=== PATIENT | male | born 1960 | race Caucasian/White ===

== ENCOUNTER 2017-10-01 08:11 | Day surgery (SDC) | payer MEDICAID, SELFPAY ==
[2017-10-01] VITALS (12 sets, daily range): BP systolic 125–187; BP diastolic 77–119; PULSE 70–106; RESP 16–18; TEMP 36.7–37.1; O2SAT 89–98; BMI 21.8
[2017-10-01] MEDS: Cefazolin 1 GM/50 ML BAG IV (09:27)
--- NOTE | 2017-10-01 09:45 | RAD_ITS ---
STUDY: X-RAY - LEFT WRIST REASON FOR EXAM: Male, 57 years old. ORIF of the left wrist. TECHNIQUE: 2 intraoperative view(s) of the wrist were obtained. COMPARISON: None. FINDINGS: There is evidence of open reduction and fixation of the distal radial fracture using sideplate and screw fixation device. There is good alignment. RAD/Wrist 2 Views IMPRESSION: Successful ORIF of the distal radial fracture. Electronically Signed: Victor Manuel Llanes MD at 12:33 EDT Tel [phone], Service support ,
--- NOTE | 2017-10-01 10:25 | PCM.OPRPT ---
Report of Operation Date of Procedure: 10/01/17 Pre-Operative Diagnosis: Left extra-articular distal radius fracture Post-Operative Diagnosis: Left extra-articular distal radius fracture Surgery/Procedure Performed:: Open reduction internal fixation left distal radius fracture extra-articular Description of Surgical Findings:: Well reduced fracture hydraulic elevator constructor: Fernandez Flor Type of Anesthesia:: General Anesthesiologist: Sridhar Puga Special Medications: 2 g Ancef Estimated Blood Loss (mL): 5 Fluids Replaced: 700 ml Description of Procedure: 57-year-old male who sustained a unstable Anderson's fracture of his left distal radius. He was seen in the office by my physician educational program assistant based on stability of the fracture after review the case recommended open reduction internal fixation of the fracture. Risks and benefits were discussed the patient in the preoperative area as well as in the office. I did reexamine the patient the preoperative area. He was neurovascular intact. Skin was intact. Risks and benefits discussed the patient by myself include but are not limited to blood loss, DVTs, PEs, nervous damage, infection, the risk of anesthesia including loss of life. Procedure: On the procedure patient's left arm was marked in the preoperative area. Patient was taken back the operating room where there transferred to the table in supine position. Anesthesia controlled C-spine airway and remained controlled throughout the remainder the procedure. All bony prominences were identified well-padded after anesthesia was administered tourniquet was placed in the left upper arm. Stent was removed. Hand was vigorously scrubbed using chlorhexidine soap to remove gross debris. Chlorhexidine prep stick was then used to prep the extremity. Surgeon scrubbed. Upon reentering the room left upper extremity was draped in a standard orthopedic fashion. Incision was marked out over the volar wrist along the FCR. Timeout was called and when agreed upon the side, the site, and the procedure to be performed, patient identity and by skin. Esmarch bandage was used to obtain it extremity and tourniquet was placed up to 250 mmHg. Incision was taken down through skin subtenons tissue. We identified the fascia over the FCR. This was incised. FCR was retracted ulnarly and the deep fascia was then incised. FPL was then retracted ulnarly. The radial edge of the pronator quadratus was identified and incised off the radial border of the radius. At this time we can identify the fracture. Carlos was placed in the fracture site help with reduction. Fracture was reduced and live x-ray was used to verify fracture reduction. Once they are happy the fracture reduction plate was provisionally fixed using K wires. Once we are happy with the plate placement which was verified under live x-ray screw was placed proximally. Once the proximal screw was placed 2 cortical screws were placed distally to draw the plate to the bone. Once these 2 cortical screws were placed the locking she was placed an additional cortical screw was placed. Plate placement was again verified. The final cortical screw was then placed and final x-rays were taken. We are happy with our fracture reduction at this time. Wound was copiously irrigated out normal saline. Incision was closed with 2-0 Vicryl and final skin closure was done with Monocryl and Steri-Strips. Xeroform dressing was placed. Compressive dressing was placed. Volar splint was placed. Patient was awakened by anesthesia and transferred to PACU for recovery. Postoperative plan for this patient 6 weeks nonweightbearing. We removed and he will start physical therapy for range of motion at 2 weeks postop. Grafts/Implants Used: Synthes 2 hole small left distal radius plate, VA - Complications none - Admit VTE Documentation VTE Present on Admission: No VTE Mechan Device Prophylaxis: SCD's VTE Pharm Prophylaxis ordered?: No Reason prophylaxis not ordered:: Treatment Not Indicated
[2017-10-01] MEDS: Ketorolac 30 MG/ML Syringe IV (10:58)
[2017-10-01] MEDS: oxyCODONE 5 MG Tablet PO (11:18)
[2017-10-01] MEDS: Acetaminophen 500 MG Tablet 1000 MG PO (11:18)
[2017-10-01] MEDS: Ipratropium/Albuterol Sulfate 3 ML AMPUL.NEB INHALATION (11:59)
== END 2017-10-01 12:56 | disposition home or self-care (01) ==
LOC: SDC 08:17 → AC 08:21
PROVIDERS: Visit Provider Specialist
PROC: (CPT 25607; principal; 2017-10-01 09:45)
DX: S52.542A Smith's fracture of left radius, initial encounter for closed fracture (principal); W19.XXXA Unspecified fall, initial encounter; Y93.H9 Activity, other involving exterior property and land maintenance, building and construction; Y92.9 Unspecified place or not applicable; Y99.9 Unspecified external cause status; I10 Essential (primary) hypertension; G40.909 Epilepsy, unspecified, not intractable, without status epilepticus; F17.218 Nicotine dependence, cigarettes, with other nicotine-induced disorders; Z86.73 Personal history of transient ischemic attack (TIA), and cerebral infarction without residual deficits
CPT/HCPCS: 25607; 73100; 76000; C1713; J7120; J2405

== ENCOUNTER 2021-07-05 07:51 | Outpatient (CLI) | payer MEDICARE, MEDICAID, SELFPAY ==
--- NOTE | 2021-07-05 08:07 | CDU_ITS ---
Reason For Study: Hx multiple CVAs. Rt. Velocities/BP Lt. Velocities/BP Prox CCA 50.9/0.0 cm/sec. Prox CCA 84.2/23.7 cm/sec. Mid CCA 46.2/8.4 cm/sec. Mid CCA 75.4/21.5 cm/sec. Dist CCA 34.8/8.6 cm/sec. Dist CCA 72.1/24.8 cm/sec. ICA is OCCLUDED. Prox ICA 85.3/34.7 cm/sec. Prox ECA 100.7/12.7 cm/sec. Mid ICA 73.2/30.3 cm/sec. Rt. Vert. 38.0/16.2 cm/sec. Dist ICA 86.3/42.4 cm/sec. Lt. ICA/CCA = 86.3/75.4=1.1. Prox ECA 91.9/10.5 cm/sec. Lt. Vert. 31.3/15.6 cm/sec. Right Extracranial There is homogeneous, smooth atherosclerotic plaque noted in the right common carotid artery. There is heterogeneous, irregular atherosclerotic plaque noted in the right internal carotid artery. The right internal carotid artery is occluded. There is intimal thickening but no significant atherosclerotic plaque noted in the right external carotid artery. Antegrade flow is noted in the right vertebral artery. Left Extracranial There is homogeneous, smooth atherosclerotic plaque noted in the left common carotid artery. There is heterogeneous, irregular atherosclerotic plaque noted in the left internal carotid artery. There is intimal thickening but no significant atherosclerotic plaque noted in the left external carotid artery. Antegrade flow is noted in the left vertebral artery. Procedure Carotid Duplex 11576. This is a Carotid Duplex examination using B-mode, color flow and specral Doppler. Exam performed in department. Dr. Randall & offices notified of occluded RITU @ 8:50am. VL/Carotid Duplex Ultrasound Interpretation Summary No flow is identified in the right internal carotid artery consistent with occl usion. Clinical correlation would be appropriate Less than 50% stenosis right external carotid artery Irregular calcific plaque at the proximal left internal carotid artery with les s than 50% stenosis. Less than 50% stenosis left external carotid artery Patent and antegrade vertebral arteries bilaterally Ordering Physician: Fernandez Randall Referring Physician: NO PCP Performed By: Sunshine Aguilar, ARTIE, RVT
[2021-07-05 09:19] LABS: Hematocrit 36.4 % (40-54); Hemoglobin 11.1 g/dL (13.0-16.5); Mean Corp Hgb Conc 30.5 g/dL (32-36); Mean Corpuscular Hgb 23.7 pg (27.0-32.0); Mean Corpuscular Volume 77.8 fL (80-94); Mean Platelet Vol. 8.4 fl (6.2-12.0); Platelet Count 327 K/mm3 (150-450); RBC Distribution Width CV 18.2 % (11.6-14.6); RBC Distribution Width SD 51.3 fl (35.1-43.9); Red Blood Count 4.68 M/mm3 (4.6-6.2); White Blood Count 6.9 K/mm3 (4.4-11.0)
[2021-07-05 09:22] LABS: Erythrocyte Sedimentation Rate 18 mm/hr (0-20)
[2021-07-05 09:53] LABS: Cholesterol 108 mg/dL (200); High Density Lipoprotein 52 mg/dL; Thyroid Stim Hormone (TSH) 0.74 uIU/mL (0.358-3.74); Triglycerides 83 mg/dL; Very Low Density Lipoprotein 17 mg/dL (5-40)
[2021-07-05 09:59] LABS: Vitamin B12 504 pg/mL (211-911)
[2021-07-06 20:06] LABS: ANTINUCLEAR ANTIBODIES DIRECT Negative (Negative)
[2021-07-17 12:07] LABS: Complement C3 127 mg/dL (82-167); Dilute Prothrombin Time (dPT) 38.4 sec (0.0-47.6); Dilute Russell Viper Venom 46.2 sec (0.0-47.0); KEPPRA (LEVETIRACETAM) 12.4 ug/mL (10.0-40.0); PTT-LA 35.3 sec (0.0-51.9); Protein C Antigen 101 % (60-150); Protein S, Free 118 % (61-136); Thrombin Time 17.3 sec (0.0-23.0); Vitamin B1, Thiamine 124.9 nmol/L (66.5-200.0)
[2021-07-17 14:20] LABS: Complement CH50 > 60 U/mL (>41); Protein S, Total 79 % (60-150)
[2021-07-17 14:21] LABS: Anti-Cardiolipin Ab, IgA, Qn < 9 APL U/mL (0-11); Anti-Cardiolipin Ab, IgG, Qn < 9 GPL U/mL (0-14); Anti-Cardiolipin Ab, IgM, Qn 18 MPL U/mL (0-12); Anti-Thrombin 3 AG, Immunol 99 % (72-124); Antithrombin 3 Function 121 % (75-135); Interpretation Comment: (.); Protein C, Functional 143 % (73-180); Protein S, Funtional 87 % (63-140)
== END 2021-07-05 23:59 | disposition home or self-care (01) ==
PROVIDERS: Visit Provider Psychiatry & Neurology Neurology
DX: I69.30 Unspecified sequelae of cerebral infarction (principal); F03.90 Unspecified dementia, unspecified severity, without behavioral disturbance, psychotic disturbance, mood disturbance, and anxiety; G40.909 Epilepsy, unspecified, not intractable, without status epilepticus; E03.9 Hypothyroidism, unspecified
CPT/HCPCS: 36415; 80061; 80177; 81240; 81241; 82140; 82607; 82746; 84425; 84443; 85027; 85300; 85301; 85302; 85303; 85305; 85306; 85652; 86038; 86147; 86160; 86162; 86225; 86235; 93880

== ENCOUNTER → 2021-07-27 | Outpatient (CLI) | payer MEDICARE, MEDICAID, SELFPAY ==
--- NOTE | 2021-07-27 08:38 | MRI_ITS ---
EXAM: MR HEAD WITHOUT AND WITH INTRAVENOUS CONTRAST CLINICAL INDICATION: Epilepsy and history of stroke TECHNIQUE: Multiplanar and multisequence MR images of the brain were obtained without and with intravenous contrast. This report was created using [employer] report Mis [employer] technology. CONTRAST: 13 mL of IV Dotarem. COMPARISON: None. FINDINGS: BRAIN AND EXTRA-AXIAL SPACES: Large old cortical-based ischemic infarct with cystic encephalomalacia involving the right cerebral hemisphere. There is sparing of the right lentiform nucleus and right insular lobe. Following IV contrast administration, there are no abnormal enhancing lesions intraaxially and extra-axially. Mild atrophy of the right cerebral peduncle due to Wallerian degeneration. Mild ex vacuo dilatation of the right lateral ventricle. No intra- or extra-axial hemorrhage. No intracranial mass or mass effect. Posterior fossa structures are unremarkable. Basal cisterns are patent. SELLA: Unremarkable. Normal sella turcica, pituitary gland, infundibular stalk, optic chiasm and hypothalamus. AUDITORY SYSTEM: Unremarkable. The internal auditory canals are patent. BONES/JOINTS: Unremarkable. No discrete lytic or blastic abnormalities. SINUSES: Air-fluid levels in the maxillary sinuses. MASTOID AIR CELLS: Unremarkable as visualized. Clear. ORBITS: Unremarkable as visualized. Both globes, extraocular muscles, optic nerves and retrobulbar fat appear unremarkable. VASCULATURE: Unremarkable as visualized. Normal flow voids in the major intracranial circulation. MRI/Brain W/WO Contrast IMPRESSION: 1. Large old cortical-based ischemic infarct with cystic encephalomalacia and atrophy in the right cerebral hemisphere but there is sparing of the right lentiform nucleus and the right insular lobe. This accounts for the atrophy of the right cerebral peduncle due to Wallerian degeneration. 2. No MRI evidence of acute or subacute ischemic infarct or acute intracranial abnormality. 3. No MRI evidence of any abnormal enhancing lesions intraaxially and extra-axially. 4. Air-fluid levels in the maxillary sinuses are suspicious for acute sinusitis. Electronically Signed: Angel Gamez MD at 15:45 EDT ,
--- NOTE | 2021-07-27 10:14 | TELEMED_ITS ---
[facility] Tele[facility] has confirmed receipt of a request for visit. This document confirms receipt of the order initiating the consult. To find the results of the consultation, please view the patient's reports for the scanned Telemed Consult.
[2021-07-27 11:15] LABS: CREATININE FINGERSTICK 0.9 mg/dL (0.70-1.30); EGFR FINGERSTICK > 60.0000 mL/min (>60)
== END | disposition home or self-care (01) ==
PROVIDERS: Referring Provider Psychiatry & Neurology Neurology; Visit Provider Psychiatry & Neurology Neurology
DX: G40.909 Epilepsy, unspecified, not intractable, without status epilepticus (principal); I69.30 Unspecified sequelae of cerebral infarction
CPT/HCPCS: 70553; 95819; A9575

== ENCOUNTER 2021-09-23 12:49 | Emergency (ER) | payer MEDICARE, MEDICAID, SELFPAY ==
[2021-09-23 12:49] VITALS: BP 110/96; PULSE 77; RESP 20; O2SAT 93
[2021-09-23 12:50] VITALS: BP 110/96; PULSE 75; RESP 15; TEMP 36.9; O2SAT 96; BMI 20.6
[2021-09-23 12:53] VITALS: O2SAT 95
--- NOTE | 2021-09-23 13:03 | CT_ITS ---
STUDY: CT BRAIN WITHOUT CONTRAST REASON FOR EXAM: Male, 61 years old. Headache after trauma RADIATION DOSAGE (If Supplied By Facility): CTDIvol = ( 44.99 ) mGy, DLP = ( 846.73 ) mGycm TECHNIQUE: Transaxial CT imaging of the brain was performed without administration of intravenous contrast material. Individualized dose optimization techniques were used for this CT. COMPARISON: MRI from 07/27/2021 FINDINGS: Normal soft tissue structures. Normal calvarium. Old right MCA infarct. Normal size ventricles and extra-axial spaces for the patient''s age. There are areas of decreased attenuation within the white matter tracts of the supratentorial brain, consistent with microvascular disease changes. Normal basal ganglia and thalami. Normal brainstem. Normal cerebellum. There is no intracranial hemorrhage. There are no findings of an acute ischemic infarction. There is mucoperiosteal inflammatory disease of the paranasal sinuses consistent with moderate chronic sinusitis. CT/Brain/Head without Contrast IMPRESSION: Old right MCA infarct with encephalomalacia No acute hemorrhage midline shift or mass effect Paranasal sinusitis Electronically Signed: Paolo Bustillos MD at 13:59 EDT ,
--- NOTE | 2021-09-23 13:06 | EDS_ITS ---
HPI HPI - Fall History of Present Illness Chief Complaint: Fall Informant: patient and EMS Narrative Narrative: Patient had some falls today. He tells me he has had 100s of falls before. He had a stroke. He is weak on his left side. He has trouble walking and he falls very easily. He states his strength is bad but also his balance is bad. Nothing found out of the normal today. He lives in an assisted living facility. He used his for prong cane to walk up to get some twisted tea cans. Normally they get the twisted tea for him. But they have not been doing that recently. He states he fell a couple times but he is not hurt. He did scrape his right arm which is his good arm but it does not hurt to move. He hit his face but it does not hurt. He is on Plavix and aspirin. No other blood thinners. [facility] Medical History Anxiety disorder, unspecified Ataxia, unspecified Ataxic gait Benign prostatic hyperplasia with lower urinary tract symptoms Cerebral infarction, unspecified Chronic obstructive pulmonary disease, unspecified Cognitive communication deficit Encephalopathy, unspecified Epilepsy, unspecified, not intractable, without status epilepticus Essential (primary) hypertension Gastro-esophageal reflux disease without esophagitis Generalized anxiety disorder Hemiplegia and hemiparesis following cerebral infarction affecting left non- dominant side Hyperlipidemia, unspecified Hypothyroidism, unspecified Insomnia, unspecified Localization-related (focal) (partial) idiopathic epilepsy and epileptic syndromes with seizures of localized onset, not intractable, without status epilepticus Major depressive disorder, recurrent, mild Mixed hyperlipidemia Mixed simple and mucopurulent chronic bronchitis Muscle weakness (generalized) Occlusion and stenosis of unspecified carotid artery Other abnormalities of gait and mobility Other sequelae of cerebral infarction Other specified hypothyroidism Other toxic encephalopathy Pain in left leg Primary insomnia Stroke Syncope and collapse Thyroid disease Unspecified abnormalities of gait and mobility Unspecified sensorineural hearing loss Unspecified symptoms and signs involving cognitive functions and awareness Home Medications clopidogrel 75 mg tablet 75 mg PO DAILY BLOOD THINNER 09/30/17 [History Last Taken 09/26/17] aspirin 81 mg capsule 81 mg PO DAILY 06/26/21 [History Last Taken Unknown] atorvastatin 80 mg tablet 80 mg PO QHS 06/26/21 [History Last Taken Unknown] buspirone 10 mg tablet 20 mg PO TID 06/26/21 [History Last Taken Unknown] gabapentin 300 mg capsule 300 mg PO TID 06/26/21 [History Last Taken Unknown] levetiracetam 500 mg tablet 500 mg PO BID 06/26/21 [History Last Taken Unknown] levothyroxine 50 mcg tablet 75 mcg PO DAILY 06/26/21 [History Last Taken Unknown] lisinopril 20 mg tablet (Zestril) 5 mg PO DAILY BP 06/26/21 [History Last Taken Unknown] melatonin 5 mg capsule mg PO 06/26/21 [History Last Taken Unknown] metoprolol tartrate 50 mg tablet 50 mg PO BID 06/26/21 [History Last Taken Unknown] montelukast 10 mg tablet 10 mg PO QHS 06/26/21 [History Last Taken Unknown] sertraline 100 mg tablet 100 mg PO DAILY 06/26/21 [History Last Taken Unknown] sodium chloride 0.65 % nasal spray aerosol (Deep Sea Nasal) 2 spray intranasal HS 06/26/21 [History Last Taken Unknown] tamsulosin 0.4 mg capsule 0.4 mg PO DAILY 06/26/21 [History Last Taken Unknown] Allergy/AdvReac Type Severity Reaction Status Date / Time No Known Allergies Allergy Verified 09/23/21 12:50 Surgical History Hx of appendectomy Social History Smoking Status: Light Smoker (<10/day) Electronic Cigarette Use: with nicotine alcohol intake: current alcohol intake frequency: 0-2 drinks per day Alcohol type: beer details: 2-3 hard ice teas a day substance use type: does not use ROS ROS ED Constitutional Constitutional ED: Denies chills or fever(s) Eyes Eyes: Denies blurry vision or change in vision ENT ENT ED: Reports other Details: Abrasions to his right cheek but states it does not hurt. ; Denies ear pain Cardiovascular Cardiovascular: Denies chest pain, palpitations or racing heartbeat Respiratory/Chest Respiratory/Chest: Denies cough or dyspnea Gastrointestinal Gastrointestinal: Denies nausea or vomiting Genitourinary Genitourinary ED: Denies hematuria Musculoskeletal Musculoskeletal: Denies arthralgias, back pain or neck pain Integumentary Reports Abrasions Neurologic Neurologic: Reports other Details: Patient has chronic left-sided weakness but nothing new or different. ; Denies headache(s), paresthesias or weakness Endocrine Endocrinology: Denies polyphagia or polyuria Hematologic/Lymphatic Hematologic/Lymphatic: Reports easy bleeding and easy bruising Allergic/Immunologic Allergic/Immunologic ED: Denies urticaria EXAM Physical Exam Const Vital Signs: 09/23/21 12:50 09/23/21 12:49 09/23/21 12:53 Temperature 98.4 F Temperature Source Temporal Pulse Rate 75 77 Respiratory Rate 15 20 H Respiratory Effort Normal Respiratory Depth Normal Respiratory Pattern Normal Blood Pressure 110/96 H 110/96 H Blood Pressure Mean 100 100 Pulse Ox 96 93 95 Oxygen Delivery Method Room Air Room Air Room Air 09/23/21 15:45 Temperature Temperature Source Pulse Rate 62 Respiratory Rate 15 Respiratory Effort Respiratory Depth Respiratory Pattern Blood Pressure 145/84 H Blood Pressure Mean 104 Pulse Ox 98 Oxygen Delivery Method Room Air Positive well nourished and well developed General Appearance ED: well developed HEENT HEENT Narrative: Patient has abrasions near his right cheek. But no bony tenderness. No step- off of the zygoma from inside the mouth or outside. Range of motion the eye is normal. No facial anesthesia. Eyes PERRL and EOMs intact bilaterally Neck full ROM Neck Narrative: No tenderness, pain or pain with range of motion. General: Negative for tenderness Resp normal respiratory effort and clear to auscultation bilaterally Auscultation: Negative for rales, rhonchi or wheezes Cardio regular rate and regular rhythm GI non-tender and non-distended Palpation: soft Back/Spine no CVA tenderness Back/Spine Narrative: No tenderness cervical thoracic or lumbar spine. Neuro oriented x3 Sensorium / Orientation: alert, oriented to person, oriented to place, oriented to time and other Patient awake alert and appropriate. He is very alert and oriented and consistent with what happened today. He is a good informant for his medical history but does not know all his medications. However, this is not uncommon that people do not know other medications well. Psych mental status grossly normal Skin Skin Narrative: Abrasions on face and a few on the dorsum of his right hand and forearm area. None appear to need suturing. MDM MDM MDM Narrative Medical decision making narrative: Patient's white count is normal. Mild nonspecific anemia. Platelets are normal. Electrolytes are overall unremarkable. Alcohol is negative. CT scan of the head showed his old right-sided infarct which is known. No acute process or mass-effect. Patient is rechecked. He is awake alert he has no complaints. We are cleaning his wounds. Plan will be to get him home. He has a very slight laceration to the right cheek but it is an area of significant abrasions. It does not really open up. We will clean it more but does not look like it is amenable to closure as it is quite small. If he gets more weakness, focal weakness, low blood pressure, chest pain or other concerns he should return. After cleaning the cheek, there was an area that opened up a little bit. This it had some good clot over it. But after irrigating I think this would do better sutured. 3 interrupted 6-0 Ethilon were placed please see procedure note. Lab Data Attestation: I reviewed the patient's lab results. Labs: Laboratory Results - last 24 hr 09/23/21 09/23/21 09/23/21 13:15 13:15 13:15 WBC 5.7 RBC 4.71 Hgb 12.5 L Hct 40.3 MCV 85.6 MCH 26.5 L MCHC 31.0 L RDW Std Deviation 67.2 H RDW Coeff of Rosa M 22.5 H Plt Count 260 MPV 8.8 Immature Gran % (Auto) 0.300 Neut % (Auto) 65.2 Lymph % (Auto) 21.6 Wilson % (Auto) 7.0 Eos % (Auto) 5.2 H Baso % (Auto) 0.7 Absolute Neuts (auto) 3.7 Absolute Lymphs (auto) 1.24 Nucleated RBC % 0 Differential Comment SCANNED Anisocytosis 2+ Sodium 139 Potassium 4.1 Chloride 106 Carbon Dioxide 24.0 Anion Gap 9 BUN 14 Creatinine 0.99 Estim Creat Clear Calc 72.05 Est GFR (MDRD) Af Amer 99 Est GFR (MDRD) Non-Af 82 BUN/Creatinine Ratio 14.2 Glucose 90 Calcium 8.9 Ethyl Alcohol < 3.0 Radiography Diagnostic Testing: Clinical Impression(s) from Imaging Studies Brain CT 09/23/21 13:03 IMPRESSION: Old right MCA infarct with encephalomalacia No acute hemorrhage midline shift or mass effect Paranasal sinusitis Electronically Signed: Paolo Bustillos MD at 13:59 EDT , Procedures Lacerations Right cheek: Depth: Sub Q Shape: Linear Prep: Shure-Clens Laceration repair: Irrigated, Lidocaine, Local and Skin sutures Irrigated (ml): 75 Number of Sutures/Preble: 3 Suture Information: Ethilon, Simple and 6-0 Comment: Patient tolerated procedure well. No notable blood loss. Care explained that they should come out in 3 to 5 days. Discharge Plan Triage Chief Complaint: Fall ED Provider: Ulises Fischer Dx/Rx/DC Orders Clinical Impression: Falls, History of stroke, Laceration of cheek, right Instructions: ED Fall Prevention Prescriptions: No Action metoprolol tartrate 50 mg tablet 50 mg PO BID sertraline 100 mg tablet 100 mg PO DAILY levetiracetam 500 mg tablet 500 mg PO BID aspirin 81 mg capsule 81 mg PO DAILY buspirone 10 mg tablet 20 mg PO TID gabapentin 300 mg capsule 300 mg PO TID Deep Sea Nasal 0.65 % aerosol,spray 2 spray intranasal HS tamsulosin 0.4 mg capsule 0.4 mg PO DAILY montelukast 10 mg tablet 10 mg PO QHS melatonin 5 mg capsule PO atorvastatin 80 mg tablet 80 mg PO QHS clopidogrel 75 MG tablet 75 mg PO DAILY levothyroxine 50 mcg tablet 75 mcg PO DAILY lisinopril [Zestril] 20 mg tablet 5 mg PO DAILY Primary Care Provider: Care Physician,No Primary Referrals: Care Physician,No Primary [Primary Care Provider] - Activity Restrictions/Additional Instructions: Follow-up with your physician for recheck later this week. Disposition Disposition: Assisted Living
[2021-09-23 13:24] LABS: Absolute Lymphocyte Count 1.24 X10^3/uL (0.83-4.51); Absolute Neutrophil Count 3.7 X10^3/uL (2.0-7.7); Basophil# 0.04 X10^3/uL; Basophil% 0.7 % (0-1); Eosinophils% 5.2 % (0-5); Hematocrit 40.3 % (40-54); Hemoglobin 12.5 g/dL (13.0-16.5); Lymphocyte # 1.24 X10^3/ul (0.83-4.51); Lymphocyte % 21.6 % (19-41); Mean Corpuscular Hgb 26.5 pg (27.0-32.0); Mean Corpuscular Volume 85.6 fL (80-94); Mean Platelet Vol. 8.8 fl (6.2-12.0); NRBC Flagged by Analyzer 0 % (0-5); Neutrophil # 3.73 X10^3/uL (2.7-7.7); Neutrophil % 65.2 % (47-70); POSITIVE MORPHOLOGY YES; Platelet Count 260 K/mm3 (150-450); RBC Distribution Width CV 22.5 % (11.6-14.6); RBC Distribution Width SD 67.2 fl (35.1-43.9); Red Blood Count 4.71 M/mm3 (4.6-6.2); White Blood Count 5.7 K/mm3 (4.4-11.0)
[2021-09-23 13:26] LABS: Differential Indicated SCAN CRITERIA MET
[2021-09-23 13:38] LABS: Anion Gap 9 (5-15); BUN 14 mg/dL (7-18); BUN/Creat Ratio 14.2 RATIO (10-20); Calcium,Total 8.9 mg/dL (8.5-10.1); Chloride 106 mmol/L (98-107); Creatinine, Serum 0.99 mg/dL (0.70-1.30); EST Glomerular Filtration Rate 82 mL/min (>60); Est Glom Filt Rate - Afr Amer 99 mL/min (>60); Estimated Creatinine Clearance 72.05 ml/min; Glucose 90 mg/dL (74-106); Potassium 4.1 mmol/L (3.5-5.1); Sodium Level 139 mmol/L (136-145)
[2021-09-23 13:54] LABS: Anisocytosis 2+; Differential Comment SCANNED
[2021-09-23 14:15] LABS: Alcohol, Blood (Medical)-Serum < 3.0 mg/dL
[2021-09-23 15:45] VITALS: BP 145/84; PULSE 62; RESP 15; O2SAT 98
[2021-09-23 16:04] VITALS: BP 145/84; PULSE 78; RESP 14; O2SAT 96
== END 2021-09-23 16:05 | disposition home or self-care (01) ==
PROVIDERS: Emergency Provider Emergency Medicine; Visit Provider Emergency Medicine
DX: S01.411A Laceration without foreign body of right cheek and temporomandibular area, initial encounter (principal); I69.354 Hemiplegia and hemiparesis following cerebral infarction affecting left non-dominant side; J44.9 Chronic obstructive pulmonary disease, unspecified; W19.XXXA Unspecified fall, initial encounter; Z91.81 History of falling; Y92.099 Unspecified place in other non-institutional residence as the place of occurrence of the external cause; F41.9 Anxiety disorder, unspecified; N40.0 Benign prostatic hyperplasia without lower urinary tract symptoms; K21.9 Gastro-esophageal reflux disease without esophagitis; I10 Essential (primary) hypertension; E78.5 Hyperlipidemia, unspecified; E03.9 Hypothyroidism, unspecified; F32.A Depression, unspecified; G43.909 Migraine, unspecified, not intractable, without status migrainosus; Z79.899 Other long term (current) drug therapy; Z79.82 Long term (current) use of aspirin; Z79.02 Long term (current) use of antithrombotics/antiplatelets; S60.511A Abrasion of right hand, initial encounter; S50.811A Abrasion of right forearm, initial encounter; D64.9 Anemia, unspecified; F17.210 Nicotine dependence, cigarettes, uncomplicated
CPT/HCPCS: 12011; 70450; 80048; 82077; 85025; 99285; A4216

== ENCOUNTER → 2022-04-18 | Outpatient (CLI) | payer MEDICARE, MEDICAID, SELFPAY ==
--- NOTE | 2022-04-18 13:21 | CT_ITS ---
STUDY: CTA HEAD AND NECK WITH CONTRAST REASON FOR EXAM: Male, 62 years old. Prior Hx of CVA; R ICA occlusion on ultrasound RADIATION DOSAGE (If Supplied By Facility): CTDIvol = ( 32.98 ) mGy, DLP = ( 1485.33 ) mGycm TECHNIQUE: CT angiography was performed with a multi-detector CT scanner. Data acquisition was obtained from the skull base through the vertex following intravenous administration of IV 100mL [id number]-[id number]. MIP images were reconstructed from the axial data set. Post-processing of the angiographic images was performed, with multiplanar reformation and 3D reconstruction. Individualized dose optimization techniques were used for this CT. COMPARISON: No relevant priors. FINDINGS: Normal bilateral petrous carotid arteries. There is nonvisualization of the cavernous portion of the right internal carotid artery. Normal left cavernous carotid artery with a normal supraclinoid bifurcation. Normal right A1 segments of the anterior cerebral artery. Normal left A1 segments of the anterior cerebral artery. Normal intact anterior communicating artery (ACOM). Normal bilateral A2 segments of the anterior cerebral arteries. Normal right M1 and M2 segments of the middle cerebral arteries, with a normal M1 bifurcation. Normal left M1 and M2 segments of the middle cerebral arteries, with a normal M1 bifurcation. Normal right posterior communicating artery (PCOM). Normal left posterior communicating artery (PCOM). Normal bilateral vertebral arteries. Normal basilar artery with a normal basilar bifurcation. The visualized bilateral superior cerebellar (SCA) arteries are normal. Normal bilateral P1, P2 and visualized P3 segments of the posterior cerebral arteries. There is no demonstrated aneurysm of the [place]. Diffuse cerebral atrophy. Encephalomalacia is seen in the right frontal parietal lobes in keeping with prior infarction. AORTIC ARCH: Normal visualized aortic arch. Normal origins of the brachiocephalic, left common carotid, and left subclavian arteries. Atherosclerotic plaque at the origin of the left subclavian artery. RIGHT CAROTID ARTERIES: Normal right common carotid artery (CCA). Normal right common carotid bulb. There is complete occlusion of the origin of the right internal carotid artery without demonstrated arterial flow. Normal visualized cervical portion of the right internal carotid artery. Normal origin of the right external carotid artery (ECA). LEFT CAROTID ARTERIES: There is atherosclerotic plaque formation of the common carotid artery, but without a hemodynamically significant stenosis. Normal left common carotid bulb. There is extensive atherosclerotic plaque formation of the origin of the left internal carotid artery with an estimated stenosis of greater than 70%. Normal visualized cervical portion of the left internal carotid artery. Normal origin of the left external carotid artery (ECA). VERTEBRAL ARTERIES: There is enhancement within the bilateral vertebral arteries with a small right vertebral artery, and a dominant left vertebral artery. Atherosclerotic plaque formation is seen in the midportion of the right vertebral artery. CT/CTA Head AND Neck W/ Contrast IMPRESSION: Occlusion of the right internal carotid artery at its origin. Nonvisualization of the cavernous portion of the right internal carotid artery. Greater than 70% stenosis at the origin of the left internal carotid artery. Electronically Signed: Victor Manuel Llanes MD at 15:32 EST ,
[2022-04-18 14:16] LABS: CREATININE FINGERSTICK < 0.9 mg/dL (0.70-1.30); EGFR FINGERSTICK > 60.0000 mL/min (>60)
== END | disposition home or self-care (01) ==
LOC: CT 13:19
PROVIDERS: Visit Provider Psychiatry & Neurology Neurology
DX: G31.9 Degenerative disease of nervous system, unspecified (principal); I69.398 Other sequelae of cerebral infarction; I65.21 Occlusion and stenosis of right carotid artery
CPT/HCPCS: 70496; 70498; Q9967

== ENCOUNTER 2022-05-14 15:12 | Emergency (ER) | payer MEDICARE, MEDICAID, SELFPAY ==
[2022-05-14 15:14] VITALS: BP 121/85; PULSE 66; RESP 18; TEMP 36.1; O2SAT 98; BMI 21.4
--- NOTE | 2022-05-14 15:21 | EDS_ITS ---
HPI History of Present Illness Chief Complaint: Weakness Detail of Chief Complaint: I had a spell Informant: patient and other Onset/Context/Timing Onset: Hours Context: Sudden Onset Timing: Intermittent Quality: Dates he is not sure why he is here. Nurse took report and states he was i Location: Physical therapy Current Severity: Gone Maximum Severity: Unable to determine since patient does not know why he is here Worsened by: Unknown Relieved by: Nothing Associated Symptoms Associated Symptoms: None Narrative Narrative: Patient is a 62-year-old male with history of 3 prior strokes most recent 1 year ago. He also has history of seizures, hypothyroidism and hypertension. Based on records reviewed he has history of H and is on an antithrombotic agent, Plavix. He denies headache. He denies double vision, blurred vision loss of vision. [place] ringing's ears or decreased hearing. He denies blood from his nose. He denies trouble with speech or swallowing. He denies chest pain, shortness of breath or cough. He denies abdominal pain, vomiting or diarrhea. He denies dysuria, frequency, urgency or hematuria. He has residual weakness left upper extremity. No seizure activity was noted. He was not incontinent of urine or stool. He did not bite his tongue. He denies headache. He does have history of depression on sertraline. Prior similar symptoms: Yes Recent Illness/Hospitalization: No PFSH PFS Medical History Anxiety disorder, unspecified Ataxia, unspecified Ataxic gait Benign prostatic hyperplasia with lower urinary tract symptoms Cerebral infarction, unspecified Chronic obstructive pulmonary disease, unspecified Cognitive communication deficit Encephalopathy, unspecified Epilepsy, unspecified, not intractable, without status epilepticus Essential (primary) hypertension Gastro-esophageal reflux disease without esophagitis Generalized anxiety disorder Hemiplegia and hemiparesis following cerebral infarction affecting left non- dominant side Hyperlipidemia, unspecified Hypothyroidism, unspecified Insomnia, unspecified Localization-related (focal) (partial) idiopathic epilepsy and epileptic syndromes with seizures of localized onset, not intractable, without status epilepticus Major depressive disorder, recurrent, mild Mixed hyperlipidemia Mixed simple and mucopurulent chronic bronchitis Muscle weakness (generalized) Occlusion and stenosis of unspecified carotid artery Other abnormalities of gait and mobility Other sequelae of cerebral infarction Other specified hypothyroidism Other toxic encephalopathy Pain in left leg Primary insomnia Stroke Syncope and collapse Thyroid disease Unspecified abnormalities of gait and mobility Unspecified sensorineural hearing loss Unspecified symptoms and signs involving cognitive functions and awareness Home Medications clopidogrel 75 mg tablet 75 mg PO DAILY BLOOD THINNER 09/30/17 [History Last Taken 09/26/17] aspirin 81 mg capsule 81 mg PO DAILY 06/26/21 [History Last Taken Unknown] atorvastatin 80 mg tablet 80 mg PO QHS 06/26/21 [History Last Taken Unknown] buspirone 10 mg tablet 20 mg PO TID 06/26/21 [History Last Taken Unknown] gabapentin 300 mg capsule 300 mg PO TID 06/26/21 [History Last Taken Unknown] levetiracetam 500 mg tablet 500 mg PO BID 06/26/21 [History Last Taken Unknown] levothyroxine 50 mcg tablet 75 mcg PO DAILY 06/26/21 [History Last Taken Unknown] lisinopril 20 mg tablet (Zestril) 5 mg PO DAILY BP 06/26/21 [History Last Taken Unknown] melatonin 5 mg capsule mg PO 06/26/21 [History Last Taken Unknown] metoprolol tartrate 50 mg tablet 50 mg PO BID 06/26/21 [History Last Taken Unknown] montelukast 10 mg tablet 10 mg PO QHS 06/26/21 [History Last Taken Unknown] sertraline 100 mg tablet 100 mg PO DAILY 06/26/21 [History Last Taken Unknown] sodium chloride 0.65 % nasal spray aerosol (Deep Sea Nasal) 2 spray intranasal HS 06/26/21 [History Last Taken Unknown] tamsulosin 0.4 mg capsule 0.4 mg PO DAILY 06/26/21 [History Last Taken Unknown] Allergy/AdvReac Type Severity Reaction Status Date / Time No Known Allergies Allergy Verified 05/14/22 15:16 Surgical History Hx of appendectomy Social History (Updated 05/14/22 @ 15:[address] Bill Lundberg MD) household members: none housing: [facility] Smoking Status: Unknown if ever smoked Electronic Cigarette Use: with nicotine alcohol intake: current alcohol intake frequency: 0-2 drinks per day Alcohol type: beer details: 2-3 hard ice teas a day substance use type: does not use ROS ROS ED Constitutional Constitutional ED: Denies chills, fever(s), subjective, sweats or weight loss Eyes Eyes: Denies blurry vision, change in vision or diplopia ENT ENT ED: Denies ear pain, rhinorrhea or sore throat Cardiovascular Cardiovascular: Denies chest pain, orthopnea, palpitations, paroxysmal nocturnal dyspnea or racing heartbeat Respiratory/Chest Respiratory/Chest: Denies cough, dyspnea, dyspnea on exertion, orthopnea or paroxysmal nocturnal dyspnea Gastrointestinal Gastrointestinal: Denies abdominal pain, diarrhea, melena, nausea or vomiting Genitourinary Genitourinary ED: Denies dysuria, hematuria or urinary frequency Musculoskeletal Musculoskeletal: Denies arthralgias, back pain, myalgias or neck pain Neurologic Neurologic: Reports other Details: Weakness left upper extremity due to prior strokes ; Denies headache(s), paresthesias or weakness Psychiatric Psychiatric: Denies anxiety or depression Endocrine Endocrinology: Denies cold intolerance or heat intolerance Hematologic/Lymphatic Hematologic/Lymphatic: Reports systems reviewed and no addt'l complaints, except as documented EXAM Physical Exam Const Vital Signs: 05/14/22 15:14 05/14/22 15:17 Temperature 96.9 F L Temperature Source Temporal Pulse Rate 66 Respiratory Rate 18 Respiratory Effort Normal Respiratory Pattern Normal Blood Pressure 121/85 H Blood Pressure Mean 97 Pulse Ox 98 Oxygen Delivery Method Room Air Positive well nourished and well developed General Appearance ED: well developed and NAD; Negative for cyanotic, diaphoretic or pallor HEENT Reports moist mucous membranes HEENT Narrative: Head is atraumatic normocephalic. Ears normal. Nares patent. No sinus tenderness. Posterior pharynx out erythema or exudate. Eyes PERRL and EOMs intact bilaterally General Eye ED: Negative for pale conjunctiva or scleral icterus Neck no lymphadenopathy, supple and no JVD Neck Narrative: Neck is supple. Trachea is midline. There are no carotid bruits noted. Chest Wall inspection of chest normal and palpation of chest normal Resp normal respiratory effort and clear to auscultation bilaterally Cardio regular rate, regular rhythm, S1 normal heart sound, S2 normal heart sound and no murmurs GI normal to inspection, nondistended, normoactive bowel sounds, non-tender, non- distended and no masses; Negative for hepatosplenomegaly Palpation: soft Back/Spine no CVA tenderness Cervical Spine: Negative for cervical spine tenderness Thoracic Spine / Upper Back: Negative for thoracic spinal tenderness Lumbar Spine / Lower Back: Negative for lumbar spinal tenderness Extremity Extremity Narrative: Patient has contracture atrophy of the left upper extremity due to prior stroke. He has altered sensation. Neuro oriented x3, CN's II-XII intact bilaterally and No no sensory deficits noted Sensorium / Orientation: alert Motor Exam: Negative for strength 5/5 throughout Psych mental status grossly normal Skin no rashes or lesions noted, no wounds and No skin turgor normal General Skin Exam: Negative for jaundice or pallor MDM MDM MDM Narrative Medical decision making narrative: Patient with near syncopal episode. This may represent vagal versus nonvagal cause. Patient was placed on a monitor to assess for dysrhythmia. EKG was obtained to determine if there is any ischemic changes or changes to suggest a preexcitation syndrome. CBC to rule out anemia. Basic metabolic panel to assess for hyponatremia, hyper natremia or hypokalemia. Prior records were reviewed and patient has had multiple strokes. CBC and basic metabolic panel from September 2021 were unremarkable. Note authored by Dr. Joseph Nowak was reviewed. Patient had CT of the head neck that revealed greater than 70% stenosis of the origin left internal carotid. There was occlusion of the right internal carotid artery at its origin. Lab Data Attestation: I reviewed the patient's lab results. Lab results narrative: CBC is unremarkable. Basic metabolic panel is unremarkable. Labs: Laboratory Results - last 24 hr 05/14/22 05/14/22 15:27 15:27 WBC 4.7 RBC 4.48 L Hgb 14.3 Hct 43.8 MCV 97.8 H MCH 31.9 MCHC 32.6 RDW Std Deviation 43.5 RDW Coeff of Rosa M 12.0 Plt Count 223 MPV 8.8 Immature Gran % (Auto) 0.200 Neut % (Auto) 56.8 Lymph % (Auto) 26.1 [place] % (Auto) 11.9 H Eos % (Auto) 4.4 Baso % (Auto) 0.6 Absolute Neuts (auto) 2.7 Absolute Lymphs (auto) 1.23 Nucleated RBC % 0 Sodium 141 Potassium 3.8 Chloride 109 H Carbon Dioxide 27.0 Anion Gap 5 BUN 16 Creatinine 0.71 Estim Creat Clear Calc 102.97 Est GFR (MDRD) Af Amer 146 Est GFR (MDRD) Non-Af 120 BUN/Creatinine Ratio 22.5 H Glucose 99 Calcium 8.8 Rhythm Strip Rhythm Strip: Sinus Rhythm Rate: 68 Ectopy: None EKG Initial EKG: Attestation: I personally reviewed and interpreted this EKG as follows: Interpretation: Sinus Bradycardia (Rate is 59. There is a first-degree AV block. CT interval is 224 ms. Cures duration 90 ms. QT duration 418 ms. [place] is normal. There is no acute ischemic changes noted.) Treatment and Re-Evaluation Narrative: Patient has mild sinus bradycardia on EKG with no ischemic changes, unremarkable blood work and no ectopy noted on his monitor during his ER stay. He will be discharged home since this is a known recurrent problem. Discharge Plan Triage Chief Complaint: Weakness ED Provider: Bill Lundberg Dx/Rx/DC Orders Clinical Impression: Near syncope, Thyroid disease, History of stroke with residual effects, History of seizure disorder Instructions: ED Near-Fainting, Uncertain Cause Prescriptions: No Action metoprolol tartrate 50 mg tablet 50 mg PO BID sertraline 100 mg tablet 100 mg PO DAILY levetiracetam 500 mg tablet 500 mg PO BID aspirin 81 mg capsule 81 mg PO DAILY buspirone 10 mg tablet 20 mg PO TID gabapentin 300 mg capsule 300 mg PO TID Deep Sea Nasal 0.65 % aerosol,spray 2 spray intranasal HS tamsulosin 0.4 mg capsule 0.4 mg PO DAILY montelukast 10 mg tablet 10 mg PO QHS melatonin 5 mg capsule PO atorvastatin 80 mg tablet 80 mg PO QHS clopidogrel 75 MG tablet 75 mg PO DAILY levothyroxine 50 mcg tablet 75 mcg PO DAILY lisinopril [Zestril] 20 mg tablet 5 mg PO DAILY Primary Care Provider: Care Physician,No Primary Referrals: Care Physician,No Primary [Primary Care Provider] - Doctor,Your [Non-Staff] - As Needed Disposition Disposition: Home, Self Care
--- NOTE | 2022-05-14 15:21 | EKG12_ITS ---
Test Reason : Blood Pressure : / mmHG Vent. Rate : 059 BPM Atrial Rate : 059 BPM P-R Int : 224 ms QRS Dur : 090 ms QT Int : 418 ms P-R-T Axes : 031 009 058 degrees QTc Int : 413 ms Sinus bradycardia with 1st degree A-V block Otherwise normal ECG Confirmed by VANESSA BLACK, VIC ([id number]), digital editor DANNIE HO ([id number]) on 05/15/2022 11:27:07 AM Referred By: TORI Confirmed By:VIC MENDEZ MD
[2022-05-14 15:37] LABS: Absolute Lymphocyte Count 1.23 X10^3/uL (0.83-4.51); Absolute Neutrophil Count 2.7 X10^3/uL (2.0-7.7); Basophil# 0.03 X10^3/uL; Basophil% 0.6 % (0-1); Eosinophil# 0.21 X10^3/uL; Eosinophils% 4.4 % (0-5); Hematocrit 43.8 % (40-54); Hemoglobin 14.3 g/dL (13.0-16.5); Lymphocyte # 1.23 X10^3/ul (0.83-4.51); Lymphocyte % 26.1 % (19-41); Mean Corp Hgb Conc 32.6 g/dL (32-36); Mean Corpuscular Hgb 31.9 pg (27.0-32.0); Mean Corpuscular Volume 97.8 fL (80-94); Mean Platelet Vol. 8.8 fl (6.2-12.0); Monocyte# 0.56 X10^3/uL; Monocyte% 11.9 % (0-10); NRBC Flagged by Analyzer 0 % (0-5); Neutrophil # 2.68 X10^3/uL (2.7-7.7); Neutrophil % 56.8 % (47-70); Platelet Count 223 K/mm3 (150-450); RBC Distribution Width SD 43.5 fl (35.1-43.9); Red Blood Count 4.48 M/mm3 (4.6-6.2); White Blood Count 4.7 K/mm3 (4.4-11.0)
[2022-05-14 15:51] LABS: Anion Gap 5 (5-15); BUN 16 mg/dL (7-18); BUN/Creat Ratio 22.5 RATIO (10-20); Calcium,Total 8.8 mg/dL (8.5-10.1); Chloride 109 mmol/L (98-107); Creatinine, Serum 0.71 mg/dL (0.70-1.30); EST Glomerular Filtration Rate 120 mL/min (>60); Est Glom Filt Rate - Afr Amer 146 mL/min (>60); Estimated Creatinine Clearance 102.97 ml/min; Glucose 99 mg/dL (74-106); Potassium 3.8 mmol/L (3.5-5.1); Sodium Level 141 mmol/L (136-145)
--- NOTE | 2022-05-14 16:15 | CM.ED ---
Social Work Note Referral Source: [facility] [place] Referral Reason: transportation needs [facility] [place] met with [facility] and explained patient is from [facility], however, the staff at state their transportation stops running at 4 and can not assist patient with transportation back to their facility. RN report patient is able to walk and has a cane. SW contacted [facility] transportation to inquire about their ability to transport patient. [facility] staff report there is one hire car driver currently able to provide a ride as long as patient can get in the car. SW explained patient's RN reports patient is able to walk independently with his cane. [facility] transportation to [place] patient now at ED entrance. SW informed [facility] [place] patient will be transported home by [facility] transport and can wait at the ED entrance. Plan: D/C, transportation provided by [facility] transportation NANCY Fischer
== END 2022-05-14 16:19 | disposition home or self-care (01) ==
PROVIDERS: Emergency Provider Emergency Medicine; Visit Provider Emergency Medicine
DX: R55 Syncope and collapse (principal); I69.334 Monoplegia of upper limb following cerebral infarction affecting left non-dominant side; G40.909 Epilepsy, unspecified, not intractable, without status epilepticus; Z87.891 Personal history of nicotine dependence; E78.2 Mixed hyperlipidemia; I10 Essential (primary) hypertension; Z79.899 Other long term (current) drug therapy; Z79.82 Long term (current) use of aspirin; F41.9 Anxiety disorder, unspecified; E03.9 Hypothyroidism, unspecified; Z79.890 Hormone replacement therapy; Z79.02 Long term (current) use of antithrombotics/antiplatelets
CPT/HCPCS: 80048; 85025; 93005; 99285

== ENCOUNTER 2022-08-15 13:15 | Emergency (ER) | payer MEDICARE, MEDICAID, SELFPAY ==
[2022-08-15 13:16] VITALS: BP 159/87; PULSE 61; RESP 18; TEMP 37.1; O2SAT 97; BMI 22.9
--- NOTE | 2022-08-15 13:35 | RAD_ITS ---
STUDY: X-RAY - CERVICAL SPINE REASON FOR EXAM: Male, 62 years old. Injury/Pain TECHNIQUE: XR Spine Cervical 2 or 3 Views COMPARISON: None FINDINGS: Normal anterior atlantoaxial articulation. The odontoid process is obscured by the overlying hard palate on the open mouth view. Therefore, it is not fully evaluated by plain film. There is straightening of the normal cervical lordosis. There is multi-level endplate spondylosis. There is multi-level degenerative disc disease with multilevel disc space narrowing. There is multi-level osseous foraminal stenosis. There are calcifications around the internal carotid arteries. This is consistent for atherosclerotic disease. RAD/Cerv Spine 2 or 3 Views IMPRESSION: There are degenerative changes as noted above. The odontoid process is obscured by the overlying hard palate on the open mouth view. Therefore, it is not fully evaluated by plain film. Electronically Signed: Moses Li MD at 14:55 EDT ,
--- NOTE | 2022-08-15 13:35 | RAD_ITS ---
STUDY: XR Hand Min 3 Views REASON FOR EXAM: Male, 62 years old. Injury/Pain TECHNIQUE: XR Hand Min 3 Views LEFT COMPARISON: None. FINDINGS: There is joint space narrowing of the radiocarpal articulation consistent with degenerative arthrosis. Normal distal radioulnar joint. Sideplate is noted along the distal radius. There is diffuse demineralization of the carpal bones. Normal carpal articulations Normal carpometacarpal articulation of the thumb. Normal second through fifth carpometacarpal joints. Healed first metacarpal fracture. Normal metacarpophalangeal joint of the thumb. Normal interphalangeal joint of the thumb. Normal proximal and distal phalanges of the thumb. Normal metacarpophalangeal joints of the second through fifth fingers. Normal proximal and distal interphalangeal joints of the second through fifth fingers. Normal phalanges of the second through fifth fingers. The soft tissue structures are unremarkable. RAD/Hand Min 3 Views IMPRESSION: There are no acute findings. Electronically Signed: Moses Li MD at 14:57 EDT Reading Location ID and State: [facility] / [place] , Service support ,
--- NOTE | 2022-08-15 13:35 | RAD_ITS ---
STUDY: XR Shoulder Min 2 Views REASON FOR EXAM: Male, 62 years old. Injury/Pain TECHNIQUE: XR Shoulder Min 2 Views LEFT COMPARISON: None. FINDINGS: Normal glenohumeral articulation. Normal acromioclavicular joint. Normal acromion. Acute left humeral neck fracture. There is medial apical cannulation of the fracture. Medial displacement of the distal fracture fragment. The soft tissue structures are unremarkable. Normal visualized pulmonary apex. RAD/Shoulder min 2 Views IMPRESSION: Left humeral neck fracture. Electronically Signed: Moses Li MD at 14:56 EDT ,
[2022-08-15] MEDS: Morphine 4 MG/ML Syringe IV ×2 (13:40→14:34)
--- NOTE | 2022-08-15 14:03 | ED.VIS.FALL ---
HPI HPI - Fall History of Present Illness Chief Complaint: Fall Informant: patient Occured/Mechanism Occurred: Yesterday Mechanism/Context: Yes same level fall Pain/Injury Location: Left shoulder, left hand, neck Pain Location: neck and upper extremity Quality of Pain: Burning and Stabbing Worsened by: Movement Relieved by: Rest Associated Symptoms Associated Symptoms: Negative for Parasthesias, Weakness, Loss of function, Inability to ambulate, Loss of consciousness or Amnesia Narrative Narrative: Patient presents with left shoulder pain that began after a fall last night. Patient states that he got up too quickly and lost his balance. Patient states he has a history of balance problems. Patient describes his pain as burning and stabbing. Patient states his pain is worse with movement of his shoulder. Patient states it is better with rest. Patient denies any head injury or loss of consciousness. Patient denies any paresthesias or weakness. Patient states he does have some pain up into the left side of his neck as well. [facility] Medical History Anxiety disorder, unspecified Ataxia, unspecified Ataxic gait Benign prostatic hyperplasia with lower urinary tract symptoms Cerebral infarction, unspecified Chronic obstructive pulmonary disease, unspecified Cognitive communication deficit Encephalopathy, unspecified Epilepsy, unspecified, not intractable, without status epilepticus Essential (primary) hypertension Gastro-esophageal reflux disease without esophagitis Generalized anxiety disorder 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 side Hyperlipidemia, unspecified Hypothyroidism, unspecified Insomnia, unspecified Localization-related (focal) (partial) idiopathic epilepsy and epileptic syndromes with seizures of localized onset, not intractable, without status epilepticus Major depressive disorder, recurrent, mild Mixed hyperlipidemia Mixed simple and mucopurulent chronic bronchitis Muscle weakness (generalized) Occlusion and stenosis of unspecified carotid artery Other abnormalities of gait and mobility Other sequelae of cerebral infarction Other specified hypothyroidism Other toxic encephalopathy Pain in left leg Primary insomnia Stroke Syncope and collapse Thyroid disease Unspecified abnormalities of gait and mobility Unspecified sensorineural hearing loss Unspecified symptoms and signs involving cognitive functions and awareness Home Medications clopidogrel 75 mg tablet 75 mg PO DAILY BLOOD THINNER 09/30/17 [History Last Taken 09/26/17] aspirin 81 mg capsule 81 mg PO DAILY 06/26/21 [History Last Taken Unknown] atorvastatin 80 mg tablet 80 mg PO QHS 06/26/21 [History Last Taken Unknown] buspirone 10 mg tablet 20 mg PO TID 06/26/21 [History Last Taken Unknown] gabapentin 300 mg capsule 300 mg PO TID 06/26/21 [History Last Taken Unknown] levetiracetam 500 mg tablet 500 mg PO BID 06/26/21 [History Last Taken Unknown] metoprolol tartrate 50 mg tablet 50 mg PO BID 06/26/21 [History Last Taken Unknown] montelukast 10 mg tablet 10 mg PO QHS 06/26/21 [History Last Taken Unknown] sertraline 100 mg tablet 100 mg PO DAILY 06/26/21 [History Last Taken Unknown] acetaminophen 500 mg tablet 1,000 mg PO TID 08/15/22 [History Last Taken Unknown] ferrous sulfate 325 mg (65 mg iron) tablet (FeroSul) 325 mg PO DAILY 08/15/22 [History Last Taken Unknown] fluticasone propionate 50 mcg/actuation nasal spray,suspension 1 spray intranasal DAILY 08/15/22 [History Last Taken Unknown] levothyroxine 100 mcg tablet 100 mcg PO DAILY 08/15/22 [History Last Taken Unknown] melatonin 10 mg tablet 10 mg PO QHS 08/15/22 [History Last Taken Unknown] oxycodone-acetaminophen 5 mg-325 mg tablet 1 tab PO Q6H PRN PRN pain 5 days #20 TABLETS 08/15/22 [Rx Last Taken Unknown] Allergy/AdvReac Type Severity Reaction Status Date / Time No Known Allergies Allergy Verified 08/15/22 13:21 Surgical History Hx of appendectomy Social History household members: none housing: detention Smoking Status: Current every day smoker tobacco type: cigarettes and e-cigarettes Electronic Cigarette Use: with nicotine alcohol intake: current alcohol intake frequency: 0-2 drinks per day Alcohol type: beer details: 2-3 hard ice teas a day substance use type: does not use ROS ROS ED Constitutional Constitutional ED: Denies chills or fever(s) Eyes Eyes: Denies blurry vision or change in vision ENT ENT ED: Denies rhinorrhea or sore throat Cardiovascular Cardiovascular: Denies chest pain or palpitations Respiratory/Chest Respiratory/Chest: Denies cough or dyspnea Gastrointestinal Gastrointestinal: Denies nausea or vomiting Genitourinary Genitourinary ED: Denies dysuria or hematuria Musculoskeletal Musculoskeletal: Reports neck pain; Denies back pain Integumentary Denies abscess or rash Neurologic Neurologic: Denies headache(s) or weakness Allergic/Immunologic Allergic/Immunologic ED: Denies mouth swelling or urticaria EXAM Physical Exam Const Vital Signs: 08/15/22 13:16 08/15/22 15:32 08/15/22 17:07 Temperature 98.7 F Temperature Source Oral Pulse Rate 61 64 69 Respiratory Rate 18 18 16 Blood Pressure 159/87 H 155/90 H 162/87 H Blood Pressure Mean 111 111 112 Pulse Ox 97 97 94 Positive well nourished and well developed General Appearance ED: well developed and NAD HEENT Reports normocephalic atraumatic Neck Neck Narrative: There is tenderness over the left cervical paraspinal muscles. There is no midline tenderness. There is no bony crepitance or step-off. There is good range of motion. Extremity Extremity Narrative: There is tenderness and edema over the left shoulder. There is also some mild tenderness and ecchymosis over the left hand over the second and third MCP joints and proximal phalanges. Range of motion was limited in all motions of the left shoulder and left hand secondary to pain. Strength is 5/5 in the radial, median, and ulnar areas. Sensation was intact to light touch in the radial, median, ulnar, and axillary areas. Radial pulses are equal bilaterally. Capillary refill is less than 2 seconds in all digits. Neuro oriented x3, CN's II-XII intact bilaterally, moves all extremities, no focal motor deficits and no sensory deficits noted [place] Coma Scale: document GCS findings Spontaneous Extensor Response Oriented 11 Sensorium / Orientation: alert Motor Exam: strength 5/5 throughout MDM MDM MDM Narrative Medical decision making narrative: Differential diagnosis includes left shoulder dislocation, left proximal humerus fracture, left hand fracture, left hand contusion, acute cervical strain, and cervical spine fracture. X-rays of the cervical spine will be obtained to assess for fracture. X-rays of the left shoulder will be obtained to assess for dislocation and fracture. X-rays of the left hand will be obtained to assess for fracture. Nursing staff report the patient was laying on the floor since last night after he fell. Because of this, labs will be obtained. CBC will be obtained to assess for leukocytosis and anemia. Basic metabolic profile will be obtained to assess for electrolyte abnormality and renal function. Total CPK will be obtained to assess for rhabdomyolysis. The high-sensitivity troponin will be obtained to assess for cardiac ischemia. Lab Data Attestation: I reviewed the patient's lab results. Lab results narrative: CBC was reviewed and was within normal limits. Basic metabolic profile was reviewed and was within normal limits. Total CK was reviewed and was normal at 58. High-sensitivity troponin was reviewed and was normal at 8. Labs: Laboratory Results - last 24 hr 08/15/22 08/15/22 13:34 13:34 WBC 8.0 RBC 4.65 Hgb 14.5 Hct 44.6 MCV 95.9 H MCH 31.2 MCHC 32.5 RDW Std Deviation 46.0 H RDW Coeff of Rosa M 13.1 Plt Count 234 MPV 9.2 Immature Gran % (Auto) 0.500 Neut % (Auto) 73.7 H Lymph % (Auto) 17.3 L Tift % (Auto) 6.6 Eos % (Auto) 1.4 Baso % (Auto) 0.5 Absolute Neuts (auto) 5.9 Absolute Lymphs (auto) 1.39 Nucleated RBC % 0 Sodium 137 Potassium 4.1 Chloride 105 Carbon Dioxide 22.0 Anion Gap 10 BUN 16 Creatinine 0.64 L Estim Creat Clear Calc 122.40 Est GFR (MDRD) Af Amer 163 Est GFR (MDRD) Non-Af 135 BUN/Creatinine Ratio 24.9 H Glucose 85 Calcium 8.8 Total Creatine Kinase 58 Troponin I High Sens 8 Radiography Diagnostic Testing: Clinical Impression(s) from Imaging Studies Cervical Spine X-Ray 08/15/22 13:35 IMPRESSION: There are degenerative changes as noted above. The odontoid process is obscured by the overlying hard palate on the open mouth view. Therefore, it is not fully evaluated by plain film. Electronically Signed: Moses Li MD at 14:55 EDT , Hand X-Ray 08/15/22 13:35 IMPRESSION: There are no acute findings. Electronically Signed: Moses Li MD at 14:57 EDT , Shoulder X-Ray 08/15/22 13:35 IMPRESSION: Left humeral neck fracture. Electronically Signed: Moses Li MD at 14:56 EDT , X-rays of the left shoulder were obtained. There are 2 views. On my independent interpretation, there is a proximal humerus fracture with minimal displacement. There is no dislocation. Radiologist also interpreted the x-rays and agrees. X-rays of the cervical spine were obtained. There are 4 views. On my independent interpretation, there is no acute fracture visualized. There is no soft tissue swelling. There is no spondylolisthesis noted. There is good alignment of the vertebral bodies. Radiologist also interpreted the x-rays and agrees. X-rays of the left hand were obtained. There are 3 views. On my independent interpretation, there is no acute fracture or dislocation noted. There is no soft tissue swelling noted. Radiologist also interpreted the x-rays and agrees. Management Discussion w/another healthcare provider: drywall worker/Case management Treatment and Re-Evaluation Narrative: Patient was given morphine initially. Patient was having further pain after x-ray. Patient was given a repeat dose of morphine. Patient had minimal relief with this. Patient was given a dose of Dilaudid. Patient was able to tolerate placement of sling and swath after Dilaudid. Patient was instructed to maintain his sling and swath until he follows up with orthopedics. Patient feels like he will be able to go home and be able to care for himself while maintaining the sling and swath. Patient was given a prescription for Percocet. Patient was instructed to follow-up with his primary care physician in 3 to 5 days. Patient was also given referral for orthopedics. Patient understands and is agreeable with the plan. All questions were answered. Nurse was concerned about patient being able to go home and take care of himself with his arm in a sling and swath. Because of this, social services manager was asked to see the patient. She stated that the patient did not want to go to a nursing facility and that he would be able to care for himself at home. drywall worker contacted the facility where he lives and states that they will be able to assist him if needed. She also states that if they were unable to take care of him there, they will be able to transfer him to a higher level facility. Patient wants to go home. Patient will be instructed to follow-up in 3-5 days. Discharge Plan Triage Chief Complaint: Fall ED Provider: Sridhar Ortiz Dx/Rx/DC Orders Clinical Impression: Closed fracture of left proximal humerus, History of stroke with residual effects, Contusion of left hand, Acute cervical myofascial strain Instructions: ED Hand Contusion, ED Fracture, Shoulder Prescriptions: New oxycodone-acetaminophen [oxycodone-acetaminophen] 5-325 mg tablet 1 tab PO Q6H PRN PRN (Reason: pain) 5 Days Qty: 20 0RF No Action metoprolol tartrate 50 mg tablet 50 mg PO BID sertraline 100 mg tablet 100 mg PO DAILY levetiracetam 500 mg tablet 500 mg PO BID aspirin 81 mg capsule 81 mg PO DAILY buspirone 10 mg tablet 20 mg PO TID gabapentin 300 mg capsule 300 mg PO TID montelukast 10 mg tablet 10 mg PO QHS atorvastatin 80 mg tablet 80 mg PO QHS clopidogrel 75 MG tablet 75 mg PO DAILY acetaminophen 500 mg Tablet 1,000 mg PO TID levothyroxine 100 mcg Tablet 100 mcg PO DAILY ferrous sulfate [FeroSul] 325 mg (65 mg iron) Tablet 325 mg PO DAILY fluticasone propionate [Flonase] 50 mcg/actuation [place],Suspension 1 spray INTRANASAL DAILY Rx Instructions: administer into each nostril melatonin 10 mg Tablet 10 mg PO QHS Primary Care Provider: Care Physician,No Primary Referrals: Care Physician,No Primary [Primary Care Provider] - Disposition Disposition: Home, Self Care
[2022-08-15 15:32] VITALS: BP 155/90; PULSE 64; RESP 18; O2SAT 97
[2022-08-15] MEDS: HYDROmorphone 1 MG/ML Syringe 0.5 MG IV (15:40)
[2022-08-15 15:46] LABS: Anion Gap 10 (5-15); BUN 16 mg/dL (7-18); BUN/Creat Ratio 24.9 RATIO (10-20); CPK Total, Creatine Kinase 58 U/L (39-308); Calcium,Total 8.8 mg/dL (8.5-10.1); Chloride 105 mmol/L (98-107); Creatinine, Serum 0.64 mg/dL (0.70-1.30); EST Glomerular Filtration Rate 135 mL/min (>60); Est Glom Filt Rate - Afr Amer 163 mL/min (>60); Glucose 85 mg/dL (74-106); Potassium 4.1 mmol/L (3.5-5.1); Sodium Level 137 mmol/L (136-145); Troponin-I HS 8 pg/mL (3.0-78.0)
[2022-08-15 15:48] LABS: Absolute Lymphocyte Count 1.39 X10^3/uL (0.83-4.51); Absolute Neutrophil Count 5.9 X10^3/uL (2.0-7.7); Basophil# 0.04 X10^3/uL; Basophil% 0.5 % (0-1); Eosinophil# 0.11 X10^3/uL; Eosinophils% 1.4 % (0-5); Hematocrit 44.6 % (40-54); Hemoglobin 14.5 g/dL (13.0-16.5); Lymphocyte # 1.39 X10^3/ul (0.83-4.51); Lymphocyte % 17.3 % (19-41); Mean Corp Hgb Conc 32.5 g/dL (32-36); Mean Corpuscular Hgb 31.2 pg (27.0-32.0); Mean Corpuscular Volume 95.9 fL (80-94); Mean Platelet Vol. 9.2 fl (6.2-12.0); Monocyte# 0.53 X10^3/uL; Monocyte% 6.6 % (0-10); NRBC Flagged by Analyzer 0 % (0-5); Neutrophil # 5.93 X10^3/uL (2.7-7.7); Neutrophil % 73.7 % (47-70); Platelet Count 234 K/mm3 (150-450); RBC Distribution Width CV 13.1 % (11.6-14.6); Red Blood Count 4.65 M/mm3 (4.6-6.2)
--- NOTE | 2022-08-15 16:55 | ED.RN ---
SPOKE TO FACILITY NURSE GABRIEL AT [facility], SHE REPORTS STEVE NEEDS TO BE ABLE TO PERFORM ALL ADLS ON HIS OWN. ASA NOTIFIED
[2022-08-15 17:07] VITALS: BP 162/87; PULSE 69; RESP 16; O2SAT 94
--- NOTE | 2022-08-15 17:37 | CM.ED ---
Social Work SW spoke with patient about d/c due to referral. Pt currently resides at [facility] but may need more care than he can receive there. Pt denied needing extra help and insisted that he can go back to assisted living without issue. ASA spoke with [facility] who reports patient can return but if he needs more help than they can provide that they will transfer him to [facility]. Pt to return to assisted living at discharge. 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
--- NOTE | 2022-08-15 17:40 | NURSING ---
CALLED [facility], ETA IS 2 HRS
[2022-08-15 17:49] VITALS: BP 162/87; PULSE 69; RESP 147; O2SAT 95
[2022-08-15] MEDS: oxyCODONE 5 MG Tablet PO (18:39)
== END 2022-08-15 20:04 | disposition home or self-care (01) ==
PROVIDERS: Emergency Provider Emergency Medicine; Visit Provider Emergency Medicine
DX: S16.1XXA Strain of muscle, fascia and tendon at neck level, initial encounter (principal); J44.9 Chronic obstructive pulmonary disease, unspecified; G40.909 Epilepsy, unspecified, not intractable, without status epilepticus; I10 Essential (primary) hypertension; F17.210 Nicotine dependence, cigarettes, uncomplicated; S60.222A Contusion of left hand, initial encounter; I69.30 Unspecified sequelae of cerebral infarction; S42.202A Unspecified fracture of upper end of left humerus, initial encounter for closed fracture; W18.39XA Other fall on same level, initial encounter; Z79.02 Long term (current) use of antithrombotics/antiplatelets; Z79.82 Long term (current) use of aspirin; Z79.899 Other long term (current) drug therapy; F41.9 Anxiety disorder, unspecified; E03.9 Hypothyroidism, unspecified; E78.2 Mixed hyperlipidemia; Z90.49 Acquired absence of other specified parts of digestive tract; F17.290 Nicotine dependence, other tobacco product, uncomplicated
CPT/HCPCS: A4565; 72040; 73030; 73130; 80048; 82550; 84484; 85025; 96374; 96375; 96376; 99285; J7030; A4216

== ENCOUNTER 2022-08-30 19:30 | Emergency (ER) | payer MEDICARE, MEDICAID, SELFPAY ==
[2022-08-30 19:32] VITALS: BP 185/100; PULSE 58; RESP 16; TEMP 36.1; O2SAT 98; BMI 22.1
--- NOTE | 2022-08-30 20:03 | EDS_ITS ---
HPI History of Present Illness HPI Narrative: 62-year-old gentleman significant past medical history of prior strokes. Was seen here on August 15 diagnosed with a left proximal humerus fracture. Was placed in a sling and placed on oxycodone for pain. States that the oxycodone has not been controlling his pain. Denies any recent falls or new injuries. Patient lives in assisted living by himself. Chief Complaint: Other, Pain/Inj Informant: patient Occured/Mechanism Mechanism/Context: Yes injury and Yes blunt trauma Onset/Context/Timing Onset: Weeks Context: Sudden Onset Timing: Continuous Quality of Pain: Sharp and Stabbing Current Severity: Moderate Maximum Severity: Moderate Associated Symptoms Associated Symptoms: Positive for Loss of Funtion Narrative Narrative: 62-year-old recent fall left proximal third humerus fracture. History of prior strokes with no use of the left upper extremity from the prior strokes. Prior similar symptoms: Yes Recent Illness/Hospitalization: No PFSH PFSH Medical History Anxiety disorder, unspecified Ataxia, unspecified Ataxic gait Benign prostatic hyperplasia with lower urinary tract symptoms Cerebral infarction, unspecified Chronic obstructive pulmonary disease, unspecified Cognitive communication deficit Encephalopathy, unspecified Epilepsy, unspecified, not intractable, without status epilepticus Essential (primary) hypertension Gastro-esophageal reflux disease without esophagitis Generalized anxiety disorder Hemiplegia and hemiparesis following cerebral infarction affecting left non-do minant side Hyperlipidemia, unspecified Hypothyroidism, unspecified Insomnia, unspecified Localization-related (focal) (partial) idiopathic epilepsy and epileptic syndromes with seizures of localized onset, not intractable, without status epilepticus Major depressive disorder, recurrent, mild Mixed hyperlipidemia Mixed simple and mucopurulent chronic bronchitis Muscle weakness (generalized) Occlusion and stenosis of unspecified carotid artery Other abnormalities of gait and mobility Other sequelae of cerebral infarction Other specified hypothyroidism Other toxic encephalopathy Pain in left leg Primary insomnia Stroke Syncope and collapse Thyroid disease Unspecified abnormalities of gait and mobility Unspecified sensorineural hearing loss Unspecified symptoms and signs involving cognitive functions and awareness Home Medications clopidogrel 75 mg tablet 75 mg PO DAILY BLOOD THINNER 09/30/17 [History Last Taken 09/26/17] aspirin 81 mg capsule 81 mg PO DAILY 06/26/21 [History Last Taken Unknown] atorvastatin 80 mg tablet 80 mg PO QHS 06/26/21 [History Last Taken Unknown] buspirone 10 mg tablet 20 mg PO TID 06/26/21 [History Last Taken Unknown] gabapentin 300 mg capsule 300 mg PO TID 06/26/21 [History Last Taken Unknown] levetiracetam 500 mg tablet 500 mg PO BID 06/26/21 [History Last Taken Unknown] metoprolol tartrate 50 mg tablet 50 mg PO BID 06/26/21 [History Last Taken Unknown] montelukast 10 mg tablet 10 mg PO QHS 06/26/21 [History Last Taken Unknown] sertraline 100 mg tablet 100 mg PO DAILY 06/26/21 [History Last Taken Unknown] acetaminophen 500 mg tablet 1,000 mg PO TID 08/15/22 [History Last Taken Unknown] ferrous sulfate 325 mg (65 mg iron) tablet (FeroSul) 325 mg PO DAILY 08/15/22 [History Last Taken Unknown] fluticasone propionate 50 mcg/actuation nasal spray,suspension 1 spray intranasal DAILY 08/15/22 [History Last Taken Unknown] levothyroxine 100 mcg tablet 100 mcg PO DAILY 08/15/22 [History Last Taken Unknown] melatonin 10 mg tablet 10 mg PO QHS 08/15/22 [History Last Taken Unknown] oxycodone-acetaminophen 5 mg-325 mg tablet 1 tab PO Q6H PRN PRN pain 5 days #20 TABLETS 08/15/22 [Rx Last Taken Unknown] loratadine 10 mg tablet 10 mg PO DAILY 08/30/22 [History Last Taken Unknown] lorazepam 0.5 mg tablet (Ativan) 0.5 mg PO TID PRN Anxiety 08/30/22 [History Last Taken Unknown] oxycodone-acetaminophen 5 mg-325 mg tablet (Percocet) 1 tab PO Q4H PRN pain 5 days #20 tabs 08/30/22 [Rx Last Taken Unknown] polyethylene glycol 3350 17 gram/dose oral powder (Miralax) 17 g PO DAILY 08/30/22 [History Last Taken Unknown] polyvinyl alcohol 1.4 % eye drops (Artificial Tears (polyvinyl alcohol)) drp 08/30/22 [History Last Taken Unknown] sennosides 8.6 mg-docusate sodium 50 mg tablet (Senna Plus) 1 tab-cap PO QHS 08/30/22 [History Last Taken Unknown] tamsulosin 0.4 mg capsule mg PO 08/30/22 [History Last Taken Unknown] tizanidine 4 mg tablet mg 08/30/22 [History Last Taken Unknown] Allergy/AdvReac Type Severity Reaction Status Date / Time No Known Allergies Allergy Verified 08/15/22 13:21 Surgical History Hx of appendectomy Social History household members: none housing: [facility] Smoking Status: Current every day smoker tobacco type: cigarettes and e- cigarettes Electronic Cigarette Use: with nicotine alcohol intake: current alcohol intake frequency: 0-2 drinks per day Alcohol type: beer details: 2-3 hard ice teas a day substance use type: does not use ROS ROS ED ROS Narrative Denies recent illness. Review of Systems ROS Unobtainable: Denies due to encephalopathy Constitutional Constitutional ED: Denies chills or fever(s) Eyes Eyes: Denies blurry vision ENT ENT ED: Denies ear pain Cardiovascular Cardiovascular: Denies chest pain Respiratory/Chest Respiratory/Chest: Denies cough Gastrointestinal Gastrointestinal: Denies abdominal pain Genitourinary Genitourinary ED: Denies dysuria Musculoskeletal Musculoskeletal: Denies back pain Integumentary Denies abscess Neurologic Neurologic: Denies headache(s) Psychiatric Psychiatric: Denies anxiety Endocrine Endocrinology: Denies cold intolerance Hematologic/Lymphatic Hematologic/Lymphatic: Denies easy bleeding or easy bruising Allergic/Immunologic Allergic/Immunologic ED: Denies mouth swelling or tongue swelling EXAM Physical Exam Narrative Exam Narrative: 62-year-old male no acute distress. Vital signs stable afebrile. HEENT exam unremarkable atraumatic. Pupils round react to light. Neck nontender. Lungs clear equal symmetrical bilaterally. Heart regular rhythm no murmur. Chest wall nontender. Abdomen soft nontender. His left upper arm there is bruising and tenderness proximal third of the arm is swollen and tender consistent with the recent fracture. He has a normal radial pulse. The left forearm is nontender. His hand has a contracture from prior strokes and has very limited use of the left upper extremity. There is bruising to the left shoulder and left upper arm from the recent fracture. Right upper and both lower extremities are nontender. Neurologically is awake and alert. Answering questions following commands. He is weak on the left side from prior strokes that is not new. Const Vital Signs: 08/30/22 19:32 Temperature 97.0 F L Temperature Source Temporal Pulse Rate 58 L Respiratory Rate 16 Blood Pressure 185/100 H Blood Pressure Mean 128 Pulse Ox 98 Oxygen Delivery Method Room Air Positive well nourished and well developed; Negative for obese, cachectic, contractures or unkempt General Appearance ED: well developed and NAD; Negative for unkempt, cachectic, contractures, cyanotic or diaphoretic Nutritional Appearance: Negative for cachectic or obese HEENT Reports moist mucous membranes atraumatic; Negative for trauma or tenderness Eyes PERRL and EOMs intact bilaterally General Eye ED: Negative for other Neck full ROM and supple General: Negative for tenderness Lymph Lymphatic: Negative for other Chest Wall inspection of chest normal and palpation of chest normal Chest: Negative for other Resp normal respiratory effort and clear to auscultation bilaterally Effort and Inspection: Negative for pain with movement Auscultation: Negative for rales, rhonchi or wheezes Cardio regular rate, regular rhythm, S1 normal heart sound, S2 normal heart sound and no murmurs GI non-tender Inspection: Negative for abdominal distention Auscultation: normoactive bowel sounds Palpation: soft; Negative for tender or guarding Back/Spine no CVA tenderness General Back: Negative for CVA tenderness Cervical Spine: Negative for cervical spine tenderness Thoracic Spine / Upper Back: Negative for thoracic spinal tenderness Lumbar Spine / Lower Back: Negative for lumbar spinal tenderness Extremity Negative for normal to inspection or full ROM Extremity Narrative: Tenderness left upper arm. Recent fracture of the proximal humerus. Bruising. Mild swelling. The left forearm is nontender. Normal radial pulse. Contracture of his left hand from prior stroke. Right upper extremity is nontender. Neuro oriented x3, CN's II-XII intact bilaterally, moves all extremities and No no focal motor deficits Neuro Narrative: Left-sided weakness from prior strokes. Sensorium / Orientation: alert, oriented to person, oriented to place and oriented to time Motor Exam: Negative for strength 5/5 throughout Psych mental status grossly normal Appearance: Negative for unkempt Attitude: No agitated Mood & Affect: Negative for depressed, anxious or tearful Skin General Skin Exam: Negative for petechiae Lesions: no lesions Rashes: no rashes Trauma: no lacerations or abrasions MDM MDM MDM Narrative Medical decision making narrative: 62-year-old history of strokes fell 2 weeks ago has a left proximal third humerus fracture. Was placed in a sling. Written for oxycodone for pain. There is really nothing different to do today. He will be placed in a sling. I will change his prescription to Percocet. He needs to ensure that he follows up with orthopedics. I do not see where the patient had a prior orthopedics referral I will refer him to Dr. Gtz on-call for orthopedics. History & Record Review Discussion w/independent historian: Patient Discharge Plan Triage Chief Complaint: Other, Pain/Inj ED Provider: Dylan Cat Dx/Rx/DC Orders Clinical Impression: History of fall, Hx of fracture of humerus, Epilepsy, History of stroke Instructions: ED Fracture, Upper Extremity Prescriptions: New oxycodone-acetaminophen [Percocet] 5-325 mg tablet 1 tab PO Q4H PRN (Reason: pain) 5 Days Qty: 20 0RF No Action metoprolol tartrate 50 mg tablet 50 mg PO BID sertraline 100 mg tablet 100 mg PO DAILY levetiracetam 500 mg tablet 500 mg PO BID aspirin 81 mg capsule 81 mg PO DAILY buspirone 10 mg tablet 20 mg PO TID gabapentin 300 mg capsule 300 mg PO TID montelukast 10 mg tablet 10 mg PO QHS atorvastatin 80 mg tablet 80 mg PO QHS clopidogrel 75 MG tablet 75 mg PO DAILY acetaminophen 500 mg Tablet 1,000 mg PO TID levothyroxine 100 mcg Tablet 100 mcg PO DAILY ferrous sulfate [FeroSul] 325 mg (65 mg iron) Tablet 325 mg PO DAILY fluticasone propionate [Flonase] 50 mcg/actuation [place],Suspension 1 spray INTRANASAL DAILY Rx Instructions: administer into each nostril melatonin 10 mg Tablet 10 mg PO QHS oxycodone-acetaminophen [oxycodone-acetaminophen] 5-325 mg tablet 1 tab PO Q6H PRN PRN (Reason: pain) 5 Days Qty: 20 0RF tizanidine 4 mg tablet polyvinyl alcohol [Artificial Tears (polyvin alc)] 1.4 % drops Label Comments: 2 DROPS IN BOTH EYES FOURTTIMES A DAY NEEDED sennosides-docusate sodium [Senna Plus] 8.6-50 mg Tablet 1 tab-cap PO QHS lorazepam [Ativan] 0.5 mg Tablet 0.5 mg PO TID PRN (Reason: Anxiety) tamsulosin 0.4 mg capsule PO polyethylene glycol 3350 [Miralax] 17 gram/dose Powder 17 g PO DAILY loratadine 10 mg Tablet 10 mg PO DAILY Primary Care Provider: Care Physician,No Primary Referrals: Dwight Gtz MD [Med Staff - Active Staff] - As soon as possible Care Physician,No Primary [Primary Care Provider] - Activity Restrictions/Additional Instructions: Keep sling on. Must Follow-up with the orthopedic doctor, Dr. Gtz. Percocet for pain. Disposition Disposition: Home, Self Care
[2022-08-30 20:21] VITALS: RESP 18
--- NOTE | 2022-08-30 20:25 | ED.RN ---
this executive secretary called physicians ambulance at 2024 eta 2-3 hrs
== END 2022-08-30 21:14 | disposition home or self-care (01) ==
PROVIDERS: Emergency Provider Emergency Medicine; Visit Provider Emergency Medicine
DX: G40.909 Epilepsy, unspecified, not intractable, without status epilepticus (principal); J44.9 Chronic obstructive pulmonary disease, unspecified; Z86.73 Personal history of transient ischemic attack (TIA), and cerebral infarction without residual deficits; I10 Essential (primary) hypertension; E78.2 Mixed hyperlipidemia; F17.210 Nicotine dependence, cigarettes, uncomplicated; Z79.02 Long term (current) use of antithrombotics/antiplatelets; Z79.82 Long term (current) use of aspirin; F41.9 Anxiety disorder, unspecified; Z79.899 Other long term (current) drug therapy; Z79.51 Long term (current) use of inhaled steroids; E03.9 Hypothyroidism, unspecified; Z90.49 Acquired absence of other specified parts of digestive tract; F17.290 Nicotine dependence, other tobacco product, uncomplicated; S42.302A Unspecified fracture of shaft of humerus, left arm, initial encounter for closed fracture; W19.XXXA Unspecified fall, initial encounter
CPT/HCPCS: 99283

== ENCOUNTER 2023-04-05 15:57 | Emergency (ER) | payer MEDICARE, MEDICAID, SELFPAY ==
[2023-04-05 16:03] VITALS: BP 163/93; PULSE 70; RESP 21; TEMP 36.4; O2SAT 95; BMI 22.3
--- NOTE | 2023-04-05 16:11 | EX.ED.UPPERE ---
HPI History of Present Illness HPI Narrative: Patient admits to some pain in his left forearm and upper arm that became worse today. Patient also admits to some pain in his left lower leg. Patient denies any falls or trauma. Patient describes the pain as sharp, aching, and burning. Patient states nothing makes it better and nothing makes it worse. Patient states she has had a prior stroke with left-sided hemiparesis. Patient denies any other weakness or paresthesias. Patient admits to some subjective fevers and chills. Patient also admits to some shortness of breath and cough. Patient denies any nausea or vomiting. Patient denies any chest pain. Chief Complaint: Upper Extremity Injury Informant: patient Onset/Context/Timing Onset: Today Context: Sudden Onset Timing: Continuous Quality of Pain: Sharp, Aching and Burning Location: Left forearm, left arm, left lower leg Worsened by: Nothing Relieved by: Nothing Associated Symptoms Associated Symptoms: Negative for Parasthesia, Weakness or Loss of Funtion [facility] Medical History Anxiety disorder, unspecified Ataxia, unspecified Ataxic gait Benign prostatic hyperplasia with lower urinary tract symptoms Cerebral infarction, unspecified Chronic obstructive pulmonary disease, unspecified Cognitive communication deficit Encephalopathy, unspecified Epilepsy, unspecified, not intractable, without status epilepticus Essential (primary) hypertension Gastro-esophageal reflux disease without esophagitis Generalized anxiety disorder 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 side Hyperlipidemia, unspecified Hypothyroidism, unspecified Insomnia, unspecified Localization-related (focal) (partial) idiopathic epilepsy and epileptic syndromes with seizures of localized onset, not intractable, without status epilepticus Major depressive disorder, recurrent, mild Mixed hyperlipidemia Mixed simple and mucopurulent chronic bronchitis Muscle weakness (generalized) Occlusion and stenosis of unspecified carotid artery Other abnormalities of gait and mobility Other sequelae of cerebral infarction Other specified hypothyroidism Other toxic encephalopathy Pain in left leg Primary insomnia Stroke Syncope and collapse Thyroid disease Unspecified abnormalities of gait and mobility Unspecified sensorineural hearing loss Unspecified symptoms and signs involving cognitive functions and awareness Home Medications clopidogrel 75 mg tablet 75 mg PO DAILY BLOOD THINNER 09/30/17 [History Last Taken 09/26/17] aspirin 81 mg capsule 81 mg PO DAILY 06/26/21 [History Last Taken Unknown] atorvastatin 80 mg tablet 80 mg PO QHS 06/26/21 [History Last Taken Unknown] buspirone 10 mg tablet 20 mg PO TID 06/26/21 [History Last Taken Unknown] gabapentin 300 mg capsule 300 mg PO TID 06/26/21 [History Last Taken Unknown] levetiracetam 500 mg tablet 500 mg PO BID 06/26/21 [History Last Taken Unknown] metoprolol tartrate 50 mg tablet 50 mg PO BID 06/26/21 [History Last Taken Unknown] montelukast 10 mg tablet 10 mg PO QHS 06/26/21 [History Last Taken Unknown] sertraline 100 mg tablet 100 mg PO DAILY 06/26/21 [History Last Taken Unknown] acetaminophen 500 mg tablet 1,000 mg PO TID 08/15/22 [History Last Taken Unknown] ferrous sulfate 325 mg (65 mg iron) tablet (FeroSul) 325 mg PO DAILY 08/15/22 [History Last Taken Unknown] fluticasone propionate 50 mcg/actuation nasal spray,suspension 1 spray intranasal DAILY 08/15/22 [History Last Taken Unknown] levothyroxine 100 mcg tablet 100 mcg PO DAILY 08/15/22 [History Last Taken Unknown] melatonin 10 mg tablet 10 mg PO QHS 08/15/22 [History Last Taken Unknown] oxycodone-acetaminophen 5 mg-325 mg tablet 1 tab PO Q6H PRN PRN pain 5 days #20 TABLETS 08/15/22 [Rx Last Taken Unknown] loratadine 10 mg tablet 10 mg PO DAILY 08/30/22 [History Last Taken Unknown] lorazepam 0.5 mg tablet (Ativan) 0.5 mg PO TID PRN Anxiety 08/30/22 [History Last Taken Unknown] oxycodone-acetaminophen 5 mg-325 mg tablet (Percocet) 1 tab PO Q4H PRN pain 5 days #20 tabs 08/30/22 [Rx Last Taken Unknown] polyethylene glycol 3350 17 gram/dose oral powder (Miralax) 17 g PO DAILY 08/30/22 [History Last Taken Unknown] polyvinyl alcohol 1.4 % eye drops (Artificial Tears (polyvinyl alcohol)) drp 08/30/22 [History Last Taken Unknown] sennosides 8.6 mg-docusate sodium 50 mg tablet (Senna Plus) 1 tab-cap PO QHS 08/30/22 [History Last Taken Unknown] tamsulosin 0.4 mg capsule mg PO 08/30/22 [History Last Taken Unknown] tizanidine 4 mg tablet mg 08/30/22 [History Last Taken Unknown] Allergy/AdvReac Type Severity Reaction Status Date / Time No Known Allergies Allergy Verified 04/05/23 16:07 Surgical History Hx of appendectomy Social History household members: none housing: long-term Smoking Status: Current every day smoker tobacco type: cigarettes and e-cigarettes Electronic Cigarette Use: with nicotine alcohol intake: current alcohol intake frequency: 0-2 drinks per day Alcohol type: beer details: 2-3 hard ice teas a day substance use type: does not use ROS ROS ED Constitutional Constitutional ED: Reports chills, fever(s) and subjective Eyes Eyes: Denies blurry vision or change in vision ENT ENT ED: Denies rhinorrhea or sore throat Cardiovascular Cardiovascular: Denies chest pain or palpitations Respiratory/Chest Respiratory/Chest: Reports cough and dyspnea Gastrointestinal Gastrointestinal: Denies nausea or vomiting Genitourinary Genitourinary ED: Denies dysuria or hematuria Musculoskeletal Musculoskeletal: Denies back pain or neck pain Integumentary Denies abscess or rash Neurologic Neurologic: Reports headache(s); Denies weakness Allergic/Immunologic Allergic/Immunologic ED: Denies mouth swelling or urticaria EXAM Physical Exam Const Vital Signs: 04/05/23 16:03 Temperature 97.5 F L Temperature Source Temporal Pulse Rate 70 Respiratory Rate 21 H Blood Pressure 163/93 H Blood Pressure Mean 116 Pulse Ox 95 Oxygen Delivery Method Room Air Positive well nourished and well developed General Appearance ED: well developed and NAD HEENT Reports moist mucous membranes Neck full ROM and supple Resp normal respiratory effort Auscultation: rhonchi throughout Cardio regular rate and regular rhythm GI non-tender and non-distended Palpation: soft Extremity Extremity Narrative: There is tenderness over the left forearm. There is no deformity noted. Range of motion was limited in all motions of the left upper extremity secondary to contractures from prior stroke. There is no edema. There is some ecchymosis over the distal forearm on the ulnar aspect. There is also mild tenderness of the left lower leg. There is no deformity noted. Range of motion of the left lower extremity was limited in all motions secondary to prior contractures from his stroke. General Extremety ED: Negative for edema General Extremity: Negative for edema Neuro oriented x3, CN's II-XII intact bilaterally and no sensory deficits noted Neuro Narrative: Strength is 1/5 in the left upper and lower extremities secondary to prior stroke. There are no new focal motor or sensory deficits noted. Sensorium / Orientation: alert Psych mental status grossly normal MDM MDM MDM Narrative Medical decision making narrative: Differential diagnosis includes elbow fracture, contusion, upper arm fracture, and pneumonia. X-rays of the left elbow and left humerus will be obtained to assess for fracture and dislocation. Chest x-ray will be obtained to assess for pneumonia. Radiography Chest X-Ray - ED: 2 View, Read by ED Physician, Read by Radiologist and No Acute Disease Diagnostic Testing: PA and lateral chest x-ray was obtained. There are 2 views. On my independent interpretation, lung arreola are clear. There is normal cardiac silhouette. Bony thorax is normal. There is no acute process noted. Radiologist also interpreted the x-ray and agrees. X-rays of the left elbow were obtained. There are 3 views. On my independent interpretation, there is no acute fracture. There is no dislocation. There is no joint effusion. There is no fat pad sign. Radiologist also interpreted the x-rays and agrees. X-rays of the left humerus were obtained. There are 2 views. On my independent interpretation, there is no acute fracture or dislocation noted. There is no soft tissue swelling noted. Radiologist also interpreted the x-rays and agrees. Treatment and Re-Evaluation Narrative: Patient was advised of his findings. Patient was instructed use ice to the area. Patient was instructed to take Tylenol or ibuprofen as needed for pain. Patient was instructed to follow-up with his primary care physician in 5 to 7 days. Patient understood and was agreeable with the plan. All questions were answered. Discharge Plan Triage Chief Complaint: Upper Extremity Injury ED Provider: Srihdar Ortiz Dx/Rx/DC Orders Clinical Impression: Contusion of left arm, Contusion of left elbow Prescriptions: No Action metoprolol tartrate 50 mg tablet 50 mg PO BID sertraline 100 mg tablet 100 mg PO DAILY levetiracetam 500 mg tablet 500 mg PO BID aspirin 81 mg capsule 81 mg PO DAILY buspirone 10 mg tablet 20 mg PO TID gabapentin 300 mg capsule 300 mg PO TID montelukast 10 mg tablet 10 mg PO QHS atorvastatin 80 mg tablet 80 mg PO QHS clopidogrel 75 MG tablet 75 mg PO DAILY acetaminophen 500 mg Tablet 1,000 mg PO TID levothyroxine 100 mcg Tablet 100 mcg PO DAILY ferrous sulfate [FeroSul] 325 mg (65 mg iron) Tablet 325 mg PO DAILY fluticasone propionate [Flonase] 50 mcg/actuation [place],Suspension 1 spray INTRANASAL DAILY Rx Instructions: administer into each nostril melatonin 10 mg Tablet 10 mg PO QHS oxycodone-acetaminophen [oxycodone-acetaminophen] 5-325 mg tablet 1 tab PO Q6H PRN PRN (Reason: pain) 5 Days Qty: 20 0RF tizanidine 4 mg tablet polyvinyl alcohol [Artificial Tears (polyvin alc)] 1.4 % drops Patient Comments: 2 DROPS IN BOTH EYES FOURTTIMES A DAY NEEDED sennosides-docusate sodium [Senna Plus] 8.6-50 mg Tablet 1 tab-cap PO QHS lorazepam [Ativan] 0.5 mg Tablet 0.5 mg PO TID PRN (Reason: Anxiety) tamsulosin 0.4 mg capsule PO polyethylene glycol 3350 [Miralax] 17 gram/dose Powder 17 g PO DAILY loratadine 10 mg Tablet 10 mg PO DAILY oxycodone-acetaminophen [Percocet] 5-325 mg tablet 1 tab PO Q4H PRN (Reason: pain) 5 Days Qty: 20 0RF Primary Care Provider: Care Physician,No Primary Referrals: Care Physician,No Primary [Primary Care Provider] - Disposition Disposition: Home, Self Care
--- NOTE | 2023-04-05 16:25 | RAD_ITS ---
INDICATION: Injury/Pain EXAMINATION/TECHNIQUE: X-RAY - LEFT XR Elbow Min 3 Views COMPARISON: No relevant prior comparison study available FINDINGS: SOFT TISSUES: No soft tissue swelling or gas. No radiopaque foreign body. BONES/JOINTS: There is no displacement of the anterior or posterior fat pads. No acute fracture or subluxation. Normal alignment. Degenerative changes. No sclerotic or destructive changes observed. RAD/Elbow min 3 Views IMPRESSION: No acute abnormalities. Electronically Signed: Manpreet Edge MD at 17:32 EST ,
--- NOTE | 2023-04-05 16:25 | RAD_ITS ---
INDICATION: Injury/Pain EXAMINATION/TECHNIQUE: X-RAY - LEFT XR Humerus Min 2 Views COMPARISON: None. FINDINGS: Old proximal humeral fracture with incomplete healing. No blastic or lytic lesions. Degenerative changes of the glenohumeral and acromioclavicular joints. The soft tissues are unremarkable. RAD/Humerus min 2 Views IMPRESSION: Old proximal humeral fracture with incomplete healing. Electronically Signed: Manpreet Edge MD at 17:31 EST ,
--- NOTE | 2023-04-05 16:35 | RAD_ITS ---
INDICATION: Cough EXAMINATION/TECHNIQUE: X-RAY - XR Chest 2 Views COMPARISON: None. FINDINGS: The lungs are clear. The cardiomediastinal silhouette is unremarkable. No pleural effusion or pneumothorax. Degenerative changes of the thoracic spine. Chronic left-sided rib fractures. RAD/Chest PA and Lateral IMPRESSION: No acute radiographic abnormalities. Electronically Signed: Manpreet Edge MD at 17:30 EST ,
[2023-04-05 18:51] VITALS: BP 126/77; PULSE 69; RESP 15; O2SAT 95
[2023-04-05 23:00] VITALS: PULSE 69; RESP 14; O2SAT 98
== END 2023-04-06 00:22 | disposition home or self-care (01) ==
PROVIDERS: Emergency Provider Emergency Medicine; Visit Provider Emergency Medicine
DX: S50.12XA Contusion of left forearm, initial encounter (principal); I69.352 Hemiplegia and hemiparesis following cerebral infarction affecting left dominant side; S50.02XA Contusion of left elbow, initial encounter; F17.210 Nicotine dependence, cigarettes, uncomplicated; I10 Essential (primary) hypertension; E78.5 Hyperlipidemia, unspecified; Z79.02 Long term (current) use of antithrombotics/antiplatelets; Z79.899 Other long term (current) drug therapy; E03.9 Hypothyroidism, unspecified; F41.1 Generalized anxiety disorder; Z90.49 Acquired absence of other specified parts of digestive tract; F17.290 Nicotine dependence, other tobacco product, uncomplicated
CPT/HCPCS: 71046; 73060; 73080; 99283; A4216

== ENCOUNTER 2023-07-27 13:37 | Emergency (ER) | payer MEDICARE, MEDICAID, SELFPAY ==
[2023-07-27] VITALS (8 sets, daily range): BP systolic 91–146; BP diastolic 65–103; PULSE 53–68; RESP 10–17; TEMP 36.4–36.7; O2SAT 95–96; BMI 21.7
--- NOTE | 2023-07-27 14:02 | EKG12_ITS ---
Test Reason : SOB Blood Pressure : / mmHG Vent. Rate : 058 BPM Atrial Rate : 058 BPM P-R Int : 218 ms QRS Dur : 084 ms QT Int : 434 ms P-R-T Axes : 004 007 070 degrees QTc Int : 426 ms Sinus bradycardia with 1st degree A-V block Otherwise normal ECG Confirmed by STEPAN BLACK, SKY ([id number]), sound editor DANNIE HO ([id number]) on 07/29/2023 11:49:30 AM Referred By: LAURO/EDWINA Confirmed By:SKY YING MD
[2023-07-27] MEDS: 0.9% Normal Saline (1000mL) 1,000 ML 1000 ML IV (14:20)
[2023-07-27 14:31] LABS: Absolute Lymphocyte Count 1.11 X10^3/uL (0.83-4.51); Absolute Neutrophil Count 3.9 X10^3/uL (2.0-7.7); Basophil# 0.03 X10^3/uL; Basophil% 0.5 % (0-1); Eosinophil# 0.11 X10^3/uL; Hematocrit 43.6 % (40-54); Hemoglobin 14.7 g/dL (13.0-16.5); Lymphocyte # 1.11 X10^3/ul (0.83-4.51); Lymphocyte % 20.3 % (19-41); Mean Corp Hgb Conc 33.7 g/dL (32-36); Mean Corpuscular Hgb 32.9 pg (27.0-32.0); Mean Corpuscular Volume 97.5 fL (80-94); Mean Platelet Vol. 8.7 fl (6.2-12.0); Monocyte# 0.34 X10^3/uL; Monocyte% 6.2 % (0-10); NRBC Flagged by Analyzer 0 % (0-5); Neutrophil # 3.87 X10^3/uL (2.7-7.7); Neutrophil % 70.8 % (47-70); Platelet Count 195 K/mm3 (150-450); RBC Distribution Width CV 11.9 % (11.6-14.6); RBC Distribution Width SD 42.9 fl (35.1-43.9); Red Blood Count 4.47 M/mm3 (4.6-6.2); White Blood Count 5.5 K/mm3 (4.4-11.0)
[2023-07-27 15:03] LABS: Anion Gap 5 (5-15); BUN 24 mg/dL (7-18); BUN/Creat Ratio 29.8 RATIO (10-20); Calcium,Total 8.7 mg/dL (8.5-10.1); Chloride 106 mmol/L (98-107); EST Glomerular Filtration Rate 104 mL/min (>60); Est Glom Filt Rate - Afr Amer 125 mL/min (>60); Estimated Creatinine Clearance 91.48 ml/min; Glucose 160 mg/dL (74-106); Potassium 3.7 mmol/L (3.5-5.1); Sodium Level 138 mmol/L (136-145)
--- NOTE | 2023-07-27 15:40 | EX.ED.DYSGE1 ---
HPI History of Present Illness Chief Complaint: Weakness Detail of Chief Complaint: Patient with generalized weakness for over a week. He had 3 prior strokes. Informant: patient Onset/Context/Timing Onset: Weeks Context: Gradual Onset Timing: Continuous Quality: Generalized weakness Location: Generalized Current Severity: Mild Maximum Severity: Moderate Worsened by: Nothing specific Relieved by: Nothing Associated Symptoms Associated Symptoms: Poor p.o. intake Narrative Narrative: Patient is a 63-year-old male who looks much older than reported age. He has history of 3 prior strokes, hypothyroidism, epilepsy who was sent to the emergency room by nursing staff because he complained of increased weakness and poor appetite. With past and why he was sent here his response was I wish I never would have told the nurse that I did not feel well . Patient denies headache. Patient denies visual, ocular auditory symptoms. Patient has trouble with speech or swallowing compared to baseline. Patient denies chest pain. He denies shortness of breath. He denies cough. He denies abdominal pain. He denies vomiting or diarrhea. He denies urologic symptoms. Prior similar symptoms: Yes Recent Illness/Hospitalization: [facility] Medical History Anxiety disorder, unspecified Ataxia, unspecified Ataxic gait Benign prostatic hyperplasia with lower urinary tract symptoms Cerebral infarction, unspecified Chronic obstructive pulmonary disease, unspecified Cognitive communication deficit Encephalopathy, unspecified Epilepsy, unspecified, not intractable, without status epilepticus Essential (primary) hypertension Gastro-esophageal reflux disease without esophagitis Generalized anxiety disorder 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 side Hyperlipidemia, unspecified Hypothyroidism, unspecified Insomnia, unspecified Localization-related (focal) (partial) idiopathic epilepsy and epileptic syndromes with seizures of localized onset, not intractable, without status epilepticus Major depressive disorder, recurrent, mild Mixed hyperlipidemia Mixed simple and mucopurulent chronic bronchitis Muscle weakness (generalized) Occlusion and stenosis of unspecified carotid artery Other abnormalities of gait and mobility Other sequelae of cerebral infarction Other specified hypothyroidism Other toxic encephalopathy Pain in left leg Primary insomnia Stroke Syncope and collapse Thyroid disease Unspecified abnormalities of gait and mobility Unspecified sensorineural hearing loss Unspecified symptoms and signs involving cognitive functions and awareness Home Medications clopidogrel 75 mg tablet 75 mg PO DAILY BLOOD THINNER 09/30/17 [History Last Taken 09/26/17] aspirin 81 mg capsule 81 mg PO DAILY 06/26/21 [History Last Taken Unknown] atorvastatin 80 mg tablet 80 mg PO QHS 06/26/21 [History Last Taken Unknown] buspirone 10 mg tablet 20 mg PO TID 06/26/21 [History Last Taken Unknown] gabapentin 300 mg capsule 300 mg PO TID 06/26/21 [History Last Taken Unknown] levetiracetam 500 mg tablet 500 mg PO BID 06/26/21 [History Last Taken Unknown] metoprolol tartrate 50 mg tablet 50 mg PO BID 06/26/21 [History Last Taken Unknown] montelukast 10 mg tablet 10 mg PO QHS 06/26/21 [History Last Taken Unknown] sertraline 100 mg tablet 100 mg PO DAILY 06/26/21 [History Last Taken Unknown] acetaminophen 500 mg tablet 1,000 mg PO TID 08/15/22 [History Last Taken Unknown] ferrous sulfate 325 mg (65 mg iron) tablet (FeroSul) 325 mg PO DAILY 08/15/22 [History Last Taken Unknown] fluticasone propionate 50 mcg/actuation nasal spray,suspension 1 spray intranasal DAILY 08/15/22 [History Last Taken Unknown] levothyroxine 100 mcg tablet 100 mcg PO DAILY 08/15/22 [History Last Taken Unknown] melatonin 10 mg tablet 10 mg PO QHS 08/15/22 [History Last Taken Unknown] oxycodone-acetaminophen 5 mg-325 mg tablet 1 tab PO Q6H PRN PRN pain 5 days #20 TABLETS 08/15/22 [Rx Last Taken Unknown] loratadine 10 mg tablet 10 mg PO DAILY 08/30/22 [History Last Taken Unknown] lorazepam 0.5 mg tablet (Ativan) 0.5 mg PO TID PRN Anxiety 08/30/22 [History Last Taken Unknown] oxycodone-acetaminophen 5 mg-325 mg tablet (Percocet) 1 tab PO Q4H PRN pain 5 days #20 tabs 08/30/22 [Rx Last Taken Unknown] polyethylene glycol 3350 17 gram/dose oral powder (Miralax) 17 g PO DAILY 08/30/22 [History Last Taken Unknown] polyvinyl alcohol 1.4 % eye drops (Artificial Tears (polyvinyl alcohol)) drp 08/30/22 [History Last Taken Unknown] sennosides 8.6 mg-docusate sodium 50 mg tablet (Senna Plus) 1 tab-cap PO QHS 08/30/22 [History Last Taken Unknown] tamsulosin 0.4 mg capsule mg PO 08/30/22 [History Last Taken Unknown] tizanidine 4 mg tablet mg 08/30/22 [History Last Taken Unknown] Allergy/AdvReac Type Severity Reaction Status Date / Time No Known Allergies Allergy Verified 07/27/23 13:38 Surgical History Hx of appendectomy Social History household members: none housing: detention Smoking Status: Current every day smoker tobacco type: cigarettes and e-cigarettes Electronic Cigarette Use: with nicotine alcohol intake: current alcohol intake frequency: 0-2 drinks per day Alcohol type: beer details: 2-3 hard ice teas a day substance use type: does not use ROS ROS ED Constitutional Constitutional ED: Denies chills, fever(s), subjective or sweats Eyes Eyes: Denies blurry vision, change in vision or diplopia ENT ENT ED: Denies ear pain, rhinorrhea or sore throat Cardiovascular Cardiovascular: Denies chest pain, orthopnea, palpitations or paroxysmal nocturnal dyspnea Respiratory/Chest Respiratory/Chest: Denies cough, dyspnea, dyspnea on exertion, orthopnea or paroxysmal nocturnal dyspnea Gastrointestinal Gastrointestinal: Reports nausea; Denies abdominal pain, constipation, diarrhea, melena or vomiting Genitourinary Genitourinary ED: Denies dysuria, hematuria or urinary frequency Musculoskeletal Musculoskeletal: Denies back pain or neck pain Integumentary Denies rash Neurologic Neurologic: Reports weakness; Denies headache(s) or paresthesias Psychiatric Psychiatric: Reports depression Endocrine Endocrinology: Denies cold intolerance or heat intolerance Hematologic/Lymphatic Hematologic/Lymphatic: Reports systems reviewed and no addt'l complaints, except as documented EXAM Physical Exam Const Vital Signs: 07/27/23 13:37 07/27/23 13:37 07/27/23 13:49 Temperature 97.5 F L Temperature Source Temporal Pulse Rate 59 L 61 Pulse Rate [Lying] Pulse Rate [Sitting (for 1 minute prior to obtaining)] Pulse Rate [Standing (for 1 minute prior to obtaining)] Respiratory Rate 13 16 Respiratory Effort Normal Non-Labored Respiratory Pattern Normal Blood Pressure 102/67 102/67 Blood Pressure [Lying] Blood Pressure [Sitting (for 1 minute prior to obtaining)] Blood Pressure [Standing (for 1 minute prior to obtaining)] Blood Pressure Mean 78 78 Blood Pressure Mean [Lying] Blood Pressure Mean [Sitting (for 1 minute prior to obtaining)] Blood Pressure Mean [Standing (for 1 minute prior to obtaining)] Pulse Ox 96 95 Oxygen Delivery Method Room Air Room Air 07/27/23 14:39 07/27/23 14:49 07/27/23 15:00 Temperature Temperature Source Pulse Rate 54 L 56 L Pulse Rate [Lying] 57 L Pulse Rate [Sitting (for 1 minute prior to obtaining)] 68 Pulse Rate [Standing (for 1 minute prior to obtaining)] 63 Respiratory Rate 10 L 13 Respiratory Effort Respiratory Pattern Blood Pressure 132/72 H 146/103 H Blood Pressure [Lying] 117/85 H Blood Pressure [Sitting (for 1 minute prior to obtaining)] 112/80 Blood Pressure [Standing (for 1 minute prior to obtaining)] 91/65 Blood Pressure Mean 92 117 Blood Pressure Mean [Lying] 95 Blood Pressure Mean [Sitting (for 1 minute prior to obtaining)] 90 Blood Pressure Mean [Standing (for 1 minute prior to obtaining)] 73 Pulse Ox 95 96 Oxygen Delivery Method Room Air Room Air 07/27/23 16:00 Temperature Temperature Source Pulse Rate 53 L Pulse Rate [Lying] Pulse Rate [Sitting (for 1 minute prior to obtaining)] Pulse Rate [Standing (for 1 minute prior to obtaining)] Respiratory Rate 17 Respiratory Effort Respiratory Pattern Blood Pressure 146/83 H Blood Pressure [Lying] Blood Pressure [Sitting (for 1 minute prior to obtaining)] Blood Pressure [Standing (for 1 minute prior to obtaining)] Blood Pressure Mean 104 Blood Pressure Mean [Lying] Blood Pressure Mean [Sitting (for 1 minute prior to obtaining)] Blood Pressure Mean [Standing (for 1 minute prior to obtaining)] Pulse Ox 96 Oxygen Delivery Method Room Air Initial blood pressure was low. Patient blood pressure improved with time. Patient's borderline orthostatic. Positive well developed Constitutional Narrative: Patient is thin. General Appearance ED: well developed and NAD; Negative for pallor HEENT Reports TM's clear and dry mucous membranes Negative for trauma or tenderness Tympanic Membrane ED: Yes TM's clear Mouth ED: Yes dry mucous membranes Mouth: dry mucous membranes Eyes PERRL and EOMs intact bilaterally General Eye ED: Negative for pale conjunctiva or scleral icterus Neck no lymphadenopathy, supple and no JVD Chest Wall inspection of chest normal and palpation of chest normal Resp normal respiratory effort and clear to auscultation bilaterally Cardio regular rhythm, S1 normal heart sound, S2 normal heart sound and no murmurs Rate: bradycardia GI normal to inspection, nondistended, normoactive bowel sounds, non-tender, non-distended and no masses; Negative for hepatosplenomegaly Back/Spine no CVA tenderness Extremity normal to inspection General Extremety ED: Negative for tenderness Neuro oriented x3 and CN's II-XII intact bilaterally Neuro Narrative: Patient reports mild weakness on the left side due to prior strokes. Sensation is normal. He has equivocal Babinski on the left. There is no clonus. Sensorium / Orientation: alert Psych Mood & Affect: depressed Skin no wounds General Skin Exam: Negative for jaundice or pallor MDM MDM MDM Narrative Medical decision making narrative: Clinically patient appears dehydrated he is hypotensive. 1 L normal saline was ordered. Blood work was obtained to rule out anemia, renal dysfunction, electrolyte abnormality. Orthostatic vital signs were positive. Patient's blood pressure improved after liter of fluid to 146/103. History & Record Review Additional record(s) reviewed:: Prior ED visit and Prior labs Lab Data Attestation: I reviewed the patient's lab results. Lab results narrative: CBC is normal. BMP is remarkable for glucose of 160 with a normal CO2 anion gap. Renal function is normal. Based on review of records there is no history of diabetes. Labs: Laboratory Results - last 24 hr 07/27/23 14:17 WBC 5.5 RBC 4.47 L Hgb 14.7 Hct 43.6 MCV 97.5 H MCH 32.9 H MCHC 33.7 RDW Std Deviation 42.9 RDW Coeff of Rosa M 11.9 Plt Count 195 MPV 8.7 Immature Gran % (Auto) 0.200 Neut % (Auto) 70.8 H Lymph % (Auto) 20.3 Warrick % (Auto) 6.2 Eos % (Auto) 2.0 Baso % (Auto) 0.5 Absolute Neuts (auto) 3.9 Absolute Lymphs (auto) 1.11 Nucleated RBC % 0 Sodium 138 Potassium 3.7 Chloride 106 Carbon Dioxide 27.0 Anion Gap 5 BUN 24 H Creatinine 0.80 Estim Creat Clear Calc 91.48 Est GFR (MDRD) Af Amer 125 Est GFR (MDRD) Non-Af 104 BUN/Creatinine Ratio 29.8 H Glucose 160 H Calcium 8.7 Discharge Plan Triage Chief Complaint: Weakness ED Provider: Bill Lundberg Dx/Rx/DC Orders Clinical Impression: Generalized weakness, History of stroke, Dementia, Nondiabetic hyperglycemia Instructions: ED Weakness (Uncertain Cause), ED Hyperglycemia New Poss Diabetes Prescriptions: No Action metoprolol tartrate 50 mg tablet 50 mg PO BID sertraline 100 mg tablet 100 mg PO DAILY levetiracetam 500 mg tablet 500 mg PO BID aspirin 81 mg capsule 81 mg PO DAILY buspirone 10 mg tablet 20 mg PO TID gabapentin 300 mg capsule 300 mg PO TID montelukast 10 mg tablet 10 mg PO QHS atorvastatin 80 mg tablet 80 mg PO QHS clopidogrel 75 MG tablet 75 mg PO DAILY acetaminophen 500 mg Tablet 1,000 mg PO TID levothyroxine 100 mcg Tablet 100 mcg PO DAILY ferrous sulfate [FeroSul] 325 mg (65 mg iron) Tablet 325 mg PO DAILY fluticasone propionate [Flonase] 50 mcg/actuation [place],Suspension 1 spray INTRANASAL DAILY Rx Instructions: administer into each nostril melatonin 10 mg Tablet 10 mg PO QHS oxycodone-acetaminophen [oxycodone-acetaminophen] 5-325 mg tablet 1 tab PO Q6H PRN PRN (Reason: pain) 5 Days Qty: 20 0RF tizanidine 4 mg tablet polyvinyl alcohol [Artificial Tears (polyvin alc)] 1.4 % drops Patient Comments: 2 DROPS IN BOTH EYES FOURTTIMES A DAY NEEDED sennosides-docusate sodium [Senna Plus] 8.6-50 mg Tablet 1 tab-cap PO QHS lorazepam [Ativan] 0.5 mg Tablet 0.5 mg PO TID PRN (Reason: Anxiety) tamsulosin 0.4 mg capsule PO polyethylene glycol 3350 [Miralax] 17 gram/dose Powder 17 g PO DAILY loratadine 10 mg Tablet 10 mg PO DAILY oxycodone-acetaminophen [Percocet] 5-325 mg tablet 1 tab PO Q4H PRN (Reason: pain) 5 Days Qty: 20 0RF Primary Care Provider: Tangela Vega COIL INSPECTOR Referrals: Tangela Vega COIL INSPECTOR, COIL INSPECTOR-C [Primary Care Provider] - 1 Week Activity Restrictions/Additional Instructions: He did contact your practitioner for evaluation of elevated blood sugar. The cause of your symptoms is unknown. Disposition Disposition: Home, Self Care
== END 2023-07-27 17:49 | disposition home or self-care (01) ==
PROVIDERS: Emergency Provider Emergency Medicine; PCP Nurse Practitioner Adult Health; Visit Provider Emergency Medicine
DX: R53.1 Weakness (principal); F03.90 Unspecified dementia, unspecified severity, without behavioral disturbance, psychotic disturbance, mood disturbance, and anxiety; J44.9 Chronic obstructive pulmonary disease, unspecified; F17.210 Nicotine dependence, cigarettes, uncomplicated; Z86.73 Personal history of transient ischemic attack (TIA), and cerebral infarction without residual deficits; R73.9 Hyperglycemia, unspecified; I10 Essential (primary) hypertension; E78.5 Hyperlipidemia, unspecified; Z79.01 Long term (current) use of anticoagulants; Z79.82 Long term (current) use of aspirin; F41.9 Anxiety disorder, unspecified; F33.0 Major depressive disorder, recurrent, mild; Z79.899 Other long term (current) drug therapy; E03.9 Hypothyroidism, unspecified; F17.290 Nicotine dependence, other tobacco product, uncomplicated; Z90.49 Acquired absence of other specified parts of digestive tract; E86.0 Dehydration; I95.9 Hypotension, unspecified
CPT/HCPCS: 80048; 85025; 93005; 96360; 99284

== ENCOUNTER 2025-02-03 16:57 | Emergency (ER) | payer MEDICARE, MEDICAID, SELFPAY ==
[2025-02-03 16:58] VITALS: BP 168/96; PULSE 62; RESP 20; TEMP 35.9; O2SAT 100; BMI 26.9
--- NOTE | 2025-02-03 17:13 | EDS_ITS ---
HPI History of Present Illness Chief Complaint: Fall Narrative Narrative: 64-year-old male past medical history of strokes with left-sided deficit, currently residing at [facility] living presents with injury to his left elbow. He states that he had just gotten up from a nap, and was in a hurry to get down to dinner. While he has a previous injury to his left wrist with contractures from stroke, he fell onto his left elbow. He is right-hand dominant. He denies hitting his head or loss of consciousness, no neck pain or other injuries. He presents with pain on his medial elbow. It is particularly in that 1 spot, denies pain over the olecranon or over the radial head, no wrist pain. No upper arm pain or shoulder pain. [facility] Medical History Mixed simple and mucopurulent chronic bronchitis Generalized anxiety disorder Mixed hyperlipidemia Other specified hypothyroidism Primary insomnia Ataxic gait Localization-related (focal) (partial) idiopathic epilepsy and epileptic syndromes with seizures of localized onset, not intractable, without status epilepticus Other toxic encephalopathy Unspecified sensorineural hearing loss Pain in left leg Benign prostatic hyperplasia with lower urinary tract symptoms Chronic obstructive pulmonary disease, unspecified Unspecified symptoms and signs involving cognitive functions and awareness Syncope and collapse Other abnormalities of gait and mobility Gastro-esophageal reflux disease without esophagitis Occlusion and stenosis of unspecified carotid artery Cerebral infarction, unspecified Anxiety disorder, unspecified Hyperlipidemia, unspecified Hypothyroidism, unspecified Major depressive disorder, recurrent, mild Unspecified abnormalities of gait and mobility Muscle weakness (generalized) Essential (primary) hypertension Hemiplegia and hemiparesis following cerebral infarction affecting left non- dominant side Insomnia, unspecified Ataxia, unspecified Epilepsy, unspecified, not intractable, without status epilepticus Cognitive communication deficit Encephalopathy, unspecified Other sequelae of cerebral infarction Stroke Thyroid disease Home Medications Medication Instructions Recorded Last Taken Type clopidogrel 75 mg tablet 75 mg PO DAILY BLOOD THINNER 09/30/17 09/26/17 History aspirin 81 mg capsule 81 mg PO DAILY 06/26/21 Unkn own History atorvastatin 80 mg tablet 80 mg PO QHS 06/26/21 Unknow n History buspirone 10 mg tablet 20 mg PO TID 06/26/21 Unknow n History gabapentin 300 mg capsule 300 mg PO TID 06/26/21 Unkno wn History levetiracetam 500 mg tablet 500 mg PO BID 06/26/21 Unk nown History metoprolol tartrate 50 mg tablet 50 mg PO BID 06/26/21 Unknown History montelukast 10 mg tablet 10 mg PO QHS 06/26/21 Unknow n History sertraline 100 mg tablet 100 mg PO DAILY 06/26/21 Unk nown History acetaminophen 500 mg tablet 1,000 mg PO TID 08/15/22 U nknown History ferrous sulfate 325 mg (65 mg 325 mg PO DAILY 08/15/22 Unknown History iron) tablet (FeroSul) fluticasone propionate 50 1 spray intranasal DAILY Unknown History mcg/actuation nasal spray,suspension levothyroxine 100 mcg tablet 100 mcg PO DAILY 08/15/22 Unknown History melatonin 10 mg tablet 10 mg PO QHS 08/15/22 Unknow n History oxycodone-acetaminophen 5 mg-325 1 tab PO Q6H PRN PRN pain 5 days 08/15/22 Unknown Rx mg tablet #20 TABLETS loratadine 10 mg tablet 10 mg PO DAILY 08/30/22 Unkn own History lorazepam 0.5 mg tablet (Ativan) 0.5 mg PO TID PRN Anx iety 08/30/22 Unknown History oxycodone-acetaminophen 5 mg-325 1 tab PO Q4H PRN pain 5 days #20 08/30/22 Unknown Rx mg tablet (Percocet) tabs polyethylene glycol 3350 17 17 g PO DAILY 08/30/22 Unk nown History gram/dose oral powder (Miralax) polyvinyl alcohol 1.4 % eye drops drp 08/30/22 Unknown History (Artificial Tears (polyvinyl alcohol)) sennosides 8.6 mg-docusate sodium 1 tab-cap PO QHS 11/14 Unknown History 50 mg tablet (Senna Plus) tamsulosin 0.4 mg capsule mg PO 08/30/22 Unknown Histo ry tizanidine 4 mg tablet mg 08/30/22 Unknown History Allergy/AdvReac Type Severity Reaction Status Date / Time No Known Allergies Allergy Verified 07/27/23 13:38 Surgical History Hx of appendectomy Social History household members: none housing: long term Smoking Status: Current every day smoker tobacco type: cigarettes and e- cigarettes Electronic Cigarette Use: with nicotine alcohol intake: current alcohol intake frequency: 0-2 drinks per day Alcohol type: beer details: 2-3 hard ice teas a day substance use type: does not use ROS ROS ED ROS Narrative Review of systems is positive for medial left elbow pain. Denies hitting of his head, loss of consciousness, no other injuries. [id number]. EXAM Physical Exam Narrative Exam Narrative: GCS 15. ABCs intact. Focused examination of the left upper extremity does reveal contractures of the left hand. There is a well-healed scar over the left wrist. No tenderness to palpation or crepitance. Mild tenderness in left medial elbow, no pain over radial head, no olecranon pain. No clavicular or shoulder pain, no clinical dislocation. Const Vital Signs: 02/03/25 16:58 Temperature 96.7 F L Temperature Source Temporal Pulse Rate 62 Respiratory Rate 20 H Blood Pressure 168/96 H Blood Pressure Mean 120 Pulse Ox 100 Oxygen Delivery Method Room Air MDM MDM MDM Narrative Medical decision making narrative: Differential diagnosis includes but not limited to left elbow contusion versus fracture versus dislocation. He is able to flex and extend his left elbow at baseline. He was given oxycodone here in the emergency department for analgesia and x-rays obtained of the left elbow. I did discuss with him obtaining left humerus and left forearm x-rays, however he states that the pain is isolated to his medial elbow. On my independent interpretation of his left elbow x-ray, there is no evidence of an acute fracture or dislocation. I reviewed the radiology report which confirms my independent interpretation. At this point in time, upon repeat examination he is resting comfortably. He will be placed in an Sourav wrap for support, and discharged back to [facility]. Return instructions were reviewed. Disposition is discharged home in stable condition. History & Record Review Discussion w/independent historian: EMS personnel and Patient Additional record(s) reviewed:: Prior ED visit (Last ED visit 2023, noncontributory to current chief complaint.) Radiography Diagnostic Testing: Clinical Impression(s) from Imaging Studies Elbow X-Ray 02/03/25 17:30 IMPRESSION: No acute fracture or dislocation appreciated. Reading Location: [facility] Discharge Plan Triage Chief Complaint: Fall ED Provider: Angel Noonan Dx/Rx/DC Orders Clinical Impression: Fall, Contusion of left elbow Instructions: ED Contusion, Elbow, ED Fall Prevention Prescriptions: No Action metoprolol tartrate 50 mg tablet 50 mg PO BID sertraline 100 mg tablet 100 mg PO DAILY levetiracetam 500 mg tablet 500 mg PO BID aspirin 81 mg capsule 81 mg PO DAILY buspirone 10 mg tablet 20 mg PO TID gabapentin 300 mg capsule 300 mg PO TID montelukast 10 mg tablet 10 mg PO QHS atorvastatin 80 mg tablet 80 mg PO QHS clopidogrel 75 MG tablet 75 mg PO DAILY acetaminophen 500 mg Tablet 1,000 mg PO TID levothyroxine 100 mcg Tablet 100 mcg PO DAILY ferrous sulfate [FeroSul] 325 mg (65 mg iron) Tablet 325 mg PO DAILY fluticasone propionate [Flonase] 50 mcg/actuation [place],Suspension 1 spray INTRANASAL DAILY Rx Instructions: administer into each nostril melatonin 10 mg Tablet 10 mg PO QHS oxycodone-acetaminophen [oxycodone-acetaminophen] 5-325 mg tablet 1 tab PO Q6H PRN PRN (Reason: pain) 5 Days Qty: 20 0RF tizanidine 4 mg tablet polyvinyl alcohol [Artificial Tears (polyvin alc)] 1.4 % drops Patient Comments: 2 DROPS IN BOTH EYES FOURTTIMES A DAY NEEDED sennosides-docusate sodium [Senna Plus] 8.6-50 mg Tablet 1 tab-cap PO QHS lorazepam [Ativan] 0.5 mg Tablet 0.5 mg PO TID PRN (Reason: Anxiety) tamsulosin 0.4 mg capsule PO polyethylene glycol 3350 [Miralax] 17 gram/dose Powder 17 g PO DAILY loratadine 10 mg Tablet 10 mg PO DAILY oxycodone-acetaminophen [Percocet] 5-325 mg tablet 1 tab PO Q4H PRN (Reason: pain) 5 Days Qty: 20 0RF Primary Care Provider: Tangela Vega MEASUREMENT SUPERVISOR Referrals: Tangela Vega MEASUREMENT SUPERVISOR, MEASUREMENT SUPERVISOR-C [Primary Care Provider, Medical] - 1 Week if not improving Activity Restrictions/Additional Instructions: Tylenol or ibuprofen as needed for pain. Ice affected area a few times a day for 10 to 15 minutes. Follow-up with your primary care provider. Print Language: Hungarian Disposition Disposition: Home, Self Care
--- NOTE | 2025-02-03 17:30 | RAD_ITS ---
PROCEDURE: LEFT ELBOW MIN 3 VIEWS 02/03/2025 REASON FOR EXAM: TRAUMA TECHNIQUE: Procedure Code: BRISSA Modality: DX Procedure: ELBOW MIN 3 VIEWS Laterality: Left COMPARISON: 04/05/2023 FINDINGS: No acute fracture or dislocation appreciated. Joint spaces appear relatively well preserved. 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 No joint effusion appreciated, although evaluation is limited without a proper lateral view. Mild soft tissue swelling at the dorsal aspect of the elbow. RAD/Elbow min 3 Views IMPRESSION: No acute fracture or dislocation appreciated. Reading Location: [id number]
[2025-02-03 18:34] VITALS: BP 164/95; PULSE 68; RESP 16; TEMP 36.6; O2SAT 99
--- OUTSIDE RECORDS SUMMARY | 2025-02-03 19:33 | XMS RPT_ITS | CCD ---
Author Organization [facility] Care Team Providers Care Graduate Research Assistant Name Role Phone EMELY CARRASQUILLO Unavailable Unavailable EMELY CARRASQUILLO Unavailable Unavailable REUBEN GOLDSTEIN Unavailable Unavailable CHENG BARRAGAN Unavailable Unavailable CHENG BARAJAS Unavailable Unavailable CHENG BARRAGAN Unavailable Unavailable ALIYA OBRIEN Unavailable Unavailable JUDITH HANSON Unavailable Unavailable VINI GARCIA JR. Unavailable Unavailab VINI Whipple JR. Unavailable Unavailab REUBEN Gonzalez Unavailable Unavailable SHEILA ARVIZU Unavailable Unavailable REUBEN GOLDSTEIN Unavailable Unavailable JIA MCHUGH Unavailable Unavailable ADDY RUSSELL Unavailable Unavailable KAYLEE FONG Unavailable Unavailable AMOS KERN Unavailable Unavailable STEVE CORNELL Unavailable Unavailable VINI GARCIA JR. Unavailable Unavailab Reuben Gonzalez Primary Care Provider Elton Eckert Unavailable Reuben Goldstein MD Primary Care Provider [phone] Elton Eckert DO Unavailable Toña Anderson LPN Unavailable Unavailable Angela Pearson MA Unavailable Unavailable SANGEETHA ROOT DO Attending Unavailable REUBEN CLEMONS Referring Unavailable SANGEETHA ROOT DO Admitting Unavailable SANGEETHA ROOT DO Primary Care Unavailable REUBEN CLEMONS Consulting Unavailable PROVIDER, UNKNOWN Consulting Unavailable REUBEN CLEMONS Consulting Unavailable ARLENE ESTRADA MD Admitting Unavailable ARLENE ESTRADA MD Primary Care Unavailable ARLENE ESTRADA MD Attending Unavailable PROVIDER, UNKNOWN Consulting Unavailable ARLENE ESTRADA MD Admitting Unavailable ARLENE ESTRADA MD Primary Care Unavailable ARLENE ESTRADA MD Attending Unavailable REUBEN CLEMONS Consulting Unavailable PROVIDER, UNKNOWN Consulting Unavailable [facility] Doctor, Out of Primary Care Provider Ant germain [facility] Doctor, Out of Referring Provider Dr. Fernandez Joe Attending Provider [phone] Care Physician, No Primary Primary Care Provider Unavailable Dr. Julian Smith Attending Provider Dr. Fernandez Randall Referring Provider Care Physician, No Primary Primary Care Unava Sridhar Mabry Attending Unavailable Care Physician, No Primary Primary Care Unava Dylan Mullins Attending Unavailable Care Physician, No Primary Primary Care Unava Sridhar Mabry Attending Unavailable Bill Lundberg Attending Unavailable Tangela Vega Primary Care Unavailable Medications Current Medications Medication Drug Class(es) Dates Sig (Normalized) Sig (Original) acetaminophen 500 mg oral tablet (11 sources) Start: 08-15-2022 take 1000 mg by mouth three times daily Acetaminophen Active 1000 MG PO THREE TIMES A DAY August 15, 2022 12:00am Start: 10-01-2017 End: 06-26-2021 take 1000 mg by mouth every eight hours Acetaminophen Discontinued 1000 MG PO EVERY 8 HOURS October 01, 2017 12:00am June 26, 2021 11:35am acetaminophen 325 mg / oxyCODONE hydrochloride 5 mg oral tablet (14 sources) Opioid Agonist Start: 08-30-2022 take 1 tablet by mouth every four hours Oxycodone-Acetaminophen (Percocet) 5-325 mg tablet Active 1 TABLET PO Q4H 11 08August 30, 2022 Start: 08-15-2022 take 1 tablet by kelli th every six hours as needed Oxycodone-Acetaminophen Active 1 TABLET PO EVERY 6 HOURS NEEDED 11 08August 15, 2022 Start: 09-30-2017 End: 10-01-2017 take 1 tablet by mouth every six hours as needed Oxycodone-Acetaminophen Discontinued 1 TABLET PO EVERY 6 HOURS NEEDED September 30, 2017 12:00am October 01, 2017 9:32am aspirin 81 mg oral tablet (11 sources) Platelet Aggregation Inhibitor, Nonsteroidal Anti-inflammatory Drug Start: 06-26-2021 take 81 mg by mouth once daily Aspirin Active 81 MG PO DAILY June 26, 2021 12:00am Start: 07-15-2020 take 1 tablet by kelli th once daily aspirin EC (ECOTRIN LOW STRENGTH) 81 MG EC tablet Take 1 tablet by mouth daily. 100 tablet 3 07/15/2020 Active Start: 07-02-2019 take 1 tablet by kelli th once daily aspirin EC (ECOTRIN LOW STRENGTH) 81 MG EC tablet Take 1 tablet by mouth daily. 100 tablet 3 07/02/2019 Active Start: 05-22-2018 take 1 tablet by kelli th once daily aspirin EC (ECOTRIN LOW STRENGTH) 81 MG EC tablet Take 1 tablet by mouth daily. 30 tablet 2 05/22/2018 Active atorvastatin 80 mg oral tablet (11 sources) HMG-CoA Reductase Inhibitor Start: 06-26-2021 take 80 mg by mouth at bedtime Atorvastatin Active 80 MG PO AT BEDTIME June 26, 2021 12:00am Start: 07-15-2020 take 1 tablet by kelli th once daily atorvastatin (LIPITOR) 80 MG tablet Indications: Mixed hyperlipidemia Take 1 tablet by mouth daily. 90 tablet 3 07/15/2020 Active Start: 01-12-2020 take 1 tablet by kelli th once daily atorvastatin (LIPITOR) 80 MG tablet Indications: Mixed hyperlipidemia Take 1 tablet by mouth daily. 30 tablet 5 01/12/2020 Active Start: 06-24-2018 take 1 tablet by kelli th once daily atorvastatin (LIPITOR) 80 MG tablet Indications: Mixed hyperlipidemia Take 1 tablet by mouth daily. 30 tablet 3 06/24/2018 Active busPIRone hydrochloride 10 mg oral tablet (8 sources) Start: 06-26-2021 take 20 mg by mouth three times daily Buspirone Active 20 MG PO THREE TIMES A DAY June 26, 2021 12:00am clopidogrel 75 mg oral tablet (11 sources) P2Y12 Platelet Inhibitor Start: 12-28-2016 take 75 mg by mouth once daily Clopidogrel Active 75 MG PO DAILY September 30, 2017 12:00am dextromethorphan hydrobromide 15 mg / guaiFENesin 400 mg / pseudoephedrine hydrochloride 60 mg oral tablet (1 source) alpha-Adrenergic Agonist, Uncompetitive Z-sstpsl-N-aspartat e Receptor Antagonist, Sigma-1 Agonist Start: 12-30-2018 take 1 tablet by mouth three times daily as needed Pseudoephedrine-DM -GG (CAPMIST DM) 60-15-400 MG TABS Indications: Environmental allergies Take 1 tablet by mouth 3 times daily as needed. 30 tablet 0 12/30/2018 Active docusate sodium 50 mg / sennosides, senior care 8.6 mg oral tablet (3 sources) Start: 08-30-2022 take 1 tablet by mouth at bedtime Sennosides-Docusat e Sodium (Senna Plus) 8.6-50 mg Tablet Active 1 TAB-CAP PO AT BEDTIME August 30, 2022 12:00am DULoxetine 60 mg delayed release oral capsule (2 sources) Serotonin and Norepinephrine Reuptake Inhibitor Start: 07-02-2019 take 1 capsule by mouth once daily DULoxetine (CYMBALTA) 60 MG capsule Take 1 capsule by mouth daily. 90 capsule 3 07/02/2019 Active Start: 06-24-2018 take 1 capsule by mo uth once daily DULoxetine (CYMBALTA) 60 MG capsule Take 1 capsule by mouth daily. 30 capsule 3 06/24/2018 Active ferrous gluconate 324 mg oral tablet (2 sources) Start: 01-12-2020 take 1 tablet by mouth twice daily at mealtime Ferrous Gluconate (FERGON) 324 MG tablet Indications: Iron deficiency anemia, unspecified iron deficiency anemia type Take 1 tablet by mouth 2 times daily (with meals). 180 tablet 3 01/12/2020 Active Start: 06-26-2018 take 1 tablet by kelli twice daily at mealtime Ferrous Gluconate (FERGON) 324 MG tablet Indications: Iron deficiency anemia, unspecified iron deficiency anemia type Take 1 tablet by mouth 2 times daily (with meals). 60 tablet 5 06/26/2018 Active ferrous sulfate 325 mg oral tablet (3 sources) Start: 08-15-2022 take 1 tablet by mouth once daily Ferrous Sulfate (Ferosul) 325 mg (65 mg iron) Tablet Active 325 MG PO DAILY August 15, 2022 12:00am fluticasone propionate 0.05 mg/actuat metered dose nasal spray (3 sources) Corticosteroid Start: 08-15-2022 take 1 spray(s) nasal route once daily Fluticasone Propionate (Flonase) 50 mcg/actuation [place],Suspension Active 1 SPRAY INTRANASAL DAILY August 15, 2022 12:00am administer into each nostril gabapentin 300 mg oral capsule (8 sources) Anti-epileptic Agent Start: 06-26-2021 take 300 mg by mouth three times daily Gabapentin Active 300 MG PO THREE TIMES A DAY June 26, 2021 12:00am levETIRAcetam 500 mg oral tablet (8 sources) Start: 06-26-2021 take 500 mg by mouth twice daily Levetiracetam Active 500 MG PO TWICE A DAY June 26, 2021 12:00am levothyroxine sodium 0.1 mg oral tablet (19 sources) l-Thyroxine Start: 08-15-2022 take 100 ug by mouth once daily Levothyroxine Active 100 MCG PO DAILY August 15, 2022 12:00am Start: 06-26-2021 take 75 ug by mouth once daily Levothyroxine Active 75 MCG PO DAILY June 26, 2021 10:25am Start: 09-30-2017 End: 06-26-2021 take 50 ug by mouth once daily Levothyroxine Discontin ued 50 MCG PO DAILY September 30, 2017 12:00am June 26, 2021 11:31am lisinopril 20 mg oral tablet (16 sources) Angiotensin Converting Enzyme Inhibitor Start: 06-26-2021 take 5 mg by mouth once daily Lisinopril (Zestril) 20 mg tablet Active 5 MG PO DAILY June 26, 2021 10:26am Start: 07-15-2020 take 1 tablet by kelli th once daily lisinopril (PRINIVIL,ZESTRIL) 40 MG tablet Indications: Essential hypertension Take 1 tablet by mouth daily. 90 tablet 3 07/15/2020 Active Start: 07-02-2019 take 1 tablet by kelli th once daily lisinopril (PRINIVIL,ZESTRIL) 40 MG tablet Indications: Essential hypertension Take 1 tablet by mouth daily. 90 tablet 3 07/02/2019 Active Start: 06-24-2018 take 1 tablet by kelli th once daily lisinopril (PRINIVIL,ZESTRIL) 40 MG tablet Indications: Essential hypertension Take 1 tablet by mouth daily. 30 tablet 5 06/24/2018 Active Start: 09-30-2017 End: 06-26-2021 take 1 tablet by mouth once daily Lisinopril (Zestril) 20 MG tablet Discontinued 20 MG PO DAILY September 30, 2017 12:00am June 26, 2021 11:31am loratadine 10 mg oral tablet (3 sources) Start: 08-30-2022 take 10 mg by mouth once daily Loratadine Active 10 MG PO DAILY August 30, 2022 12:00am LORazepam 0.5 mg oral tablet (3 sources) Benzodiazepine Start: 08-30-2022 take 1 tablet by mouth three times daily Lorazepam (Ativan) 0.5 mg Tablet Active 0.5 MG PO THREE TIMES A DAY August 30, 2022 12:00am melatonin 10 mg oral tablet (9 sources) Start: 08-15-2022 take 10 mg by mouth at bedtime Melatonin Active 10 MG PO AT BEDTIME August 15, 2022 12:00am Start: 06-26-2021 Melatonin Acti ve MG PO June 25, 2021 11:00pm Start: 07-27-2020 take 2 capsules by m outh once daily Melatonin 3 MG CAPS Indications: Other insomnia Take 6 mg by mouth nightly. 180 each 1 07/27/2020 Active metoprolol tartrate 50 mg oral tablet (11 sources) beta-Adrenergic Fuentes Start: 06-26-2021 take 50 mg by mouth twice daily Metoprolol Tartrate Active 50 MG PO TWICE A DAY June 26, 2021 12:00am Start: 07-15-2020 take 1 tablet by kelli th twice daily Metoprolol Tartrate (LOPRESSOR) 50 MG tablet Indications: Essential hypertension Take 1 tablet by mouth two times a day. 180 tablet 3 07/15/2020 Active Start: 04-28-2019 take 1 tablet by kelli th twice daily Metoprolol Tartrate (LOPRESSOR) 50 MG tablet Indications: Essential hypertension TAKE 1 TABLET BY MOUTH TWICE DAILY 60 tablet 5 04/28/2019 Active Start: 03-07-2018 take 1 tablet by kelli th twice daily Metoprolol Tartrate (LOPRESSOR) 50 MG tablet Indications: Essential hypertension Take 1 tablet by mouth two times a day. 60 tablet 5 03/07/2018 Active montelukast 10 mg oral tablet (8 sources) Leukotriene Receptor Antagonist Start: 06-26-2021 take 10 mg by mouth at bedtime Montelukast Active 10 MG PO AT BEDTIME June 26, 2021 12:00am polyethylene glycol 3350 09775 mg powder for oral solution (3 sources) Osmotic Laxative Start: 08-30-2022 Polyethylene Glycol 3350 (Miralax) 17 gram/dose Powder Active 17 GM PO DAILY August 30, 2022 12:00am polyvinyl alcohol 0.014 ml/ml ophthalmic solution (3 sources) Start: 08-30-2022 Polyvinyl Alco hol (Artificial Tears (Polyvin Alc)) 1.4 % drops Active DRP August 30, 2022 12:00am sertraline 100 mg oral tablet (9 sources) Serotonin Reuptake Inhibitor Start: 06-26-2021 take 100 mg by mouth once daily Sertraline Active 100 MG PO DAILY June 26, 2021 12:00am Start: 07-27-2020 take 1 tablet by [facility] once daily sertraline (ZOLOFT) 100 MG tablet Indications: Current moderate episode of major depressive disorder without prior episode (HCC) Take 1 tablet by mouth daily. 90 tablet 0 07/27/2020 Active sodium chloride 0.111 meq/ml nasal spray (5 sources) Start: 06-26-2021 Sodium Chlorid e ([place] Sea Nasal) 0.65 % aerosol,spray Active 2 SPRAY INTRANASAL BEDTIME June 25, 2021 11:00pm tamsulosin hydrochloride 0.4 mg oral capsule (9 sources) alpha-Adrenergic Fuentes Start: 08-30-2022 Tamsulosin Active MG PO August 30, 2022 12:00am Start: 06-26-2021 take 0.4 mg by mouth once emily y Tamsulosin Active 0.4 MG PO DAILY June 25, 2021 11:00pm Start: 07-27-2020 take 1 capsule by [facility] once daily Tamsulosin HCl (FLOMAX) 0.4 MG 24 hr capsule Indications: Benign prostatic hyperplasia with lower urinary tract symptoms, symptom details unspecified Take 1 capsule by mouth daily. 90 capsule 1 07/27/2020 Active tiZANidine 4 mg oral tablet (3 sources) Central alpha-2 Adrenergic Agonist Start: 08-30-2022 Tizanidine Active MG August 30, 2022 12:00am triamcinolone acetonide 1 mg/ml topical cream (2 sources) Corticosteroid Start: 07-02-2019 triamcinolone (KENALOG) 0.1 % cream Indications: Dyshidrotic eczema Apply bid to affected areas 30 g 1 07/02/2019 Active Start: 09-23-2018 triamcinolone (KENALOG) 0.1 % cream Indications: Dyshidrotic eczema Apply bid to affected areas 30 g 1 09/23/2018 Active Completed/Discontinued Medications Medication Drug Class(es) Dates Sig (Normalized) Sig (Original) carbamide peroxide 65 mg/ml otic solution (8 sources) Start: 06-26-2021 End: 06-30-2021 Carbamide Peroxide (Debrox) 6.5 % drops Discontinued 10 DRP OTIC DAILY 15 4 June 26, 2021 12:00am June 30, 2021 12:04am 10 drops in each ear daily for 4 days followed by water flush 24 hr OXcarbazepine 600 mg extended release oral tablet (11 sources) Anti-epileptic Agent Start: 09-30-2017 End: 06-26-2021 take 1 tablet by mouth once daily Oxcarbazepine (Oxtellar Xr) 600 MG tablet extended release 24 hr Discontinued 4 TABLET PO DAILY September 30, 2017 12:00am June 26, 2021 11:36am OXcarbazepine ER (OXTELLAR XR) 600 MG TB24 Take by mouth two times per day. 0 Active oxyCODONE hydrochloride 5 mg oral tablet (8 sources) Opioid Agonist Start: 10-01-2017 End: 06-26-2021 take 5-10 mg by mouth every four hours as needed Oxycodone Discontinued 5 - 10 MG PO EVERY 4 HOURS NEEDED 60 7 October 01, 2017 12:00am June 26, 2021 11:36am pantoprazole 40 mg delayed release oral tablet (11 sources) Proton Pump Inhibitor Start: 09-30-2017 End: 06-26-2021 take 40 mg by mouth once daily Pantoprazole Discontinued 40 MG PO DAILY September 30, 2017 12:00am June 26, 2021 11:36am Problems Active Problems Problem Classification Problem Date Documented Date Episodic/Chronic Acute cerebrovascular disease (11 sources) Embolic stroke; 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] Onset: 7 11-16-2016 Chronic Alcohol-related disorders (4 sources) Alcoholism; Translations: [Alcohol dependence, uncomplicated] Onset: 4 07-17-2013 Chronic Anxiety disorders (3 sources) Anxiety; Translations: [Anxiety disorder, unspecified] Onset: 4 07-17-2013 Chronic Chronic obstructive pulmonary disease and bronchiectasis (3 sources) Chronic obstructive lung disease; Translations: [Chronic obstructive pulmonary disease, unspecified] Onset: 4 07-17-2013 Chronic Delirium, dementia, and amnestic and other cognitive disorders (11 sources) Dementia; Translations: [Unspecified dementia without behavioral disturbance] Chronic Diabetes mellitus without complication (1 source) Non-diabetic hyperglycemia; Translations: [Hyperglycemia, unspecified] 07-27-2023 Episodic Disorders of lipid metabolism (4 sources) Mixed hyperlipidemia; Translations: [Mixed hyperlipidemia] Onset: 9 06-24-2018 Chronic E Codes: Fall (6 sources) Fall; Translations: [Unspecified fall, initial encounter] 10-01-2021 Episodic Epilepsy; convulsions (13 sources) Epilepsy, unspecified, not intractable, without status epilepticus; Translations: [Epilepsy] Onset: 1 Chronic Esophageal disorders (2 sources) Gastroesophageal reflux disease without esophagitis; Translations: [Gastro-esophageal reflux disease without esophagitis] Onset: 1 Chronic Essential hypertension (5 sources) Hypertensive disorder; Translations: [Essential hypertension] Onset: 4 07-17-2013 Chronic Fracture of upper limb (3 sources) Closed fracture of upper end of humerus; Translations: [Unspecified fracture of upper end of left humerus, initial encounter for closed fracture] 08-15-2022 Episodic Late effects of cerebrovascular disease (17 sources) Sequelae of cerebral infarction; Translations: [Other sequelae of cerebral infarction] Onset: 1 Chronic Malaise and fatigue (2 sources) Asthenia; Translations: [Weakness] Onset: 4 07-27-2023 Episodic Mood disorders (7 sources) Depressive disorder; Translations: [Major depressive disorder, single episode, unspecified] Onset: 4 07-09-2014 Chronic Occlusion or stenosis of precerebral arteries (1 source) Occlusion and stenosis of unspecified carotid artery; Translations: [Occlusion and stenosis of unspecified carotid artery] Onset: 1 Chronic Open wounds of head; neck; and trunk (6 sources) Laceration of right cheek; Translations: [Laceration without foreign body of right cheek and temporomandibular area, initial encounter] 10-01-2021 Episodic Other circulatory disease (8 sources) History of cerebrovascular accident; Translations: [Personal history of transient ischemic attack (TIA), and cerebral infarction without residual deficits] 09-23-2021 Episodic Other ear and sense organ disorders (3 sources) Bilateral hearing loss; Translations: [Unspecified hearing loss, bilateral] Onset: 6 06-14-2015 Chronic Other ear and sense organ disorders (1 source) Asymmetrical sensorineural hearing loss; Translations: [Unspecified sensorineural hearing loss] Onset: 6 04-10-2016 Chronic Other ear and sense organ disorders (1 source) Unspecified sensorineural hearing loss; Translations: [Unspecified sensorineural hearing loss] Onset: 1 Chronic Other injuries and conditions due to external causes (3 sources) H/O: fracture; Translations: [Personal history of (healed) traumatic fracture] 08-30-2022 Episodic Other injuries and conditions due to external causes (3 sources) History of fall; Translations: [History of falling] 08-30-2022 Episodic Other nervous system disorders (1 source) Encephalopathy, unspecified; Translations: [Encephalopathy, unspecified] Onset: 1 Chronic Other nervous system disorders (4 sources) H/O: epilepsy; Translations: [Personal history of other diseases of the nervous system and sense organs] 05-14-2022 Episodic Residual codes; unclassified (1 source) Obstructive sleep apnea syndrome; Translations: [Obstructive sleep apnea (adult) (pediatric)] Chronic Syncope (4 sources) Near syncope; Translations: [Syncope and collapse] 05-14-2022 Episodic Thyroid disorders (14 sources) Acquired hypothyroidism; Translations: [Hypothyroidism] Onset: 4 07-17-2013 Chronic Thyroid disorders (8 sources) Disorder of thyroid gland; Translations: [Disorder of thyroid, unspecified] 06-26-2021 Episodic Unclassified (1 source) Encounter for follow-up examination after completed treatment for conditions other than malignant neoplasm / Z09(ICD-10) Onset: 7 Unclassified (1 source) Cerebral infarction due to embolism of unspecified precerebral artery (HCC) / I63.10(ICD-10) Onset: 7 Unclassified (1 source) Viral wart, unspecified / B07.9(ICD-10) Onset: 7 Past or Other Problems Problem Classification Problem Date Documented Date Episodic/Chronic Fluid and electrolyte disorders (2 sources) Hypokalemia; Translations: [Hypo-osmolality and hyponatremia] Onset: 07-30-2020 Episodic Joint disorders and dislocations; trauma-related (6 sources) Dislocation of hand joint; Translations: [Unspecified dislocation of unspecified finger, initial encounter] Onset: 05-09-2018 05-15-2018 Episodic Other aftercare (4 sources) Other mcc (current) drug therapy; Translations: [Other microbiology manager (current) drug therapy] Onset: 05-31-2020 Episodic Other connective tissue disease (3 sources) Neurological finding; Translations: [Unspecified convulsions] Onset: 07-17-2013 07-17-2013 Episodic Other ear and sense organ disorders (2 sources) Asymmetrical sensorineural hearing loss; Translations: [Asymmetrical sensorineural hearing loss] Onset: 11-04-2015 04-10-2016 Episodic Other liver diseases (3 sources) Large liver; Translations: [Hepatomegaly, not elsewhere classified] Onset: 07-17-2013 07-17-2013 Episodic Other nervous system disorders (1 source) Ataxia, unspecified; Translations: [Ataxia, unspecified] Onset: 05-31-2020 Episodic Residual codes; unclassified (2 sources) Amnesia; Translations: [Other amnesia] Onset: 07-02-2019 07-02-2019 Episodic Sprains and strains (4 sources) Strain of neck muscle; Translations: [Strain of muscle, fascia and tendon at neck level, initial encounter] Onset: 09-04-2022 08-23-2022 Episodic Superficial injury; contusion (8 sources) Contusion of hand; Translations: [Contusion of left hand, initial encounter] Onset: 04-10-2023 08-23-2022 Episodic Results Test Name Value Interpretation Reference Range Facility 12 Lead EKGon 07-27-2023 12 Lead EKG [facility] Cardi[facility] Services [address] [place] [address] 12 Lead EKG 07/27/23 1402 MR#: [id number] Acct: [id number] Name: STEVE GARZA III Rep #: [id number] : 1960 63 From: Adal Shen MD Attending Dr: Status: DEP ER Ordering Dr: Bill Lundberg MD Date: 07/27/23 Location: ED Sex: M C Admitted: Test Reason : SOB Blood Pressure : / mmHG Vent. Rate : 058 BPM Atrial Rate : 058 BPM P-R Int : 218 ms QRS Dur : 084 ms QT Int : 434 ms P-R-T Axes : 004 007 070 degrees QTc Int : 426 ms Sinus bradycardia with 1st degree A-V block Otherwise normal ECG Confirmed by STEPAN BLACK, ADAL ([id number]), publishing editor DANNIE HO ([id number]) on 07/29/2023 11:49:30 AM Referred By: LAURO/EDWINA Confirmed By:ADAL SHEN MD 07/29/23 1149 Date Adal Shen MD CC: ENVIRONMENTAL COMPLIANCE ENGINEER-C Tangela Vega; Dr. Bill Lundberg MD Signed Normal [facility] Absolute lymphocyte countOrd ered By: Bill Lundberg on 07-27-2023 Lymphocytes Auto (Unsp spec) [#/Vol] 1.11 10*3/uL 0.83-4.51 [facility] Automated lymphocyte count a s percentage of total leukocytesOrdered By: Bill Lundberg on 07-27-2023 Lymphocytes/100 WBC Auto (Unsp spec) 20.3 % 19-41 [facility] Basic Metabolic Profile (BMP )on 07-27-2023 BUN/CRE 29.8 RATIO High 10-20 [facility] Comment on above: Performed By: #### L 500.2500, L100.0100 #### [facility] [address] [place], [address] CA,Total 8.7 mg/dL Normal 8.5-10.1 [facility] Comment on above: Performed By: #### L 500.2500, L100.0100 #### [facility] [address] [place], [address] Chloride [Moles/Vol] 106 mmol/L Normal 98-107 [facility] Comment on above: Performed By: #### L 500.2500, L100.0100 #### [facility] [address] [place], [address] CO2 [Moles/Vol] 27.0 mmol/L Normal 21.0-32.0 [facility] Comment on above: Performed By: #### L 500.2500, L100.0100 #### [facility] [address] [place], [address] Creatinine [Mass/Vol] 0.80 mg/dL Normal 0.70-1.30 [facility] Comment on above: Result Comment: The validity of the calculated GFR GFRAA in patients over 70 years has not been determined. Clinical correlation is essential. Performed By: #### L 500.2500, L100.0100 #### [facility] [address] [place], [address] ECRCL 91.48 ml/min Normal [facility] Comment on above: Performed By: #### L 500.2500, L100.0100 #### [facility] [address] [place], [address] EST GFR - AA 125 mL/min Normal >60 [facility] Comment on above: Result Comment: Afri can [place] GFR Calc Performed By: #### L 500.2500, L100.0100 #### [facility] [address] [place], [address] GAP 5 Normal 5-15 [facility] Comment on above: Performed By: #### L 500.2500, L100.0100 #### [facility] [address] [place], [address] GFR/1.73 sq M.predicted among non-blacks MDRD (S/P/Bld) [Vol rate/Area] 104 mL/min/{1.73_m2} Normal >60 [facility] Comment on above: Result Comment: Non- GFR Calc Performed By: #### L 500.2500, L100.0100 #### [facility] [address] [place], [address] Glucose [Mass/Vol] 160 mg/dL High 74-106 [facility] Comment on above: Result Comment: Fast ing Glucose result greater than or equal to 126 mg/dL suggests DIABETES MELLITUS per A.D.A. criteria. Performed By: #### L 500.2500, L100.0100 #### [facility] [address] [place], [address] Potassium [Moles/Vol] 3.7 mmol/L Normal 3.5-5.1 [facility] Comment on above: Performed By: #### L 500.2500, L100.0100 #### [facility] [address] [place], [address] Sodium [Moles/Vol] 138 mmol/L Normal 136-145 [facility] Comment on above: Performed By: #### L 500.2500, L100.0100 #### [facility] [address] [place], [address] Urea nitrogen [Mass/Vol] 24 mg/dL High 7-18 [facility] Comment on above: Performed By: #### L 500.2500, L100.0100 #### [facility] [address] [place], [address] Basophil percentageOrdered B y: Bill Lundberg on 07-27-2023 Basophils/100 WBC (Bld) 0.5 % 0-1 [facility] Chloride [Moles/Vol] 106 mmol/L 98-107 [facility] Eosinophils/100 WBC (Bld) 2.0 % 0-5 [facility] Glucose [Mass/Vol] 160 mg/dL 74-106 [facility] Comment on above: Fasting Glucose resu lt greater than or equal to 126 mg/dL suggests DIABETES MELLITUS per A.D.A. criteria. Hemoglobin (Bld) [Mass/Vol] 14.7 g/dL 13.0-16.5 [facility] Monocytes/100 WBC (Bld) 6.2 % 0-10 [facility] Neutrophils (Bld) [#/Vol] 3.9 10*3/uL 2.0-7.7 [facility] Neutrophils/100 WBC (Bld) 70.8 % 47-70 [facility] Potassium [Moles/Vol] 3.7 mmol/L 3.5-5.1 [facility] Sodium [Moles/Vol] 138 mmol/L 136-145 [facility] WBC (Bld) [#/Vol] 5.5 10*3/uL 4.4-11.0 [facility] CBC W/Diff, Automatedon 05-0 4-2023 Absolute Lymph 1.11 X10 3/uL Normal 0.83-4.51 [facility] Comment on above: Performed By: #### L 500.2500, L100.0100 #### [facility] [address] [place], [address] Absolute Neut 3.9 X10 3/uL Normal 2.0-7.7 [facility] Comment on above: Performed By: #### L 500.2500, L100.0100 #### [facility] [address] [place], [address] Basophils/100 WBC (Bld) 0.5 % Normal 0-1 [facility] Comment on above: Performed By: #### L 500.2500, L100.0100 #### [facility] [address] [place], [address] Eosinophils/100 WBC (Bld) 2.0 % Normal 0-5 [facility] Comment on above: Performed By: #### L 500.2500, L100.0100 #### [facility] [address] [place], [address] Erythrocyte distribution width (RBC) [Ratio] 11.9 % Normal 11.6-14.6 [facility] Comment on above: Performed By: #### L 500.2500, L100.0100 #### [facility] [address] [place], [address] Hematocrit (Bld) [Volume fraction] 43.6 % Normal 40-54 [facility] Comment on above: Performed By: #### L 500.2500, L100.0100 #### [facility] [address] [place], [address] Hemoglobin (Bld) [Mass/Vol] 14.7 g/dL Normal 13.0-16.5 [facility] Comment on above: Performed By: #### L 500.2500, L100.0100 #### [facility] [address] [place], [address] IG% 0.200 Normal 0.0-0.9 [facility] Comment on above: Result Comment: IG% - Immature Granulocytes (promyelocytes, myelocytes and metamyelocytes) > 1% indicates that a LEFT SHIFT is Present. Performed By: #### L 500.2500, L100.0100 #### [facility] [address] [place], [address] Lymphocytes/100 WBC (Bld) 20.3 % Normal 19-41 [facility] Comment on above: Performed By: #### L 500.2500, L100.0100 #### [facility] [address] [place], [address] MCH (RBC) [Entitic mass] 32.9 pg High 27.0-32.0 [facility] Comment on above: Performed By: #### L 500.2500, L100.0100 #### [facility] [address] [place], [address] MCHC (RBC) [Mass/Vol] 33.7 g/dL Normal 32-36 [facility] Comment on above: Performed By: #### L 500.2500, L100.0100 #### [facility] [address] [place], [address] MCV (RBC) [Entitic vol] 97.5 fL High 80-94 [facility] Comment on above: Performed By: #### L 500.2500, L100.0100 #### [facility] [address] [place], [address] Monocytes/100 WBC (Bld) 6.2 % Normal 0-10 [facility] Comment on above: Performed By: #### L 500.2500, L100.0100 #### [facility] [address] [place], [address] Neutrophils/100 WBC (Bld) 70.8 % High 47-70 [facility] Comment on above: Performed By: #### L 500.2500, L100.0100 #### [facility] [address] [place], [address] Nucleated RBC (Bld) [#/Vol] 0 10*3/uL Normal 0-5 [facility] Comment on above: Performed By: #### L 500.2500, L100.0100 #### [facility] [address] [place], [address] Platelet mean volume (Bld) [Entitic vol] 8.7 fL Normal 6.2-12.0 [facility] Comment on above: Performed By: #### L 500.2500, L100.0100 #### [facility] [address] [place], [address] Platelets (Bld) [#/Vol] 195 10*3/uL Normal 150-450 [facility] Comment on above: Performed By: #### L 500.2500, L100.0100 #### [facility] [address] [place], [address] RBC (Bld) [#/Vol] 4.47 10*6/uL Low 4.6-6.[address] [facility] Comment on above: Performed By: #### L 500.2500, L100.0100 #### [facility] [address] [place], [address] RDW SD 42.9 fl Normal 35.1-43.9 [facility] Comment on above: Performed By: #### L 500.2500, L100.0100 #### [facility] [address] [place], [address] WBC (Bld) [#/Vol] 5.5 10*3/uL Normal 4.4-11.0 [facility] Comment on above: Performed By: #### L 500.2500, L100.0100 #### [facility] [address] [place], [address] Determination of erythrocyte mean corpuscular volume (MCV)Ordered By: Bill Lundberg on 07-27-2023 MCV (RBC) [Entitic vol] 97.5 fL 80-94 [facility] Emergency Department Summary on 07-27-2023 Emergency Department Summary [facility] Medical Records Department [address] [place] [address] Emergency Department Summary 07/27/23 MR#: [id number] Acct: [id number] Name: STEVE GARZA III Rep #: [id number] : 1960 63 From: Bill Lundberg MD PCP: ABEL RomeroC Status:REG ER Location: ED ADDENDUM by Dr. Bill Lundberg MD on 07/27/23 at 1659 Sinus bradycardia rate of 58. RI interval is 218 ms. QRS duration 84 ms. QT duration 134 ms. [place] is normal. There is no ischemic changes noted. 07/27/23 1659 Cosigner Signature (if applicable): cc: ENVIRONMENTAL COMPLIANCE ENGINEER-C Tangela Vega * Signed HPI History of Present Illness Chief Complaint: Weakness Detail of Chief Complaint: Patient with generalized weakness for over a week. He had 3 prior strokes. Informant: patient Onset/Context/Timing Onset: Weeks Context: Gradual Onset Timing: Continuous Quality: Generalized weakness Location: Generalized Current Severity: Mild Maximum Severity: Moderate Worsened by: Nothing specific Relieved by: Nothing Associated Symptoms Associated Symptoms: Poor p.o. intake Narrative Narrative: Patient is a 63-year-old male who looks much older than reported age. He has history of 3 prior strokes, hypothyroidism, epilepsy who was sent to the emergency room by nursing staff because he complained of increased weakness and poor appetite. With past and why he was sent here his response was "I wish I never would have told the nurse that I did not feel well ". Patient denies headache. Patient denies visual, ocular auditory symptoms. Patient has trouble with speech or swallowing compared to baseline. Patient denies chest pain. He denies shortness of breath. He denies cough. He denies abdominal pain. He denies vomiting or diarrhea. He denies urologic symptoms. Prior similar symptoms: Yes Recent Illness/Hospitalization: No [facility] Medical History Anxiety disorder, unspecified Ataxia, unspecified Ataxic gait Benign prostatic hyperplasia with lower urinary tract symptoms Cerebral infarction, unspecified Chronic obstructive pulmonary disease, unspecified Cognitive communication deficit Encephalopathy, unspecified Epilepsy, unspecified, not intractable, without status epilepticus Essential (primary) hypertension Gastro-esophageal reflux disease without esophagitis Generalized anxiety disorder 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 side Hyperlipidemia, unspecified Hypothyroidism, unspecified Insomnia, unspecified Localization-related (focal) (partial) idiopathic epilepsy and epileptic syndromes with seizures of localized onset, not intractable, without status epilepticus Major depressive disorder, recurrent, mild Mixed hyperlipidemia Mixed simple and mucopurulent chronic bronchitis Muscle weakness (generalized) Occlusion and stenosis of unspecified carotid artery Other abnormalities of gait and mobility Other sequelae of cerebral infarction Other specified hypothyroidism Other toxic encephalopathy Pain in left leg Primary insomnia Stroke Syncope and collapse Thyroid disease Unspecified abnormalities of gait and mobility Unspecified sensorineural hearing loss Unspecified symptoms and signs involving cognitive functions and awareness Home Medications clopidogrel 75 mg tablet 75 mg PO DAILY BLOOD THINNER 09/30/17 [History Last Taken 09/26/17] aspirin 81 mg capsule 81 mg PO DAILY 06/26/21 [History Last Taken Unknown] atorvastatin 80 mg tablet 80 mg PO QHS 06/26/21 [History Last Taken Unknown] buspirone 10 mg tablet 20 mg PO TID 06/26/21 [History Last Taken Unknown] gabapentin 300 mg capsule 300 mg PO TID 06/26/21 [History Last Taken Unknown] levetiracetam 500 mg tablet 500 mg PO BID 06/26/21 [History Last Taken Unknown] metoprolol tartrate 50 mg tablet 50 mg PO BID 06/26/21 [History Last Taken Unknown] montelukast 10 mg tablet 10 mg PO QHS 06/26/21 [History Last Taken Unknown] sertraline 100 mg tablet 100 mg PO DAILY 06/26/21 [History Last Taken Unknown] acetaminophen 500 mg tablet 1,000 mg PO TID 08/15/22 [History Last Taken Unknown] ferrous sulfate 325 mg (65 mg iron) tablet (FeroSul) 325 mg PO DAILY 08/15/22 [History Last Taken Unknown] fluticasone propionate 50 mcg/actuation nasal spray,suspension 1 spray intranasal DAILY 08/15/22 [History Last Taken Unknown] levothyroxine 100 mcg tablet 100 mcg PO DAILY 08/15/22 [History Last Taken Unknown] melatonin 10 mg tablet 10 mg PO QHS 08/15/22 [History Last Taken Unknown] oxycodone-acetaminophen 5 mg-325 mg tablet 1 tab PO Q6H PRN PRN pain 5 days #20 TABLETS 08/15/22 [Rx Last Taken Unknown] loratadine 10 mg tablet 10 mg PO DAILY 08/30/22 [History Last Taken Unknown] lorazepam 0.5 mg tablet (Ativan) 0.5 mg PO TID PRN Anxiety 08/30/22 [History Last Ta (more content not included)... Normal [facility] Erythrocyte distribution wid th ratioOrdered By: Bill Lundberg on 07-27-2023 Erythrocyte distribution width (RBC) [Ratio] 11.9 % 11.6-14.6 [facility] Erythrocyte distribution wid th standard deviationOrdered By: Bill Lundberg on 07-27-2023 Erythrocyte distribution width (RBC) [Entitic vol] 42.9 fL 35.1-43.9 [facility] Hematocrit Auto (Bld) [Volum e fraction]Ordered By: Bill Lundberg on 07-27-2023 Hematocrit (Bld) [Volume fraction] 43.6 % 40-54 [facility] Immature granulocytes/100 WB C Auto (Bld)Ordered By: Bill Lundberg on 07-27-2023 Immature granulocytes/100 WBC (Bld) 0.200 % 0.0-0.9 [facility] Comment on above: IG% - Immature Granu locytes (promyelocytes, myelocytes and metamyelocytes) > 1% indicates that a LEFT SHIFT is Present. Laboratory - Chemistry and C hemistry - challengeOrdered By: Bill Lundberg on 07-27-2023 CO2 [Moles/Vol] 27.0 mmol/L 21.0-32.0 [facility] Urea nitrogen/Creatinine [Mass ratio] 29.8 mg/mg 10-20 [facility] - Hematology and Cell countsOrdered By: Bill Lundberg on 07-27-2023 MCH (RBC) [Entitic mass] 32.9 pg 27.0-32.0 [facility] MCHC (RBC) [Mass/Vol] 33.7 g/dL 32-36 [facility] Nucleated RBC/100 WBC (Bld) [Ratio] 0 % 0-5 [facility] Platelet mean volume (Bld) [Entitic vol] 8.7 fL 6.2-12.0 [facility] Platelets (Bld) [#/Vol] 195 10*3/uL 150-450 [facility] No Panel InformationOrdered By: Bill Lundberg on 07-27-2023 Estimated Creatinine Clearance Calc 91.48 ml/min [facility] Estimated GFR (MDRD) Amer 125 mL/min >60 [facility] Comment on above: GFR Calc Estimated GFR (MDRD) Non-Af Amer 104 mL/min >60 [facility] Comment on above: Non- GFR Calc RBC Auto (Bld) [#/Vol]Ordere d By: Bill Lundberg on 07-27-2023 RBC (Bld) [#/Vol] 4.47 10*6/uL 4.6-6.2 [facility] Serum or plasma calcium archie urement (mass/volume)Ordered By: Bill Lundberg on 07-27-2023 Calcium [Mass/Vol] 8.7 mg/dL 8.5-10.1 [facility] Serum or plasma creatinine m easurement (mass/volume)Ordered By: Bill Lundberg on 07-27-2023 Creatinine [Mass/Vol] 0.80 mg/dL 0.70-1.30 [facility] Comment on above: The validity of the calculated GFR & GFRAA in patients over 70 years has not been determined. Clinical correlation is essential. Serum or plasma urea nitroge n measurement (mass/volume)Ordered By: Bill Lundberg on 07-27-2023 Urea nitrogen [Mass/Vol] 24 mg/dL 7-18 [facility] Thin prep Papanicolaou smear with manual screeningOrdered By: Bill Lundberg on 07-27-2023 Thin prep Papanicolaou smear with manual screening 5 5-15 [facility] Chest PA and Lateralon 04-05 Chest PA and Lateral [facility] Imaging Services [address] [place] [address] Chest PA and Lateral MR#: [id number] Acct: [id number] Name: STEVE GARZA III Rep #: [id number] : 1960 M 63 From: Manpreet reich MD PCP: Care Physician,No Primary Status: [facility] ER Study: Chest PA and Lateral Date of Exam: 04/05/23 Exam# [id number] Ordering Dr: Sridhar Ortiz DO [id number] INDICATION: Cough EXAMINATION/TECHNIQUE: X-RAY - XR Chest 2 Views COMPARISON: None. FINDINGS: The lungs are clear. The cardiomediastinal silhouette is unremarkable. No pleural effusion or pneumothorax. Degenerative changes of the thoracic spine. Chronic left-sided rib fractures. RAD/Chest PA and Lateral IMPRESSION: No acute radiographic abnormalities. Electronically Signed: Manpreet Edge MD at 17:30 EST , CC: Dr. Sridhar Ortiz DO; No Primary Care Physician Cell Stripper: Signed Normal [facility] Elbow min 3 Viewson 04-05-19 24 Elbow min 3 Views [facility] Imaging Services [address] [place] [address] Elbow min 3 Views MR#: [id number] Acct: [id number] Name: STEVE GARZA III Rep #: [id number] : 1960 M 63 From: Manpreet reich MD PCP: Care Physician,No Primary Status: REG ER Study: Elbow min 3 Views Date of Exam: 04/05/23 Exam# [id number] Ordering Dr: Sridhar Ortiz DO [id number] INDICATION: Injury/Pain EXAMINATION/TECHNIQUE: X-RAY - LEFT XR Elbow Min 3 Views COMPARISON: No relevant prior comparison study available FINDINGS: SOFT TISSUES: No soft tissue swelling or gas. No radiopaque foreign body. BONES/JOINTS: There is no displacement of the anterior or posterior fat pads. No acute fracture or subluxation. Normal alignment. Degenerative changes. No sclerotic or destructive changes observed. RAD/Elbow min 3 Views IMPRESSION: No acute abnormalities. Electronically Signed: Manpreet Edge MD at 17:32 EST , CC: Dr. Sridhar Ortiz DO; No Primary Care Physician Cell Stripper: Signed Normal [facility] Emergency Department Summary on 04-05-2023 Emergency Department Summary [facility] Medical Records Department [address] [place] [id number] Emergency Department Summary 04/05/23 MR#: [id number] Acct: [id number] Name: STEVE GARZA III Rep #: [id number] : 1960 63 From: Sridhar Ortiz DO PCP: Care Physician,No Primary Status:REG ER Location: ED HPI History of Present Illness HPI Narrative: Patient admits to some pain in his left forearm and upper arm that became worse today. Patient also admits to some pain in his left lower leg. Patient denies any falls or trauma. Patient describes the pain as sharp, aching, and burning. Patient states nothing makes it better and nothing makes it worse. Patient states she has had a prior stroke with left-sided hemiparesis. Patient denies any other weakness or paresthesias. Patient admits to some subjective fevers and chills. Patient also admits to some shortness of breath and cough. Patient denies any nausea or vomiting. Patient denies any chest pain. Chief Complaint: Upper Extremity Injury Informant: patient Onset/Context/Timing Onset: Today Context: Sudden Onset Timing: Continuous Quality of Pain: Sharp, Aching and Burning Location: Left forearm, left arm, left lower leg Worsened by: Nothing Relieved by: Nothing Associated Symptoms Associated Symptoms: Negative for Parasthesia, Weakness or Loss of Funtion [facility] Medical History Anxiety disorder, unspecified Ataxia, unspecified Ataxic gait Benign prostatic hyperplasia with lower urinary tract symptoms Cerebral infarction, unspecified Chronic obstructive pulmonary disease, unspecified Cognitive communication deficit Encephalopathy, unspecified Epilepsy, unspecified, not intractable, without status epilepticus Essential (primary) hypertension Gastro-esophageal reflux disease without esophagitis Generalized anxiety disorder 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 side Hyperlipidemia, unspecified Hypothyroidism, unspecified Insomnia, unspecified Localization-related (focal) (partial) idiopathic epilepsy and epileptic syndromes with seizures of localized onset, not intractable, without status epilepticus Major depressive disorder, recurrent, mild Mixed hyperlipidemia Mixed simple and mucopurulent chronic bronchitis Muscle weakness (generalized) Occlusion and stenosis of unspecified carotid artery Other abnormalities of gait and mobility Other sequelae of cerebral infarction Other specified hypothyroidism Other toxic encephalopathy Pain in left leg Primary insomnia Stroke Syncope and collapse Thyroid disease Unspecified abnormalities of gait and mobility Unspecified sensorineural hearing loss Unspecified symptoms and signs involving cognitive functions and awareness Home Medications clopidogrel 75 mg tablet 75 mg PO DAILY BLOOD THINNER 09/30/17 [History Last Taken 09/26/17] aspirin 81 mg capsule 81 mg PO DAILY 06/26/21 [History Last Taken Unknown] atorvastatin 80 mg tablet 80 mg PO QHS 06/26/21 [History Last Taken Unknown] buspirone 10 mg tablet 20 mg PO TID 06/26/21 [History Last Taken Unknown] gabapentin 300 mg capsule 300 mg PO TID 06/26/21 [History Last Taken Unknown] levetiracetam 500 mg tablet 500 mg PO BID 06/26/21 [History Last Taken Unknown] metoprolol tartrate 50 mg tablet 50 mg PO BID 06/26/21 [History Last Taken Unknown] montelukast 10 mg tablet 10 mg PO QHS 06/26/21 [History Last Taken Unknown] sertraline 100 mg tablet 100 mg PO DAILY 06/26/21 [History Last Taken Unknown] acetaminophen 500 mg tablet 1,000 mg PO TID 08/15/22 [History Last Taken Unknown] ferrous sulfate 325 mg (65 mg iron) tablet (FeroSul) 325 mg PO DAILY 08/15/22 [History Last Taken Unknown] fluticasone propionate 50 mcg/actuation nasal spray,suspension 1 spray intranasal DAILY 08/15/22 [History Last Taken Unknown] levothyroxine 100 mcg tablet 100 mcg PO DAILY 08/15/22 [History Last Taken Unknown] melatonin 10 mg tablet 10 mg PO QHS 08/15/22 [History Last Taken Unknown] oxycodone-acetaminophen 5 mg-325 mg tablet 1 tab PO Q6H PRN PRN pain 5 days #20 TABLETS 08/15/22 [Rx Last Taken Unknown] loratadine 10 mg tablet 10 mg PO DAILY 08/30/22 [History Last Taken Unknown] lorazepam 0.5 mg tablet (Ativan) 0.5 mg PO TID PRN Anxiety 08/30/22 [History Last Taken Unknown] oxycodone-acetaminophen 5 mg-325 mg tablet (Percocet) 1 tab PO Q4H PRN pain 5 days #20 tabs 08/30/22 [Rx Last Taken Unknown] polyethylene glycol 3350 17 gram/dose oral powder (Miralax) 17 g PO DAILY 08/30/22 [History Last Taken Unknown] polyvinyl alcohol 1.4 % eye drops (Artificial Tears (polyvinyl alcohol)) drp 08/30/22 [History Last Taken Unknown] sennosides 8.6 mg-docusate sodium 50 mg tablet (Senna Plus) 1 tab-cap PO QHS 08/30/22 [History Last Taken Unknown] tamsulosin 0.4 mg capsule mg PO (more content not included)... Normal [facility] Humerus min 2 Viewson 2023 Humerus min 2 Views [facility] Imaging Services [address] [place] [address] Humerus min 2 Views MR#: [id number] Acct: [id number] Name: STEVE GARZA III Rep #: [id number] : 1960 M 63 From: Manpreet reich MD PCP: Care Physician,No Primary Status: REG ER Study: Humerus min 2 Views Date of Exam: 04/05/23 Exam# [id number] Ordering Dr: Sridhar Ortiz DO [id number] INDICATION: Injury/Pain EXAMINATION/TECHNIQUE: X-RAY - LEFT XR Humerus Min 2 Views COMPARISON: None. FINDINGS: Old proximal humeral fracture with incomplete healing. No blastic or lytic lesions. Degenerative changes of the glenohumeral and acromioclavicular joints. The soft tissues are unremarkable. RAD/Humerus min 2 Views IMPRESSION: Old proximal humeral fracture with incomplete healing. Electronically Signed: Manpreet Edge MD at 17:31 EST , CC: Dr. Sridhar Ortiz DO; No Primary Care Physician Cell Stripper: Signed Normal [facility] Emergency Department Summary on 08-30-2022 Emergency Department Summary [facility] Medical Records Department [address] [place] [address] Emergency Department Summary 08/30/22 MR#: [id number] Acct: [id number] Name: STEVE GARZA III Rep #: [id number] : 1960 62 From: Dylan Cat MD PCP: Care Physician,No Primary Status:DEP ER Location: ED HPI History of Present Illness HPI Narrative: 62-year-old gentleman significant past medical history of prior strokes. Was seen here on August 15 diagnosed with a left proximal humerus fracture. Was placed in a sling and placed on oxycodone for pain. States that the oxycodone has not been controlling his pain. Denies any recent falls or new injuries. Patient lives in assisted living by himself. Chief Complaint: Other, Pain/Inj Informant: patient Occured/Mechanism Mechanism/Context: Yes injury and Yes blunt trauma Onset/Context/Timing Onset: Weeks Context: Sudden Onset Timing: Continuous Quality of Pain: Sharp and Stabbing Current Severity: Moderate Maximum Severity: Moderate Associated Symptoms Associated Symptoms: Positive for Loss of Funtion Narrative Narrative: 62-year-old recent fall left proximal third humerus fracture. History of prior strokes with no use of the left upper extremity from the prior strokes. Prior similar symptoms: Yes Recent Illness/Hospitalization: No [facility] PFSH Medical History Anxiety disorder, unspecified Ataxia, unspecified Ataxic gait Benign prostatic hyperplasia with lower urinary tract symptoms Cerebral infarction, unspecified Chronic obstructive pulmonary disease, unspecified Cognitive communication deficit Encephalopathy, unspecified Epilepsy, unspecified, not intractable, without status epilepticus Essential (primary) hypertension Gastro-esophageal reflux disease without esophagitis Generalized anxiety disorder 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 side Hyperlipidemia, unspecified Hypothyroidism, unspecified Insomnia, unspecified Localization-related (focal) (partial) idiopathic epilepsy and epileptic syndromes with seizures of localized onset, not intractable, without status epilepticus Major depressive disorder, recurrent, mild Mixed hyperlipidemia Mixed simple and mucopurulent chronic bronchitis Muscle weakness (generalized) Occlusion and stenosis of unspecified carotid artery Other abnormalities of gait and mobility Other sequelae of cerebral infarction Other specified hypothyroidism Other toxic encephalopathy Pain in left leg Primary insomnia Stroke Syncope and collapse Thyroid disease Unspecified abnormalities of gait and mobility Unspecified sensorineural hearing loss Unspecified symptoms and signs involving cognitive functions and awareness Home Medications clopidogrel 75 mg tablet 75 mg PO DAILY BLOOD THINNER 09/30/17 [History Last Taken 09/26/17] aspirin 81 mg capsule 81 mg PO DAILY 06/26/21 [History Last Taken Unknown] atorvastatin 80 mg tablet 80 mg PO QHS 06/26/21 [History Last Taken Unknown] buspirone 10 mg tablet 20 mg PO TID 06/26/21 [History Last Taken Unknown] gabapentin 300 mg capsule 300 mg PO TID 06/26/21 [History Last Taken Unknown] levetiracetam 500 mg tablet 500 mg PO BID 06/26/21 [History Last Taken Unknown] metoprolol tartrate 50 mg tablet 50 mg PO BID 06/26/21 [History Last Taken Unknown] montelukast 10 mg tablet 10 mg PO QHS 04/04/22 [History Last Taken Unknown] sertraline 100 mg tablet 100 mg PO DAILY 06/26/21 [History Last Taken Unknown] acetaminophen 500 mg tablet 1,000 mg PO TID 08/15/22 [History Last Taken Unknown] ferrous sulfate 325 mg (65 mg iron) tablet (FeroSul) 325 mg PO DAILY 08/15/22 [History Last Taken Unknown] fluticasone propionate 50 mcg/actuation nasal spray,suspension 1 spray intranasal DAILY 08/15/22 [History Last Taken Unknown] levothyroxine 100 mcg tablet 100 mcg PO DAILY 08/15/22 [History Last Taken Unknown] melatonin 10 mg tablet 10 mg PO QHS 08/15/22 [History Last Taken Unknown] oxycodone-acetaminophen 5 mg-325 mg tablet 1 tab PO Q6H PRN PRN pain 5 days #20 TABLETS 08/15/22 [Rx Last Taken Unknown] loratadine 10 mg tablet 10 mg PO DAILY 08/30/22 [History Last Taken Unknown] lorazepam 0.5 mg tablet (Ativan) 0.5 mg PO TID PRN Anxiety 08/30/22 [History Last Taken Unknown] oxycodone-acetaminophen 5 mg-325 mg tablet (Percocet) 1 tab PO Q4H PRN pain 5 days #20 tabs 08/30/22 [Rx Last Taken Unknown] polyethylene glycol 3350 17 gram/dose oral powder (Miralax) 17 g PO DAILY 08/30/22 [History Last Taken Unknown] polyvinyl alcohol 1.4 % eye drops (Artificial Tears (polyvinyl alcohol)) drp 08/30/22 [History Last Taken Unknown] sennosides 8.6 mg-docusate sodium 50 mg tablet (Senna Plus) 1 tab-cap PO QHS 08/30/22 [History Last Taken Unknown] tamsulosin 0.4 mg capsule mg PO 08/30/22 [History Last Taken Un (more content not included)... Normal [facility] Absolute lymphocyte countOrd ered By: Dr. Ortiz on 08-15-2022 Lymphocytes Auto (Unsp spec) [#/Vol] 1.39 10*3/uL 0.83-4.51 [facility] Basic Metabolic Profile (BMP )on 08-15-2022 BUN/CRE 24.9 RATIO High 10- [facility] Comment on above: Order Comment: 'TROP ' Serial specimen #1, #2 or #3: 1 Performed By: #### L 501.4020, L501.3620, L100.0100, L500.2500 #### [facility] [address] [place], [address] CA,Total 8.8 mg/dL Normal 8.5-10.1 [facility] Comment on above: Order Comment: 'TROP ' Serial specimen #1, #2 or #3: 1 Performed By: #### L 501.4020, L501.3620, L100.0100, L500.2500 #### [facility] [address] [place], [address] Chloride [Moles/Vol] 105 mmol/L Normal 98-107 [facility] Comment on above: Order Comment: 'TROP ' Serial specimen #1, #2 or #3: 1 Performed By: #### L 501.4020, L501.3620, L100.0100, L500.2500 #### [facility] [address] [place], [address] CO2 [Moles/Vol] 22.0 mmol/L Normal 21.0-32.0 [facility] Comment on above: Order Comment: 'TROP ' Serial specimen #1, #2 or #3: 1 Performed By: #### L 501.4020, L501.3620, L100.0100, L500.2500 #### [facility] [address] [place], [address] Creatinine [Mass/Vol] 0.64 mg/dL Low 0.70-1.30 [facility] Comment on above: Order Comment: 'TROP ' Serial specimen #1, #2 or #3: 1 Result Comment: The validity of the calculated GFR GFRAA in patients over 70 years has not been determined. Clinical correlation is essential. Performed By: #### L 501.4020, L501.3620, L100.0100, L500.2500 #### [facility] [address] [place], [address] ECRCL 122.40 ml/min Normal [facility] Comment on above: Order Comment: 'TROP ' Serial specimen #1, #2 or #3: 1 Performed By: #### L 501.4020, L501.3620, L100.0100, L500.2500 #### [facility] [address] [place], [address] EST GFR - AA 163 mL/min Normal >60 [facility] Comment on above: Order Comment: 'TROP ' Serial specimen #1, #2 or #3: 1 Result Comment: Afri can [place] GFR Calc Performed By: #### L 501.4020, L501.3620, L100.0100, L500.2500 #### [facility] [address] [place], [address] GAP 10 Normal 5-15 [facility] Comment on above: Order Comment: 'TROP ' Serial specimen #1, #2 or #3: 1 Performed By: #### L 501.4020, L501.3620, L100.0100, L500.2500 #### [facility] [address] [place], [address] GFR/1.73 sq M.predicted among non-blacks MDRD (S/P/Bld) [Vol rate/Area] 135 mL/min/{1.73_m2} Normal >60 [facility] Comment on above: Order Comment: 'TROP ' Serial specimen #1, #2 or #3: 1 Result Comment: Non- GFR Calc Performed By: #### L 501.4020, L501.3620, L100.0100, L500.2500 #### [facility] [address] [place], [address] Glucose [Mass/Vol] 85 mg/dL Normal 74-106 [facility] Comment on above: Order Comment: 'TROP ' Serial specimen #1, #2 or #3: 1 Performed By: #### L 501.4020, L501.3620, L100.0100, L500.2500 #### [facility] [address] [place], [address] Potassium [Moles/Vol] 4.1 mmol/L Normal 3.5-5.1 [facility] Comment on above: Order Comment: 'TROP ' Serial specimen #1, #2 or #3: 1 Performed By: #### L 501.4020, L501.3620, L100.0100, L500.2500 #### [facility] [address] [place], [address] Sodium [Moles/Vol] 137 mmol/L Normal 136-145 [facility] Comment on above: Order Comment: 'TROP ' Serial specimen #1, #2 or #3: 1 Performed By: #### L 501.4020, L501.3620, L100.0100, L500.2500 #### [facility] [address] [place], [address] Urea nitrogen [Mass/Vol] 16 mg/dL Normal 7-18 [facility] Comment on above: Order Comment: 'TROP ' Serial specimen #1, #2 or #3: 1 Performed By: #### L 501.4020, L501.3620, L100.0100, L500.2500 #### [facility] [address] [place], [address] Basophil percentageOrdered B y: Dr. Ortiz on 08-15-2022 Basophils/100 WBC (Bld) 0.5 % 0-1 [facility] Chloride [Moles/Vol] 105 mmol/L 98-107 [facility] Eosinophils/100 WBC (Bld) 1.4 % 0-5 [facility] Glucose [Mass/Vol] 85 mg/dL 74-106 [facility] Neutrophils (Bld) [#/Vol] 5.9 10*3/uL 2.0-7.7 [facility] Neutrophils/100 WBC (Bld) 73.7 % 47-70 [facility] Potassium [Moles/Vol] 4.1 mmol/L 3.5-5.1 [facility] Sodium [Moles/Vol] 137 mmol/L 136-145 [facility] WBC (Bld) [#/Vol] 8.0 10*3/uL 4.4-11.0 [facility] Blood erythrocytes count (nu mber/volume)Ordered By: Dr. Ortiz on 08-15-2022 RBC (Bld) [#/Vol] 4.65 10*6/uL 4.6-6.[address] [facility] Blood hemoglobin measurement (mass/volume)Ordered By: Dr. Ortiz on 08-15-2022 Hemoglobin (Bld) [Mass/Vol] 14.5 g/dL 13.0-16.5 [facility] Blood lymphocytes/100 leukoc ytesOrdered By: Dr. Ortiz on 08-15-2022 Lymphocytes/100 WBC (Bld) 17.3 % 19-41 [facility] Blood monocytes/100 leukocyt esOrdered By: Dr. Ortiz on 08-15-2022 Monocytes/100 WBC (Bld) 6.6 % 0-10 [facility] Blood platelet mean volumeOr dered By: Dr. Ortiz on 08-15-2022 Platelet mean volume (Bld) [Entitic vol] 9.2 fL 6.2-12.0 [facility] CBC W/Diff, Automatedon 07-24 Absolute Lymph 1.39 X10 3/uL Normal 0.83-4.51 [facility] Comment on above: Performed By: #### L 501.4020, L501.3620, L100.0100, L500.2500 #### [facility] [address] [place], [address] Absolute Neut 5.9 X10 3/uL Normal 2.0-7.7 [facility] Comment on above: Performed By: #### L 501.4020, L501.3620, L100.0100, L500.2500 #### [facility] [address] [place], [address] Basophils/100 WBC (Bld) 0.5 % Normal 0-1 [facility] Comment on above: Performed By: #### L 501.4020, L501.3620, L100.0100, L500.2500 #### [facility] [address] [place], [address] Eosinophils/100 WBC (Bld) 1.4 % Normal 0-5 [facility] Comment on above: Performed By: #### L 501.4020, L501.3620, L100.0100, L500.2500 #### [facility] [address] [place], [address] Erythrocyte distribution width (RBC) [Ratio] 13.1 % Normal 11.6-14.6 [facility] Comment on above: Performed By: #### L 501.4020, L501.3620, L100.0100, L500.2500 #### [facility] [address] [place], [address] Hematocrit (Bld) [Volume fraction] 44.6 % Normal 40-54 [facility] Comment on above: Performed By: #### L 501.4020, L501.3620, L100.0100, L500.2500 #### [facility] [address] [place], [address] Hemoglobin (Bld) [Mass/Vol] 14.5 g/dL Normal 13.0-16.5 [facility] Comment on above: Performed By: #### L 501.4020, L501.3620, L100.0100, L500.2500 #### [facility] [address] [place], [address] IG% 0.500 Normal 0.0-0.9 [facility] Comment on above: Result Comment: IG% - Immature Granulocytes (promyelocytes, myelocytes and metamyelocytes) > 1% indicates that a LEFT SHIFT is Present. Performed By: #### L 501.4020, L501.3620, L100.0100, L500.2500 #### [facility] [address] [place], [address] Lymphocytes/100 WBC (Bld) 17.3 % Low 19-41 [facility] Comment on above: Performed By: #### L 501.4020, L501.3620, L100.0100, L500.2500 #### [facility] [address] [place], [address] MCH (RBC) [Entitic mass] 31.2 pg Normal 27.0-32.0 [facility] Comment on above: Performed By: #### L 501.4020, L501.3620, L100.0100, L500.2500 #### [facility] [address] [place], [address] MCHC (RBC) [Mass/Vol] 32.5 g/dL Normal 32-36 [facility] Comment on above: Performed By: #### L 501.4020, L501.3620, L100.0100, L500.2500 #### [facility] [address] [place], [address] MCV (RBC) [Entitic vol] 95.9 fL High 80-94 [facility] Comment on above: Performed By: #### L 501.4020, L501.3620, L100.0100, L500.2500 #### [facility] [address] [place], [address] Monocytes/100 WBC (Bld) 6.6 % Normal 0-10 [facility] Comment on above: Performed By: #### L 501.4020, L501.3620, L100.0100, L500.2500 #### [facility] [address] [place], [address] Neutrophils/100 WBC (Bld) 73.7 % High 47-70 [facility] Comment on above: Performed By: #### L 501.4020, L501.3620, L100.0100, L500.2500 #### [facility] [address] [place], [address] Nucleated RBC (Bld) [#/Vol] 0 10*3/uL Normal 0-5 [facility] Comment on above: Performed By: #### L 501.4020, L501.3620, L100.0100, L500.2500 #### [facility] [address] [place], [address] Platelet mean volume (Bld) [Entitic vol] 9.2 fL Normal 6.2-12.0 [facility] Comment on above: Performed By: #### L 501.4020, L501.3620, L100.0100, L500.2500 #### [facility] [address] [place], [address] Platelets (Bld) [#/Vol] 234 10*3/uL Normal 150-450 [facility] Comment on above: Performed By: #### L 501.4020, L501.3620, L100.0100, L500.2500 #### [facility] [address] [place], [address] RBC (Bld) [#/Vol] 4.65 10*6/uL Normal 4.6-6.[address] [facility] Comment on above: Performed By: #### L 501.4020, L501.3620, L100.0100, L500.2500 #### [facility] [address] [place], [address] RDW SD 46.0 fl High 35.1-43.9 [facility] Comment on above: Performed By: #### L 501.4020, L501.3620, L100.0100, L500.2500 #### [facility] [address] [place], [address] WBC (Bld) [#/Vol] 8.0 10*3/uL Normal 4.4-11.0 [facility] Comment on above: Performed By: #### L 501.4020, L501.3620, L100.0100, L500.2500 #### [facility] [address] [place], [address] CPK Total, Creatine Kinaseon 08-15-2022 CPK TOTAL 58 U/L Normal 39-308 [facility] Comment on above: Order Comment: 'TROP ' Serial specimen #1, #2 or #3: 1 Performed By: #### L 501.4020, L501.3620, L100.0100, L500.2500 ####[facility] [id number] [facility] [place], [address] Cerv Spine 2 or 3 Viewson Cerv Spine 2 or 3 Views [facility] Services [address] [place] [address] Cerv Spine 2 or 3 Views MR#: [id number] Acct: [id number] Name: STEVE GARZA III Rep #: [id number] : 1960 M 62 From: Moses Heaton PCP: Care Physician,No Primary Status: REG ER Study: Cerv Spine 2 or 3 Views Date of Exam: 08/15/22 Exam# [id number] Ordering Dr: Sridhar Ortiz DO STUDY: X-RAY - CERVICAL SPINE REASON FOR EXAM: Male, 62 years old. Injury/Pain TECHNIQUE: XR Spine Cervical 2 or 3 Views COMPARISON: None FINDINGS: Normal anterior atlantoaxial articulation. The odontoid process is obscured by the overlying hard palate on the open mouth view. Therefore, it is not fully evaluated by plain film. There is straightening of the normal cervical lordosis. There is multi-level endplate spondylosis. There is multi-level degenerative disc disease with multilevel disc space narrowing. There is multi-level osseous foraminal stenosis. There are calcifications around the internal carotid arteries. This is consistent for atherosclerotic disease. RAD/Cerv Spine 2 or 3 Views IMPRESSION: There are degenerative changes as noted above. The odontoid process is obscured by the overlying hard palate on the open mouth view. Therefore, it is not fully evaluated by plain film. Electronically Signed: Moses Li MD at 14:55 EDT , CC: Dr. Sridhar Ortiz, DO; No Primary Care Physician Cell Stripper: Signed Normal [facility] Determination of erythrocyte mean corpuscular volume (MCV)Ordered By: Dr. Ortiz on 08-15-2022 MCV (RBC) [Entitic vol] 95.9 fL 80-94 [facility] Emergency Department Summary on 08-15-2022 Emergency Department Summary [facility] Medical Records Department [address] [place] [address] Emergency Department Summary 08/15/22 MR#: [id number] Acct: [id number] Name: STEVE GARZA III Rep #: [id number] : 1960 62 From: Sridhar Ortiz DO PCP: Care Physician,No Primary Status:REG ER Location: ED HPI HPI - Fall History of Present Illness Chief Complaint: Fall Informant: patient Occured/Mechanism Occurred: Yesterday Mechanism/Context: Yes same level fall Pain/Injury Location: Left shoulder, left hand, neck Pain Location: neck and upper extremity Quality of Pain: Burning and Stabbing Worsened by: Movement Relieved by: Rest Associated Symptoms Associated Symptoms: Negative for Parasthesias, Weakness, Loss of function, Inability to ambulate, Loss of consciousness or Amnesia Narrative Narrative: Patient presents with left shoulder pain that began after a fall last night. Patient states that he got up too quickly and lost his balance. Patient states he has a history of balance problems. Patient describes his pain as burning and stabbing. Patient states his pain is worse with movement of his shoulder. Patient states it is better with rest. Patient denies any head injury or loss of consciousness. Patient denies any paresthesias or weakness. Patient states he does have some pain up into the left side of his neck as well. [facility] Medical History Anxiety disorder, unspecified Ataxia, unspecified Ataxic gait Benign prostatic hyperplasia with lower urinary tract symptoms Cerebral infarction, unspecified Chronic obstructive pulmonary disease, unspecified Cognitive communication deficit Encephalopathy, unspecified Epilepsy, unspecified, not intractable, without status epilepticus Essential (primary) hypertension Gastro-esophageal reflux disease without esophagitis Generalized anxiety disorder 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 side Hyperlipidemia, unspecified Hypothyroidism, unspecified Insomnia, unspecified Localization-related (focal) (partial) idiopathic epilepsy and epileptic syndromes with seizures of localized onset, not intractable, without status epilepticus Major depressive disorder, recurrent, mild Mixed hyperlipidemia Mixed simple and mucopurulent chronic bronchitis Muscle weakness (generalized) Occlusion and stenosis of unspecified carotid artery Other abnormalities of gait and mobility Other sequelae of cerebral infarction Other specified hypothyroidism Other toxic encephalopathy Pain in left leg Primary insomnia Stroke Syncope and collapse Thyroid disease Unspecified abnormalities of gait and mobility Unspecified sensorineural hearing loss Unspecified symptoms and signs involving cognitive functions and awareness Home Medications clopidogrel 75 mg tablet 75 mg PO DAILY BLOOD THINNER 09/30/17 [History Last Taken 09/26/17] aspirin 81 mg capsule 81 mg PO DAILY 06/26/21 [History Last Taken Unknown] atorvastatin 80 mg tablet 80 mg PO QHS 06/26/21 [History Last Taken Unknown] buspirone 10 mg tablet 20 mg PO TID 06/26/21 [History Last Taken Unknown] gabapentin 300 mg capsule 300 mg PO TID 06/26/21 [History Last Taken Unknown] levetiracetam 500 mg tablet 500 mg PO BID 06/26/21 [History Last Taken Unknown] metoprolol tartrate 50 mg tablet 50 mg PO BID 06/26/21 [History Last Taken Unknown] montelukast 10 mg tablet 10 mg PO QHS 06/26/21 [History Last Taken Unknown] sertraline 100 mg tablet 100 mg PO DAILY 06/26/21 [History Last Taken Unknown] acetaminophen 500 mg tablet 1,000 mg PO TID 08/15/22 [History Last Taken Unknown] ferrous sulfate 325 mg (65 mg iron) tablet (FeroSul) 325 mg PO DAILY 08/15/22 [History Last Taken Unknown] fluticasone propionate 50 mcg/actuation nasal spray,suspension 1 spray intranasal DAILY 08/15/22 [History Last Taken Unknown] levothyroxine 100 mcg tablet 100 mcg PO DAILY 08/15/22 [History Last Taken Unknown] melatonin 10 mg tablet 10 mg PO QHS 08/15/22 [History Last Taken Unknown] oxycodone-acetaminophen 5 mg-325 mg tablet 1 tab PO Q6H PRN PRN pain 5 days #20 TABLETS 08/15/22 [Rx Last Taken Unknown] Allergy/AdvReac Type Severity Reaction Status Date / Time No Known Allergies Allergy Verified 08/15/22 13:21 Surgical History Hx of appendectomy Social History household members: none housing: senior care Smoking Status: Current every day smoker tobacco type: cigarettes and e-cigarettes Electronic Cigarette Use: with nicotine alcohol intake: current alcohol intake frequency: 0-2 drinks per day Alcohol type: beer details: 2-3 hard ice teas a day substance use type: does not use ROS ROS ED Constitution (more content not included)... Normal [facility] Hand Min 3 Viewson 3 Hand Min 3 Views [facility] Imaging Services [address] [place] [address] Hand Min 3 Views MR#: [id number] Acct: [id number] Name: STEVE GARZA III Rep #: [id number] : 1960 M 62 From: Moses Heaton PCP: Care Physician,No Primary Status: REG ER Study: Hand Min 3 Views Date of Exam: 08/15/22 Exam# [id number] Ordering Dr: Sridhar Ortiz DO STUDY: XR Hand Min 3 Views REASON FOR EXAM: Male, 62 years old. Injury/Pain TECHNIQUE: XR Hand Min 3 Views LEFT COMPARISON: None. FINDINGS: There is joint space narrowing of the radiocarpal articulation consistent with degenerative arthrosis. Normal distal radioulnar joint. Sideplate is noted along the distal radius. There is diffuse demineralization of the carpal bones. Normal carpal articulations Normal carpometacarpal articulation of the thumb. Normal second through fifth carpometacarpal joints. Healed first metacarpal fracture. Normal metacarpophalangeal joint of the thumb. Normal interphalangeal joint of the thumb. Normal proximal and distal phalanges of the thumb. Normal metacarpophalangeal joints of the second through fifth fingers. Normal proximal and distal interphalangeal joints of the second through fifth fingers. Normal phalanges of the second through fifth fingers. The soft tissue structures are unremarkable. RAD/Hand Min 3 Views IMPRESSION: There are no acute findings. Electronically Signed: Moses Li MD at 14:57 EDT Reading Location ID and State: [facility] / [place] , Service support , CC: Dr. Sridhar Ortiz, DO; No Primary Care Physician Cell Stripper: Signed Normal [facility] Hematocrit Auto (Bld) [Volum e fraction]Ordered By: Dr. Ortiz on 08-15-2022 Hematocrit (Bld) [Volume fraction] 44.6 % 40-54 [facility] L501.4020on 08-15-2022 TROPONIN-I HS 8 pg/mL Normal 3.0-78.0 [facility] Comment on above: Order Comment: 'TROP ' Serial specimen #1, #2 or #3: 1 Result Comment: Plea se Note: New Test Units and Gender Specific Reference Ranges. For more information see Policy Stat Procedure [place] High Sensitivity Troponin (TNIH) and attachments. Performed By: #### L 501.4020, L501.3620, L100.0100, L500.2500 ####[facility] [id number] [place], [place], [address] Laboratory - Chemistry and C hemistry - challengeOrdered By: Dr. Ortiz on 08-15-2022 CK [Catalytic activity/Vol] 58 U/L 39-308 [facility] CO2 [Moles/Vol] 22.0 mmol/L 21.0-32.0 [facility] Urea nitrogen/Creatinine [Mass ratio] 24.9 mg/mg 10-20 [facility] - Hematology and Cell countsOrdered By: Dr. Ortiz on 08-15-2022 Erythrocyte distribution width (RBC) [Entitic vol] 46.0 fL 35.1-43.9 [facility] Erythrocyte distribution width (RBC) [Ratio] 13.1 % 11.6-14.6 [facility] Immature granulocytes/100 WBC (Bld) 0.500 % 0.0-0.9 [facility] Comment on above: IG% - Immature Granu locytes (promyelocytes, myelocytes and metamyelocytes) > 1% indicates that a LEFT SHIFT is Present. MCH (RBC) [Entitic mass] 31.2 pg 27.0-32.0 [facility] Nucleated RBC/100 WBC (Bld) [Ratio] 0 % 0-5 [facility] MCHC Auto (RBC) [Mass/Vol]Or dered By: Dr. Ortiz on 08-15-2022 MCHC (RBC) [Mass/Vol] 32.5 g/dL 32-36 [facility] No Panel InformationOrdered By: Dr. Ortiz on 08-15-2022 Estimated Creatinine Clearance Calc 122.40 ml/min [facility] Estimated GFR (MDRD) Amer 163 mL/min >60 [facility] Comment on above: GFR Calc Estimated GFR (MDRD) Non-Af Amer 135 mL/min >60 [facility] Comment on above: Non- GFR Calc Troponin I High Sensitivity 8 pg/mL 3.0-78.0 [facility] Comment on above: Please Note: New Dia t Units and Gender Specific Reference Ranges. For more information see Policy Stat Procedure [place] High Sensitivity Troponin (TNIH) and attachments. Platelets bldOrdered By: Dr. Ortiz on 08-15-2022 Platelets (Bld) [#/Vol] 234 10*3/uL 150-450 [facility] Serum or plasma calcium archie urement (mass/volume)Ordered By: Dr. Ortiz on 08-15-2022 Calcium [Mass/Vol] 8.8 mg/dL 8.5-10.1 [facility] Serum or plasma creatinine m easurement (mass/volume)Ordered By: Dr. Ortiz on 08-15-2022 Creatinine [Mass/Vol] 0.64 mg/dL 0.70-1.30 [facility] Comment on above: The validity of the calculated GFR & GFRAA in patients over 70 years has not been determined. Clinical correlation is essential. Serum or plasma urea nitroge n measurement (mass/volume)Ordered By: Dr. Ortiz on 08-15-2022 Urea nitrogen [Mass/Vol] 16 mg/dL 7-18 [facility] Shoulder min 2 Viewson 08-15 Shoulder min 2 Views [facility] [address] [place] [address] Shoulder min 2 Views MR#: [id number] Acct: [id number] Name: STEVE GARZA III Rep #: [id number] : 1960 M 62 From: Moses Heaton PCP: Care Physician,No Primary Status: REG ER Study: Shoulder min 2 Views Date of Exam: 08/15/22 Exam# [id number] Ordering Dr: Sridhar Ortiz DO STUDY: XR Shoulder Min 2 Views REASON FOR EXAM: Male, 62 years old. Injury/Pain TECHNIQUE: XR Shoulder Min 2 Views LEFT COMPARISON: None. FINDINGS: Normal glenohumeral articulation. Normal acromioclavicular joint. Normal acromion. Acute left humeral neck fracture. There is medial apical cannulation of the fracture. Medial displacement of the distal fracture fragment. The soft tissue structures are unremarkable. Normal visualized pulmonary apex. RAD/Shoulder min 2 Views IMPRESSION: Left humeral neck fracture. Electronically Signed: Moses Li MD at 14:56 EDT Reading Location ID and State: [facility] / [place] , Service support , CC: Dr. Sridhar Ortiz, DO; No Primary Care Physician Cell Stripper: Signed Normal [facility] Thin prep Papanicolaou smear with manual screeningOrdered By: Dr. Ortiz on 08-15-2022 Thin prep Papanicolaou smear with manual screening 10 5-15 [facility] Urinalysis, Completeon 08-15 BACTERIA Normal None Seen [facility] Comment on above: Order Comment: CLEAN CATCH Result Comment: PT D ISCHARGED Performed By: #### L 400.0001 ####[facility] [address] [place], [address] BILIRUBIN URINE Normal Negative [facility] Comment on above: Order Comment: CLEAN CATCH Result Comment: PT D ISCHARGED Performed By: #### L 400.0001 ####[facility] [address] [place], [address] Clarity (U) Normal Clear [facility] Comment on above: Order Comment: CLEAN CATCH Result Comment: PT D ISCHARGED Performed By: #### L 400.0001 ####[facility] [address] [place], [address] Color (U) Normal Yellow [facility] Comment on above: Order Comment: CLEAN CATCH Result Comment: PT D ISCHARGED Performed By: #### L 400.0001 ####[facility] [address] [place], [address] EPI,SQUAMOUS Normal 0-5 [facility] Comment on above: Order Comment: CLEAN CATCH Result Comment: PT D ISCHARGED Performed By: #### L 400.0001 ####[facility] [address] [place], [address] GLUCOSE, UR Normal Normal [facility] Comment on above: Order Comment: CLEAN CATCH Result Comment: PT D ISCHARGED Performed By: #### L 400.0001 ####[facility] [address] [place], [address] KETONE UR Normal Negative [facility] Comment on above: Order Comment: CLEAN CATCH Result Comment: PT D ISCHARGED Performed By: #### L 400.0001 ####[facility] [address] [facility] [address] LEUK ESTERASE Normal Negative [facility] Comment on above: Order Comment: CLEAN CATCH Result Comment: PT D ISCHARGED Performed By: #### L 400.0001 ####[facility] [address] [facility] [address] Mucus Ql (Urine sed) Normal [facility] Comment on above: Order Comment: CLEAN CATCH Result Comment: PT D ISCHARGED Performed By: #### L 400.0001 ####[facility] [address] [facility] [address] Nitrite Ql (U) Normal Negative [facility] Comment on above: Order Comment: CLEAN CATCH Result Comment: PT D ISCHARGED Performed By: #### L 400.0001 ####[facility] [address] [facility] [address] OCCULT BLOOD-UR Normal Negative [facility] Comment on above: Order Comment: CLEAN CATCH Result Comment: PT D ISCHARGED Performed By: #### L 400.0001 ####[facility] [address] [facility] [address] pH UR Normal 5.0 - 8.0 [facility] Comment on above: Order Comment: CLEAN CATCH Result Comment: PT D ISCHARGED Performed By: #### L 400.0001 ####[facility] [address] [facility] [address] PROT DIPSTX Normal Negative [facility] Comment on above: Order Comment: CLEAN CATCH Result Comment: PT D ISCHARGED Performed By: #### L 400.0001 ####[facility] [address] [facility] [address] RBC Normal 0-5 [facility] Comment on above: Order Comment: CLEAN CATCH Result Comment: PT D ISCHARGED Performed By: #### L 400.0001 ####[facility] [address] [place], [address] SP.GR. DIPSTX Normal 1.002-1.03 0 [facility] Comment on above: Order Comment: CLEAN CATCH Result Comment: PT D ISCHARGED Performed By: #### L 400.0001 ####[facility] [address] [place], [address] UR Preservative Normal [facility] Comment on above: Order Comment: CLEAN CATCH Result Comment: PT D ISCHARGED Performed By: #### L 400.0001 ####[facility] [address] [place], [address] UROBILI Normal Normal [facility] Comment on above: Order Comment: CLEAN CATCH Result Comment: PT D ISCHARGED Performed By: #### L 400.0001 ####[facility] [address] [place], [address] WBC Normal 0-5 [facility] Comment on above: Order Comment: CLEAN CATCH Result Comment: PT D ISCHARGED Performed By: #### L 400.0001 ####[facility] [address] [place], [address] Absolute lymphocyte countOrd ered By: Dr. Lundberg on 05-14-2022 Lymphocytes Auto (Unsp spec) [#/Vol] 1.23 10*3/uL 0.83-4.51 [facility] Basophil percentageOrdered B y: Dr. Lundberg on 05-14-2022 Basophils/100 WBC (Bld) 0.6 % 0-1 [facility] Chloride [Moles/Vol] 109 mmol/L 98-107 [facility] Eosinophils/100 WBC (Bld) 4.4 % 0-5 [facility] Glucose [Mass/Vol] 99 mg/dL 74-106 [facility] Neutrophils (Bld) [#/Vol] 2.7 10*3/uL 2.0-7.7 [facility] Neutrophils/100 WBC (Bld) 56.8 % 47-70 [facility] Potassium [Moles/Vol] 3.8 mmol/L 3.5-5.1 [facility] Sodium [Moles/Vol] 141 mmol/L 136-145 [facility] WBC (Bld) [#/Vol] 4.7 10*3/uL 4.4-11.0 [facility] Blood erythrocytes count (nu mber/volume)Ordered By: Dr. Lundberg on 05-14-2022 RBC (Bld) [#/Vol] 4.48 10*6/uL 4.6-6.[address] [facility] Blood hemoglobin measurement (mass/volume)Ordered By: Dr. Lundberg on 05-14-2022 Hemoglobin (Bld) [Mass/Vol] 14.3 g/dL 13.0-16.5 [facility] Blood lymphocytes/100 leukoc ytesOrdered By: Dr. Lundberg on 05-14-2022 Lymphocytes/100 WBC (Bld) 26.1 % 19-41 [facility] Blood monocytes/100 leukocyt esOrdered By: Dr. Lundberg on 05-14-2022 Monocytes/100 WBC (Bld) 11.9 % 0-10 [facility] Blood platelet mean volumeOr dered By: Dr. Lundberg on 05-14-2022 Platelet mean volume (Bld) [Entitic vol] 8.8 fL 6.2-12.0 [facility] Determination of erythrocyte mean corpuscular volume (MCV)Ordered By: Dr. Lundberg on 05-14-2022 MCV (RBC) [Entitic vol] 97.8 fL 80-94 [facility] Hematocrit Auto (Bld) [Volum e fraction]Ordered By: Dr. Lundberg on 05-14-2022 Hematocrit (Bld) [Volume fraction] 43.8 % 40-54 [facility] Laboratory - Chemistry and C hemistry - challengeOrdered By: Dr. Lundberg on 05-14-2022 CO2 [Moles/Vol] 27.0 mmol/L 21.0-32.0 [facility] Urea nitrogen/Creatinine [Mass ratio] 22.5 mg/mg 10-20 [facility] Laboratory - Hematology and Cell countsOrdered By: Dr. Lundberg on 05-14-2022 Erythrocyte distribution width (RBC) [Entitic vol] 43.5 fL 35.1-43.9 [facility] Erythrocyte distribution width (RBC) [Ratio] 12.0 % 11.6-14.6 [facility] Immature granulocytes/100 WBC (Bld) 0.200 % 0.0-0.9 [facility] Comment on above: IG% - Immature Granu locytes (promyelocytes, myelocytes and metamyelocytes) > 1% indicates that a LEFT SHIFT is Present. MCH (RBC) [Entitic mass] 31.9 pg 27.0-32.0 [facility] Nucleated RBC/100 WBC (Bld) [Ratio] 0 % 0-5 [facility] MCHC Auto (RBC) [Mass/Vol]Or dered By: Dr. Lundberg on 05-14-2022 MCHC (RBC) [Mass/Vol] 32.6 g/dL 32-36 [facility] No Panel InformationOrdered By: Dr. Lundberg on 05-14-2022 Estimated Creatinine Clearance Calc 102.97 ml/min [facility] Estimated GFR (MDRD) Amer 146 mL/min >60 [facility] Comment on above: GFR Calc Estimated GFR (MDRD) Non-Af Amer 120 mL/min >60 [facility] Comment on above: Non- GFR Calc Platelets bldOrdered By: Dr. Lundberg on 05-14-2022 Platelets (Bld) [#/Vol] 223 10*3/uL 150-450 [facility] Serum or plasma calcium archie urement (mass/volume)Ordered By: Dr. Lundberg on 05-14-2022 Calcium [Mass/Vol] 8.8 mg/dL 8.5-10.1 [facility] Serum or plasma creatinine m easurement (mass/volume)Ordered By: Dr. Lundberg on 05-14-2022 Creatinine [Mass/Vol] 0.71 mg/dL 0.70-1.30 [facility] Comment on above: The validity of the calculated GFR & GFRAA in patients over 70 years has not been determined. Clinical correlation is essential. Serum or plasma urea nitroge n measurement (mass/volume)Ordered By: Dr. Lundberg on 05-14-2022 Urea nitrogen [Mass/Vol] 16 mg/dL 7-18 [facility] Thin prep Papanicolaou smear with manual screeningOrdered By: Dr. Lundberg on 05-14-2022 Thin prep Papanicolaou smear with manual screening 5 5-15 [facility] Basophil percentageOrdered B y: Dr. Randall on 04-18-2022 Basophil percentage < 0.9 mg/dL 0.70-1.30 [facility] No Panel InformationOrdered By: Dr. Randall on 04-18-2022 Bedside Estimated GFR (eGFR) > 60.0000 mL/min >60 [facility] Absolute lymphocyte counton 09-23-2021 Lymphocytes Auto (Unsp spec) [#/Vol] 1.24 10*3/uL 0.83-4.51 [facility] Work Phone: Basophil percentageon 2021 Basophils/100 WBC (Bld) 0.7 % 0-1 [facility] Work Phone: Chloride [Moles/Vol] 106 mmol/L 98-107 [facility] Work Phone: Eosinophils/100 WBC (Bld) 5.2 % 0-5 [facility] Work Phone: Glucose [Mass/Vol] 90 mg/dL 74-106 [facility] Work Phone: Neutrophils (Bld) [#/Vol] 3.7 10*3/uL 2.0-7.7 [facility] Work Phone: Neutrophils/100 WBC (Bld) 65.2 % 47-70 [facility] Work Phone: Potassium [Moles/Vol] 4.1 mmol/L 3.5-5.1 [facility] Work Phone: Sodium [Moles/Vol] 139 mmol/L 136-145 [facility] Work Phone: WBC (Bld) [#/Vol] 5.7 10*3/uL 4.4-11.0 [facility] Work Phone: Blood erythrocytes count (nu mber/volume)on 09-23-2021 RBC (Bld) [#/Vol] 4.71 10*6/uL 4.6-6.2 [facility] Work Phone: Blood hemoglobin measurement (mass/volume)on 09-23-2021 Hemoglobin (Bld) [Mass/Vol] 12.5 g/dL 13.0-16.5 [facility] Work Phone: Blood lymphocytes/100 leukoc yteson 09-23-2021 Lymphocytes/100 WBC (Bld) 21.6 % 19-41 [facility] Work Phone: Blood manual differential co mment interpretation (narrative result)on 09-23-2021 Manual differential comment Gabriel (Bld) [Interp] SCANNED [facility] Work Phone: Blood monocytes/100 leukocyt eson 09-23-2021 Monocytes/100 WBC (Bld) 7.0 % 0-10 [facility] Work Phone: Blood platelet mean volumeon 09-23-2021 Platelet mean volume (Bld) [Entitic vol] 8.8 fL 6.2-12.0 [facility] Work Phone: Determination of erythrocyte mean corpuscular volume (MCV)on 09-23-2021 MCV (RBC) [Entitic vol] 85.6 fL 80-94 [facility] Work Phone: Hematocrit Auto (Bld) [Volum e fraction]on 09-23-2021 Hematocrit (Bld) [Volume fraction] 40.3 % 40-54 [facility] Work Phone: Laboratory - Chemistry and C hemistry - challengeon 09-23-2021 CO2 [Moles/Vol] 24.0 mmol/L 21.0-32.0 [facility] Work Phone: Urea nitrogen/Creatinine [Mass ratio] 14.2 mg/mg 10-20 [facility] Work Phone: Laboratory - Hematology and Cell countson 09-23-2021 Anisocytosis Ql (Bld) 2+ [facility] Work Phone: Erythrocyte distribution width (RBC) [Entitic vol] 67.2 fL 35.1-43.9 [facility] Work Phone: Erythrocyte distribution width (RBC) [Ratio] 22.5 % 11.6-14.6 [facility] Work Phone: Immature granulocytes/100 WBC (Bld) 0.300 % 0.0-0.9 [facility] Work Phone: Comment on above: IG% - Immature Granu locytes (promyelocytes, myelocytes and metamyelocytes) > 1% indicates that a LEFT SHIFT is Present. MCH (RBC) [Entitic mass] 26.5 pg 27.0-32.0 [facility] Work Phone: Nucleated RBC/100 WBC (Bld) [Ratio] 0 % 0-5 [facility] Work Phone: MCHC Auto (RBC) [Mass/Vol]on 09-23-2021 MCHC (RBC) [Mass/Vol] 31.0 g/dL 32-36 [facility] Work Phone: No Panel Informationon 09-23 Estimated Creatinine Clearance Calc 72.05 ml/min [facility] Work Phone: Estimated GFR (MDRD) Amer 99 mL/min >60 [facility] Work Phone: Comment on above: GFR Calc Estimated GFR (MDRD) Non-Af Amer 82 mL/min >60 [facility] Work Phone: Comment on above: Non- GFR Calc Ethyl Alcohol Level < 3.0 mg/dL [facility] Work Phone: Comment on above: The serum:whole bloo d ethanol ratio is approximately 1.14and varies slightly with hematocrit. Medical Alcohol reference interval and critical value innon-tolerant individuals; 50 - 100 Impairment 100 Intoxication 100 - 250 Severe Poisoning 250 - 400 Deep/possible fatal coma Platelets bldon 09-23-2021 Platelets (Bld) [#/Vol] 260 10*3/uL 150-450 [facility] Work Phone: Serum or plasma calcium archie urement (mass/volume)on 09-23-2021 Calcium [Mass/Vol] 8.9 mg/dL 8.5-10.1 [facility] Work Phone: Serum or plasma creatinine m easurement (mass/volume)on 09-23-2021 Creatinine [Mass/Vol] 0.99 mg/dL 0.70-1.30 [facility] Work Phone: Comment on above: The validity of the calculated GFR & GFRAA in patients over 70 years has not been determined. Clinical correlation is essential. Serum or plasma urea nitroge n measurement (mass/volume)on 09-23-2021 Urea nitrogen [Mass/Vol] 14 mg/dL 7-18 [facility] Work Phone: Thin prep Papanicolaou smear with manual screeningon 09-23-2021 Thin prep Papanicolaou smear with manual screening 9 5-15 [facility] Work Phone: Basophil percentageon 2021 Creatinine [Mass/Vol] 0.9 mg/dL 0.70-1.30 [facility] Work Phone: No Panel Informationon 07-27 Bedside Estimated GFR (eGFR) > 60.0000 mL/min >60 [facility] Work Phone: Basophil percentageon 2021 Ammonia (P) [Moles/Vol] 27.0 umol/L 11-32 [facility] Work Phone: Basophil percentage Not Reportable [facility] Work Phone: Cholesterol [Mass/Vol] 108 mg/dL <200 [facility] Work Phone: Comment on above: <200 mg/dL Desirable 200-240 mg/dL Borderline >240 mg/dL High Risk Triglyceride [Mass/Vol] 83 mg/dL <199 [facility] Work Phone: Comment on above: The drugs N-Acetylcy steine and Metamizole may falsely depress this assay.Serum Triglycerides Reference Interval Normal <150 mg/dL Borderline high 150 - 199 mg/dL High 200 - 499 mg/dL Very High > or = 500 mg/dL WBC (Bld) [#/Vol] 6.9 10*3/uL 4.4-11.0 [facility] Work Phone: Blood erythrocytes count (nu mber/volume)on 07-05-2021 RBC (Bld) [#/Vol] 4.68 10*6/uL 4.6-6.[address] [facility] Work Phone: Blood hemoglobin measurement (mass/volume)on 07-05-2021 Hemoglobin (Bld) [Mass/Vol] 11.1 g/dL 13.0-16.5 [facility] Work Phone: Blood or tissue coagulation factor II targeted mutation analysis by [employer] 07-05-2021 F2 gene targeted mutation analysis [employer] (Bld/Tiss) Comment . [facility] Work Phone: Comment on above: Result: c.*97G>A - N ot DetectedThis result is not associated with an increased risk for venousthromboembolism. See Additional Clinical Information andComments.Additional Clinical Information:Venous thromboembolism is a multifactorial disease influenced bygenetic, environmental, and circumstantial risk factors. The c.*97G>Avariant in the F2 gene is a genetic risk factor for venousthromboembolism. Heterozygous carriers have a 2- to 4-fold increasedrisk for venous thromboembolism. Homozygotes for the c.*97G>A variantare rare. The annual risk of VTE in homozygotes has been reported adriana 1.1%/year. Individuals who carry both a c.*97G>A variant in theF2 gene and a c.1601G>A (p. [id number]) variant in the F5 gene(commonly referred to as Factor V Leiden) have an approximately 20-fold increased risk for venous thromboembolism. Risks are likely adriana even higher in more complex genotype combinations involving theF2 c.*97G>A variant and Factor V Leiden (PMID: 93113205). Additionalrisk factors include but are not limited to: deficiency of protein C,protein S, or antithrombin III, age, male sex, personal or familyhistory of deep vein thromboembolism, smoking, surgery, prolongedimmobilization, malignant neoplasm, tamoxifen treatment, raloxifenetreatment, oral contraceptive use, hormone replacement therapy, andpregnancy. Management of thrombotic risk and thrombotic events shouldfollow established guidelines and fit the clinical circumstance. Thisresult cannot predict the occurrence or recurrence of a thromboticevent.Comments:Genetic counseling is recommended to discuss the potential clinicalimplications of positive results, as well as recommendations fortesting family members.Genetic Coordinators are available for health care providers to discussresults at [phone] ([phone] Details:Variant analyzed: c.*97G>A, previously referred to as [id number]/Limitations:DNA analysis of the F2 gene (NM_000506.5) was performed by PCRamplification followed by restriction enzyme analysis. The diagnosticsensitivity is >99%. Results must be combined with clinicalinformation for the most accurate interpretation. Molecular-basedtesting is highly accurate, but as in any laboratory test, diagnosticerrors may occur. False positive or false negative results may occurfor reasons that include genetic variants, blood transfusions, bonemarrow transplantation, somatic or tissue-specific mosaicism,mislabeled samples, or erroneous representation of familyrelationships.This test was developed and its performance characteristics determinedby [facility]. It has not been cleared or approved by the Food and DrugAdministration.References:Mickey S, Alena AK, Thony R, Rosalinda WW, Matt JH; ACMG ProfessionalPractice and Guidelines Committee. Addendum: [place] [employer] consensus statement on factor V Leiden mutationtesting. Ingris Med. 2020May 27. doi: 10.1038/l33621-552-55051-x.PMID: 61359390.Aida ECHOLS. Prothrombin Thrombophilia. 2005Oct 16[Updated 2020Apr 28]. In: Christopher MP, Swathi HH, Wilfred RA, et al.,editors. Erika(R) [Internet]. [place] ([place]): [facility]; 6216-0410. Available from:https://www.ncbi.nlm.nih.gov/books/KVO6499/Mando S, Alena AK, Ash X, Logan B, Tammy EB, Bette P, Eber CS;[facility] [address] [facility] Stone[employer] Tr[employer] Committee. Venous thromboembolismlaboratory testing (factor V Leiden and factor II c.*97G>A),2018 update: a technical standard of the [place] [employer] MedicalGenetics and Genomics (ACMG). Ingris Med. 2018 Feb;20(12):2024-2032.doi: 10.1038/x23503-512-3331-v. Epub 2017Dec 27. PMID: 33496608.Deepti Oh, PhD, JENNARamu Hall, PhD, Ankita Flores, PhD, Ghada Grace, PhD, [facility] Flor Haywood, PhD, JENNASallie Reina, PhD, JENNASaritha Merlos, PhD, [facility] Blood platelet mean volumeon 07-05-2021 Platelet mean volume (Bld) [Entitic vol] 8.4 fL 6.2-12.0 [facility] Work Phone: Determination of erythrocyte mean corpuscular volume (MCV)on 07-05-2021 MCV (RBC) [Entitic vol] 77.8 fL 80-94 [facility] Work Phone: Dilute Robert's viper venom timeon 07-05-2021 dRVVT Coag (PPP) [Time] 46.2 s 0.0-47.0 [facility] Work Phone: Erythrocyte sedimentation ra ally 07-05-2021 ESR (Bld) [Velocity] 18 mm/h 0-20 [facility] Work Phone: Functional protein C measure menton 07-05-2021 Protein C actual/normal Chromogenic method (PPP) [Rel catalytic activity/Vol] 143 % 73-180 [facility] Work Phone: Comment on above: Performed at: [address] [id number] Director: Randall Sin MD, Phone: [phone] at: CB - [facility] [address] [place], [place] [id number] Director: Maurilio Pearl PhD, Phone: [phone] at: - [facility] [id number] [place], [place] [id number] Director: Tracy Meyer [facility], Phone: [phone] Hematocrit Auto (Bld) [Volum e fraction]on 07-05-2021 Hematocrit (Bld) [Volume fraction] 36.4 % 40-54 [facility] Work Phone: Laboratory - Chemistry and C hemistry - challengeon 07-05-2021 Cobalamin (Vitamin B12) [Mass/Vol] 504 pg/mL 211-911 [facility] Work Phone: Laboratory - Hematology and Cell countson 07-05-2021 Erythrocyte distribution width (RBC) [Entitic vol] 51.3 fL 35.1-43.9 [facility] Work Phone: Erythrocyte distribution width (RBC) [Ratio] 18.2 % 11.6-14.6 [facility] Work Phone: MCH (RBC) [Entitic mass] 23.7 pg 27.0-32.0 [facility] Work Phone: MCHC Auto (RBC) [Mass/Vol]on 07-05-2021 MCHC (RBC) [Mass/Vol] 30.5 g/dL 32-36 [facility] Work Phone: No Panel Informationon 07-05 Anti-Cardiolipin IgM Antibody 18 MPL U/mL 0-12 [facility] Work Phone: Comment on above: Negative: <13 Indete rminate: 13 - 20 Low-Med Positive: >20 - 80 High Positive: >80 Anti-Nuclear Antibody Screen Negative Negative [facility] Work Phone: Comment on above: Performed at: CB - [facility] [address] [place] [id number] Director: Maurilio Pearl PhD, Phone: [phone] Centromere B Antibody Not Reportable [facility] Work Phone: Factor V Leiden Mutation Comment . [facility] Work Phone: Comment on above: Result: c.1601G>A (p .[id number]) - Not DetectedThis result is not associated with an increased risk for venousthromboembolism. See Additional Clinical Information andComments.Additional Clinical Information:Venous thromboembolism is a multifactorial diseaseinfluenced by genetic, environmental, and circumstantialrisk factors. The c.1601G>A (p. [id number]) variant in theF5 gene, commonly referred to as Factor V Leiden, is agenetic risk factor for venous thromboembolism.Heterozygous carriers of this variant have a 6- to 8-foldincreased risk for venous thromboembolism. Individualshomozygous for this variant (ie, with a copy of the varianton each chromosome) have an approximately 80-fold increasedrisk for venous thromboembolism. Individuals who carry pardeep c.*97G>A variant in the F2 gene and Factor V Leiden havean approximately 20-fold increased risk for venousthromboembolism. Risks are likely to be even higher in morecomplex genotype combinations involving the F2 c.*97G>Avariant and Factor V Leiden (PMID: [id number]). Additionalrisk factors include but are not limited to: deficiency ofprotein C, protein S, or antithrombin III, age, male sex,personal or family history of deep vein thromboembolism,smoking, surgery, prolonged immobilization, malignantneoplasm, tamoxifen treatment, raloxifene treatment, oralcontraceptive use, hormone replacement therapy, andpregnancy. Management of thrombotic risk and thromboticevents should follow established guidelines and fit theclinical circumstance. This result cannot predict theoccurrence or recurrence of a thrombotic event.Comment:Genetic counseling is recommended to discuss thepotential clinical implications of positive results, aswell as recommendations for testing family members.Genetic Coordinators are available for health careproviders to discuss results at [phone] ([phone] Details:Variant Analyzed: c.1601G>A (p. [id number]), referred toas Factor V LeidenMethods/Limitations:DNA analysis of the F5 gene (NM_000130.5) was performedby PCR amplification followed by restriction enzymeanalysis. The diagnostic sensitivity is >99%. Results mustbe combined with clinical information for the most accurateinterpretation. Molecular-based testing is highly accurate,but as in any laboratory test, diagnostic errors may occur.False positive or false negative results may occur forreasons that include genetic variants, blood transfusions,bone marrow transplantation, somatic or tissue-specificmosaicism, mislabeled samples, or erroneous representationof family relationships.This test was developed and its performance characteristicsdetermined by [facility]. It has not been cleared orapproved by the Food and Drug Administration.References:Mickey Guerrero, Alena VIRGEN, Thony R, Rosalinda WW, Matt JH; ACMGProfessional Practice and Guidelines Committee. Addendum:[employer] [place] [employer] consensus statement onfactor V Leiden mutation testing. In[employer]. 2020May 27.doi: 10.1038/[id number]-[id number]. PMID: 37216161.Aida ECHOLS. Factor V Leiden Thrombophilia. 1998August 05[Updated 2017Mar 28]. In: Christopher MP, Swathi HH, Wilfred RA,et al., editors. Erika(R) [Internet]. [place] ([place]):[facility], [place]; [phone]. Availablefrom: https://www.ncbi.nlm.nih.gov/books/XAJ5731/Mando Guerrero, Alena VIRGEN, Mihir X, Logan B, Tammy EB, Bette P,Eber CS; [facility] Laboratory Stonework Tracer Committee.Venous thromboembolism laboratory testing (factor V Leidenand factor II c.*97G>A), 2018 update: a technical standardof the [place] [employer]). [employer]. 2018 Feb;20(12):2816-3061. doi:10.1038/[id number]-v. Epub 2017Dec 27. PMID: 02954150.Deepti Oh, PhD, Dilma Hall, PhD, Ankita Flores, PhD, Ghada Grace, PhD, FACELAINE Haywood, PhD, Cy Reina, PhD, Zakia Merlos, PhD, FACMG Levetiracetam (Keppra) Level 12.4 ug/mL 10.0-40.0 [facility] Work Phone: SUPERVISOR INSPECTION ROOM Antibody Not Reportable [facility] Work Phone: [phone] Thyroid Stimulating Hormone (TSH) 0.74 uIU/mL 0.358-3.74 [facility] Work Phone: Total Complement (CH50) > 60 U/mL >41 [facility] Work Phone: Comment on above: Age Male Female 1 - 30 days Not Estab. Not Estab. 31 days - 6 months >32 >20 7 months - 17 years >39 >39 >17 years >41 >41 NOTE: The adult (">17 years") reference interval range is used to flag abnormals on this report. If the patient is 17 years old or younger, use the table above to determine out of range values. Whole Blood Vitamin B1 Level 124.9 nmol/L 66.5-200.0 [facility] Work Phone: Platelet poor plasma antithr ombin actual/normal ratio by chromogenic method (relativeon 07-05-2021 Antithrombin actual/normal Chromogenic method (PPP) [Rel catalytic activity/Vol] 121 % 75-135 [facility] Work Phone: Comment on above: Direct Xa inhibitor anticoagulants such as rivaroxaban,apixaban and edoxaban will lead to spuriously elevatedantithrombin activity levels possibly masking a deficiency. Platelet poor plasma antithr ombin antigen detection by immunoassayon 07-05-2021 Antithrombin Ag IA Ql (PPP) 99 % 72-124 [facility] Work Phone: Comment on above: This test was rachel pemberton and its performance characteristicsdetermined by [facility]. It has not been cleared orapproved by the Food and Drug Administration. Platelet poor plasma protein S actual/normal ratio (relative time)on 07-05-2021 Protein S actual/normal Coag (PPP) [Relative time] 87 % 63-140 [facility] Work Phone: Comment on above: Protein S activity m ay be falsely increased (masking anabnormal, low result) in patients receiving direct Xainhibitor (e.g., rivaroxaban, apixaban, edoxaban) or adirect thrombin inhibitor (e.g., dabigatran) anticoagulanttreatment due to assay interference by these drugs. Platelets bldon 07-05-2021 Platelets (Bld) [#/Vol] 327 10*3/uL 150-450 [facility] Work Phone: Protein C antigen assayon Protein C Ag actual/normal IA (PPP) [Relative mass conc] 101 % 60-150 [facility] Work Phone: Protein S measurement in shereen telet poor plasma by coagulation assay (units/volume)on 07-05-2021 Protein S Coag Qn (PPP) 79 % 60-150 [facility] Work Phone: Comment on above: This test was devmiko pemberton and its performance characteristicsdetermined by [facility]. It has not been cleared orapproved by the Food and Drug Administration. Protein S, freeon 07-05-2021 Protein S Free Ag IA Qn (PPP) 118 % 61-136 [facility] Work Phone: Serum DNA double strand anti body assay (units/volume)on 07-05-2021 DNA double strand Ab Qn (S) Not Reportable [facility] Work Phone: Serum Melba-1 antibody assay (u nits/volume)on 07-05-2021 Melba-1 extractable nuclear Ab Qn (S) Not Reportable [facility] Work Phone: Serum Scl-70 extractable nuc lear antibody assay (units/volume)on 07-05-2021 SCL-70 extractable nuclear Ab Qn (S) Not Reportable [facility] Work Phone: Serum Anderson extractable nucl ear antibody detectionon 07-05-2021 Anderson extractable nuclear Ab Ql (S) Not Reportable [facility] Work Phone: Serum cardiolipin IgG antibo dy assay by immunoassay (units/volume)on 07-05-2021 Cardiolipin IgG IA Qn (S) < 9 GPL U/mL 0-14 [facility] Work Phone: Comment on above: Negative: <15 Indete rminate: 15 - 20 Low-Med Positive: >20 - 80 High Positive: >80 Serum or plasma cardiolipin IgA antibody assay (units/volume)on 07-05-2021 Cardiolipin IgA Qn < 9 APL U/mL 0-11 [facility] Work Phone: Comment on above: Negative: <12 Indete rminate: 12 - 20 Low-Med Positive: >20 - 80 High Positive: >80 Serum or plasma cholesterol in HDL measurement (mass/volume)on 07-05-2021 Cholesterol in HDL [Mass/Vol] 52 mg/dL >40 [facility] Work Phone: Comment on above: The drugs N-Acetylcy steine and Metamizole may falsely depress this assay. Reference Range HDL <40 mg/dL Low HDL Cholesterol HDL >or= 60 mg/dL High HDL Cholesterol Serum or plasma cholesterol in VLDL measurement (mass/volume)on 07-05-2021 Cholesterol in VLDL [Mass/Vol] 17 mg/dL 5-40 [facility] Work Phone: Serum or plasma complement C 3 measurement (mass/volume)on 07-05-2021 Complement C3 [Mass/Vol] 127 mg/dL 82-167 [facility] Work Phone: Serum or plasma complement C 4 measurement (mass/volume)on 07-05-2021 Complement C4 [Mass/Vol] 30 mg/dL 12-38 [facility] Work Phone: Serum or plasma folate measu rement (mass/volume)on 07-05-2021 Folate [Mass/Vol] 7.60 ng/mL 3.1-55.4 [facility] Work Phone: Serum or plasma low density lipoprotein (LDL) cholesterol measurement (mass/volume)on 07-05-2021 Cholesterol in LDL [Mass/Vol] 39 mg/dL 0-130 [facility] Work Phone: Thin prep Papanicolaou smear with manual screeningon 07-05-2021 Thin prep Papanicolaou smear with manual screening 38.4 sec 0.0-47.6 [facility] Work Phone: Thin prep Papanicolaou smear with manual screening 1.00 Ratio 0.00-1.34 [facility] Work Phone: Thin prep Papanicolaou smear with manual screening 35.3 sec 0.0-51.9 [facility] Work Phone: Thin prep Papanicolaou smear with manual screening Comment: . [facility] Work Phone: Comment on above: No lupus anticoagula nt was detected. Thrombin time in platelet po or plasmaon 07-05-2021 Thrombin time Coag (PPP) [Time] 17.3 sec 0.0-23.0 [facility] Work Phone: LIPID PROFILEon 01-30-2021 Cholesterol [Mass/Vol] 96 mg/dL Normal 0 - [address] [facility] Comment on above: Performed By: #### 2 [id number] #### [facility],[address] [place] [address] 33258 Cholesterol in HDL [Mass/Vol] 50 mg/dL Normal 40 - [address] [facility] Comment on above: Performed By: #### 2 70510 #### [facility],[address] [place] [address] 53111 Cholesterol in LDL [Mass/Vol] 38 mg/dL Normal 0 - [address] [facility] Comment on above: Performed By: #### 2 00793 #### [facility],[address] [place] [address] 59979 Cholesterol.total/Cho lesterol in HDL [Mass ratio] 1.9 {ratio} Normal 0.0 - 5.[address] [facility] Comment on above: Performed By: #### 2 11638 #### [facility],[address] [place] [address] 51271 Lipid 1996 panel Normal [facility] Comment on above: Result Comment: LIPI D PROFILE Performed By: #### 2 53035 #### [facility],[address] [place] [address] Triglyceride [Mass/Vol] 41 mg/dL Normal 0 - [address] [facility] Comment on above: Performed By: #### 2 71400 #### [facility],[address] [place] [address] TSHon 01-30-2021 TSH Qn 6.60 m[IU]/L High 0.35 - 3.[address] [facility] Comment on above: Performed By: #### 2 70989 #### [facility],[address] [place] [address] CBC + DIFFon 10-07-2020 Baso # 0.00 x10EE3/UL Normal 0.00 - 0.[address] [facility] Comment on above: Performed By: #### 2 46000 #### [facility],[address] [place] [address] Basophils/100 WBC (Bld) 0.9 % Normal 0.0 - 2.[address] [facility] Comment on above: Performed By: #### 2 16038 #### [facility],[address] [place] [address] CBC + DIFF Normal [facility] Comment on above: Result Comment: CBC- COMPLETE BLOOD COUNT Performed By: #### 2 19455 #### [facility],[address] [place] [address] EO # 0.40 x10EE3/UL Normal 0.00 - 0.[address] [facility] Comment on above: Performed By: #### 2 96874 #### [address] [address] Eosinophils/100 WBC (Bld) 7.3 % High 0.0 - 7.[address] [facility] Comment on above: Performed By: #### 2 82306 #### [facility],[address] [place] [address] 65838 Erythrocyte distribution width (RBC) [Ratio] 20.3 % High 12.0 - 15.[address] [facility] Comment on above: Performed By: #### 2 58849 #### [facility],[address] [place] [address] 90103 Hematocrit (Bld) [Volume fraction] 28.6 % Low 40.0 - 52.[address] [facility] Comment on above: Performed By: #### 2 97075 #### [facility],[address] [place], [place] [address] Hemoglobin (Bld) [Mass/Vol] 9.5 g/dL Low 13.0 - 17.[address] [facility] Comment on above: Performed By: #### 2 95704 #### [facility],[address] [place] [address] Lymph # 1.50 x10EE3/UL Normal 0.80 - 2.[address] [facility] Comment on above: Performed By: #### 2 31697 #### [facility],[address] [place] [address] 31278 Lymphocytes/100 WBC (Bld) 29.1 % Normal 20.0 - 45.[address] [facility] Comment on above: Performed By: #### 2 89957 #### [facility],[address] [place] [address] 77258 MANUAL DIFF REVIEWED Normal [facility] Comment on above: Performed By: #### 2 24063 #### [facility],[address] [place] [address] 07794 MCH (RBC) [Entitic mass] 24 pg Low 27 - [address] [facility] Comment on above: Performed By: #### 2 64605 #### [facility],[address] [place] [address] 44971 MCHC 33 X10 3 Normal 32 - [address] [facility] Comment on above: Performed By: #### 2 29588 #### [facility] [place] [address] 69234 MCV (RBC) [Entitic vol] 73 fL Low 81 - [address] [facility] Comment on above: Performed By: #### 2 86762 #### [facility],[address] [place] [address] 05270 Costilla # 0.50 x10EE3/UL Normal 0.20 - 1.[address] [facility] Comment on above: Performed By: #### 2 39287 #### [facility],[address] [place] [address] 42533 MONOS % 9.5 % Normal 0.0 - 10.[address] [facility] Comment on above: Performed By: #### 2 27941 #### [facility],[address] [place] [address] 44841 Morphology Gabriel (Bld) [Interp] REVIEWED Normal [facility] Comment on above: Result Comment: {CD] Performed By: #### 2 55204 #### [facility],[address] [place] [address] 72174 Neut # 2.70 x10EE3/UL Normal 1.50 - 7.[address] [facility] Comment on above: Performed By: #### 2 18864 #### [facility],[address] [place] [address] 86694 Neutrophils/100 WBC (Bld) 53.2 % Normal 46.0 - 76.[address] [facility] Comment on above: Performed By: #### 2 42700 #### [facility],[address] [place] [address] 66340 PLATELET 393 x10EE3/UL Normal 150 - [address] [facility] Comment on above: Performed By: #### 2 26228 #### [facility],[address] [place] [address] 67972 Platelet mean volume (Bld) [Entitic vol] 6.6 fL Normal 6.4 - 10.[address] [facility] Comment on above: Result Comment: AUTO MATED DIFFERENTIAL Performed By: #### 2 96495 #### [facility],[address] [place] [address] 30751 RBC 3.91 x 10EE6/UL Low 4.50 - 6.[address] [facility] Comment on above: Performed By: #### 2 81353 #### [facility],[address] [place] [address] 55095 WBC 5.1 x 10EE3/UL Normal 4.5 - 10.[address] [facility] Comment on above: Performed By: #### 2 24260 #### [facility],[address] [place] [address] 72055 CMP with eGFRon 10-07-2020 AGE 60 years Normal [facility] Comment on above: Performed By: #### 2 23666 #### [facility],[address] [place] [address] 90524 Albumin [Mass/Vol] 3.3 g/dL Low 3.4 - 5.[address] [facility] Comment on above: Performed By: #### 2 14645 #### [facility],[address] [place] [address] 76249 Albumin/Globulin [Mass ratio] 1.1 {ratio} Normal 0.9 - 1.[address] [facility] Comment on above: Performed By: #### 2 73117 #### [facility],[address] [place] [address] 06507 ALK PHOS 92 U/L Normal 46 - [address] [facility] Comment on above: Performed By: #### 2 31379 #### [facility],[address] [place] [address] 45074 ALT [Catalytic activity/Vol] 20 U/L Normal 16 - [address] [facility] Comment on above: Performed By: #### 2 55999 #### [facility],[address] [place] [address] 01734 Anion gap [Moles/Vol] 11 mmol/L Normal 10 - 20 [facility] Comment on above: Performed By: #### 2 61001 #### [facility],[address] [place] [address] 80659 AST [Catalytic activity/Vol] 12 U/L Low 15 - [address] [facility] Comment on above: Performed By: #### 2 35948 #### [facility],[address] [place] [address] 40251 B/C RATIO 16 ratio Normal 0 - [address] [facility] Comment on above: Performed By: #### 2 94865 #### [facility],[address] [place] [address] 48334 Bilirubin [Mass/Vol] 0.3 mg/dL Normal 0.2 - 1.[address] [facility] Comment on above: Performed By: #### 2 43292 #### [facility],[address] [place] [address] 08727 Calcium [Mass/Vol] 8.6 mg/dL Normal 8.5 - 10.[address] [facility] Comment on above: Performed By: #### 2 38581 #### [facility],[address] [place] [address] 27561 Chloride [Moles/Vol] 103 mmol/L Normal 98 - [address] [facility] Comment on above: Performed By: #### 2 61456 #### [facility],[address] [place] [address] 44994 CMP with eGFR Normal [facility] Comment on above: Result Comment: COMP REHENSIVE METABOLIC PANEL Performed By: #### 2 84252 #### [facility],[address] [place] [address] 07310 CO2 [Moles/Vol] 25.6 mmol/L Normal 21.0 - 32.[address] [facility] Comment on above: Performed By: #### 2 36023 #### [facility],[address] [place] [address] 67042 Creatinine [Mass/Vol] 0.70 mg/dL Normal 0.70 - 1.[address] [facility] Comment on above: Performed By: #### 2 81229 #### [facility],[address] [place] [address] 85202 GFR/1.73 sq M.predicted among non-blacks MDRD (S/P/Bld) [Vol rate/Area] mL/min/{1.73_m2} Normal 60 - [address] [facility] Comment on above: Performed By: #### 2 78690 #### [facility],[address] [place] [address] 12453 Result Comment: ACCO RDING TO THE NATIONAL KIDNEY DISEASE EDUCATION PROGRAM(NKDE), A NORMAL eGFR IS A VALUE GREATER THAN OR EQUAL TO 60 ML/MIN/1.73 SQ METERS. CHRONIC KIDNEY DISEASE: <60mL/MIN/1.73 SQ METERS KIDNEY FAILURE: <15mL/MIN/1.73 SQ METERS THIS TEST SHOULD ONLY BE USED FOR PATIENTS 18 YEARS OF AGE AND OLDER. Globulin (S) [Mass/Vol] 3.1 g/dL Normal 1.5 - 3.[address] [facility] Comment on above: Performed By: #### 2 09528 #### [facility],[address] [place] [address] 01044 Glucose [Mass/Vol] 79 mg/dL Normal 74 - [address] [facility] Comment on above: Performed By: #### 2 32603 #### [facility],[address] [place] [address] 62482 Potassium [Moles/Vol] 4.0 mmol/L Normal 3.5 - 5.1 [facility] Comment on above: Performed By: #### 2 80807 #### [facility],[address] [place] [address] 44019 Protein [Mass/Vol] 6.4 g/dL Normal 6.4 - 8.[address] [facility] Comment on above: Performed By: #### 2 66933 #### [facility],[address] [place] [address] 62025 Sodium [Moles/Vol] 136 mmol/L Normal 136 - [address] [facility] Comment on above: Performed By: #### 2 23626 #### [facility],[address] [place] [address] 88791 Urea nitrogen [Mass/Vol] 11 mg/dL Normal - [facility] Comment on above: Performed By: #### 2 70589 #### [facility],[address] [place] [address] 74328 BMP with eGFRon 09-09-2020 AGE 60 years Normal [facility] Comment on above: Performed By: #### 2 48648 #### [facility],[address] [place] [address] 01002 Anion gap [Moles/Vol] 12 mmol/L Normal 10 - 20 [facility] Comment on above: Performed By: #### 2 86079 #### [facility],[address] [place] [address] 20686 BMP with eGFR Normal [facility] Comment on above: Result Comment: BASI C METABOLIC PANEL Performed By: #### 2 62208 #### [facility],[address] [place] [address] 76474 Calcium [Mass/Vol] 8.6 mg/dL Normal 8.5 - 10.[address] [facility] Comment on above: Performed By: #### 2 07595 #### [facility],[address] [place] [address] 35644 Chloride [Moles/Vol] 93 mmol/L Low 98 - [address] [facility] Comment on above: Performed By: #### 2 76496 #### [facility],[address] [place] [address] 18016 CO2 [Moles/Vol] 26.9 mmol/L Normal 21.0 - 32.[address] [facility] Comment on above: Performed By: #### 2 54145 #### [facility],[address] [place] [address] 53800 Creatinine [Mass/Vol] 0.69 mg/dL Low 0.70 - 1.[address] [facility] Comment on above: Performed By: #### 2 72608 #### [facility],[address] [place] [address] 64135 GFR/1.73 sq M.predicted among non-blacks MDRD (S/P/Bld) [Vol rate/Area] mL/min/{1.73_m2} Normal 60 - [address] [facility] Comment on above: Performed By: #### 2 75537 #### [facility],[address] [place] [address] 57166 Result Comment: ACCO RDING TO THE NATIONAL KIDNEY DISEASE EDUCATION PROGRAM(NKDE), A NORMAL eGFR IS A VALUE GREATER THAN OR EQUAL TO 60 ML/MIN/1.73 SQ METERS. CHRONIC KIDNEY DISEASE: <60mL/MIN/1.73 SQ METERS KIDNEY FAILURE: <15mL/MIN/1.73 SQ METERS THIS TEST SHOULD ONLY BE USED FOR PATIENTS 18 YEARS OF AGE AND OLDER. Glucose [Mass/Vol] 77 mg/dL Normal 74 - [address] [facility] Comment on above: Performed By: #### 2 54984 #### [facility],[address] [place] [address] 79115 Potassium [Moles/Vol] 4.0 mmol/L Normal 3.5 - 5.1 [facility] Comment on above: Performed By: #### 2 08829 #### [facility],[address] [place] [address] 84698 Sodium [Moles/Vol] 128 mmol/L Low 136 - [address] [facility] Comment on above: Performed By: #### 2 42684 #### [facility],[address] [place] [address] 07426 Urea nitrogen [Mass/Vol] 10 mg/dL Normal 7 - [address] [facility] Comment on above: Performed By: #### 2 24612 #### [facility],[address] [place] [address] 40135 BMP with eGFRon 08-12-2020 AGE 60 years Normal [facility] Comment on above: Performed By: #### 2 40629 #### [facility],[address] [place] [address] 69767 Anion gap [Moles/Vol] 7 mmol/L Low 10 - 20 [facility] Comment on above: Performed By: #### 2 62235 #### [facility],[address] [place] [address] 47124 BMP with eGFR Normal [facility] Comment on above: Result Comment: BASI C METABOLIC PANEL Performed By: #### 2 86345 #### [facility],[address] [place] [address] 84017 Calcium [Mass/Vol] 8.4 mg/dL Low 8.5 - 10.[address] [facility] Comment on above: Performed By: #### 2 98905 #### [facility],[address] [place] [address] 51176 Chloride [Moles/Vol] 95 mmol/L Low 98 - [address] [facility] Comment on above: Performed By: #### 2 50613 #### [facility],[address] [place] [address] 34870 CO2 [Moles/Vol] 28.7 mmol/L Normal 21.0 - 32.[address] [facility] Comment on above: Performed By: #### 2 73633 #### [facility],[address] [place] [address] 79833 Creatinine [Mass/Vol] 0.72 mg/dL Normal 0.70 - 1.[address] [facility] Comment on above: Performed By: #### 2 13895 #### [facility],[address] [place] [address] 60295 GFR/1.73 sq M.predicted among non-blacks MDRD (S/P/Bld) [Vol rate/Area] mL/min/{1.73_m2} Normal 60 - [address] [facility] Comment on above: Performed By: #### 2 85440 #### [facility],[address] [place], [place] [address] Result Comment: ACCO RDING TO THE NATIONAL KIDNEY DISEASE EDUCATION PROGRAM(NKDE), A NORMAL eGFR IS A VALUE GREATER THAN OR EQUAL TO 60 ML/MIN/1.73 SQ METERS. CHRONIC KIDNEY DISEASE: <60mL/MIN/1.73 SQ METERS KIDNEY FAILURE: <15mL/MIN/1.73 SQ METERS THIS TEST SHOULD ONLY BE USED FOR PATIENTS 18 YEARS OF AGE AND OLDER. Glucose [Mass/Vol] 78 mg/dL Normal 74 - [address] [facility] Comment on above: Performed By: #### 2 [id number] #### [facility],[address] [place] [address] 14271 Potassium [Moles/Vol] 3.9 mmol/L Normal 3.5 - 5.1 [facility] Comment on above: Performed By: #### 2 [id number] #### [facility],[address] [place] [address] 89537 Sodium [Moles/Vol] 127 mmol/L Low 136 - [address] [facility] Comment on above: Performed By: #### 2 47187 #### [facility],[address] [place] [address] 91913 Urea nitrogen [Mass/Vol] 14 mg/dL Normal 7 - [address] [facility] Comment on above: Performed By: #### 2 46024 #### [facility],[address] [place] [address] 26975 BMP with eGFRon 08-07-2020 AGE 60 years Normal [facility] Comment on above: Performed By: #### 2 50613 #### [facility],[address] [place] [address] 57764 Anion gap [Moles/Vol] 10 mmol/L Normal 10 - 20 [facility] Comment on above: Performed By: #### 2 97489 #### [facility],[address] [place] [address] 56002 BMP with eGFR Normal [facility] Comment on above: Result Comment: BASI C METABOLIC PANEL Performed By: #### 2 62279 #### [facility],[address] [place] [address] 23064 Calcium [Mass/Vol] 8.6 mg/dL Normal 8.5 - 10.[address] [facility] Comment on above: Performed By: #### 2 54547 #### [facility],[address] [place] [address] 43347 Chloride [Moles/Vol] 90 mmol/L Low 98 - [address] [facility] Comment on above: Performed By: #### 2 01360 #### [facility],[address] [place] [address] 27206 CO2 [Moles/Vol] 27.1 mmol/L Normal 21.0 - 32.[address] [facility] Comment on above: Performed By: #### 2 49366 #### [facility],[address] [place] [address] 27540 Creatinine [Mass/Vol] 0.76 mg/dL Normal 0.70 - 1.[address] [facility] Comment on above: Performed By: #### 2 25482 #### [facility],[address] [place] [address] 79593 GFR/1.73 sq M.predicted among non-blacks MDRD (S/P/Bld) [Vol rate/Area] mL/min/{1.73_m2} Normal 60 - [address] [facility] Comment on above: Performed By: #### 2 49569 #### [facility],[address] [place], [place] [id number] Result Comment: ACCO RDING TO THE NATIONAL KIDNEY DISEASE EDUCATION PROGRAM(NKDE), A NORMAL eGFR IS A VALUE GREATER THAN OR EQUAL TO 60 ML/MIN/1.73 SQ METERS. CHRONIC KIDNEY DISEASE: <60mL/MIN/1.73 SQ METERS KIDNEY FAILURE: <15mL/MIN/1.73 SQ METERS THIS TEST SHOULD ONLY BE USED FOR PATIENTS 18 YEARS OF AGE AND OLDER. Glucose [Mass/Vol] 89 mg/dL Normal 74 - [address] [facility] Comment on above: Performed By: #### 2 68539 #### [facility],[address] [place] [address] 16508 Potassium [Moles/Vol] 4.2 mmol/L Normal 3.5 - 5.1 [facility] Comment on above: Performed By: #### 2 39537 #### [facility],[address] [place] [address] 92213 Sodium [Moles/Vol] 123 mmol/L Low 136 - [address] [facility] Comment on above: Performed By: #### 2 06002 #### [facility],[address] [place] [address] 35157 Urea nitrogen [Mass/Vol] 11 mg/dL Normal 7 - [address] [facility] Comment on above: Performed By: #### 2 65355 #### [facility],[address] [place] [address] 53535 BMP with eGFRon 08-05-2020 AGE 60 years Normal [facility] Comment on above: Performed By: #### 2 86426 #### [facility],[address] [place] [address] 81514 Anion gap [Moles/Vol] 10 mmol/L Normal 10 - 20 [facility] Comment on above: Performed By: #### 2 82742 #### [facility],[address] [place] [address] 66371 BMP with eGFR Normal [facility] Comment on above: Result Comment: BASI C METABOLIC PANEL Performed By: #### 2 90302 #### [facility],[address] [place] [address] 83775 Calcium [Mass/Vol] 8.2 mg/dL Low 8.5 - 10.[address] [facility] Comment on above: Performed By: #### 2 28989 #### [facility],[address] [place] [address] 28109 Chloride [Moles/Vol] 91 mmol/L Low 98 - [address] [facility] Comment on above: Performed By: #### 2 20610 #### [facility],[address] [place] [address] 99664 CO2 [Moles/Vol] 24.7 mmol/L Normal 21.0 - 32.[address] [facility] Comment on above: Performed By: #### 2 40103 #### [facility],[address] [place] [address] 45684 Creatinine [Mass/Vol] 0.68 mg/dL Low 0.70 - 1.[address] [facility] Comment on above: Performed By: #### 2 52349 #### [facility],[address] [place] [address] 08763 GFR/1.73 sq M.predicted among non-blacks MDRD (S/P/Bld) [Vol rate/Area] mL/min/{1.73_m2} Normal 60 - [address] [facility] Comment on above: Performed By: #### 2 02142 #### [facility],[address] [place] [address] 29900 Result Comment: ACCO RDING TO THE NATIONAL KIDNEY DISEASE EDUCATION PROGRAM(NKDE), A NORMAL eGFR IS A VALUE GREATER THAN OR EQUAL TO 60 ML/MIN/1.73 SQ METERS. CHRONIC KIDNEY DISEASE: <60mL/MIN/1.73 SQ METERS KIDNEY FAILURE: <15mL/MIN/1.73 SQ METERS THIS TEST SHOULD ONLY BE USED FOR PATIENTS 18 YEARS OF AGE AND OLDER. Glucose [Mass/Vol] 82 mg/dL Normal 74 - [address] [facility] Comment on above: Performed By: #### 2 64538 #### [facility],[address] [place] [address] 64259 Potassium [Moles/Vol] 4.2 mmol/L Normal 3.5 - 5.1 [facility] Comment on above: Performed By: #### 2 36607 #### [facility],[address] [place] [address] 48813 Sodium [Moles/Vol] 121 mmol/L Low 136 - [address] [facility] Comment on above: Performed By: #### 2 35539 #### [facility],[address] [place] [address] 46020 Urea nitrogen [Mass/Vol] 8 mg/dL Normal 7 - [address] [facility] Comment on above: Performed By: #### 2 31022 #### [facility],[address] [place] [address] 42871 OXCARBAZEPINE [CCL]on 2020 10Hydroxycarbazepine 31.7 ug/mL Normal 3.0-35.[address] [facility] Comment on above: Result Comment: This test was developed and its performance characteristics determined by [facility]'s [facility] [place] ([facility]). It has not been cleared or approved by the FDA. [facility] is regulated under CLIA as qualified to perform high complexity testing. This test is used for clinical purposes. It should not be regarded as investigational or for research. [facility] [employer] [address] [place] [address] Chuck Hoyos III, M.D. [id number] Performed By: #### 2 62991 #### [facility],[address] [place] [address] 95250 Oxcarbazepineon 08-02-2020 10Hydroxycarbazepine Normal 3.0-35.0 [facility] Comment on above: Result Comment: 31.7 This test was developed and its performance characteristics determined by [facility]'s [facility] [place] ([facility]). It has not been cleared or approved by the FDA. [facility] is regulated under CLIA as qualified to perform high complexity testing. This test is used for clinical purposes. It should not be regarded as investigational or for research. Performed By: #### O XCARB #### [facility] [address] [id number] LIPID PROFILEon 08-01-2020 Cholesterol [Mass/Vol] 117 mg/dL Normal 0 - [address] [facility] Comment on above: Performed By: #### 2 22866 #### [facility],[address] [place] [address] 27957 Cholesterol in HDL [Mass/Vol] 68 mg/dL High 40 - [address] [facility] Comment on above: Performed By: #### 2 62781 #### [facility],[address] [place] [address] 73082 Cholesterol in LDL [Mass/Vol] 39 mg/dL Normal 0 - [address] [facility] Comment on above: Performed By: #### 2 76902 #### [facility],[address] [place] [address] 48328 Cholesterol.total/Cho lesterol in HDL [Mass ratio] 1.7 {ratio} Normal 0.0 - 5.[address] [facility] Comment on above: Performed By: #### 2 66301 #### [facility],[address] [place] [address] 57995 Lipid 1996 panel Normal [facility] Comment on above: Result Comment: LIPI D PROFILE Performed By: #### 2 75426 #### [facility],[address] [place] [address] 00576 Triglyceride [Mass/Vol] 49 mg/dL Normal 0 - [address] [facility] Comment on above: Performed By: #### 2 17410 #### [facility],[address] [place] [address] 32361 TSHon 08-01-2020 TSH Qn 3.20 m[IU]/L Normal 0.35 - 3.[address] [facility] Comment on above: Performed By: #### 2 45747 #### [facility],[address] [place] [address] 76615 2019 Novel Coronavirus (CoVI D-19), NAAon 07-29-2020 SARS-CoV-2 (COVID-19) RNA KAHLIL+probe Ql (Unsp spec) Not detected Normal Not Detected [facility] Comment on above: Result Comment: This nucleic acid amplification test was developed and its performance characteristics determined by [employer]. Nucleic acid amplification tests include RT-PCR and TMA. This test has not been FDA cleared or approved. This test has been authorized by FDA under an Emergency Use Authorization (EUA). This test is only authorized for the duration of time the declaration that circumstances exist justifying the authorization of the emergency use of in vitro diagnostic tests for detection of SARS-CoV-2 virus and/or diagnosis of COVID-19 infection under section 564(b)(1) of the Act, 21 U.S.C. 360bbb-3(b) (1), unless the authorization is terminated or revoked sooner. When diagnostic testing is negative, the possibility of a false negative result should be considered in the context of a patient's recent exposures and the presence of clinical signs and symptoms consistent with COVID-19. An individual without symptoms of COVID-19 and who is not shedding SARS-CoV-2 virus would expect to have a negative (not detected) result in this assay. Performed at: [address] [id number] Laboratory Courier: Maurilio Pearl PhD, Phone: [phone] Performed By: #### L IPAS #### [facility] [address] [place], [place] [id number] Basic Metabolic Panelon 05-0 -2020 Anion gap [Moles/Vol] 13.8 mmol/L Normal 8.0-16.0 [facility] Comment on above: Performed By: #### B MP ####[facility] [place], [place] [id number] Calcium [Mass/Vol] 8.4 mg/dL Normal 8.2-10.0 [facility] Comment on above: Performed By: #### B MP ####[facility] [place] [address] Chloride [Moles/Vol] 100 mmol/L Normal 94-110 [facility] Comment on above: Performed By: #### B MP ####[facility] [place] [address] CO2 [Moles/Vol] 27 mmol/L Normal 21-34 [facility] Comment on above: Performed By: #### B MP ####[facility] [place] [address] Creatinine [Mass/Vol] 0.69 mg/dL Normal 0.50-1.17 [facility] Comment on above: Performed By: #### B MP ####[facility] [place] [address] EGFR Other Races >60 Normal >60 [facility] Comment on above: Performed By: #### B MP ####[facility] [place] [address] GFR/1.73 sq M.predicted among blacks MDRD (S/P/Bld) [Vol rate/Area] mL/min/{1.73_m2} Normal >60 [facility] Comment on above: Result Comment: [employer] tripp Kidney Disease less than 60 mL/min/1.73 m2 Kidney Failure less than 15 mL/min/1.73 m2 Average estimated GFR by age: 50-59 years 93 mL/min/1.73 m2 Performed By: #### B MP ####[facility] [place] [address] Glucose [Mass/Vol] 81 mg/dL Normal 65-100 [facility] Comment on above: Performed By: #### B MP ####[facility] [place] [address] Potassium [Moles/Vol] 4.8 mmol/L Normal 3.3-5.1 [facility] Comment on above: Performed By: #### B MP ####[facility] [place] [address] Sodium [Moles/Vol] 136 mmol/L Normal 132-145 [facility] Comment on above: Performed By: #### B MP ####[facility] [facility] [address] [place] [address] Urea nitrogen [Mass/Vol] 7.6 mg/dL Normal 3.2-26.9 [facility] Comment on above: Performed By: #### B MP ####[facility] [id number] [place] [address] Urea nitrogen/Creatinine [Mass ratio] 11 mg/mg Normal 6-20 [facility] Comment on above: Performed By: #### B MP ####[facility] [address] [place] [address] Anion gap [Moles/Vol] 8.0 mmol/L Normal 8.0-16.0 [facility] Comment on above: Performed By: #### L IPAS #### [facility] [address] [facility] [place] [address] Calcium [Mass/Vol] 7.8 mg/dL Low 8.2-10.0 [facility] Comment on above: Performed By: #### L IPAS #### [facility] [address] [facility] [place] [address] Chloride [Moles/Vol] 97 mmol/L Normal 94-110 [facility] Comment on above: Performed By: #### L IPAS #### [facility] [address] [facility] [place] [address] CO2 [Moles/Vol] 28 mmol/L Normal 21-34 [facility] Comment on above: Performed By: #### L IPAS #### [facility] [address] [facility] [place] [address] Creatinine [Mass/Vol] 0.78 mg/dL Normal 0.50-1.17 [facility] Comment on above: Performed By: #### L IPAS #### [place] [facility] [address] [place] [address] EGFR Other Races >60 Normal >60 [facility] Comment on above: Performed By: #### L IPAS #### [facility] [address] [place] [address] GFR/1.73 sq M.predicted among blacks MDRD (S/P/Bld) [Vol rate/Area] mL/min/{1.73_m2} Normal >60 [facility] Comment on above: Result Comment: [employer] tripp Kidney Disease less than 60 mL/min/1.73 m2 Kidney Failure less than 15 mL/min/1.73 m2 Average estimated GFR by age: 50-59 years 93 mL/min/1.73 m2 Performed By: #### L IPAS #### [facility] [address] [place] [address] Glucose [Mass/Vol] 139 mg/dL High 65-100 [facility] Comment on above: Performed By: #### L IPAS #### [facility] [address] [place] [address] Potassium [Moles/Vol] 4.0 mmol/L Normal 3.3-5.1 [facility] Comment on above: Performed By: #### L IPAS #### [facility] [address] [place] [address] Sodium [Moles/Vol] 129 mmol/L Low 132-145 [facility] Comment on above: Performed By: #### L IPAS #### [facility] [address] [place] [address] Urea nitrogen [Mass/Vol] 7.9 mg/dL Normal 3.2-26.9 [facility] Comment on above: Performed By: #### L IPAS #### [facility] [address] [place] [address] Urea nitrogen/Creatinine [Mass ratio] 10 mg/mg Normal 6-20 [facility] Comment on above: Performed By: #### L IPAS #### [facility] [address] [place] [address] CBC w/Auto Differentialon Basophils Abs. # 0.03 K/uL Normal 0.00-0.10 [facility] Comment on above: Performed By: #### L IPAS #### [facility] [address] [place] [address] Basophils/100 WBC (Bld) 0.5 % Normal 0.2-1.0 [facility] Comment on above: Performed By: #### L IPAS #### [facility] [address] [place] [address] Eosinophils (Bld) [#/Vol] 0.30 10*3/uL High 0.00-0.20 [facility] Comment on above: Performed By: #### L IPAS #### [facility] [address] [place] [address] Eosinophils/100 WBC (Bld) 4.4 % High 0.9-2.9 [facility] Comment on above: Performed By: #### L IPAS #### [facility] [address] [place] [address] Erythrocyte distribution width (RBC) [Ratio] 14.7 % High 11.5-14.5 [facility] Comment on above: Performed By: #### L IPAS #### [facility] [address] [place] [address] Hematocrit (Bld) [Volume fraction] 31.6 % Low 36.7-50.6 [facility] Comment on above: Performed By: #### L IPAS #### [facility] [address] [place] [address] Hemoglobin (Bld) [Mass/Vol] 10.2 g/dL Low 12.4-17.3 [facility] Comment on above: Performed By: #### L IPAS #### [facility] [address] [place] [address] Imm Grans % 0.20 % Normal 0.00-1.00 [facility] Comment on above: Performed By: #### L IPAS #### [address] [place] [address] Imm Grans Absolute # 0.01 K/uL Normal 0.00-0.10 [facility] Comment on above: Performed By: #### L IPAS #### [facility] [address] [place] [address] Lymphocytes (Bld) [#/Vol] 1.70 10*3/uL Normal 1.30-2.90 [facility] Comment on above: Performed By: #### L IPAS #### [facility] [address] [place] [address] Lymphocytes/100 WBC (Bld) 30.5 % Normal 17.0-45.5 [facility] Comment on above: Performed By: #### L IPAS #### [address] [place] [address] MCH (RBC) [Entitic mass] 27.2 pg Normal 27.0-31.0 [facility] Comment on above: Performed By: #### L IPAS #### [address] [place] [address] MCHC (RBC) [Mass/Vol] 32.3 g/dL Low 33.0-37.0 [facility] Comment on above: Performed By: #### L IPAS #### [facility] [address] [place] [address] MCV (RBC) [Entitic vol] 84.3 fL Normal 80.0-94.0 [facility] Comment on above: Performed By: #### L IPAS #### [facility] [address] [place] [address] Monocytes (Bld) [#/Vol] 0.50 10*3/uL Normal 0.30-0.80 [facility] Comment on above: Performed By: #### L IPAS #### [facility] [address] [place] [address] Monocytes/100 WBC (Bld) 8.1 % Normal 5.5-11.7 [facility] Comment on above: Performed By: #### L IPAS #### [facility] [address] [place] [address] Neutrophils Abs. # 3.20 K/uL Normal 2.20-4.80 [facility] Comment on above: Performed By: #### L IPAS #### [facility] [address] [place] [address] Neutrophils/100 WBC (Bld) 56.3 % Normal 43.0-65.0 [facility] Comment on above: Performed By: #### L IPAS #### [facility] [address] [place] [address] Platelet mean volume (Bld) [Entitic vol] 8.0 fL Normal 7.4-10.4 [facility] Comment on above: Performed By: #### L IPAS #### [facility] [address] [place] [address] Platelets (Bld) [#/Vol] 397 10*3/uL Normal 148-402 [facility] Comment on above: Performed By: #### L IPAS #### [facility] [address] [place] [address] RBC (Bld) [#/Vol] 3.75 10*6/uL Low 4.13-5.69 [facility] Comment on above: Performed By: #### L IPAS #### [facility] [address] [place] [address] WBC (Bld) [#/Vol] 5.7 10*3/uL Normal 3.6-10.8 [facility] Comment on above: Performed By: #### L IPAS #### [facility] [address] [place], [place] [id number] EMERGENCY DEPARTMENTon 07-29 [place] [address] HEALTH INFORMATION MANAGEMENT EMERGENCY DEPARTMENT : [phone] Signed Patient: STEVE GARZA Acct:[id number] [facility] N: [id number] : 1960 Sex: M Loc: 4TH FLOOR ADM Date: 07/28/20 Room/Bed: 437-A DISC Date: History of Present Illness - General Chief complaint: Other Stated complaint: DR SENT FOR ELECTROLYTE IMBALANCES Symptom onset: today HPI: pt states that he was at [facility] back in may r/t having a stroke. pt states after treatment he went to [facility] for rehab. pt states that he has been in rehab up until 10 days ago. pt states since being in [facility] his memory and confusion has been worse. pt states that today a lady called him and told him that he needed to be seen in the ED because his electrolytes are off Nurses Notes Reviewed and Agreed With?: Yes Source: Patient Mode of Transport: Ambulatory Who is the Attending Physician?: JESSI WONG - History of Present Illness Initial comments: HISTORY OF PRESENT ILLNESS This is a 60-year-old male, past medical history significant for stroke, hypertension, alcohol abuse, hypothyroidism, COPD, high cholesterol, right ICA stenosis with collaterals, presents today from home for concerns of blood work. Patient states some lady called him today and told him his e lectrolytes were abnormal and he needed to go to the ER. Patient had a stroke approximately 2 month s ago and was discharged to a senior care for rehabilitation. He states he has been home for appro ximately 10 days and has been doing okay. Has been having difficulty with memory and some confusion but states it has been present since the stroke. Patient states he does not know what electrolytes were abnormal. He thinks the lady was calling from his family doctor's office. He denies any chest pain, shortness of breath, abdominal pain, nausea, vomiting, diarrhea, constipation, headache, vis ion changes, fever, chills, dysuria, hematuria, lower extremity edema or any other associated compla ints. PHYSICAL EXAMINATION CONSTITUTIONAL: Chronically ill-appearing, nontoxic. No acute distress. HEAD: Normocephalic, atraumatic. EYES: No conjunctival injection, no icterus. PERRLA. EOMI. EARS: External ears appear normal. NOSE: Nose appears normal. No rhinorrhea. NECK: Trachea midline. Full range of motion noted. RESPIRATORY: Normal chest excursion with respiration. Lung sounds are equal bilaterally without focal wheezing rales or rhonchi. No stridor. CARDIOVASCULAR: Regular rate and rhythm. No murmurs, rubs or clicks. No cyanosis. No peripheral edema. GASTROINTESTINAL: Abdomen is soft, non-distended, with no focal tenderness and without guarding, rigidity or rebound tenderness. Bowel sounds are present. There is no CVA tenderness. NEUROLOGICAL: Awake, alert, and appropriately conversant. Neurologically grossly intact. PSYCHOLOGICAL: The patient?s mood and manner are appropriate. Grooming and personal hygiene are appropriate. INTEGUMENTARY: Warm and dry. No rash noted. MUSCULOSKELETAL: No deformities noted. - Related Data Home Medications Medication Instructions Recorded Confirmed Levothyroxine Sodium 50 mcg PO DAILY 09/06/15 03/30/20 Lisinopril 40 mg PO DAILY 09/06/15 03/30/20 Atorvastatin Calcium 80 mg PO DAILY 07/08/18 03/30/20 Clopidogrel Bisulfate [Plavix 75 75 mg PO DAILY 07/08/18 03/30/20 mg Tablet] Oxcarbazepine [Oxtellar Xr] 600 mg PO DAILY 07/08/18 03/30/20 Pantoprazole Sodium [Protonix 40 40 mg PO DAILY 07/08/18 03/30/20 mg Tablet] Acetaminophen [Tylenol Extra 1,000 mg PO RTQ6 #30 tablet 03/30/20 Strength] Amoxicillin/Potassium Clav 1 each PO BID #20 tablet 03/30/20 [Augmentin 875-125 Tablet] Aspirin [Aspirin 81 mg Chew Tablet] 81 mg PO DAILY 03/30/20 03/30/20 Duloxetine HCl [Cymbalta] 60 mg PO DAILY 03/30/20 03/30/20 Ferrous Sulfate [Ferrous Sulfate 325 mg PO DAILY 03/30/20 03/30/20 325 mg Tablet] Metoprolol Tartrate [Lopressor] 50 mg PO BID 03/30/20 03/30/20 Allergies Allergy/AdvReac Type Severity Reaction Status Date / Time No Known Allergies Allergy Verified 08/29/18 15:30 Review of System - Constitutional Constitutional: Present: Well developed, Well nourished, well hydrated, Non-toxic. Absent: chills, diaphoresis, fever - Respiratory Respiratory: Absent: cough, short of breath, wheezing, hemoptysis - CV Cardiology: Absent: chest pain, edema, syncope, pleuritic CP - GI Gastrointestinal/Abdominal: Absent: abdominal pain, constipation, diarrhea, nausea, vomiting - Genitourinary Symptoms: Absent: burning, frequency, urgency - Neuro Neurological: Absent: headache, numbness, seizure, tingling, weakness - Muskuloskeletal Musculoskeletal: Absent: (more content not included)... Normal [facility] Magnesiumon 07-29-2020 Magnesium [Mass/Vol] 1.7 mg/dL Normal 1.3-2.3 [facility] Comment on above: Performed By: #### L IPAS #### [facility] [address] [place] [address] Phosphoruson 07-29-2020 Phosphate [Mass/Vol] 3.3 mg/dL Normal 2.5-4.9 [facility] Comment on above: Performed By: #### P HOS #### [facility] [address] [place] [address] SARS Antigen (Rapid)on 07-29 SARS Antigen Negative Normal Negative [facility] Comment on above: Result Comment: The Alize 2 SARS Antigen NUNU is a lateral flow immunofluorescent sandwich assay that is used with the Alize 2 instrument intended for the qualitative detection of the nucleocapsid protein antigen from SARS-CoV-2 in nasopharyngeal (ENVIRONMENTAL COMPLIANCE ENGINEER) and nasal (NS) swab specimens directly or after the swabs have been added to viral transport media from individuals who are suspected of COVID-19 by their healthcare provider. Testing is limited to laboratories certified under the Clinical Laboratory Improvement Amendments of 1988 (CLIA), 42 U.S.C. ?263a, that meet the requirements to perform moderate, high or waived complexity tests. This test is authorized for use at the Point of Care (POC), i.e., in patient care settings operating under a CLIA Certificate of Waiver, Certificate of Compliance, or Certificate of Accreditation. The SARS Antigen NUNU does not differentiate between SARS-CoV and SARS-CoV-2. Results are for the identification of SARS-CoV-2 nucleocapsid protein antigen. Antigen is generally detectable in upper respiratory specimens during the acute phase of infection. Positive results indicate the presence of viral antigens, but clinical correlation with patient history and other diagnostic information is necessary to determine infection status. Positive results do not rule out bacterial infection or co-infection with other viruses. The agent detected may not be the definite cause of disease. Negative results should be treated as presumptive and confirmed with a molecular assay, if necessary for patient management. Negative results do not rule out COVID-19 and should not be used as the sole basis for treatment or patient management decisions, including infection control decisions. Negative results should be considered in the context of a patient?s recent exposures, history and the presence of clinical signs and symptoms consistent with COVID-19. Performed By: #### C OVAG ####[facility] [address] [place] [address] CBC WITH DIFFERENTIALon 05-0 6-2020 ABSOLUTE BASO 0.0 10 3/uL Normal 0.0-0.1 [employer] Comment on above: Performed By: #### 4 [id number] #### [employer] [place] [address] ABSOLUTE EOSIN 0.2 10 3/uL Normal 0.1-0.3 [employer] Comment on above: Performed By: #### 4 [id number] #### [employer] [place] [address] ABSOLUTE LYMPH 1.4 10 3/uL Normal 1.2-3.3 [employer] Comment on above: Performed By: #### 4 [id number] #### [employer] [place] [address] ABSOLUTE MONO 0.4 10 3/uL Normal 0.2-0.6 [employer] Comment on above: Performed By: #### 4 [id number] #### [employer] [place] [address] ABSOLUTE NEUT 3.2 10 3/uL Normal 2.4-6.6 [employer] Comment on above: Performed By: #### 4 [id number] #### [employer] [place] [address] Basophils/100 WBC (Bld) 0.6 % Normal [employer] Comment on above: Performed By: #### 4 [id number] #### [employer] [facility] [address] [address] Eosinophils/100 WBC (Bld) 4.5 % Normal [employer] Comment on above: Performed By: #### 4 [id number] #### [facility] [address] Erythrocyte distribution width (RBC) [Ratio] 14.9 % High 11.5-14.5 [facility] [employer] [facility] Comment on above: Performed By: #### 4 [id number] #### [place] [address] Hematocrit (Bld) [Volume fraction] 34.6 % Low 37.7-51.1 [facility] [employer] [facility] Comment on above: Performed By: #### 4 [id number] #### [place] [address] Hemoglobin (Bld) [Mass/Vol] 11.2 g/dL Low 12.8-17.7 [facility] [employer] Comment on above: Performed By: #### 4 [id number] #### [place] [address] Lymphocytes/100 WBC (Bld) 27.0 % Normal [facility] [employer] Comment on above: Performed By: #### 4 [id number] #### [place] [address] MCH (RBC) [Entitic mass] 26.9 pg Low 27.0-34.2 [facility] [employer] Comment on above: Performed By: #### 4 [id number] #### [place] [address] MCHC (RBC) [Mass/Vol] 32.4 g/dL Normal 31.4-36.2 [facility] [employer] [facility] Comment on above: Performed By: #### 4 [id number] #### [facility] [employer] [place] [id number] MCV (RBC) [Entitic vol] 83.0 fL Normal 80.6-99.0 [facility] [employer] Comment on above: Performed By: #### 4 [id number] #### [place] [address] Monocytes/100 WBC (Bld) 7.9 % Normal [facility] Comment on above: Performed By: #### 4 [id number] #### [place] [address] Neutrophils/100 WBC (Bld) 60.0 % Normal [facility] Comment on above: Performed By: #### 4 [id number] #### [place] [address] PLATELET 414.0 x10 3/uL High 150.0-400. 0 [facility] Comment on above: Performed By: #### 4 [id number] #### [place] [address] RBC 4.17 x10 6/uL Normal 3.70-5.70 [facility] Comment on above: Performed By: #### 4 [id number] #### [place] [address] WBC 5.3 x10 3/uL Normal 4.3-10.3 [facility] Comment on above: Performed By: #### 4 [id number] #### [place] [address] CBC w/Auto Differentialon Basophils Abs. # 0.02 K/uL Normal 0.00-0.10 [facility] Comment on above: Performed By: #### L IPAS #### [facility] [address] [place] [address] Basophils/100 WBC (Bld) 0.3 % Normal 0.2-1.0 [facility] Comment on above: Performed By: #### L IPAS #### [facility] [address] [place] [address] Eosinophils (Bld) [#/Vol] 0.20 10*3/uL Normal 0.00-0.20 [facility] Comment on above: Performed By: #### L IPAS #### [facility] [address] [place] [address] Eosinophils/100 WBC (Bld) 2.9 % Normal 0.9-2.9 [facility] Comment on above: Performed By: #### L IPAS #### [facility] [address] [place] [address] Erythrocyte distribution width (RBC) [Ratio] 14.5 % Normal 11.5-14.5 [facility] Comment on above: Performed By: #### L IPAS #### [facility] [address] [place] [address] Hematocrit (Bld) [Volume fraction] 32.8 % Low 36.7-50.6 [facility] Comment on above: Performed By: #### L IPAS #### [facility] [address] [place] [address] Hemoglobin (Bld) [Mass/Vol] 10.6 g/dL Low 12.4-17.3 [facility] Comment on above: Performed By: #### L IPAS #### [facility] [address] [place] [address] Imm Grans % 0.20 % Normal 0.00-1.00 [facility] Comment on above: Performed By: #### L IPAS #### [facility] [address] [place] [address] Imm Grans Absolute # 0.01 K/uL Normal 0.00-0.10 [facility] Comment on above: Performed By: #### L IPAS #### [facility] [address] [place] [address] Lymphocytes (Bld) [#/Vol] 1.30 10*3/uL Normal 1.30-2.90 [facility] Comment on above: Performed By: #### L IPAS #### [facility] [address] [place] [address] Lymphocytes/100 WBC (Bld) 22.5 % Normal 17.0-45.5 [facility] Comment on above: Performed By: #### L IPAS #### [facility] [address] [place] [address] MCH (RBC) [Entitic mass] 27.1 pg Normal 27.0-31.0 [facility] Comment on above: Performed By: #### L IPAS #### [facility] [address] [place] [address] MCHC (RBC) [Mass/Vol] 32.3 g/dL Low 33.0-37.0 [facility] Comment on above: Performed By: #### L IPAS #### [facility] [address] [place] [address] MCV (RBC) [Entitic vol] 83.9 fL Normal 80.0-94.0 [facility] Comment on above: Performed By: #### L IPAS #### [facility] [address] [place] [address] Monocytes (Bld) [#/Vol] 0.50 10*3/uL Normal 0.30-0.80 [facility] Comment on above: Performed By: #### L IPAS #### [facility] [address] [place] [address] Monocytes/100 WBC (Bld) 8.9 % Normal 5.5-11.7 [facility] Comment on above: Performed By: #### L IPAS #### [facility] [address] [place] [address] Neutrophils Abs. # 3.80 K/uL Normal 2.20-4.80 [facility] Comment on above: Performed By: #### L IPAS #### [facility] [address] [place] [address] Neutrophils/100 WBC (Bld) 65.2 % High 43.0-65.0 [facility] Comment on above: Performed By: #### L IPAS #### [facility] [address] [place] [address] Platelet mean volume (Bld) [Entitic vol] 7.6 fL Normal 7.4-10.4 [facility] Comment on above: Performed By: #### L IPAS #### [facility] [address] [place] [address] Platelets (Bld) [#/Vol] 384 10*3/uL Normal 148-402 [facility] Comment on above: Performed By: #### L IPAS #### [facility] [address] [place] [address] RBC (Bld) [#/Vol] 3.91 10*6/uL Low 4.13-5.69 [facility] Comment on above: Performed By: #### L IPAS #### [facility] [address] [place] [address] WBC (Bld) [#/Vol] 5.8 10*3/uL Normal 3.6-10.8 [facility] Comment on above: Performed By: #### L IPAS #### [facility] [address] [place] [address] CHEST APon 07-28-2020 CHEST AP EXAMINATION: ONE XRAY VIEW OF THE CHEST 07/28/2020 5:33 pm COMPARISON: None. HISTORY: ORDERING SYSTEM PROVIDED HISTORY: hyponatremia FINDINGS: AP portable view of the chest was obtained on 2 images. Heart, mediastinum, and pulmonary vasculature are within normal limits. Lungs and pleural spaces are clear. There are numerous remote bilateral rib fractures. IMPRESSION: No active cardiopulmonary disease. Normal [facility] Comprehensive Metabolic Pane diallo 07-28-2020 Albumin [Mass/Vol] 3.5 g/dL Normal 3.4-5.0 [facility] Comment on above: Performed By: #### C MP ####[facility] [address] [facility] [place] [address] Albumin/Globulin [Mass ratio] 1.0 {ratio} Low 1.1-2.5 [facility] Comment on above: Performed By: #### C MP ####[facility] [address] [facility] [place] [address] ALP [Catalytic activity/Vol] 106 U/L Normal 54-112 [facility] Comment on above: Performed By: #### C MP ####[facility] [address] [facility] [place] [address] ALT [Catalytic activity/Vol] 23 U/L Normal 13-66 [facility] Comment on above: Performed By: #### C MP ####[facility] [address] [facility] [place] [address] Anion gap [Moles/Vol] 9.9 mmol/L Normal 8.0-16.0 [facility] Comment on above: Performed By: #### C MP ####[facility] [address] [facility] [place] [address] AST [Catalytic activity/Vol] 9 U/L Normal 3-39 [facility] Comment on above: Performed By: #### C MP ####[facility] [address] [place] [address] Bilirubin [Mass/Vol] 0.28 mg/dL Normal 0.00-0.99 [facility] Comment on above: Performed By: #### C MP ####[facility] [employer] [facility] [address] [place] [address] Calcium [Mass/Vol] 8.4 mg/dL Normal 8.2-10.0 [facility] Comment on above: Performed By: #### C MP ####[facility] [address] [place] [address] Chloride [Moles/Vol] 93 mmol/L Low 94-110 [facility] Comment on above: Performed By: #### C MP ####[facility] [address] [place] [address] CO2 [Moles/Vol] 28 mmol/L Normal 21-34 [facility] Comment on above: Performed By: #### C MP ####[facility] [place] [address] Creatinine [Mass/Vol] 1.07 mg/dL Normal 0.50-1.17 [facility] Comment on above: Performed By: #### C MP ####[facility] [facility] [place] [address] EGFR Other Races >60 Normal >60 [facility] Comment on above: Performed By: #### C MP ####[facility] [place] [address] GFR/1.73 sq M.predicted among blacks MDRD (S/P/Bld) [Vol rate/Area] mL/min/{1.73_m2} Normal >60 [facility] Comment on above: Result Comment: Briar Cutter tripp Kidney Disease less than 60 mL/min/1.73 m2 Kidney Failure less than 15 mL/min/1.73 m2 Average estimated GFR by age: 50-59 years 93 mL/min/1.73 m2 Performed By: #### C MP ####[facility] [employer] [facility] [address] [place] [address] Globulin (S) [Mass/Vol] 3.4 g/dL Normal 1.5-4.5 [facility] Comment on above: Performed By: #### C MP ####[facility] [employer] [facility] [address] [place] [address] Glucose [Mass/Vol] 91 mg/dL Normal 65-100 [facility] Comment on above: Performed By: #### C MP ####[facility] [employer] [facility] [address] [place] [address] Potassium [Moles/Vol] 4.9 mmol/L Normal 3.3-5.1 [facility] Comment on above: Performed By: #### C MP ####[facility] [employer] [facility] [address] [place] [address] Protein [Mass/Vol] 6.9 g/dL Normal 6.1-8.2 [facility] Comment on above: Performed By: #### C MP ####[facility] [employer] [facility] [address] [place] [address] Sodium [Moles/Vol] 126 mmol/L Low 132-145 [facility] Comment on above: Performed By: #### C MP ####[facility] [employer] [facility] [address] [place] [address] Urea nitrogen [Mass/Vol] 9.0 mg/dL Normal 3.2-26.9 [facility] Comment on above: Performed By: #### C MP ####[facility] [employer] [facility] [address] [place] [address] Urea nitrogen/Creatinine [Mass ratio] 8 mg/mg Normal 6-20 [facility] Comment on above: Performed By: #### C MP ####[employer] [address] [place], [place] [id number] Ethanol (Medical)on 07-29-19 Ethanol [Mass/Vol] mg/dL Normal 0.0-0.0 [facility] Comment on above: Performed By: #### A LC #### [employer] [address] [place], [place] [id number] GFRon 07-28-2020 GFR >60 Normal [employer] Comment on above: Result Comment: To e stimate the GFR for Americans, multiply the result provided by 1.21. Population mean GFR = 116 ml/min/1.73 sq.m. for ages 18-29 yrs. The MDRD is validated in individuals 18-70 years of age. It is less accurate in patients with extremes of muscle mass, restriction of dietary protein, ingestion of creatine, extra-renal metabolism of creatinine, or treatment with medications that affect renal tubular creatinine secretion. GFR Categories in Chronic Kidney Disease (CKD) Category: GFR(mL/min/1.73m^2) Interpretation: G1* 90 or greater Normal or high G2* 60-89 Mild decrease G3a 45-59 Mild to moderate decrease G3b 30-44 Moderate to severe decrease G4 15-29 Severe decrease G5 14 or less Kidney failure *G1&G2: In the absence of evidence of kidney damage, neither GFR category G1 nor G2 fulfill the criteria for CKD Kidney Int Suppl.2013;3:1-150 Performed By: #### G FR1 #### [employer] [address] [address] LIPID PROFILEon 07-28-2020 Cholesterol in HDL [Mass/Vol] 73.7 mg/dL High 40.0-59.9 [employer] Comment on above: Result Comment: Inte rpretive data for HDL Cholesterol states: HDL <40 mg/dL is low and constitutes a coronary disease risk factor. HDL >60 mg/dL is a negative risk factor for coronary heart disease. . Performed By: #### 4 [id number] #### [place] [address] Cholesterol in LDL [Mass/Vol] 41 mg/dL Normal 0-100 [facility] [employer] [facility] Comment on above: Result Comment: LDL REFERENCE RANGE Optimal <100 mg/dl Near Optimal 100-129 mg/dL Borderline High 130-159 mg/dL High 160-189 mg/dL Very High >=190 mg/dL . Performed By: #### 4 [id number] #### [place] [address] Triglyceride [Mass/Vol] 57 mg/dL Normal 0-150 [facility] Comment on above: Result Comment: TRIG LYCERIDE REFERENCE RANGE Normal <150 mg/dL Borderline High 150-199 mg/dL High 200-499 mg/dL Very High >=500 mg/dL . Performed By: #### 4 [id number] #### [place] [address] VLDL-CALCULATED 11 mg/dL Normal <42 [facility] Comment on above: Performed By: #### 4 [id number] #### [place] [address] Cholesterol [Mass/Vol] 126 mg/dL Normal 0-200 [facility] Comment on above: Result Comment: CHOL ESTEROL REFERENCE RANGE Desirable <200 mg/dL Borderline 200-239 mg/dL High >240 mg/dL . Performed By: #### 4 [id number] #### [place] [address] Lipaseon 07-28-2020 Lipase [Catalytic activity/Vol] 162 U/L Normal 65-230 [facility] Comment on above: Performed By: #### L IPAS ####[facility] [address] [address] METABOLIC PANELon 05-06-2021 ALK PHOS 98 U/L Normal 24-126 [facility] Comment on above: Performed By: #### 4 [id number] #### [place] [address] ALT [Catalytic activity/Vol] 15 U/L Normal 4-50 [facility] Comment on above: Performed By: #### 4 [id number] #### [place] [address] Calcium [Mass/Vol] 9.1 mg/dL Normal 8.4-10.4 [facility] Comment on above: Performed By: #### 4 [id number] #### [place] [address] Glucose [Mass/Vol] 91 mg/dL Normal 65-100 [facility] Comment on above: Performed By: #### 4 [id number] #### [place] [address] AST [Catalytic activity/Vol] 34 U/L Normal 3-55 [facility] Comment on above: Performed By: #### 4 [id number] #### [place] [address] Bilirubin [Mass/Vol] 0.5 mg/dL Normal 0.2-1.6 [facility] Comment on above: Performed By: #### 4 [id number] #### [place] [address] CO2 [Moles/Vol] 18 mmol/L Low 22-30 [facility] Comment on above: Performed By: #### 4 [id number] #### [place] [address] Creatinine [Mass/Vol] 0.54 mg/dL Low 0.66-1.25 [facility] Comment on above: Performed By: #### 4 [id number] #### [place] [address] Protein [Mass/Vol] 7.3 g/dL Normal 6.3-8.2 [facility] Comment on above: Performed By: #### 4 [id number] #### [place] [address] Urea nitrogen [Mass/Vol] 10 mg/dL Normal 8-26 [facility] Comment on above: Performed By: #### 4 [id number] #### [place] [address] Potassium [Moles/Vol] 5.6 mmol/L High 3.6-5.1 [facility] Comment on above: Performed By: #### 4 [id number] #### [place] [address] Sodium [Moles/Vol] 123 mmol/L Low 135-147 [facility] Comment on above: Performed By: #### 4 [id number] #### [place] [address] Albumin [Mass/Vol] 4.4 g/dL Normal 3.5-5.0 [facility] Comment on above: Performed By: #### 4 [id number] #### [place] [address] Chloride [Moles/Vol] 90 mmol/L Low 96-109 [facility] Comment on above: Performed By: #### 4 [id number] #### [place] [address] Magnesiumon 07-28-2020 Magnesium [Mass/Vol] 1.8 mg/dL Normal 1.3-2.3 [facility] Comment on above: Performed By: #### L IPAS #### [facility] [address] Osmolalityon 07-28-2020 Osmolality [Osmolality] 248 mosm/kg Low 275-295 [facility] Comment on above: Result Comment: Re sults verified by repeat testing Performed at: [facility] [id number] Laboratory Courier: Randall Sin MD, Phone: [phone] Performed By: #### L OSMS ####[facility] [place], [place] [phone] Prothrombin Timeon 1 INR Coag (PPP) [Relative time] 1.01 {INR} Normal [facility] Comment on above: Result Comment: 2.0 - 3.0 Group A 2.5 - 3.5 Group B Group A indications: Prophylaxis and treatment of venous thrombosis. Treatment of pulmonary embolism. Prevention of systemic embolism. Tissue heart valves. Acute myocardial infarction. Valvular heart disease. Atrial fibrillation. Group B indications: Mechanical prosthetic valves. . Performed By: #### L IPAS #### [address] [id number] PT Coag (PPP) [Time] 10.2 s Normal 8.9-12.2 [facility] Comment on above: Result Comment: New Reference Ranges effective 2017. Performed By: #### L IPAS #### [address] [id number] TSHon 07-28-2020 TSH 2.590 uIU/mL Normal 0.465-4.68 0 [facility] Comment on above: Performed By: #### 4 [id number] #### [place] [address] TSH, Third Generationon TSH, 3rd Generation 2.859 uIU/L Normal 0.358-3. 74 0 [facility] Comment on above: Result Comment: NOTE -Dietary supplements containing high biotin levels may cause significant interference with affected lab tests, including cardiovascular diagnostic tests and hormone tests that use biotin technology. Incorrect test results may be generated if there is biotin in the patients specimen. Performed By: #### T SH3G #### [employer] [address] [place] [address] CBC with DifferentialOrdered By: Gabriel Bueno on 07-27-2020 Absolute Lymph 1.4 [facility] Absolute Costilla 0.4 [facility] Basophils (Bld) [#/Vol] 0.0 10*3/uL [facility] Basophils/100 WBC (Bld) 0.6 % [facility] Eosinophils (Bld) [#/Vol] 0.2 10*3/uL [facility] Eosinophils/100 WBC (Bld) 4.5 % [facility] Erythrocyte distribution width (RBC) [Ratio] 14.9 % High 11.5 - 14.5 % [facility] Hematocrit (Bld) [Volume fraction] 34.6 % Low 37.7 - 51.1 % [facility] Hemoglobin (Bld) [Mass/Vol] 11.2 g/dL Low 12.8 - 17.7 g/dL [facility] Interpretation and review of laboratory results Abnormal [facility] Lymphocytes/100 WBC (Bld) 27.0 % [facility] MCH (RBC) [Entitic mass] 26.9 pg Low 27 - 34.2 pg [facility] MCHC (RBC) [Mass/Vol] 32.4 g/dL 31.4 - 36.2 g/dl [facility] MCV (RBC) [Entitic vol] 83.0 fL 80.6 - 99 fL [facility] Monocytes/100 WBC (Bld) 7.9 % [facility] Neutrophils (Bld) [#/Vol] 3.2 10*3/uL [facility] Neutrophils/100 WBC (Bld) 60.0 % [facility] Platelets (Bld) [#/Vol] 414.0 10*3/uL High [facility] RBC (Bld) [#/Vol] 4.17 10*6/uL [facility] WBC LM Ql (Sput) 5.3 [facility] Comprehensive metabolic pane l aka MetaboOrdered By: Gabriel Bueno on 07-27-2020 Albumin [Mass/Vol] 4.4 g/dL 3.5 - 5 g/dL [facility] Alk Phos 98 U/L 24 - 126 U/L [facility] ALT [Catalytic activity/Vol] 15 U/L 4 - 50 U/L [facility] AST [Catalytic activity/Vol] 34 U/L 3 - 55 U/L [facility] Bilirubin [Mass/Vol] 0.5 mg/dL 0.2 - 1 .6 mg/dL [facility] Calcium [Mass/Vol] 9.1 mg/dL 8.4 - 10. 4 mg/dL [facility] Chloride [Moles/Vol] 90 mmol/L Low 96 - 10 9 mmol/L [facility] CO2 [Moles/Vol] 18 mmol/L Low 22 - 30 mmol/L [facility] Creatinine [Mass/Vol] 0.54 mg/dL Low 0.66 - 1.25 mg/dL [facility] Glucose [Mass/Vol] 91 mg/dL 65 - 100 mg/dL [facility] Potassium [Moles/Vol] 5.6 mmol/L High 3.6 - 5.1 mmol/L [facility] Protein [Mass/Vol] 7.3 g/dL 6.3 - 8.2 g/dL [facility] Sodium [Moles/Vol] 123 mmol/L Low 135 - 147 mmol/L [facility] Urea nitrogen [Mass/Vol] 10 mg/dL 8 - 26 mg/dL [facility] GLOMERULAR FILTRATION RATEOr dered By: Gabriel Bueno on 07-27-2020 GFR >60 [facility] Comment on above: To estimate the GFR for Americans, multiply the result provided by 1.21. Population mean GFR = 116 ml/min/1.73 sq.m. for ages 18-29 yrs. The MDRD is validated in individuals 18-70 years of age. It is less accurate in patients with extremes of muscle mass, restriction of dietary protein, ingestion of creatine, extra-renal metabolism of creatinine, or treatment with medications that affect renal tubular creatinine secretion. GFR Categories in Chronic Kidney Disease (CKD) Category: GFR(mL/min/1.73m^2) Interpretation: G1* 90 or greater Normal or high G2* 60-89 Mild decrease G3a 45-59 Mild to moderate decrease G3b 30-44 Moderate to severe decrease G4 15-29 Severe decrease G5 14 or less Kidney failure *G1&G2: In the absence of evidence of kidney damage, neither GFR category G1 nor G2 fulfill the criteria for CKD Kidney Int Suppl.2013;3:1-150 Lipid panelOrdered By: Fawn Bueno on 07-27-2020 Cholesterol [Mass/Vol] 126 mg/dL 0 - 200 mg/dL [facility] Comment on above: CHOLESTEROL REFERENC E RANGE Desirable <200 mg/dL Borderline 200-239 mg/dL High >240 mg/dL . Cholesterol in HDL [Mass/Vol] 73.7 mg/dL High 40 - 59.9 mg/dL [facility] Comment on above: Interpretive data fo r HDL Cholesterol states: HDL <40 mg/dL is low and constitutes a coronary disease risk factor. HDL >60 mg/dL is a negative risk factor for coronary heart disease. . Cholesterol in LDL [Mass/Vol] 41 mg/dL 0 - 100 mg/dL [facility] Comment on above: LDL REFERENCE RANGE Optimal <100 mg/dl Near Optimal 100-129 mg/dL Borderline High 130-159 mg/dL High 160-189 mg/dL Very High >=190 mg/dL . Cholesterol in VLDL [Mass/Vol] 11 mg/dL <42 [facility] Triglyceride [Mass/Vol] 57 mg/dL 0 - 150 mg/dL [facility] Comment on above: TRIGLYCERIDE REFEREN CE RANGE Normal <150 mg/dL Borderline High 150-199 mg/dL High 200-499 mg/dL Very High >=500 mg/dL . No Panel InformationOrdered By: Gabriel Bueno on 07-27-2020 Interpretation and review of laboratory results Abnormal [facility] TSHOrdered By: Gabriel Bueno on 07-27-2020 TSH Qn 2.590 m[IU]/L [facility] BMP with eGFRon 07-06-2020 AGE 60 years Normal [facility] Comment on above: Performed By: #### 2 [id number] #### [facility],[address] [place] [address] Anion gap [Moles/Vol] 10 mmol/L Normal 10 - 20 [facility] Comment on above: Performed By: #### 2 50232 #### [facility],[address] [place] [address] 15514 BMP with eGFR Normal [facility] Comment on above: Result Comment: BASI C METABOLIC PANEL Performed By: #### 2 87378 #### [facility],[address] [place] [address]21 Calcium [Mass/Vol] 8.6 mg/dL Normal 8.5 - 10.[address] [facility] Comment on above: Performed By: #### 2 25436 #### [facility],[address] [place] [address] 52479 Chloride [Moles/Vol] 95 mmol/L Low 98 - [address] [facility] Comment on above: Performed By: #### 2 03093 #### [facility],[address] [place] [address] 47725 CO2 [Moles/Vol] 29.0 mmol/L Normal 21.0 - 32.[address] [facility] Comment on above: Performed By: #### 2 55299 #### [facility],[address] [place] [address] 32852 Creatinine [Mass/Vol] 0.7 mg/dL Normal 0.7 - 1.3 [facility] Comment on above: Performed By: #### 2 14755 #### [facility],[address] [place] [address] 59090 GFR/1.73 sq M.predicted among non-blacks MDRD (S/P/Bld) [Vol rate/Area] mL/min/{1.73_m2} Normal 60 - [address] [facility] Comment on above: Performed By: #### 2 70489 #### [facility],[address] [place] [address] 33310 Result Comment: ACCO RDING TO THE NATIONAL KIDNEY DISEASE EDUCATION PROGRAM(NKDE), A NORMAL eGFR IS A VALUE GREATER THAN OR EQUAL TO 60 ML/MIN/1.73 SQ METERS. CHRONIC KIDNEY DISEASE: <60mL/MIN/1.73 SQ METERS KIDNEY FAILURE: <15mL/MIN/1.73 SQ METERS THIS TEST SHOULD ONLY BE USED FOR PATIENTS 18 YEARS OF AGE AND OLDER. Glucose [Mass/Vol] 82 mg/dL Normal 74 - [address] [facility] Comment on above: Performed By: #### 2 92352 #### [facility],[address] [place], [place] [id number] Potassium [Moles/Vol] 4.2 mmol/L Normal 3.5 - 5.1 [facility] Comment on above: Performed By: #### 2 37421 #### [facility],[address] [place], [place] [phone] Sodium [Moles/Vol] 130 mmol/L Low 136 - [address] [facility] Comment on above: Performed By: #### 2 19733 #### [facility],[address] [place], [place] [phone] Urea nitrogen [Mass/Vol] 13 mg/dL Normal 7 - [address] [facility] Comment on above: Performed By: #### 2 66955 #### [facility],[address] [place], [place] [phone] BMP with eGFRon 06-29-2020 AGE 60 years Normal [facility] Comment on above: Performed By: #### 2 54584 #### [facility],[address] [place], [place] [phone] Anion gap [Moles/Vol] 12 mmol/L Normal 10 - 20 [facility] Comment on above: Performed By: #### 2 81872 #### [facility],[address] [place], [place] [phone] BMP with eGFR Normal [facility] Comment on above: Result Comment: BASI C METABOLIC PANEL Performed By: #### 2 09969 #### [facility],[address] [place] [address] 87618 Calcium [Mass/Vol] 8.4 mg/dL Low 8.5 - 10.[address] [facility] Comment on above: Performed By: #### 2 85050 #### [facility],[address] [place] [address] 84401 Chloride [Moles/Vol] 95 mmol/L Low 98 - [address] [facility] Comment on above: Performed By: #### 2 05318 #### [facility],[address] [place] [address] 92612 CO2 [Moles/Vol] 25.7 mmol/L Normal 21.0 - 32.[address] [facility] Comment on above: Performed By: #### 2 90384 #### [facility],[address] [place], [place] [phone] Creatinine [Mass/Vol] 0.6 mg/dL Low 0.7 - 1.3 [facility] Comment on above: Performed By: #### 2 78840 #### [facility],[address] [place] [address] 09622 GFR/1.73 sq M.predicted among non-blacks MDRD (S/P/Bld) [Vol rate/Area] mL/min/{1.73_m2} Normal 60 - [address] [facility] Comment on above: Performed By: #### 2 73345 #### [facility],[address] [place], [place] [phone] Result Comment: ACCO RDING TO THE NATIONAL KIDNEY DISEASE EDUCATION PROGRAM(NKDE), A NORMAL eGFR IS A VALUE GREATER THAN OR EQUAL TO 60 ML/MIN/1.73 SQ METERS. CHRONIC KIDNEY DISEASE: <60mL/MIN/1.73 SQ METERS KIDNEY FAILURE: <15mL/MIN/1.73 SQ METERS THIS TEST SHOULD ONLY BE USED FOR PATIENTS 18 YEARS OF AGE AND OLDER. Glucose [Mass/Vol] 82 mg/dL Normal 74 - [address] [facility] Comment on above: Performed By: #### 2 99624 #### [facility],[address] [place] [address] 42188 Potassium [Moles/Vol] 4.1 mmol/L Normal 3.5 - 5.1 [facility] Comment on above: Performed By: #### 2 64422 #### [facility],[address] [place] [address] 81968 Sodium [Moles/Vol] 129 mmol/L Low 136 - [address] [facility] Comment on above: Performed By: #### 2 06585 #### [facility],[address] [place] [address] 01383 Urea nitrogen [Mass/Vol] 15 mg/dL Normal 7 - [address] [facility] Comment on above: Performed By: #### 2 48419 #### [facility],[address] [place] [address]504 EMERGENCY REPORTon 1 EMERGENCY REPORT [facility] EMERGENCY ROOM REPORT NAME ACCOUNT SEX AGE ADMIT DISCHARGE PT MED. RECORD# NUMBER DATE DATE TYPE GREG [id number] Belén 60 06/24/20 06/25/20 3 STEVE Martinez [id number] ROOM: ER DATE OF : 1960 DICTATING PHYSICIAN: Sangeetha Root CHIEF COMPLAINT/HISTORY OF PRESENT ILLNESS: A 60-year-old male who had a witnessed seizure at the senior care. Apparently he lost his footing at the senior care, sat down on the floor. He has a history of stroke. He walks with a cane. Then he fell back and when he hit his head he had a seizure. He has a history of epilepsy. Seizure was witnessed, 911 was summoned and he was brought to the emergency room. According to Brenda, who I spoke with at 2313 hours, the patient has been there about a month and has not had a seizure during that time. He is taking his medications on a regular basis, but had not yet taken his evening oxcarbazepine. He became responsive after seizure and he is seen now in room number 2. He arrives by ambulance. He has not been incontinent. He is appropriate. Good eye contact. He talks. He is forgetful but he states that is normal for him. He cannot remember everything he states. He is at the senior care because he has had a previous stroke. He otherwise denies any pain and state he is feeling well at arrival and appears in no distress. PHYSICAL EXAMINATION: Vital signs: 142/92 blood pressure, 71 pulse, 16 respirations, 98 temperature and 97% saturation. Head is normocephalic. No evidence of trauma. Neck is easily supple. No evidence of discomfort. Pupils equal, round, reactive at 3 mm. He has paucity of motion to the left arm and left leg and he states he has chronic pain to that for which he states he takes [place] at the senior care. His face is symmetric. Speech is precise. Lungs are clear. There is no expiratory wheeze, rales, rhonchi or paradoxical chest motion. Heart rate and rhythm is regular without murmur. His abdomen is soft without any discomfort. Skin is warm and dry. He has no deformity to his extremities. DIAGNOSTIC DATA: CT of his head showed encephalomalacia as would be expected from a previous stroke but no other acuity. This was in the right frontal parietal area. No bleed and no acute abnormality. He does not have any swelling or bruising on examination. White count was normal. His differential was normal. His troponin was negative. He had 2 troponins actually negative. His chemistries were negative. 124 sodium, 89 chloride and 116 was his glucose. His creatinine was 0.8. His EKG was performed at arrival and was a normal sinus mechanism without any HI or ischemia as interpreted by the emergency room doctor. Time for his EKG was 2046 hours. Page 1 of 2 STEVE GARZA Emergency Room Report STEVE GARZA : 1960 EMERGENCY DEPARTMENT COURSE AND TREATMENT: I talked to Dr. Estrada about this. She thought he could return to the senior care with no changes in his medicines. We gave him a dose of the oxcarbazepine here which is 600 mg and they will observe him there. DIAGNOSIS: Recurrent seizure, grand mal type. Dictated By: Sangeetha Root DO 06/25/20 06:46 JOB #: [id number] Transcribed By: brendan 06/25/20 12:35 Electronically signed by: E-SIGN SANGEETHA ROOT DO 06/29/20 05:59 Page 2 of 2 STEVE GARZA Emergency Room Report Normal [facility] BMP with eGFRon 06-27-2020 AGE 60 years Normal [facility] Comment on above: Performed By: #### 2 02256 #### [facility],[address] [place] [address] Anion gap [Moles/Vol] 12 mmol/L Normal 10 - 20 [facility] Comment on above: Performed By: #### 2 49030 #### [facility],[address] [place] [address] 25257 BMP with eGFR Normal [facility] Comment on above: Result Comment: BASI C METABOLIC PANEL Performed By: #### 2 82764 #### [facility],[address] [place] [address] Calcium [Mass/Vol] 8.9 mg/dL Normal 8.5 - 10.[address] [facility] Comment on above: Performed By: #### 2 08643 #### [facility],[address] [place], [place] [phone] Chloride [Moles/Vol] 91 mmol/L Low 98 - [address] [facility] Comment on above: Performed By: #### 2 65497 #### [facility],[address] [place] [address] CO2 [Moles/Vol] 27.2 mmol/L Normal 21.0 - 32.[address] [facility] Comment on above: Performed By: #### 2 70054 #### [facility],[address] [place], [place] [phone] Creatinine [Mass/Vol] 0.6 mg/dL Low 0.7 - 1.3 [facility] Comment on above: Performed By: #### 2 28866 #### [facility],[address] [place], [place] [phone] GFR/1.73 sq M.predicted among non-blacks MDRD (S/P/Bld) [Vol rate/Area] mL/min/{1.73_m2} Normal 60 - [address] [facility] Comment on above: Performed By: #### 2 94145 #### [facility],[address] [place] [address] Result Comment: ACCO RDING TO THE NATIONAL KIDNEY DISEASE EDUCATION PROGRAM(NKDE), A NORMAL eGFR IS A VALUE GREATER THAN OR EQUAL TO 60 ML/MIN/1.73 SQ METERS. CHRONIC KIDNEY DISEASE: <60mL/MIN/1.73 SQ METERS KIDNEY FAILURE: <15mL/MIN/1.73 SQ METERS THIS TEST SHOULD ONLY BE USED FOR PATIENTS 18 YEARS OF AGE AND OLDER. Glucose [Mass/Vol] 131 mg/dL High 74 - [address] [facility] Comment on above: Performed By: #### 2 38056 #### [address] [address] Potassium [Moles/Vol] 4.3 mmol/L Normal 3.5 - 5.1 [facility] Comment on above: Performed By: #### 2 96228 #### [place] [id number] Sodium [Moles/Vol] 126 mmol/L Low 136 - [address] [facility] Comment on above: Performed By: #### 2 37819 #### [place] [id number] Urea nitrogen [Mass/Vol] 11 mg/dL Normal 7 - [address] [facility] Comment on above: Performed By: #### 2 45412 #### [address] [address] OXCARBAZEPINE [CCL]on 2020 10Hydroxycarbazepine 25.8 ug/mL Normal 3.0-35.[address] [facility] Comment on above: Result Comment: This test was developed and its performance characteristics determined by [facility]'s Julian Lundberg [facility] [place] ([facility]). It has not been cleared or approved by the FDA. [facility] is regulated under CLIA as qualified to perform high complexity testing. This test is used for clinical purposes. It should not be regarded as investigational or for research. [address] [address] Chuck Hoyos III, M.D. [id number] Performed By: #### 2 57136 #### [address] [address] Oxcarbazepineon 06-27-2020 10Hydroxycarbazepine Normal 3.0-35.0 [facility] Comment on above: Result Comment: 25.8 This test was developed and its performance characteristics determined by [facility]'s Julian Juarez [facility] [place] ( [facility]). It has not been cleared or approved by the FDA. [facility] is regulated under CLIA as qualified to perform high complexity testing. This test is used for clinical purposes. It should not be regarded as investigational or for research. Performed By: #### O XCARB #### [facility] [address] [place] [address] BMP with eGFRon 06-26-2020 AGE 60 years Normal [facility] Comment on above: Performed By: #### 2 88396 #### [address] [address] Anion gap [Moles/Vol] 11 mmol/L Normal 10 - 20 [facility] Comment on above: Performed By: #### 2 35314 #### [address] [address] BMP with eGFR Normal [facility] Comment on above: Result Comment: BASI C METABOLIC PANEL Performed By: #### 2 50096 #### [address] [address] Calcium [Mass/Vol] 8.4 mg/dL Low 8.5 - 10.[address] [facility] Comment on above: Performed By: #### 2 08087 #### [address] [address] Chloride [Moles/Vol] 94 mmol/L Low 98 - [address] [facility] Comment on above: Performed By: #### 2 10748 #### [address] [address] CO2 [Moles/Vol] 27.2 mmol/L Normal 21.0 - 32.[address] [facility] Comment on above: Performed By: #### 2 68539 #### [facility],[address] [place] [address] Creatinine [Mass/Vol] 0.7 mg/dL Normal 0.7 - 1.3 [facility] Comment on above: Performed By: #### 2 60675 #### [facility],[address] [place] [address]263 GFR/1.73 sq M.predicted among non-blacks MDRD (S/P/Bld) [Vol rate/Area] mL/min/{1.73_m2} Normal 60 - [address] [facility] Comment on above: Performed By: #### 2 88738 #### [facility],[address] [place] [address]88 Result Comment: ACCO RDING TO THE NATIONAL KIDNEY DISEASE EDUCATION PROGRAM(NKDE), A NORMAL eGFR IS A VALUE GREATER THAN OR EQUAL TO 60 ML/MIN/1.73 SQ METERS. CHRONIC KIDNEY DISEASE: <60mL/MIN/1.73 SQ METERS KIDNEY FAILURE: <15mL/MIN/1.73 SQ METERS THIS TEST SHOULD ONLY BE USED FOR PATIENTS 18 YEARS OF AGE AND OLDER. Glucose [Mass/Vol] 112 mg/dL High 74 - [address] [facility] Comment on above: Performed By: #### 2 43604 #### [facility],[address] [place] [address] Potassium [Moles/Vol] 4.1 mmol/L Normal 3.5 - 5.1 [facility] Comment on above: Performed By: #### 2 08086 #### [facility],[address] [place] [address]008 Sodium [Moles/Vol] 128 mmol/L Low 136 - [address] [facility] Comment on above: Performed By: #### 2 43506 #### [facility],[address] [place] [address]802 Urea nitrogen [Mass/Vol] 14 mg/dL Normal 7 - [address] [facility] Comment on above: Performed By: #### 2 99396 #### [facility],[address] [place] [address] CBC + DIFFon 06-24-2020 Baso # 0.00 x10EE3/UL Normal 0.00 - 0.[address] [facility] Comment on above: Performed By: #### 2 96031 #### [facility],[address] [place] [address] Basophils/100 WBC (Bld) 0.7 % Normal 0.0 - 2.[address] [facility] Comment on above: Performed By: #### 2 18749 #### [facility],[address] [place] [address] CBC + DIFF Normal [facility] Comment on above: Result Comment: CBC- COMPLETE BLOOD COUNT Performed By: #### 2 06400 #### [facility],[address] [place] [address] EO # 0.40 x10EE3/UL Normal 0.00 - 0.[address] [facility] Comment on above: Performed By: #### 2 49175 #### [facility],[address] [place] [address] Eosinophils/100 WBC (Bld) 7.4 % High 0.0 - 7.[address] [facility] Comment on above: Performed By: #### 2 36654 #### [facility],[address] [place] [address] Erythrocyte distribution width (RBC) [Ratio] 14.3 % Normal 12.0 - 15.[address] [facility] Comment on above: Performed By: #### 2 49352 #### [facility],[address] [place] [address] Hematocrit (Bld) [Volume fraction] 31.5 % Low 40.0 - 52.[address] [facility] Comment on above: Performed By: #### 2 87613 #### [facility],[address] [place] [address] Hemoglobin (Bld) [Mass/Vol] 10.7 g/dL Low 13.0 - 17.[address] [facility] Comment on above: Performed By: #### 2 27195 #### [facility],[address] [place] [address] Lymph # 1.20 x10EE3/UL Normal 0.80 - 2.[address] [facility] Comment on above: Performed By: #### 2 72593 #### [facility] [facility],[address] [place] [address] Lymphocytes/100 WBC (Bld) 23.5 % Normal 20.0 - 45.[address] [facility] Comment on above: Performed By: #### 2 58945 #### [facility],[address] [place] [address] MANUAL DIFF N/A Normal [facility] Comment on above: Performed By: #### 2 22711 #### [facility],[address] [place] [address] MCH (RBC) [Entitic mass] 30 pg Normal 27 - [address] [facility] Comment on above: Performed By: #### 2 81438 #### [facility],[address] [place] [address] MCHC 34 X10 3 Normal 32 - [address] [facility] Comment on above: Performed By: #### 2 50474 #### [facility],[address] [place], [place] [id number] MCV (RBC) [Entitic vol] 89 fL Normal 81 - [address] [facility] Comment on above: Performed By: #### 2 17178 #### [facility],[address] [place] [address] Costilla # 0.60 x10EE3/UL Normal 0.20 - 1.[address] [facility] Comment on above: Performed By: #### 2 86590 #### [facility],[address] [place] [address] 96029 MONOS % 10.9 % High 0.0 - 10.[address] [facility] Comment on above: Performed By: #### 2 85785 #### [facility],[address] [place] [address] 39441 Morphology Gabriel (Bld) [Interp] N/A Normal [facility] Comment on above: Result Comment: {CD] Performed By: #### 2 08834 #### [facility],[address] [place] [address] 92374 Neut # 3.00 x10EE3/UL Normal 1.50 - 7.[address] [facility] Comment on above: Performed By: #### 2 63015 #### [facility],[address] [place], [place] [id number] Neutrophils/100 WBC (Bld) 57.5 % Normal 46.0 - 76.[address] [facility] Comment on above: Performed By: #### 2 67991 #### [facility],[address] [place] [address] 33961 PLATELET 360 x10EE3/UL Normal 150 - [address] [facility] Comment on above: Performed By: #### 2 28783 #### [facility],[address] [place] [address] 58818 Platelet mean volume (Bld) [Entitic vol] 6.2 fL Low 6.4 - 10.[address] [facility] Comment on above: Result Comment: AUTO MATED DIFFERENTIAL Performed By: #### 2 16219 #### [facility],[address] [place] [address] 62606 RBC 3.55 x 10EE6/UL Low 4.50 - 6.[address] [facility] Comment on above: Performed By: #### 2 68311 #### [facility],[address] [place] [address] 10825 WBC 5.3 x 10EE3/UL Normal 4.5 - 10.[address] [facility] Comment on above: Performed By: #### 2 20149 #### [facility],[address] [place] [address] 09271 CMP with eGFRon 06-24-2020 AGE 60 years Normal [facility] Comment on above: Performed By: #### 2 02285 #### [facility],[address] [place] [address] 24647 Albumin [Mass/Vol] 3.5 g/dL Normal 3.4 - 5.[address] [facility] Comment on above: Performed By: #### 2 94187 #### [facility],[address] [place] [address] 33859 Albumin/Globulin [Mass ratio] 1.1 {ratio} Normal 0.9 - 1.[address] [facility] Comment on above: Performed By: #### 2 15827 #### [facility],[address] [place] [address] 52882 ALK PHOS 80 U/L Normal 46 - [address] [facility] Comment on above: Performed By: #### 2 90161 #### [facility],[address] [place] [address] 30010 ALT [Catalytic activity/Vol] 25 U/L Normal 16 - [address] [facility] Comment on above: Performed By: #### 2 19385 #### [facility],[address] [place] [address] 85163 Anion gap [Moles/Vol] 12 mmol/L Normal 10 - 20 [facility] Comment on above: Performed By: #### 2 36676 #### [facility],[address] [place] [address] 49447 AST [Catalytic activity/Vol] 12 U/L Low 15 - [address] [facility] Comment on above: Performed By: #### 2 58304 #### [facility],[address] [place] [address] 95354 B/C RATIO 15 ratio Normal 0 - [address] [facility] Comment on above: Performed By: #### 2 80647 #### [facility],[address] [place] [address] 22117 Bilirubin [Mass/Vol] 0.3 mg/dL Normal 0.2 - 1.[address] [facility] Comment on above: Performed By: #### 2 18426 #### [facility],[address] [place] [address] 60443 Calcium [Mass/Vol] 8.4 mg/dL Low 8.5 - 10.[address] [facility] Comment on above: Performed By: #### 2 31716 #### [facility],[address] [place] [address] 28791 Chloride [Moles/Vol] 89 mmol/L Low 98 - [address] [facility] Comment on above: Performed By: #### 2 41177 #### [facility],[address] [place] [address] 70036 CMP with eGFR Normal [facility] Comment on above: Result Comment: COMP REHENSIVE METABOLIC PANEL Performed By: #### 2 77768 #### [facility],[address] [place] [address] 76224 CO2 [Moles/Vol] 26.9 mmol/L Normal 21.0 - 32.[address] [facility] Comment on above: Performed By: #### 2 80067 #### [facility],[address] [place] [address] 76716 Creatinine [Mass/Vol] 0.8 mg/dL Normal 0.7 - 1.3 [facility] Comment on above: Performed By: #### 2 61942 #### [facility],[address] [place] [address] 32129 GFR/1.73 sq M.predicted among non-blacks MDRD (S/P/Bld) [Vol rate/Area] mL/min/{1.73_m2} Normal 60 - [address] [facility] Comment on above: Performed By: #### 2 38389 #### [facility],[address] [place] [address] 61544 Result Comment: ACCO RDING TO THE NATIONAL KIDNEY DISEASE EDUCATION PROGRAM(NKDE), A NORMAL eGFR IS A VALUE GREATER THAN OR EQUAL TO 60 ML/MIN/1.73 SQ METERS. CHRONIC KIDNEY DISEASE: <60mL/MIN/1.73 SQ METERS KIDNEY FAILURE: <15mL/MIN/1.73 SQ METERS THIS TEST SHOULD ONLY BE USED FOR PATIENTS 18 YEARS OF AGE AND OLDER. Globulin (S) [Mass/Vol] 3.1 g/dL Normal 1.5 - 3.[address] [facility] Comment on above: Performed By: #### 2 21055 #### [facility],[address] [place] [address] 05585 Glucose [Mass/Vol] 116 mg/dL High 74 - [address] [facility] Comment on above: Performed By: #### 2 64014 #### [address] [address] Potassium [Moles/Vol] 4.2 mmol/L Normal 3.5 - 5.1 [facility] Comment on above: Performed By: #### 2 71642 #### [facility],[address] [place] [address] 29472 Protein [Mass/Vol] 6.6 g/dL Normal 6.4 - 8.[address] [facility] Comment on above: Performed By: #### 2 69225 #### [facility],[address] [place] [address] 43643 Sodium [Moles/Vol] 124 mmol/L Low 136 - [address] [facility] Comment on above: Performed By: #### 2 99681 #### [facility],[address] [place] [address] 31714 Urea nitrogen [Mass/Vol] 12 mg/dL Normal 7 - [address] [facility] Comment on above: Performed By: #### 2 85253 #### [address] [address] [address] BRAIN W/O CONTRASTon 0 CT BRAIN W/O CONTRAST [address] [address] Patient: STEVE GARZA Phone#: : 1960 Age: 60 Gender: M Pt. Type: ER Account: [id number] Location: 052 Ordering: DR. SANGEETHA ROOT Exam Date: 06/24/2020/20:29 Family Phys: REUBEN CLEMONS Charge Code: [id number] Physician: [place] Order #: [id number] DLP Dose#: 52.3 PROCEDURE: CT BRAIN WITHOUT CONTRAST COMPARISON: [facility], CT, BRAIN W/O CON, 02/09/2018, 11:42. INDICATIONS: Trauma. TECHNIQUE: CT images were obtained without contrast material. All CT scans at this facility use dose modulation, iterative reconstruction, and/or weight based dosing when appropriate to reduce radiation dose to as low as reasonably achievable. IV CONTRAST: No IV contrast used,0ml TOTAL DOSE: 52.3 CTDIvol(mGy) FINDINGS: CEREBRUM: There is right frontal parietal encephalomalacia and has progressed since prior exam. There is no evidence of acute intracranial abnormality. There has been no other interval change since previous exam. CEREBELLUM: No edema, hemorrhage, mass, acute infarction, or inappropriate atrophy. BRAINSTEM: No edema, hemorrhage, mass, acute infarction, or inappropriate atrophy. CSF SPACES: Ventricles, cisterns, and sulci are appropriate for age. No hydrocephalus, subarachnoid hemorrhage, or mass. SKULL: No mass or other significant visible lesion. SINUSES: Mucosal thickening of the ethmoid sinuses is present. There is minimal mucosal thickening in the left maxillary sinus. ORBITS: Limited views are unremarkable. OTHER: Negative. CONCLUSION: 1. Paranasal sinus disease. 2. There is no evidence of acute intracranial abnormality. Right frontoparietal encephalomalacia is present. [address] [address] Patient: STEVE GARZA Phone#: : 1960 Age: 60 Gender: M Pt. Type: ER Account: [id number] Location: [facility] Ordering: DR. SANGEETHA ROOT Exam Date: 06/24/2020/20:29 Family Phys: REUBEN CLEMONS Charge Code: [id number] Physician: [place] Order #: [id number] DLP Dose#: [id number] Dictated by: Yokasta Chong MD on 06/25/2020 at 16:07 Approved by: Yokasta Chong MD on 06/25/2020 at 16:[address] [facility] TROPONIN I, HIGH SENSITIVITY on 06-24-2020 HS TROPONIN 7.8 pg/mL Normal 0.0 - 76.[address] [facility] Comment on above: Performed By: #### 2 88369 #### [facility],[address] [place] [address] TSHon 06-14-2020 TSH Qn 2.51 m[IU]/L Normal 0.35 - 3.[address] [facility] Comment on above: Performed By: #### 2 09591 #### [facility],[address] [place] [address] 04070 CBC + DIFFon 05-31-2020 Baso # 0.10 x10EE3/UL Normal 0.00 - 0.[address] [facility] Comment on above: Performed By: #### 2 86816 #### [facility],[address] [place] [address] 99453 Basophils/100 WBC (Bld) 1.1 % Normal 0.0 - 2.[address] [facility] Comment on above: Performed By: #### 2 01915 #### [facility],[address] [place] [address] 41096 CBC + DIFF Normal [facility] Comment on above: Result Comment: CBC- COMPLETE BLOOD COUNT Performed By: #### 2 17690 #### [facility],[address] [place] [address] 65313 EO # 0.30 x10EE3/UL Normal 0.00 - 0.[address] [facility] Comment on above: Performed By: #### 2 10154 #### [place] [id number] Eosinophils/100 WBC (Bld) 4.9 % Normal 0.0 - 7.[address] [facility] Comment on above: Performed By: #### 2 57146 #### [place] [address] Erythrocyte distribution width (RBC) [Ratio] 13.4 % Normal 12.0 - 15.[address] [facility] Comment on above: Performed By: #### 2 83862 #### [place] [address] Hematocrit (Bld) [Volume fraction] 31.3 % Low 40.0 - 52.[address] [facility] Comment on above: Performed By: #### 2 04983 #### [place] [address] Hemoglobin (Bld) [Mass/Vol] 10.6 g/dL Low 13.0 - 17.[address] [facility] Comment on above: Performed By: #### 2 49206 #### [place] [id number] Lymph # 2.10 x10EE3/UL Normal 0.80 - 2.[address] [facility] Comment on above: Performed By: #### 2 55901 #### [place] [id number] Lymphocytes/100 WBC (Bld) 32.5 % Normal 20.0 - 45.[address] [facility] Comment on above: Performed By: #### 2 99656 #### [place] [phone] MANUAL DIFF N/A Normal [facility] Comment on above: Performed By: #### 2 36096 #### [place] [address] MCH (RBC) [Entitic mass] 32 pg Normal 27 - [address] [facility] Comment on above: Performed By: #### 2 60183 #### [facility],[address] [place] [address] MCHC 34 X10 3 Normal 32 - [address] [facility] Comment on above: Performed By: #### 2 38628 #### [facility],[address] [place] [address] MCV (RBC) [Entitic vol] 96 fL Normal 81 - [address] [facility] Comment on above: Performed By: #### 2 23517 #### [facility],[address] [place] [address] Costilla # 0.80 x10EE3/UL Normal 0.20 - 1.[address] [facility] Comment on above: Performed By: #### 2 56995 #### [facility],[address] [place] [address] MONOS % 12.2 % High 0.0 - 10.[address] [facility] Comment on above: Performed By: #### 2 54157 #### [facility],[address] [place] [address] Morphology Gabriel (Bld) [Interp] N/A Normal [facility] Comment on above: Result Comment: {CD] Performed By: #### 2 23949 #### [facility],[address] [place] [address] Neut # 3.20 x10EE3/UL Normal 1.50 - 7.[address] [facility] Comment on above: Performed By: #### 2 88974 #### [place] [address] Neutrophils/100 WBC (Bld) 49.3 % Normal 46.0 - 76.[address] [facility] Comment on above: Performed By: #### 2 69150 #### [facility],[address],[place] [address] PLATELET 428 x10EE3/UL Normal 150 - [address] [facility] Comment on above: Performed By: #### 2 15149 #### [facility],[address] [place] [address] 81644 Platelet mean volume (Bld) [Entitic vol] 7.1 fL Normal 6.4 - 10.[address] [facility] Comment on above: Result Comment: AUTO MATED DIFFERENTIAL Performed By: #### 2 49556 #### [facility],[address] [place] [address] 52265 RBC 3.26 x 10EE6/UL Low 4.50 - 6.[address] [facility] Comment on above: Performed By: #### 2 60777 #### [facility],[address] [place] [address] 35213 WBC 6.6 x 10EE3/UL Normal 4.5 - 10.[address] [facility] Comment on above: Performed By: #### 2 97039 #### [facility],[address] [place] [address] 42354 CMP with eGFRon 05-31-2020 AGE 60 years Normal [facility] Comment on above: Performed By: #### 2 36327 #### [facility],[address] [place] [address] 81395 Albumin [Mass/Vol] 3.2 g/dL Low 3.4 - 5.[address] [facility] Comment on above: Performed By: #### 2 13236 #### [facility],[address] [place] [address] 11868 Albumin/Globulin [Mass ratio] 1.1 {ratio} Normal 0.9 - 1.[address] [facility] Comment on above: Performed By: #### 2 89411 #### [facility],[address] [place] [address] 29805 ALK PHOS 65 U/L Normal 46 - [address] [facility] Comment on above: Performed By: #### 2 55744 #### [facility],[address] [place] [address] 43317 ALT [Catalytic activity/Vol] 35 U/L Normal 16 - [address] [facility] Comment on above: Performed By: #### 2 67704 #### [facility],[address] [place] [address] 48657 Anion gap [Moles/Vol] 13 mmol/L Normal 10 - 20 [facility] Comment on above: Performed By: #### 2 07129 #### [facility],[address] [place] [address] 41634 AST [Catalytic activity/Vol] 13 U/L Low 15 - [address] [facility] Comment on above: Performed By: #### 2 23071 #### [facility],[address] [place], [place] [address] B/C RATIO 31 ratio High 0 - [address] [facility] Comment on above: Performed By: #### 2 08618 #### [facility],[address] [place] [address] 73242 Bilirubin [Mass/Vol] 0.2 mg/dL Normal 0.2 - 1.[address] [facility] Comment on above: Performed By: #### 2 70214 #### [facility],[address] [place] [address] 24862 Calcium [Mass/Vol] 8.1 mg/dL Low 8.5 - 10.[address] [facility] Comment on above: Performed By: #### 2 10248 #### [facility],[address] [place] [address] 82726 Chloride [Moles/Vol] 102 mmol/L Normal 98 - [address] [facility] Comment on above: Performed By: #### 2 19327 #### [facility],[address] [place] [address] 85724 CMP with eGFR Normal [facility] Comment on above: Result Comment: COMP REHENSIVE METABOLIC PANEL Performed By: #### 2 72127 #### [facility],[address] [place] [address] 30460 CO2 [Moles/Vol] 25.8 mmol/L Normal 21.0 - 32.[address] [facility] Comment on above: Performed By: #### 2 12118 #### [facility],[address] [place] [address] 72613 Creatinine [Mass/Vol] 0.7 mg/dL Normal 0.7 - 1.3 [facility] Comment on above: Performed By: #### 2 35941 #### [facility],[address] [place] [address] 87472 GFR/1.73 sq M.predicted among non-blacks MDRD (S/P/Bld) [Vol rate/Area] mL/min/{1.73_m2} Normal 60 - [address] [facility] Comment on above: Performed By: #### 2 06242 #### [facility],[address] [place] [address] 30856 Result Comment: ACCO RDING TO THE NATIONAL KIDNEY DISEASE EDUCATION PROGRAM(NKDE), A NORMAL eGFR IS A VALUE GREATER THAN OR EQUAL TO 60 ML/MIN/1.73 SQ METERS. CHRONIC KIDNEY DISEASE: <60mL/MIN/1.73 SQ METERS KIDNEY FAILURE: <15mL/MIN/1.73 SQ METERS THIS TEST SHOULD ONLY BE USED FOR PATIENTS 18 YEARS OF AGE AND OLDER. Globulin (S) [Mass/Vol] 2.8 g/dL Normal 1.5 - 3.[address] [facility] Comment on above: Performed By: #### 2 96853 #### [facility],[address] [place] [address] 51226 Glucose [Mass/Vol] 73 mg/dL Low 74 - [address] [facility] Comment on above: Performed By: #### 2 29680 #### [address] [address] Potassium [Moles/Vol] 4.6 mmol/L Normal 3.5 - 5.1 [facility] Comment on above: Performed By: #### 2 43693 #### [facility],[address] [place] [address] 85661 Protein [Mass/Vol] 6.0 g/dL Low 6.4 - 8.[address] [facility] Comment on above: Performed By: #### 2 57762 #### [facility],[address] [place] [address] 34575 Sodium [Moles/Vol] 136 mmol/L Normal 136 - [address] [facility] Comment on above: Performed By: #### 2 79974 #### [facility],[address] [place] [address] 06996 Urea nitrogen [Mass/Vol] 22 mg/dL High 7 - [address] [facility] Comment on above: Performed By: #### 2 82984 #### [facility],[address] [place] [address] 03605 LIPID PROFILEon 05-31-2020 Cholesterol [Mass/Vol] 133 mg/dL Normal 0 - [address] [facility] Comment on above: Performed By: #### 2 96894 #### [facility],[address] [place] [address] 46897 Cholesterol in HDL [Mass/Vol] 65 mg/dL High 40 - [address] [facility] Comment on above: Performed By: #### 2 01911 #### [facility],[address] [place] [address] 23298 Cholesterol in LDL [Mass/Vol] 59 mg/dL Normal 0 - [address] [facility] Comment on above: Performed By: #### 2 49998 #### [facility],[address] [place] [address] 81458 Cholesterol.total/Cho lesterol in HDL [Mass ratio] 2.0 {ratio} Normal 0.0 - 5.[address] [facility] Comment on above: Performed By: #### 2 65428 #### [facility],[address] [place] [address] 18436 Lipid 1996 panel Normal [facility] Comment on above: Result Comment: LIPI D PROFILE Performed By: #### 2 27575 #### [facility],[address] [place] [address] 55755 Triglyceride [Mass/Vol] 46 mg/dL Normal 0 - [address] [facility] Comment on above: Performed By: #### 2 95363 #### [facility],[address] [place] [address] 34135 TSHon 05-31-2020 TSH Qn 6.82 m[IU]/L High 0.35 - 3.[address] [facility] Comment on above: Performed By: #### 2 10149 #### [facility],[address] [place] [address] 30989 CBC,PLATELETSon 05-30-2020 Hematocrit (Bld) [Volume fraction] 32.7 % Low 39.6-48.8 [facility] Comment on above: Performed By: #### L ABCOR10 #### [facility] (DEFAULT) [address] [address] Hemoglobin (Bld) [Mass/Vol] 11.0 g/dL Low 13.4-16.8 [facility] Comment on above: Performed By: #### L ABCOR10 #### [facility] (DEFAULT) [address] [address] MCV (RBC) [Entitic vol] 95.3 fL High 79.0-94.5 [facility] Comment on above: Performed By: #### L ABCOR10 #### [facility] (DEFAULT) [address] [address] Mean Cell Hgb 32.1 pg Normal 26.1-33.3 [facility] Comment on above: Performed By: #### L ABCOR10 #### [facility] (DEFAULT) [address] [address] Mean Cell Hgb Conc 33.6 g/dL Normal 31.9-36.5 [facility] Comment on above: Performed By: #### L ABCOR10 #### [facility] (DEFAULT) [address] [place] [address] 36688 Platelet mean volume (Bld) [Entitic vol] 8.7 fL Normal 8.7-12.3 [facility] Comment on above: Performed By: #### L ABCOR10 #### [facility] (DEFAULT) [address] [place] [address] 95725 Platelets (Bld) [#/Vol] 377 10*3/uL High 146-337 [facility] Comment on above: Performed By: #### L ABCOR10 #### [facility] (DEFAULT) [address] [place] [address] 73999 RBC (Bld) [#/Vol] 3.43 10*6/uL Low 4.38-5.83 [facility] Comment on above: Performed By: #### L ABCOR10 #### [facility] (DEFAULT) [address] [place] [address] 36634 RBC Distribution 12.6 % Normal 10.9-14.3 [facility] Comment on above: Performed By: #### L ABCOR10 #### [facility] (DEFAULT) [address] [place] [address] 46050 WBC (Bld) [#/Vol] 6.57 10*3/uL Normal 3.73-10.10 [facility] Comment on above: Performed By: #### L ABCOR10 #### [facility] (DEFAULT) [address] [place] [address] 76148 CHEM 6 (LYTES, BUN CREA)on 0 - Anion gap [Moles/Vol] 12 mmol/L Normal 7-17 [facility] Comment on above: Performed By: #### C HM6, IPB, MGO ####[facility] (DEFAULT)[address] [place] [address] 23681 Chloride [Moles/Vol] 99 mmol/L Normal 98-108 [facility] Comment on above: Performed By: #### C HM6, IPB, MGO ####[facility] [facility] (DEFAULT)[address] [place] [address] CO2 [Moles/Vol] 22 mmol/L Normal 22-30 [facility] Comment on above: Performed By: #### C HM6, IPB, MGO ####[facility] (DEFAULT)[address] [place] [address] Creatinine [Mass/Vol] 0.69 mg/dL Low 0.70-1.30 [facility] Comment on above: Performed By: #### C HM6, IPB, MGO ####[facility] (DEFAULT)[address] [place] [address] EST GFR, >=60 Normal >=60 [facility] Comment on above: Performed By: #### C HM6, IPB, MGO ####[facility] (DEFAULT)[address] [place] [address] EST GFR,Non >=60 Normal >=60 [facility] Comment on above: Performed By: #### C HM6, IPB, MGO ####[facility] (DEFAULT)[address] [place] [address] Potassium [Moles/Vol] 4.3 mmol/L Normal 3.5-5.0 [facility] Comment on above: Performed By: #### C HM6, IPB, MGO ####[facility] (DEFAULT)[address] [place] [address] Sodium [Moles/Vol] 129 mmol/L Low 133-143 [facility] Comment on above: Performed By: #### C HM6, IPB, MGO ####[facility] (DEFAULT)[address] [place] [address] Urea nitrogen [Mass/Vol] 21 mg/dL Normal 7-22 [facility] Comment on above: Performed By: #### C HM6, IPB, MGO ####[facility] (DEFAULT)[address] [place] [address] Urea nitrogen/Creatinine [Mass ratio] 30 mg/mg Normal [facility] Comment on above: Performed By: #### C HM6, IPB, MGO ####[facility] (DEFAULT)[address] [facility] [address] IONIZED CALCIUM, INPATIENTon 05-30-2020 ICA 3.70 mg/dL Low 4.60-5.30 [facility] Comment on above: Performed By: #### I CA ####[facility] (DEFAULT)[address] [facility] [place] [address] MAGNESIUMon 05-30-2020 Magnesium [Mass/Vol] 1.6 mg/dL Normal 1.6-2.6 [facility] Comment on above: Performed By: #### C HM6, IPB, MGO ####[facility] (DEFAULT)[address] [facility] [place] [address] PHOSPHATE, INORGANICon 05-30 Phosphorous 3.8 mg/dL Normal 2.2-4.6 [facility] Comment on above: Performed By: #### C HM6, IPB, MGO ####[facility] (DEFAULT)[address] [facility] [place] [address] CBC,PLATELETSon 05-29-2020 Hematocrit (Bld) [Volume fraction] 32.1 % Low 39.6-48.8 [facility] Comment on above: Performed By: #### H EMOGC ####[facility] (DEFAULT)[address] [facility] [place] [address] Hemoglobin (Bld) [Mass/Vol] 11.1 g/dL Low 13.4-16.8 [facility] Comment on above: Performed By: #### H EMOGC ####[facility] (DEFAULT)[address] [place] [address] MCV (RBC) [Entitic vol] 94.1 fL Normal 79.0-94.5 [facility] Comment on above: Performed By: #### H EMOGC ####[facility] (DEFAULT)[address] [place] [address] Mean Cell Hgb 32.6 pg Normal 26.1-33.3 [facility] Comment on above: Performed By: #### H EMOGC ####[facility] (DEFAULT)[address] [facility] [place] [address] Mean Cell Hgb Conc 34.6 g/dL Normal 31.9-36.5 [facility] Comment on above: Performed By: #### H EMOGC ####[facility] (DEFAULT)[address] [facility] [place] [address] Platelet mean volume (Bld) [Entitic vol] 9.0 fL Normal 8.7-12.3 [facility] Comment on above: Performed By: #### H EMOGC ####[facility] (DEFAULT)[address] [facility] [place] [address] Platelets (Bld) [#/Vol] 366 10*3/uL High 146-337 [facility] Comment on above: Performed By: #### H EMOGC ####[facility] (DEFAULT)[address] [place] [address] RBC (Bld) [#/Vol] 3.41 10*6/uL Low 4.38-5.83 [facility] Comment on above: Performed By: #### H EMOGC ####[facility] (DEFAULT)[address] [facility] [place] [address] RBC Distribution 12.5 % Normal 10.9-14.3 [facility] Comment on above: Performed By: #### H EMOGC ####[facility] (DEFAULT)[address] [facility] [place] [address] WBC (Bld) [#/Vol] 5.90 10*3/uL Normal 3.73-10.10 [facility] Comment on above: Performed By: #### [place] [facility] [place] ####[facility] (DEFAULT)[address] [facility] [address] CHEM 6 (LYTES, BUN CREA)on 0 05-29-2020 Anion gap [Moles/Vol] 12 mmol/L Normal 7-17 [facility] Comment on above: Performed By: #### I PB, CHM6, MGO ####[facility] (DEFAULT)[address] [facility] [place] [address] Chloride [Moles/Vol] 98 mmol/L Normal 98-108 [facility] Comment on above: Performed By: #### I PB, CHM6, MGO ####[facility] (DEFAULT)[address] [place] [address] CO2 [Moles/Vol] 26 mmol/L Normal 22-30 [facility] Comment on above: Performed By: #### I PB, CHM6, MGO ####[facility] (DEFAULT)[address] [place] [address] Creatinine [Mass/Vol] 0.78 mg/dL Normal 0.70-1.30 [facility] Comment on above: Performed By: #### I PB, CHM6, MGO ####[facility] (DEFAULT)[address] [facility] [place] [address] EST GFR, >=60 Normal >=60 [facility] Comment on above: Performed By: #### I PB, CHM6, MGO ####[facility] (DEFAULT)[address] [facility] [place] [address] EST GFR,Non >=60 Normal >=60 [facility] Comment on above: Performed By: #### I PB, CHM6, MGO ####[facility] (DEFAULT)[address] [place] [address] Potassium [Moles/Vol] 4.2 mmol/L Normal 3.5-5.0 [facility] Comment on above: Performed By: #### I PB, CHM6, MGO ####[facility] (DEFAULT)[address] [place] [address] Sodium [Moles/Vol] 132 mmol/L Low 133-143 [facility] Comment on above: Performed By: #### I PB, CHM6, MGO ####[facility] (DEFAULT)[address] [place] [address] Urea nitrogen [Mass/Vol] 21 mg/dL Normal 7-22 [facility] Comment on above: Performed By: #### I PB, CHM6, MGO ####[facility] (DEFAULT)[address] [place] [address] Urea nitrogen/Creatinine [Mass ratio] 27 mg/mg Normal [facility] Comment on above: Performed By: #### I PB, CHM6, MGO ####[facility] (DEFAULT)[address] [place] [address] IONIZED CALCIUM, INPATIENTon 05-29-2020 ICA 4.32 mg/dL Low 4.60-5.30 [facility] Comment on above: Performed By: #### L ABCOR10 #### [facility] (DEFAULT) [address] [place] [address] MAGNESIUMon 05-29-2020 Magnesium [Mass/Vol] 1.8 mg/dL Normal 1.6-2.6 [facility] Comment on above: Performed By: #### I PB, CHM6, MGO ####[facility] (DEFAULT)[address] [place] [address] PHOSPHATE, INORGANICon 05-29 Phosphorous 3.7 mg/dL Normal 2.2-4.6 [facility] Comment on above: Performed By: #### I PB, CHM6, MGO ####[facility] (DEFAULT)[address] [place] [address] CBC,PLATELETSon 05-28-2020 Hematocrit (Bld) [Volume fraction] 33.5 % Low 39.6-48.8 [facility] Comment on above: Performed By: #### L ABCOR10 #### [facility] (DEFAULT) [address] [place] [address] Hemoglobin (Bld) [Mass/Vol] 11.6 g/dL Low 13.4-16.8 [facility] Comment on above: Performed By: #### L ABCOR10 #### [facility] (DEFAULT) [address] [place] [address] MCV (RBC) [Entitic vol] 94.1 fL Normal 79.0-94.5 [facility] Comment on above: Performed By: #### L ABCOR10 #### [facility] (DEFAULT) [address] [place] [address] Mean Cell Hgb 32.6 pg Normal 26.1-33.3 [facility] Comment on above: Performed By: #### L ABCOR10 #### [facility] (DEFAULT) [address] [place] [address] Mean Cell Hgb Conc 34.6 g/dL Normal 31.9-36.5 [facility] Comment on above: Performed By: #### L ABCOR10 #### [facility] (DEFAULT) [address] [place] [address] Platelet mean volume (Bld) [Entitic vol] 9.0 fL Normal 8.7-12.3 [facility] Comment on above: Performed By: #### L ABCOR10 #### [facility] (DEFAULT) [address] [place] [address] Platelets (Bld) [#/Vol] 372 10*3/uL High 146-337 [facility] Comment on above: Performed By: #### L ABCOR10 #### [facility] (DEFAULT) [address] [place] [address] RBC (Bld) [#/Vol] 3.56 10*6/uL Low 4.38-5.83 [facility] Comment on above: Performed By: #### L ABCOR10 #### [facility] (DEFAULT) [address] [place] [address] RBC Distribution 12.7 % Normal 10.9-14.3 [facility] Comment on above: Performed By: #### L ABCOR10 #### [facility] (DEFAULT) [address] [place] [address] WBC (Bld) [#/Vol] 6.41 10*3/uL Normal 3.73-10.10 [facility] Comment on above: Performed By: #### L ABCOR10 #### [facility] (DEFAULT) [address] [place] [address] CHEM 6 (LYTES, BUN CREA)on 0 - Anion gap [Moles/Vol] 8 mmol/L Normal 7-17 [facility] Comment on above: Performed By: #### I PB, MGO, CHM6 ####[facility] (DEFAULT)[address] [place] [address] Chloride [Moles/Vol] 97 mmol/L Low 98-108 [facility] Comment on above: Performed By: #### I PB, MGO, CHM6 ####[facility] (DEFAULT)[address] [place] [address] CO2 [Moles/Vol] 29 mmol/L Normal 22-30 [facility] Comment on above: Performed By: #### I PB, MGO, CHM6 ####[facility] (DEFAULT)[address] [place] [address] Creatinine [Mass/Vol] 0.63 mg/dL Low 0.70-1.30 [facility] Comment on above: Performed By: #### I PB, MGO, CHM6 ####[facility] (DEFAULT)[address] [place] [address] EST GFR, >=60 Normal >=60 [facility] Comment on above: Performed By: #### I PB, MGO, CHM6 ####[facility] (DEFAULT)[address] [place] [address] EST GFR,Non >=60 Normal >=60 [facility] Comment on above: Performed By: #### I PB, MGO, CHM6 ####[facility] (DEFAULT)[address] [place] [address] Potassium [Moles/Vol] 4.3 mmol/L Normal 3.5-5.0 [facility] Comment on above: Performed By: #### I PB, MGO, CHM6 ####[facility] (DEFAULT)[address] [place] [address] Sodium [Moles/Vol] 130 mmol/L Low 133-143 [facility] Comment on above: Performed By: #### I PB, MGO, CHM6 ####[facility] (DEFAULT)[address] [place] [address] Urea nitrogen [Mass/Vol] 20 mg/dL Normal 7-22 [facility] Comment on above: Performed By: #### I PB, MGO, CHM6 ####[facility] (DEFAULT)[address] [place] [address] Urea nitrogen/Creatinine [Mass ratio] 32 mg/mg Normal [facility] Comment on above: Performed By: #### I PB, MGO, CHM6 ####[facility] (DEFAULT)[address] [place] [address] IONIZED CALCIUM, INPATIENTon 05-28-2020 ICA 4.42 mg/dL Low 4.60-5.30 [facility] Comment on above: Performed By: #### L ABCOR10 #### [facility] (DEFAULT) [address] [address] MAGNESIUMon 05-28-2020 Magnesium [Mass/Vol] 1.6 mg/dL Normal 1.6-2.6 [facility] Comment on above: Performed By: #### I PBFAISAL CHM6 ####[facility] (DEFAULT)[address] [place] [address] NOVEL CORONAVIRUS PCRon - SARS-CoV-2 (COVID-19) RNA KAHLIL+probe Ql (Unsp spec) Not detected Normal NOT DETECTED [facility] Comment on above: Order Comment: Viral transport media or BAL specimen - Collection must be done while wearing N-95 mask, eye protection, gown and gloves. Please label ALL specimens as "2019-nCoV rule out" and deliver by hand. This test was performed using real time PCR and has been approved for the qualitative detection of SARS-CoV-2 nucleic acid. The test has been authorized by the FDA under an emergency use authorization for use by authorized laboratories. Result Comment: Nega tive results do not preclude SARS-CoV-2 infection and should not be used as the sole basis for treatment or other patient management decisions. Optimum specimen types and timing for peak viral levels during infections caused by SARS-CoV-2 has not been determined. The possibility of a false negative result should especially be considered if the patient's recent exposures or clinical presentation suggest that SARS-CoV-2 infection is probable, and diagnostic tests for other causes of illness (e.g., other respiratory illness) are negative. Collection of a new specimen and re-testing may be necessary if the patient is critically ill or clinically deteriorating. Performed By: #### L ABCOR10 #### [facility] (DEFAULT) [address] [place] [address] PHOSPHATE, INORGANICon 05-28 Phosphorous 3.6 mg/dL Normal 2.2-4.6 [facility] Comment on above: Performed By: #### I PB MGO, AMAYAM6 ####[facility] (DEFAULT)[address] [facility] [address] CBC,PLATELETSon 05-27-2020 Hematocrit (Bld) [Volume fraction] 32.7 % Low 39.6-48.8 [facility] Comment on above: Performed By: #### H EMO ####[facility] (DEFAULT)[address] [place] [address] Hemoglobin (Bld) [Mass/Vol] 11.1 g/dL Low 13.4-16.8 [facility] Comment on above: Performed By: #### H EMOGC ####[facility] (DEFAULT)[address] [place] [address] MCV (RBC) [Entitic vol] 95.6 fL High 79.0-94.5 [facility] Comment on above: Performed By: #### H EMOGC ####[facility] (DEFAULT)[address] [place] [address] Mean Cell Hgb 32.5 pg Normal 26.1-33.3 [facility] Comment on above: Performed By: #### H EMOGC ####[facility] (DEFAULT)[address] [place] [address] Mean Cell Hgb Conc 33.9 g/dL Normal 31.9-36.5 [facility] Comment on above: Performed By: #### H EMOGC ####[facility] (DEFAULT)[address] [place] [address] Platelet mean volume (Bld) [Entitic vol] 9.0 fL Normal 8.7-12.3 [facility] Comment on above: Performed By: #### H EMOGC ####[facility] (DEFAULT)[address] [facility] [place] [address] Platelets (Bld) [#/Vol] 362 10*3/uL High 146-337 [facility] Comment on above: Performed By: #### H EMOGC ####[facility] (DEFAULT)[address] [place] [address] RBC (Bld) [#/Vol] 3.42 10*6/uL Low 4.38-5.83 [facility] Comment on above: Performed By: #### H EMOGC ####[facility] (DEFAULT)[address] [place] [address] RBC Distribution 12.8 % Normal 10.9-14.3 [facility] Comment on above: Performed By: #### H EMOGC ####[facility] (DEFAULT)[address] [place] [address] WBC (Bld) [#/Vol] 7.35 10*3/uL Normal 3.73-10.10 [facility] Comment on above: Performed By: #### H EMO ####[facility] (DEFAULT)[address] [place] [address] CHEM 6 (LYTES, BUN CREA)on 0 - Anion gap [Moles/Vol] 14 mmol/L Normal 7-17 [facility] Comment on above: Performed By: #### L [id number] #### [facility] (DEFAULT) [address] [place] [address] Chloride [Moles/Vol] 98 mmol/L Normal 98-108 [facility] Comment on above: Performed By: #### L ABCOR10 #### [facility] (DEFAULT) [address] [place] [address] CO2 [Moles/Vol] 22 mmol/L Normal 22-30 [facility] Comment on above: Performed By: #### L ABCOR10 #### [facility] (DEFAULT) [address] [place] [address] Creatinine [Mass/Vol] 0.64 mg/dL Low 0.70-1.30 [facility] Comment on above: Performed By: #### L ABCOR10 #### [facility] (DEFAULT) [address] [place] [address] EST GFR, >=60 Normal >=60 [facility] Comment on above: Performed By: #### L ABCOR10 #### [facility] (DEFAULT) [address] [place] [address] EST GFR,Non >=60 Normal >=60 [facility] Comment on above: Performed By: #### L ABCOR10 #### [facility] (DEFAULT) [address] [place] [address] Potassium [Moles/Vol] 4.7 mmol/L Normal 3.5-5.0 [facility] Comment on above: Performed By: #### L ABCOR10 #### [facility] (DEFAULT) [address] [place] [address] Sodium [Moles/Vol] 129 mmol/L Low 133-143 [facility] Comment on above: Performed By: #### L ABCOR10 #### [facility] (DEFAULT) [address] [place] [address] Urea nitrogen [Mass/Vol] 21 mg/dL Normal 7-22 [facility] Comment on above: Performed By: #### L ABCOR10 #### [facility] (DEFAULT) [address] [place] [address] Urea nitrogen/Creatinine [Mass ratio] 33 mg/mg Normal [facility] Comment on above: Performed By: #### L ABCOR10 #### [facility] (DEFAULT) [address] [place] [address] IONIZED CALCIUM, INPATIENTon 05-27-2020 ICA 4.34 mg/dL Low 4.60-5.30 [facility] Comment on above: Performed By: #### I CA ####[facility] (DEFAULT)[address] [place], [place] [address] [address] MAGNESIUMon 05-27-2020 Magnesium [Mass/Vol] 1.8 mg/dL Normal 1.6-2.6 [facility] Comment on above: Performed By: #### L ABCOR10 #### [facility] (DEFAULT) [address] [place] [address] PHOSPHATE, INORGANICon 05-27 Phosphorous 4.0 mg/dL Normal 2.2-4.6 [facility] Comment on above: Performed By: #### L [id number] #### [facility] (DEFAULT) [address] [place] [address] CBC,PLATELETSon 05-26-2020 Hematocrit (Bld) [Volume fraction] 33.6 % Low 39.6-48.8 [facility] Comment on above: Performed By: #### H EMOGC ####[facility] (DEFAULT)[address] [place] [address] Hemoglobin (Bld) [Mass/Vol] 11.3 g/dL Low 13.4-16.8 [facility] Comment on above: Performed By: #### H EMOGC ####[facility] (DEFAULT)[address] [place] [address] MCV (RBC) [Entitic vol] 94.6 fL High 79.0-94.5 [facility] Comment on above: Performed By: #### H EMOGC ####[facility] (DEFAULT)[address] [place] [address] Mean Cell Hgb 31.8 pg Normal 26.1-33.3 [facility] Comment on above: Performed By: #### H EMOGC ####[facility] (DEFAULT)[address] [place] [address] Mean Cell Hgb Conc 33.6 g/dL Normal 31.9-36.5 [facility] Comment on above: Performed By: #### H EMOGC ####[facility] (DEFAULT)[address] [place] [address] Platelet mean volume (Bld) [Entitic vol] 8.8 fL Normal 8.7-12.3 [facility] Comment on above: Performed By: #### H EMO ####[facility] (DEFAULT)[address] [facility] [address] Platelets (Bld) [#/Vol] 332 10*3/uL Normal 146-337 [facility] Comment on above: Performed By: #### H EMO ####[facility] (DEFAULT)[address] [place] [address] RBC (Bld) [#/Vol] 3.55 10*6/uL Low 4.38-5.83 [facility] Comment on above: Performed By: #### H EMO ####[facility] (DEFAULT)[address] [place] [address] RBC Distribution 12.8 % Normal 10.9-14.3 [facility] Comment on above: Performed By: #### H EMO ####[facility] (DEFAULT)[address] [place] [address] WBC (Bld) [#/Vol] 7.07 10*3/uL Normal 3.73-10.10 [facility] Comment on above: Performed By: #### H EMOGC ####[facility] (DEFAULT)[address] [place] [address] CHEM 6 (LYTES, BUN CREA)on 0 05-26-2020 Anion gap [Moles/Vol] 11 mmol/L Normal 7-17 [facility] Comment on above: Performed By: #### C HM6, IPB, MGO ####[facility] (DEFAULT)[address] [place] [address] Chloride [Moles/Vol] 97 mmol/L Low 98-108 [facility] Comment on above: Performed By: #### C HM6, IPB, MGO ####[facility] (DEFAULT)[address] [place] [address] CO2 [Moles/Vol] 28 mmol/L Normal 22-30 [facility] Comment on above: Performed By: #### C HM6, IPB, MGO ####[facility] (DEFAULT)[address] [place] [address] Creatinine [Mass/Vol] 0.64 mg/dL Low 0.70-1.30 [facility] Comment on above: Performed By: #### C HM6, IPB, MGO ####[facility] (DEFAULT)[address] [place] [address] EST GFR, >=60 Normal >=60 [facility] Comment on above: Performed By: #### C HM6, IPB, MGO ####[facility] (DEFAULT)[address] [place] [address] EST GFR,Non >=60 Normal >=60 [facility] Comment on above: Performed By: #### C HM6, IPB, MGO ####[facility] (DEFAULT)[address] [place] [address] Potassium [Moles/Vol] 4.9 mmol/L Normal 3.5-5.0 [facility] Comment on above: Performed By: #### C HM6, IPB, MGO ####[facility] (DEFAULT)[address] [place] [address] Sodium [Moles/Vol] 131 mmol/L Low 133-143 [facility] Comment on above: Performed By: #### C HM6, IPB, MGO ####[facility] (DEFAULT)[address] [place] [address] Urea nitrogen [Mass/Vol] 19 mg/dL Normal 7-22 [facility] Comment on above: Performed By: #### C HM6, IPB, MGO ####[facility] (DEFAULT)[address] [place] [address] Urea nitrogen/Creatinine [Mass ratio] 30 mg/mg Normal [facility] Comment on above: Performed By: #### C HM6, IPB, MGO ####[facility] (DEFAULT)[address] [facility] [place] [address] IONIZED CALCIUM, INPATIENTon 05-26-2020 ICA 4.43 mg/dL Low 4.60-5.30 [facility] Comment on above: Performed By: #### I CA ####[facility] (DEFAULT)[address] [facility] [place] [address] MAGNESIUMon 05-26-2020 Magnesium [Mass/Vol] 1.7 mg/dL Normal 1.6-2.6 [facility] Comment on above: Performed By: #### C HM6, IPB, MGO ####[facility] (DEFAULT)[address] [place] [address], [place] [address] PHOSPHATE, INORGANICon 05-26 Phosphorous 4.0 mg/dL Normal 2.2-4.6 [facility] Comment on above: Performed By: #### C HM6, IPB, MGO ####[facility] (DEFAULT)[address] [place] [address], [place] [address] CBC,PLATELETSon 05-25-2020 Hematocrit (Bld) [Volume fraction] 33.2 % Low 39.6-48.8 [facility] Comment on above: Performed By: #### [place] [facility] [place] ####[facility] (DEFAULT)[address] [facility] [place] [address] Hemoglobin (Bld) [Mass/Vol] 11.5 g/dL Low 13.4-16.8 [facility] Comment on above: Performed By: #### H EMO ####[facility] (DEFAULT)[address] [place] [address] MCV (RBC) [Entitic vol] 94.3 fL Normal 79.0-94.5 [facility] Comment on above: Performed By: #### H EMOGC ####[facility] (DEFAULT)[address] [place] [address] Mean Cell Hgb 32.7 pg Normal 26.1-33.3 [facility] Comment on above: Performed By: #### H EMOGC ####[facility] (DEFAULT)[address] [place] [address] Mean Cell Hgb Conc 34.6 g/dL Normal 31.9-36.5 [facility] Comment on above: Performed By: #### H EMOGC ####[facility] (DEFAULT)[address] [facility] [place] [address] Platelet mean volume (Bld) [Entitic vol] 9.0 fL Normal 8.7-12.3 [facility] Comment on above: Performed By: #### H EMOGC ####[facility] (DEFAULT)[address] [facility] [place] [address] Platelets (Bld) [#/Vol] 321 10*3/uL Normal 146-337 [facility] Comment on above: Performed By: #### H EMOGC ####[facility] (DEFAULT)[address] [place] [address] RBC (Bld) [#/Vol] 3.52 10*6/uL Low 4.38-5.83 [facility] Comment on above: Performed By: #### H EMOGC ####[facility] (DEFAULT)[address] [facility] [place] [address] RBC Distribution 12.8 % Normal 10.9-14.3 [facility] Comment on above: Performed By: #### H EMOGC ####[facility] (DEFAULT)[address] [place] [address] WBC (Bld) [#/Vol] 6.08 10*3/uL Normal 3.73-10.10 [facility] Comment on above: Performed By: #### H EMORODOLFO ####[facility] (DEFAULT)[address] [place] [address] CHEM 6 (LYTES, BUN CREA)on 0 05-25-2020 Anion gap [Moles/Vol] 11 mmol/L Normal 7-17 [facility] Comment on above: Performed By: #### C HM6, IPB, MGO ####[facility] (DEFAULT)[address] [place] [address] Chloride [Moles/Vol] 99 mmol/L Normal 98-108 [facility] Comment on above: Performed By: #### C HM6, IPB, MGO ####[facility] (DEFAULT)[address] [place] [address] CO2 [Moles/Vol] 26 mmol/L Normal 22-30 [facility] Comment on above: Performed By: #### C HM6, IPB, MGO ####[facility] (DEFAULT)[address] [place] [address] Creatinine [Mass/Vol] 0.63 mg/dL Low 0.70-1.30 [facility] Comment on above: Performed By: #### C HM6, IPB, MGO ####[facility] (DEFAULT)[address] [place] [address] EST GFR, >=60 Normal >=60 [facility] Comment on above: Performed By: #### C HM6, IPB, MGO ####[facility] (DEFAULT)[address] [place] [address] EST GFR,Non >=60 Normal >=60 [facility] Comment on above: Performed By: #### C HM6, IPB, MGO ####[facility] (DEFAULT)[address] [place] [address] Potassium [Moles/Vol] 4.3 mmol/L Normal 3.5-5.0 [facility] Comment on above: Performed By: #### C HM6, IPB, MGO ####[facility] (DEFAULT)[address] [place] [address] Sodium [Moles/Vol] 132 mmol/L Low 133-143 [facility] Comment on above: Performed By: #### C HM6, IPB, MGO ####[facility] (DEFAULT)[address] [place] [address] Urea nitrogen [Mass/Vol] 16 mg/dL Normal 7-22 [facility] Comment on above: Performed By: #### C HM6, IPB, MGO ####[facility] (DEFAULT)[address] [place] [address] Urea nitrogen/Creatinine [Mass ratio] 25 mg/mg Normal [facility] Comment on above: Performed By: #### C HM6, IPB, MGO ####[facility] (DEFAULT)[address] [place] [address] IONIZED CALCIUM, INPATIENTon 05-25-2020 ICA 4.25 mg/dL Low 4.60-5.30 [facility] Comment on above: Performed By: #### I CA ####[facility] (DEFAULT)[address] [place] [address] MAGNESIUMon 05-25-2020 Magnesium [Mass/Vol] 2.3 mg/dL Normal 1.6-2.6 [facility] Comment on above: Performed By: #### C HM6, IPB, MGO ####[facility] (DEFAULT)[address] [place] [address] PHOSPHATE, INORGANICon 05-25 Phosphorous 3.9 mg/dL Normal 2.2-4.6 [facility] Comment on above: Performed By: #### C HM6, IPB, MGO ####[facility] (DEFAULT)[address] [place] [address] CBC,PLATELETSon 05-24-2020 Hematocrit (Bld) [Volume fraction] 33.1 % Low 39.6-48.8 [facility] Comment on above: Performed By: #### H EMOGC ####[facility] (DEFAULT)[address] [facility] [place] [address] Hemoglobin (Bld) [Mass/Vol] 11.3 g/dL Low 13.4-16.8 [facility] Comment on above: Performed By: #### H EMOGC ####[facility] (DEFAULT)[address] [facility] [place] [address] MCV (RBC) [Entitic vol] 94.3 fL Normal 79.0-94.5 [facility] Comment on above: Performed By: #### H EMOGC ####[facility] (DEFAULT)[address] [place] [address] Mean Cell Hgb 32.2 pg Normal 26.1-33.3 [facility] Comment on above: Performed By: #### H EMOGC ####[facility] (DEFAULT)[address] [facility] [place] [address] Mean Cell Hgb Conc 34.1 g/dL Normal 31.9-36.5 [facility] Comment on above: Performed By: #### H EMOGC ####[facility] (DEFAULT)[address] [facility] [place] [address] Platelet mean volume (Bld) [Entitic vol] 9.0 fL Normal 8.7-12.3 [facility] Comment on above: Performed By: #### H EMOGC ####[facility] (DEFAULT)[address] [place] [address] Platelets (Bld) [#/Vol] 307 10*3/uL Normal 146-337 [facility] Comment on above: Performed By: #### H EMOGC ####[facility] (DEFAULT)[address] [facility] [place] [address] RBC (Bld) [#/Vol] 3.51 10*6/uL Low 4.38-5.83 [facility] Comment on above: Performed By: #### [place] [facility] [place] ####[facility] (DEFAULT)[address] [place] [address] RBC Distribution 12.7 % Normal 10.9-14.3 [facility] Comment on above: Performed By: #### H [facility] [place] ####[facility] (DEFAULT)[address] [place] [address] WBC (Bld) [#/Vol] 7.01 10*3/uL Normal 3.73-10.10 [facility] Comment on above: Performed By: #### [facility] [place] ####[facility] (DEFAULT)[address] [place] [address] CHEM 6 (LYTES, BUN CREA)on 0 05-24-2020 Anion gap [Moles/Vol] 11 mmol/L Normal 7-17 [facility] Comment on above: Performed By: #### I PB, MGO, CHM6 ####[facility] (DEFAULT)[address] [place] [address] Chloride [Moles/Vol] 99 mmol/L Normal 98-108 [facility] Comment on above: Performed By: #### I PB, MGO, CHM6 ####[facility] (DEFAULT)[address] [place] [address] CO2 [Moles/Vol] 25 mmol/L Normal 22-30 [facility] Comment on above: Performed By: #### I PB, MGO, CHM6 ####[facility] (DEFAULT)[address] [place] [address] Creatinine [Mass/Vol] 0.51 mg/dL Low 0.70-1.30 [facility] Comment on above: Performed By: #### I PB, MGO, CHM6 ####[facility] (DEFAULT)[address] [place] [address] EST GFR, >=60 Normal >=60 [facility] Comment on above: Performed By: #### I PB, MGO, CHM6 ####[facility] (DEFAULT)[address] [place] [address] EST GFR,Non >=60 Normal >=60 [facility] Comment on above: Performed By: #### I PB, MGO, CHM6 ####[facility] (DEFAULT)[address] [facility] [address] Potassium [Moles/Vol] 4.1 mmol/L Normal 3.5-5.0 [facility] Comment on above: Performed By: #### I PB, MGO, CHM6 ####[facility] (DEFAULT)[address] [facility] [place] [address] Sodium [Moles/Vol] 131 mmol/L Low 133-143 [facility] Comment on above: Performed By: #### I PB, MGO, CHM6 ####[facility] (DEFAULT)[address] [facility] [place] [address] Urea nitrogen [Mass/Vol] 10 mg/dL Normal 7-22 [facility] Comment on above: Performed By: #### I PB, MGO, CHM6 ####[facility] (DEFAULT)[address] [facility] [place] [address] Urea nitrogen/Creatinine [Mass ratio] 20 mg/mg Normal [facility] Comment on above: Performed By: #### I PB, MGO, CHM6 ####[facility] (DEFAULT)[address] [facility] [place] [address] IONIZED CALCIUM, INPATIENTon 05-24-2020 ICA 4.34 mg/dL Low 4.60-5.30 [facility] Comment on above: Performed By: #### L ABCOR10 #### [facility] (DEFAULT) [address] [place] [address] MAGNESIUMon 05-24-2020 Magnesium [Mass/Vol] 1.7 mg/dL Normal 1.6-2.6 [facility] Comment on above: Performed By: #### I PB, MGO, CHM6 ####[facility] (DEFAULT)[address] [place] [address] PHOSPHATE, INORGANICon 05-24 Phosphorous 3.6 mg/dL Normal 2.2-4.6 [facility] Comment on above: Performed By: #### I PB, MGO, CHM6 ####[facility] (DEFAULT)[address] [place] [address] CBC,PLATELETSon 05-23-2020 Hematocrit (Bld) [Volume fraction] 33.2 % Low 39.6-48.8 [facility] Comment on above: Performed By: #### [facility] [place] ####[facility] (DEFAULT)[address] [place] [address] Hemoglobin (Bld) [Mass/Vol] 11.5 g/dL Low 13.4-16.8 [facility] Comment on above: Performed By: #### H EMOGC ####[facility] (DEFAULT)[address] [place] [address] MCV (RBC) [Entitic vol] 94.1 fL Normal 79.0-94.5 [facility] Comment on above: Performed By: #### H EMOGC ####[facility] (DEFAULT)[address] [place] [address] Mean Cell Hgb 32.6 pg Normal 26.1-33.3 [facility] Comment on above: Performed By: #### H EMOGC ####[facility] (DEFAULT)[address] [place] [address] Mean Cell Hgb Conc 34.6 g/dL Normal 31.9-36.5 [facility] Comment on above: Performed By: #### H EMOGC ####[facility] (DEFAULT)[address] [place] [address] Platelet mean volume (Bld) [Entitic vol] 8.7 fL Normal 8.7-12.3 [facility] Comment on above: Performed By: #### H EMOGC ####[facility] (DEFAULT)[address] [place] [address], [place] [address] Platelets (Bld) [#/Vol] 300 10*3/uL Normal 146-337 [facility] Comment on above: Performed By: #### H EMOGC ####[facility] (DEFAULT)[address] [place] [address] RBC (Bld) [#/Vol] 3.53 10*6/uL Low 4.38-5.83 [facility] Comment on above: Performed By: #### H EMOGC ####[facility] (DEFAULT)[address] [place] [address], [place] [address] RBC Distribution 12.7 % Normal 10.9-14.3 [facility] Comment on above: Performed By: #### H EMOGC ####[facility] (DEFAULT)[address] [place] [address] WBC (Bld) [#/Vol] 7.82 10*3/uL Normal 3.73-10.10 [facility] Comment on above: Performed By: #### H EMOGC ####[facility] (DEFAULT)[address] [place] [address] CHEM 6 (LYTES, BUN CREA)on 0 - Anion gap [Moles/Vol] 11 mmol/L Normal 7-17 [facility] Comment on above: Performed By: #### L ABCOR10 #### [facility] (DEFAULT) [address] [place] [address] Chloride [Moles/Vol] 98 mmol/L Normal 98-108 [facility] Comment on above: Performed By: #### L [id number] #### [facility] (DEFAULT) [address] [place] [address] CO2 [Moles/Vol] 27 mmol/L Normal 22-30 [facility] Comment on above: Performed By: #### L [id number] #### [facility] (DEFAULT) [address] [place] [address] Creatinine [Mass/Vol] 0.85 mg/dL Normal 0.70-1.30 [facility] Comment on above: Performed By: #### L [id number] #### [facility] (DEFAULT) [address] [place] [address] EST GFR, >=60 Normal >=60 [facility] Comment on above: Performed By: #### L [id number] #### [facility] (DEFAULT) [address] [place] [address] EST GFR,Non >=60 Normal >=60 [facility] Comment on above: Performed By: #### L ABCOR10 #### [facility] (DEFAULT) [address] [place] [address] Potassium [Moles/Vol] 4.1 mmol/L Normal 3.5-5.0 [facility] Comment on above: Performed By: #### L [id number] #### [facility] (DEFAULT) [address] [place] [address] Sodium [Moles/Vol] 132 mmol/L Low 133-143 [facility] Comment on above: Performed By: #### L [id number] #### [facility] (DEFAULT) [address] [place] [address] Urea nitrogen [Mass/Vol] 12 mg/dL Normal 7-22 [facility] Comment on above: Performed By: #### L [id number] #### [facility] (DEFAULT) [address] [place] [address] Urea nitrogen/Creatinine [Mass ratio] 14 mg/mg Normal [facility] Comment on above: Performed By: #### L [id number] #### [facility] (DEFAULT) [address] [place] [address] IONIZED CALCIUM, INPATIENTon 05-23-2020 ICA 4.41 mg/dL Low 4.60-5.30 [facility] Comment on above: Performed By: #### I CA ####[facility] (DEFAULT)[address] [place] [address] MAGNESIUMon 05-23-2020 Magnesium [Mass/Vol] 1.6 mg/dL Normal 1.6-2.6 [facility] Comment on above: Performed By: #### L [id number] #### [facility] (DEFAULT) [address] [place] [address] PHOSPHATE, INORGANICon 05-23 Phosphorous 3.8 mg/dL Normal 2.2-4.6 [facility] Comment on above: Performed By: #### L [id number] #### [facility] (DEFAULT) [address] [place] [address] PT,INR,PTTon 05-23-2020 aPTT Coag (Bld) [Time] 29.4 s Normal 24.0-34.3 [facility] Comment on above: Performed By: #### P TPTT ####[facility] (DEFAULT)[address] [place] [address] INR Coag (PPP) [Relative time] 1.1 {INR} Normal 0.9-1.1 [facility] Comment on above: Performed By: #### P TPTT ####[facility] (DEFAULT)[address] [place] [address] PT Coag (PPP) [Time] 13.7 s Normal 11.9-14.2 [facility] Comment on above: Performed By: #### P TPTT ####[facility] (DEFAULT)[address] [place] [address], [place] [address] CBC,PLATELETSon 05-22-2020 Hematocrit (Bld) [Volume fraction] 36.1 % Low 39.6-48.8 [facility] Comment on above: Performed By: #### H EMOGC ####[facility] (DEFAULT)[address] [place] [address], [place] [address] Hemoglobin (Bld) [Mass/Vol] 12.2 g/dL Low 13.4-16.8 [facility] Comment on above: Performed By: #### H EMOGC ####[facility] (DEFAULT)[address] [place] [address], [place] [address] MCV (RBC) [Entitic vol] 95.0 fL High 79.0-94.5 [facility] Comment on above: Performed By: #### H EMOGC ####[facility] (DEFAULT)[address] [place] [address], [place] [address] Mean Cell Hgb 32.1 pg Normal 26.1-33.3 [facility] Comment on above: Performed By: #### H EMOGC ####[facility] (DEFAULT)[address] [place] [address] Mean Cell Hgb Conc 33.8 g/dL Normal 31.9-36.5 [facility] Comment on above: Performed By: #### H EMOGC ####[facility] (DEFAULT)[address] [place] [address], [place] [address] Platelet mean volume (Bld) [Entitic vol] 8.7 fL Normal 8.7-12.3 [facility] Comment on above: Performed By: #### H EMOGC ####[facility] (DEFAULT)[address] [place] [address], [place] [address] Platelets (Bld) [#/Vol] 330 10*3/uL Normal 146-337 [facility] Comment on above: Performed By: #### H EMOGC ####[facility] (DEFAULT)[address] [place] [address] RBC (Bld) [#/Vol] 3.80 10*6/uL Low 4.38-5.83 [facility] Comment on above: Performed By: #### H EMO ####[facility] (DEFAULT)[address] [place] [address] RBC Distribution 12.8 % Normal 10.9-14.3 [facility] Comment on above: Performed By: #### H EMO ####[facility] (DEFAULT)[address] [place] [address] WBC (Bld) [#/Vol] 8.00 10*3/uL Normal 3.73-10.10 [facility] Comment on above: Performed By: #### [facility] [place] ####[facility] (DEFAULT)[address] [place] [address] CHEM 6 (LYTES, BUN CREA)on 0 - Anion gap [Moles/Vol] 13 mmol/L Normal 7-17 [facility] Comment on above: Performed By: #### L [id number] #### [facility] (DEFAULT) [address] [place] [address] Chloride [Moles/Vol] 101 mmol/L Normal 98-108 [facility] Comment on above: Performed By: #### L [id number] #### [facility] (DEFAULT) [address] [place] [address] CO2 [Moles/Vol] 26 mmol/L Normal 22-30 [facility] Comment on above: Performed By: #### L [id number] #### [facility] (DEFAULT) [address] [address] Creatinine [Mass/Vol] 0.67 mg/dL Low 0.70-1.30 [facility] Comment on above: Performed By: #### L [id number] #### [facility] (DEFAULT) [address] [place] [address] EST GFR, >=60 Normal >=60 [facility] Comment on above: Performed By: #### L [id number] #### [facility] (DEFAULT) [address] [place] [address] EST GFR,Non >=60 Normal >=60 [facility] Comment on above: Performed By: #### L [id number] #### [facility] (DEFAULT) [address] [place] [address] Potassium [Moles/Vol] 4.0 mmol/L Normal 3.5-5.0 [facility] Comment on above: Performed By: #### L [id number] #### [facility] (DEFAULT) [address] [place] [address]60 Sodium [Moles/Vol] 136 mmol/L Normal 133-143 [facility] Comment on above: Performed By: #### L [id number] #### [facility] (DEFAULT) [address] [place] [address] Urea nitrogen [Mass/Vol] 10 mg/dL Normal 7-22 [facility] Comment on above: Performed By: #### L [id number] #### [facility] (DEFAULT) [address] [place] [address] 6[address]45 Urea nitrogen/Creatinine [Mass ratio] 15 mg/mg Normal [facility] Comment on above: Performed By: #### L [id number] #### [facility] (DEFAULT) [address] [place] [address] IONIZED CALCIUM, INPATIENTon 05-22-2020 ICA 4.39 mg/dL Low 4.60-5.30 [facility] Comment on above: Performed By: #### I CA ####[facility] (DEFAULT)[address] [place] [address] [address] MAGNESIUMon 05-22-2020 Magnesium [Mass/Vol] 1.6 mg/dL Normal 1.6-2.6 [facility] Comment on above: Performed By: #### L [id number] #### [facility] (DEFAULT) [address] [place] [address]06 PHOSPHATE, INORGANICon 05-22 Phosphorous 3.6 mg/dL Normal 2.2-4.6 [facility] Comment on above: Performed By: #### L [id number] #### [facility] (DEFAULT) [address] [place] [address]34 TYPE AND SCREENon 05-22-2020 ABO/RH(D) TYPE Positive Normal [facility] Comment on above: Performed By: #### X M ####[facility] (DEFAULT)[address] [place] [address] CBC,PLATELETSon 05-21-2020 Hematocrit (Bld) [Volume fraction] 30.4 % Low 39.6-48.8 [facility] Comment on above: Performed By: #### [facility] [place] ####[facility] (DEFAULT)[address] [place] [address] Hemoglobin (Bld) [Mass/Vol] 10.5 g/dL Low 13.4-16.8 [facility] Comment on above: Performed By: #### H EMOGC ####[facility] (DEFAULT)[address] [place] [address]75 MCV (RBC) [Entitic vol] 94.7 fL High 79.0-94.5 [facility] Comment on above: Performed By: #### H EMOGC ####[facility] (DEFAULT)[address] [place] [address]13 Mean Cell Hgb 32.7 pg Normal 26.1-33.3 [facility] Comment on above: Performed By: #### H EMOGC ####[facility] (DEFAULT)[address] [place] [address] 19554 Mean Cell Hgb Conc 34.5 g/dL Normal 31.9-36.5 [facility] Comment on above: Performed By: #### H EMOGC ####[facility] (DEFAULT)[address] [place] [address] Platelet mean volume (Bld) [Entitic vol] 8.8 fL Normal 8.7-12.3 [facility] Comment on above: Performed By: #### H EMOGC ####[facility] (DEFAULT)[address] [place] [address], [place] [address] Platelets (Bld) [#/Vol] 310 10*3/uL Normal 146-337 [facility] Comment on above: Performed By: #### H EMOGC ####[facility] (DEFAULT)[address] [place] [address] RBC (Bld) [#/Vol] 3.21 10*6/uL Low 4.38-5.83 [facility] Comment on above: Performed By: #### H EMOGC ####[facility] (DEFAULT)[address] [place] [address] RBC Distribution 12.9 % Normal 10.9-14.3 [facility] Comment on above: Performed By: #### H EMOGC ####[facility] (DEFAULT)[address] [place] [address]47 WBC (Bld) [#/Vol] 7.83 10*3/uL Normal 3.73-10.10 [facility] Comment on above: Performed By: #### H EMOGC ####[facility] (DEFAULT)[address] [place] [address]487 CHEM 6 (LYTES, BUN CREA)on 0 05-21-2020 Anion gap [Moles/Vol] 13 mmol/L Normal 7-17 [facility] Comment on above: Performed By: #### L [id number] #### [facility] (DEFAULT) [address] [place] [address] Chloride [Moles/Vol] 102 mmol/L Normal 98-108 [facility] Comment on above: Performed By: #### L [id number] #### [facility] (DEFAULT) [address] [place] [address] 41882 CO2 [Moles/Vol] 24 mmol/L Normal 22-30 [facility] Comment on above: Performed By: #### L [id number] #### [facility] (DEFAULT) [address] [place] [address] 44420 Creatinine [Mass/Vol] 0.62 mg/dL Low 0.70-1.30 [facility] Comment on above: Performed By: #### L [id number] #### [facility] (DEFAULT) [address] [place] [address] 76566 EST GFR, >=60 Normal >=60 [facility] Comment on above: Performed By: #### L [id number] #### [facility] (DEFAULT) [address] [place] [address] 0[address]56 EST GFR,Non >=60 Normal >=60 [facility] Comment on above: Performed By: #### L [id number] #### [facility] (DEFAULT) [address] [place] [address]809 Potassium [Moles/Vol] 3.8 mmol/L Normal 3.5-5.0 [facility] Comment on above: Performed By: #### L [id number] #### [facility] (DEFAULT) [address] [place] [address] 67873 Sodium [Moles/Vol] 135 mmol/L Normal 133-143 [facility] Comment on above: Performed By: #### L [id number] #### [facility] (DEFAULT) [address] [place] [address] 86469 Urea nitrogen [Mass/Vol] 12 mg/dL Normal 7-22 [facility] Comment on above: Performed By: #### L [id number] #### [facility] (DEFAULT) [address] [place] [address]6559 Urea nitrogen/Creatinine [Mass ratio] 19 mg/mg Normal [facility] Comment on above: Performed By: #### L ABCOR10 #### [facility] (DEFAULT) [address] [place] [address] IONIZED CALCIUM, INPATIENTon 05-21-2020 ICA 4.24 mg/dL Low 4.60-5.30 [facility] Comment on above: Performed By: #### I CA ####[facility] (DEFAULT)[address] [place] [address] MAGNESIUMon 05-21-2020 Magnesium [Mass/Vol] 1.6 mg/dL Normal 1.6-2.6 [facility] Comment on above: Performed By: #### L ABCOR10 #### [facility] (DEFAULT) [address] [place] [address] 82789 PHOSPHATE, INORGANICon 05-21 Phosphorous 3.1 mg/dL Normal 2.2-4.6 [facility] Comment on above: Performed By: #### L ABCOR10 #### [facility] (DEFAULT) [address] [place] [address] CBC,PLATELETSon 05-20-2020 Hematocrit (Bld) [Volume fraction] 32.9 % Low 39.6-48.8 [facility] Comment on above: Performed By: #### H EMOGC ####[facility] (DEFAULT)[address] [place] [address]66 Hemoglobin (Bld) [Mass/Vol] 10.9 g/dL Low 13.4-16.8 [facility] Comment on above: Performed By: #### H EMOGC ####[facility] (DEFAULT)[address] [place] [address] MCV (RBC) [Entitic vol] 95.6 fL High 79.0-94.5 [facility] Comment on above: Performed By: #### H EMOGC ####[facility] (DEFAULT)[address] [place] [address] Mean Cell Hgb 31.7 pg Normal 26.1-33.3 [facility] Comment on above: Performed By: #### H EMOGC ####[facility] (DEFAULT)[address] [facility] [place] [address] Mean Cell Hgb Conc 33.1 g/dL Normal 31.9-36.5 [facility] Comment on above: Performed By: #### H EMOGC ####[facility] (DEFAULT)[address] [place] [address] Platelet mean volume (Bld) [Entitic vol] 8.8 fL Normal 8.7-12.3 [facility] Comment on above: Performed By: #### H EMOGC ####[facility] (DEFAULT)[address] [facility] [place] [address] Platelets (Bld) [#/Vol] 308 10*3/uL Normal 146-337 [facility] Comment on above: Performed By: #### H EMOGC ####[facility] (DEFAULT)[address] [place] [address] RBC (Bld) [#/Vol] 3.44 10*6/uL Low 4.38-5.83 [facility] Comment on above: Performed By: #### H EMOGC ####[facility] (DEFAULT)[address] [facility] [place] [address] RBC Distribution 13.1 % Normal 10.9-14.3 [facility] Comment on above: Performed By: #### H EMOGC ####[facility] (DEFAULT)[address] [place] [address] WBC (Bld) [#/Vol] 7.97 10*3/uL Normal 3.73-10.10 [facility] Comment on above: Performed By: #### H EMOGC ####[facility] (DEFAULT)[address] [place] [address] CHEM 6 (LYTES, BUN CREA)on 0 05-20-2020 Anion gap [Moles/Vol] 13 mmol/L Normal 7-17 [facility] Comment on above: Performed By: #### I PB, CKB, CHM6, MGO ####[facility] (DEFAULT)[address] [place] [address] Chloride [Moles/Vol] 104 mmol/L Normal 98-108 [facility] Comment on above: Performed By: #### I PB, CKB, CHM6, MGO ####[facility] (DEFAULT)[address] [facility] [place] [address] CO2 [Moles/Vol] 24 mmol/L Normal 22-30 [facility] Comment on above: Performed By: #### I PB, CKB, CHM6, MGO ####[facility] (DEFAULT)[address] [facility] [address] Creatinine [Mass/Vol] 0.59 mg/dL Low 0.70-1.30 [facility] Comment on above: Performed By: #### I PB, CKB, CHM6, MGO ####[facility] (DEFAULT)[address] [place] [address] EST GFR, >=60 Normal >=60 [facility] Comment on above: Performed By: #### I PB, CKB, CHM6, MGO ####[facility] (DEFAULT)[address] [facility] [address] EST GFR,Non >=60 Normal >=60 [facility] Comment on above: Performed By: #### I PB, CKB, CHM6, MGO ####[facility] (DEFAULT)[address] [place] [address] Potassium [Moles/Vol] 3.6 mmol/L Normal 3.5-5.0 [facility] Comment on above: Performed By: #### I PB, CKB, CHM6, MGO ####[facility] (DEFAULT)[address] [place] [address] Sodium [Moles/Vol] 137 mmol/L Normal 133-143 [facility] Comment on above: Performed By: #### I PB, CKB, CHM6, MGO ####[facility] (DEFAULT)[address] [place] [address] 10191 Urea nitrogen [Mass/Vol] 10 mg/dL Normal 7-22 [facility] Comment on above: Performed By: #### I PB, CKB, CHM6, MGO ####[facility] (DEFAULT)[address] [place] [address] 85479 Urea nitrogen/Creatinine [Mass ratio] 17 mg/mg Normal [facility] Comment on above: Performed By: #### I PB, CKB, CHM6, MGO ####[facility] (DEFAULT)[address] [place] [address] 55145 CKon 05-20-2020 CK [Catalytic activity/Vol] 769 U/L Critically high 30-220 [facility] Comment on above: Performed By: #### C KB ####[facility] (DEFAULT)[address] [place] [address]65 CK [Catalytic activity/Vol] 905 U/L Critically high 30-220 [facility] Comment on above: Performed By: #### I PB, CKB, CHM6, MGO ####[facility] (DEFAULT)[address] [place] [address] IONIZED CALCIUM, INPATIENTon 05-20-2020 ICA 4.20 mg/dL Low 4.60-5.30 [facility] Comment on above: Performed By: #### L ABCOR10 #### [facility] (DEFAULT) [address] [place] [address] MAGNESIUMon 05-20-2020 Magnesium [Mass/Vol] 1.4 mg/dL Low 1.6-2.6 [facility] Comment on above: Performed By: #### I PB, CKB, CHM6, MGO ####[facility] (DEFAULT)[address] [place], [place] [address] MRI BRAIN STROKE WITHOUT CON TRASTon 05-20-2020 MRI BRAIN STROKE WITHOUT CONTRAST EXAM: MRI BRAIN STROKE WITHOUT CONTRAST, 05/20/2020 16:35 PM COMPARISON: Comparison is made to prior MRI of the brain from September 15, 2015. CLINICAL INDICATIONS: 60 years Male stroke workup; TECHNIQUE: A series of multisequence, multiplanar images of the brain are obtained without intravenous contrast according to acute stroke protocol. Study includes diffusion-weighted images. FINDINGS: There is an area of encephalomalacia involving the right frontal and parietal lobes as well as a small portions of the right occipital lobe predominantly in the watershed distribution. There is also disproportionate parenchymal volume loss of the right temporal lobe in comparison to the contralateral side. There are multiple scattered foci of T2/FLAIR hyperintensity involving the bilateral cerebral hemispheres. These are nonspecific but may relate to chronic microvascular ischemic changes. No restricted diffusion is noted within the brain parenchyma to suggest acute infarct. Foci of susceptibility involving the right occipital lobe in the areas of encephalomalacia likely relates to hemosiderin from chronic blood products. Tiny elongated foci of T2 hyperintensity in the right cerebellar hemisphere may represent sequela of tiny remote infarcts. There is ex vacuo dilatation of the right lateral ventricle. No hydrocephalus. Lack of expected flow void involving the right internal carotid artery is consistent with proximal occlusion or severe stenosis. Air-fluid level is noted in the right maxillary and sphenoid sinuses. There is also small amount of fluid in the left frontal sinus. Polyp or tic is retention cyst noted in the left maxillary sinus. There is also mucosal thickening in the ethmoid air cells. No orbital mass is identified. The mastoids show mild mucosal thickening. IMPRESSION: No evidence of acute infarct. 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 Asymmetric parenchymal volume loss involving the right temporal lobe, progressed when compared to previous examination from September 15, 2015. Air-fluid level in the paranasal sinuses which could relate to acute sinusitis in the appropriate clinical setting. Normal [facility] MRI PLAIN FILM FOR NEURO EXA 05-20-2020 MRI PLAIN FILM FOR NEURO EXAM Exam: Plain film for MRI clearance INDICATION: Clearance COMPARISON: Chest radiograph May 19, 2020 FINDINGS: AP views of the chest, abdomen, and pelvis demonstrate no radiopaque foreign bodies. Scattered atherosclerotic calcifications. The cardiomediastinal silhouette is within normal limits. Partially visualized left upper lung airspace opacities. Age-indeterminate bilateral rib fractures noted. Nonobstructive bowel gas pattern. IMPRESSION: No radiographic contraindication MRI. I personally viewed and interpreted these images and I have reviewed and approved this report. Normal [facility] PHOSPHATE, INORGANICon 05-20 Phosphorous 2.8 mg/dL Normal 2.2-4.6 [facility] Comment on above: Performed By: #### I PB, CKB, CHM6, MGO ####[facility] (DEFAULT)[address] [place] [address] 2018 Novel Coronavirus (CoVI D-19), NAAon 05-19-2020 SARS-CoV-2 (COVID-19) RNA KAHLIL+probe Ql (Unsp spec) Not detected Normal Not Detected [facility] Comment on above: Result Comment: This nucleic acid amplification test was developed and its performance characteristics determined by [employer]. Nucleic acid amplification tests include RT-PCR and TMA. This test has not been FDA cleared or approved. This test has been authorized by FDA under an Emergency Use Authorization (EUA). This test is only authorized for the duration of time the declaration that circumstances exist justifying the authorization of the emergency use of in vitro diagnostic tests for detection of SARS-CoV-2 virus and/or diagnosis of COVID-19 infection under section 564(b)(1) of the Act, 21 U.S.C. 360bbb-3(b) (1), unless the authorization is terminated or revoked sooner. When diagnostic testing is negative, the possibility of a false negative result should be considered in the context of a patient's recent exposures and the presence of clinical signs and symptoms consistent with COVID-19. An individual without symptoms of COVID-19 and who is not shedding SARS-CoV-2 virus would expect to have a negative (not detected) result in this assay. Performed at: [facility] [address] [id number] Laboratory Courier: Maurilio Pearl PhD, Phone: [phone] Performed By: #### L COV ####[facility] [address] [place], [place] [id number] ABORH TYPE RECONFIRMATIONon 05-19-2020 ABO/RH(D) TYPE Positive Normal [facility] Comment on above: Performed By: #### T YPEC #### [facility] (DEFAULT) [address] [place] [address]38 ALCOHOL (ETHANOL),BLOODon Alcohol, Serum <10 Normal <10 [facility] Comment on above: Order Comment: Non-f orensic. Performed By: #### C 7ED, ALCOSU ####[facility] (DEFAULT)[address] [place] [address]207 Ethanol [Mass/Vol] Not detected Normal [facility] Comment on above: Order Comment: Non-f orensic. Performed By: #### C 7ED, ALCOSU ####[facility] (DEFAULT)[address] [place] [address]79 Bedside Glucose (Point of Ca re)on 05-19-2020 Glucose [Mass/Vol] 116 mg/dL High 65-110 [facility] Comment on above: Performed By: #### G LUPC ####[facility] [place] [address] CBC AND ELECTRONIC DIFFon Basophils (Bld) [#/Vol] 0.04 10*3/uL Normal 0.00-0.09 [facility] Comment on above: Performed By: #### Catherine 1CBrittani, [id number], [id number] ####[facility] (DEFAULT)[address] [place] [address] Basophils/100 WBC (Bld) 0.3 % Normal [facility] Comment on above: Performed By: #### Catherine 1CBrittani, [id number], [id number] ####[facility] (DEFAULT)[address] [place] [address] Eosinophils (Bld) [#/Vol] 0.04 10*3/uL Normal 0.00-0.48 [facility] Comment on above: Performed By: #### Catherine MCCURDY, [id number], [id number] ####[facility] (DEFAULT)[address] [place] [address] Eosinophils/100 WBC (Bld) 0.3 % Normal [facility] Comment on above: Performed By: #### Catherine MCCURDY, [id number], [id number] ####[facility] (DEFAULT)[address] [facility] [place] [address] Hematocrit (Bld) [Volume fraction] 38.3 % Low 39.6-48.8 [facility] Comment on above: Performed By: #### Catherine 1CBrittani, [id number], [id number] ####[facility] (DEFAULT)[address] [place] [address] Hemoglobin (Bld) [Mass/Vol] 13.2 g/dL Low 13.4-16.8 [facility] Comment on above: Performed By: #### Catherine 1CBrittani, [id number], [id number] ####[facility] (DEFAULT)[address] [place] [address] Immature Grans % 0.8 % Normal [facility] Comment on above: Performed By: #### Catherine 1CB, [id number], [id number] ####[facility] (DEFAULT)[address] [place] [address] Immature Grans Absolute 0.10 K/uL High <=0.08 [facility] Comment on above: Performed By: #### Catherine MCCURDY, [id number], [id number] ####[facility] (DEFAULT)[address] [place] [address] Lymphocytes (Bld) [#/Vol] 1.67 10*3/uL Normal 0.83-3.57 [facility] Comment on above: Performed By: #### Catherine MCCURDY, [id number], [id number] ####[facility] (DEFAULT)[address] [facility] [place] [address] Lymphocytes/100 WBC (Bld) 13.7 % Normal [facility] Comment on above: Performed By: #### Catherine MCCURDY, [id number], [id number] ####[facility] (DEFAULT)[address] [facility] [place] [address] MCV (RBC) [Entitic vol] 94.6 fL High 79.0-94.5 [facility] Comment on above: Performed By: #### Catherine MCCURDY, [id number], WJA065 ####[facility] (DEFAULT)[address] [facility] [place] [address] Mean Cell Hgb 32.6 pg Normal 26.1-33.3 [facility] Comment on above: Performed By: #### Catherine MCCURDY, [id number], [id number] ####[facility] (DEFAULT)[address] [facility] [place] [address] Mean Cell Hgb Conc 34.5 g/dL Normal 31.9-36.5 [facility] Comment on above: Performed By: #### Catherine MCCURDY, [id number], [id number] ####[facility] (DEFAULT)[address] [place] [address] Mean Platelet Volume Normal [facility] Comment on above: Result Comment: Not measured Performed By: #### Catherine 1CBrittani, [id number], [id number] ####[facility] (DEFAULT)[address] [place] [address] Monocytes (Bld) [#/Vol] 0.95 10*3/uL High 0.24-0.93 [facility] Comment on above: Performed By: #### Catherine MCCURDY, [id number], [id number] ####[facility] (DEFAULT)[address] [place] [address] Monocytes/100 WBC (Bld) 7.8 % Normal [facility] Comment on above: Performed By: #### Catherine MCCURDY, [id number], [id number] ####[facility] (DEFAULT)[address] [facility] [place] [address] Nucleated RBC 0.0 /100 WBC Normal <=0.2 [facility] Comment on above: Result Comment: This is an appended report. These results have been appended to a previously preliminary verified report. Performed By: #### Catherine MCCURDY [id number], [id number] ####[facility] (DEFAULT)[address] [facility] [address] Platelets (Bld) [#/Vol] 242 10*3/uL Normal 146-337 [facility] Comment on above: Result Comment: This is an appended report. These results have been appended to a previously preliminary verified report. Performed By: #### Catherine MCCURDY, [id number], [id number] ####[facility] (DEFAULT)[address] [facility] [place] [address] RBC (Bld) [#/Vol] 4.05 10*6/uL Low 4.38-5.83 [facility] Comment on above: Performed By: #### Catherine MCCURDY, [id number], [id number] ####[facility] (DEFAULT)[address] [facility] [place] [address] RBC Distribution 13.2 % Normal 10.9-14.3 [facility] Comment on above: Performed By: #### Catherine MCCURDY, [id number], [id number] ####[facility] (DEFAULT)[address] [place] [address] Segs + Bands Auto 77.1 % Normal [facility] Comment on above: Performed By: #### Catherine MCCURDY, [id number], [id number] ####[facility] (DEFAULT)[address] [place] [address] Segs + Bands,Absolute Auto 9.35 K/uL High 1.57-6.19 [facility] Comment on above: Performed By: #### Catherine MCCURDY, [id number], [id number] ####[facility] (DEFAULT)[address] [place] [address] WBC (Bld) [#/Vol] 12.15 10*3/uL High 3.73-10.10 [facility] Comment on above: Result Comment: This is an appended report. These results have been appended to a previously preliminary verified report. Performed By: #### Catherine MCCURDY [id number], [id number] ####[facility] (DEFAULT)[address] [place] [address] CBC w/Auto Differentialon Basophillia % ENVIRONMENTAL COMPLIANCE ENGINEER Normal [facility] Comment on above: Performed By: #### C BC ####[facility] [place] [address] Basophils Abs. # 0.00 K/uL Normal 0.00-0.10 [facility] Comment on above: Performed By: #### C BC ####[facility] [address] [place] [address] Basophils/100 WBC (Bld) 0.0 % Low 0.2-1.0 [facility] Comment on above: Performed By: #### C BC ####[facility] [place] [address] Bosophillia # ENVIRONMENTAL COMPLIANCE ENGINEER Normal [facility] Comment on above: Performed By: #### C BC ####[facility] [place] [address] Eosinophilia # ENVIRONMENTAL COMPLIANCE ENGINEER Normal [facility] Comment on above: Performed By: #### C BC ####[facility] [address] [place] [address] Eosinophilia % ENVIRONMENTAL COMPLIANCE ENGINEER Normal [facility] Comment on above: Performed By: #### C BC ####[facility] [address] [place] [address] Eosinophils (Bld) [#/Vol] 0.10 10*3/uL Normal 0.00-0.20 [facility] Comment on above: Performed By: #### C BC ####[facility] [place] [address] Eosinophils/100 WBC (Bld) 0.5 % Low 0.9-2.9 [facility] Comment on above: Performed By: #### C BC ####[facility] [address] [place] [address] Erythrocyte distribution width (RBC) [Ratio] 14.1 % Normal 11.5-14.5 [facility] Comment on above: Performed By: #### C BC ####[facility] [address] [place] [address] Hematocrit (Bld) [Volume fraction] 37.0 % Normal 36.7-50.6 [facility] Comment on above: Performed By: #### C BC ####[facility] [address] [facility] [place] [address] Hemoglobin (Bld) [Mass/Vol] 12.2 g/dL Low 12.4-17.3 [facility] Comment on above: Performed By: #### C BC ####[facility] [address] [place] [address] Hypochromia ENVIRONMENTAL COMPLIANCE ENGINEER Normal [facility] Comment on above: Performed By: #### C BC ####[facility] [address] [place] [address] Large Platelets ENVIRONMENTAL COMPLIANCE ENGINEER Normal [facility] Comment on above: Performed By: #### C BC ####[facility] [address] [place] [address] Lymphocytes (Bld) [#/Vol] 1.00 10*3/uL Low 1.30-2.90 [facility] Comment on above: Performed By: #### C BC ####[facility] [address] [place] [address] Lymphocytes/100 WBC (Bld) 6.6 % Low 17.0-45.5 [facility] Comment on above: Performed By: #### C BC ####[facility] [address] [place] [address] Lymphocytosis # ENVIRONMENTAL COMPLIANCE ENGINEER Normal [facility] Comment on above: Performed By: #### C BC ####[facility] [address] [place] [address] Lymphocytosis % ENVIRONMENTAL COMPLIANCE ENGINEER Normal [facility] Comment on above: Performed By: #### C BC ####[facility] [address] [place] [address] Lymphopenia # ENVIRONMENTAL COMPLIANCE ENGINEER Normal [facility] Comment on above: Performed By: #### C BC ####[facility] [address] [place] [address] Lymphopenia % ENVIRONMENTAL COMPLIANCE ENGINEER Normal [facility] Comment on above: Performed By: #### C BC ####[facility] [address] [place] [address] Macrocytosis ENVIRONMENTAL COMPLIANCE ENGINEER Normal [facility] Comment on above: Performed By: #### C BC ####[facility] [address] [place] [address] MCH (RBC) [Entitic mass] 31.9 pg High 27.0-31.0 [facility] Comment on above: Performed By: #### C BC ####[facility] [address] [place] [address] MCHC (RBC) [Mass/Vol] 32.9 g/dL Low 33.0-37.0 [facility] Comment on above: Performed By: #### C BC ####[facility] [address] [place] [address] MCV (RBC) [Entitic vol] 97.1 fL High 80.0-94.0 [facility] Comment on above: Performed By: #### C BC ####[facility] [address] [place] [address] Microcytosis ENVIRONMENTAL COMPLIANCE ENGINEER Normal [facility] Comment on above: Performed By: #### C BC ####[facility] [address] [place] [address] Monocytes (Bld) [#/Vol] 1.00 10*3/uL High 0.30-0.80 [facility] Comment on above: Performed By: #### C BC ####[facility] [address] [place] [address] Monocytes/100 WBC (Bld) 6.8 % Normal 5.5-11.7 [facility] Comment on above: Performed By: #### C BC ####[facility] [address] [place] [address] Monocytosis % ENVIRONMENTAL COMPLIANCE ENGINEER Normal [facility] Comment on above: Performed By: #### C BC ####[facility] [address] [place] [address] Neutropenia # ENVIRONMENTAL COMPLIANCE ENGINEER Normal [facility] Comment on above: Performed By: #### C BC ####[facility] [address] [place] [address] Neutropenia % ENVIRONMENTAL COMPLIANCE ENGINEER Normal [facility] Comment on above: Performed By: #### C BC ####[facility] [address] [place] [address] Neutrophilia % PRESENT Abnormal [facility] Comment on above: Performed By: #### C BC ####[facility] [address] [place] [address] Neutrophilla # PRESENT Abnormal [facility] Comment on above: Performed By: #### C BC ####[facility] [address] [place] [address] Neutrophils Abs. # 13.10 K/uL High 2.20-4.80 [facility] Comment on above: Performed By: #### C BC ####[facility] [address] [place] [address] Neutrophils/100 WBC (Bld) 86.1 % High 43.0-65.0 [facility] Comment on above: Performed By: #### C BC ####[facility] [address] [place] [address] Nucleated RBC (Bld) [#/Vol] 0.0 10*3/uL Normal [facility] Comment on above: Performed By: #### C BC ####[facility] [address] [place] [address] Nucleated RBC/100 WBC (Bld) [Ratio] 0.0 % Normal [facility] Comment on above: Performed By: #### C BC ####[facility] [address] [place] [address] Pancytopenia ENVIRONMENTAL COMPLIANCE ENGINEER Normal [facility] Comment on above: Performed By: #### C BC ####[facility] [address] [place] [address] Platelet mean volume (Bld) [Entitic vol] 6.2 fL Low 7.4-10.4 [facility] Comment on above: Performed By: #### C BC ####[facility] [address] [place] [address] Platelets (Bld) [#/Vol] 413 10*3/uL High 148-402 [facility] Comment on above: Performed By: #### C BC ####[facility] [address] [place] [address] Poikilocytosis ENVIRONMENTAL COMPLIANCE ENGINEER Normal [facility] Comment on above: Performed By: #### C BC ####[facility] [address] [place] [address] RBC (Bld) [#/Vol] 3.81 10*6/uL Low 4.13-5.69 [facility] Comment on above: Performed By: #### C BC ####[facility] [address] [place] [address] Small Platelets PRESENT Normal [facility] Comment on above: Performed By: #### C BC ####[facility] [address] [place] [address] Thrombocytopenia. ENVIRONMENTAL COMPLIANCE ENGINEER Normal [facility] Comment on above: Performed By: #### C BC ####[facility] [address] [place] [address] WBC (Bld) [#/Vol] 15.2 10*3/uL High 3.6-10.8 [facility] Comment on above: Performed By: #### C BC ####[facility] [place], [place] [id number] CBLDon 05-19-2020 CBLD Patient: KERMIT GARZA [id number] Location: [facility] Aount: [id number] : 1960 Age: 60 Sex M Lab NumbEr [id number] Requested by: JUDITH DAVIDSON Admitdate: 05/18/20 Source: BLOOD Collected: 05/19/20 00:50 Site: [facility] Received : 05/19/20 00:55 OE C O M M E N T S [email or web address]; Cynthia Site; blood Culture, Blood FINAL 05/25/20 15:21 05/21/20 No growth after 48 hours incubation in aerobic and anaerobic bottle. 05/21/2020 13:32 05/25/20 No growth after 5 days incubation in aerobic and anaerobic bottle. 05/25/2020 15:21 Normal [facility] Comment on above: Performed By: #### M IC2 ####[facility] [place] [address] CBLD Patient: KERMIT GARZA MASTER [id number] Location: [facility] Aount: [id number] : 1960 Age: 60 Sex M Lab NumbEr [id number] Requested by: JUDITH DAVIDSON Admitdate: 05/18/20 Source: BLOOD Collected: 05/19/20 00:50 Site: [facility] Received : 05/19/20 00:55 OE C O M M E N T S [email or web address]; Cynthia Site; blood Culture, Blood FINAL 05/25/20 15:21 05/21/20 No growth after 48 hours incubation in aerobic and anaerobic bottle. 05/21/2020 13:32 05/25/20 No growth after 5 days incubation in aerobic and anaerobic bottle. 05/25/2020 15:21 Normal [facility] Comment on above: Performed By: #### M IC2 ####[address] [address] [facility] 7 - EDon 05-19-2020 Anion gap [Moles/Vol] 10 mmol/L Normal 7-17 [facility] Comment on above: Performed By: #### Gucci SANTIZO ALCOSU ####[facility] (DEFAULT)[address] [place] [address] Chloride [Moles/Vol] 102 mmol/L Normal 98-108 [facility] Comment on above: Performed By: #### Gucci SANTIZO ALCOSU ####[facility] (DEFAULT)[address] [place] [address] CO2 [Moles/Vol] 24 mmol/L Normal 22-30 [facility] Comment on above: Performed By: #### Gucci 7ESudarshan, ALCOSU ####[facility] (DEFAULT)[address] [place] [address] Creatinine [Mass/Vol] 0.66 mg/dL Low 0.70-1.30 [facility] Comment on above: Performed By: #### Gucci SANTIZO ALCOSU ####[facility] (DEFAULT)[address] [facility] [place] [address] EST GFR, >=60 Normal >=60 [facility] Comment on above: Performed By: #### Gucci 7ESudarshan, ALCOSU ####[facility] (DEFAULT)[address] [place] [address] EST GFR,Non >=60 Normal >=60 [facility] Comment on above: Performed By: #### Gucci SANTIZO ALCOSU ####[facility] (DEFAULT)[address] [place] [address] Glucose [Mass/Vol] 120 mg/dL High 70-99 [facility] Comment on above: Performed By: #### Gucci SANTIZO, ALCOSU ####[facility] (DEFAULT)[address] [place] [address] Osmolality [Osmolality] 279 mosm/kg Normal 278-305 [facility] Comment on above: Performed By: #### Gucci SANTIZO ALCOSU ####[facility] (DEFAULT)[address] [place] [address] Potassium [Moles/Vol] 4.0 mmol/L Normal 3.5-5.0 [facility] Comment on above: Result Comment: Slig htly hemolyzed Performed By: #### Gucci SANTIZO ALCOSGilberto ####[facility] (DEFAULT)[address] [place] [address] Sodium [Moles/Vol] 132 mmol/L Low 133-143 [facility] Comment on above: Performed By: #### Gucci SANTIZO ALCOSU ####[facility] (DEFAULT)[address] [place] [address] Urea nitrogen [Mass/Vol] 13 mg/dL Normal 7-22 [facility] Comment on above: Performed By: #### Gucci SANTIZO ALCOSU ####[facility] (DEFAULT)[address] [place] [address] Urea nitrogen/Creatinine [Mass ratio] 20 mg/mg Normal [facility] Comment on above: Performed By: #### Gucci SANTIZO, ALCOSU ####[facility] (DEFAULT)[address] [place] [address] CKon 05-19-2020 CK [Catalytic activity/Vol] 1201 U/L Critically high 30-220 [facility] Comment on above: Performed By: #### C KB ####[facility] (DEFAULT)[address] [place] [address] CK [Catalytic activity/Vol] 698 U/L Critically high 30-220 [facility] Comment on above: Order Comment: Viral transport media or BAL specimen - Collection must be done while wearing N-95 mask, eye protection, gown and gloves. Please label ALL specimens as "2019-nCoV rule out" and deliver by hand. This test was performed using real time PCR and has been approved for the qualitative detection of SARS-CoV-2 nucleic acid. The test has been authorized by the FDA under an emergency use authorization for use by authorized laboratories. Performed By: #### L ABCOR10 #### [facility] (DEFAULT) [address] [place] [address] CT ANGIO BRAIN/NECKon 2020 CT ANGIO BRAIN/NECK EXAM: CT ANGIO BRAIN /NECK, 05/19/2020 03:55 AM COMPARISON: Same day CT head. CLINICAL INDICATIONS: 60 years Male Head trauma, intracranial arterial injury suspected; RELEVANT CLINICAL HISTORY: TECHNIQUE: A series of transaxial multislice computerized tomographic images are obtained with helical technique from top of aortic arch to vertex following bolus intravenous administration of nonionic contrast. Axial thin section source images, as well as sagittal and coronal thin section reformats, were provided at the scanner. Additional multiplanar and 3D reconstructions were provided. CONTRAST: iohexol (OMNIPAQUE) 350 MG/ML injection 1-171 mL; Route of Administration: Intravenous; Dose: 100 mL. FINDINGS: CTA NECK: Aortic Arch: There is conventional origin of the great vessels from the aortic arch, without origin stenosis. Carotid Arteries: The right common and external carotid arteries are normal in caliber without evidence of dissection or pseudoaneurysm. Atherosclerotic calcification and long segment thrombosis of the proximal right internal carotid at the bifurcation through the right supraclinoid internal carotid artery. The left common and external carotid arteries are normal in caliber without evidence of dissection or pseudoaneurysm. Calcified atherosclerotic plaque at the carotid bifurcation and proximal left internal carotid resulting in moderate (50 percent) left internal carotid artery stenosis just distal to the bifurcation (series 8, image 346). The left internal carotid artery is otherwise patent through the skull base and [place] of [place]. Vertebral Arteries: Severe stenosis (80 percent) secondary to atherosclerotic plaque at the origin of the right vertebral artery which is otherwise is patent through the basilar tip. Severe stenosis at the origin of the left vertebral artery secondary to calcified atherosclerotic plaque (80 percent). The left vertebral artery is otherwise patent through the basilar confluence. CTA INTRACRANIAL: The right petrous and cavernous internal carotid arteries are thrombosed with distal reconstitution at the supraclinoid segment of the right internal carotid. The left petrous, cavernous, and supraclinoid internal carotid arteries are widely patent without luminal stenosis. No major anatomical variations at [place]. Anterior, middle and posterior cerebral arteries appear unremarkable. When compared to the left the right middle cerebral arteries are diminutive in caliber, otherwise patent. Intracranial vertebral arteries are unremarkable. Basilar artery is unremarkable. No aneurysm or vascular malformation is identified. Patient is intubated. Upper lobe predominant paraseptal emphysematous changes. Partial opacification of the paranasal sinuses. IMPRESSION: 1. No evidence of significant traumatic injury to the arteries of the brain and neck. 2. 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 This is age-indeterminate however certainly may be chronic. 3. Moderate left internal carotid artery stenosis just distal to the bifurcation. 4. Severe stenosis at the origins of the vertebral arteries which are otherwise patent. I personally viewed and interpreted these images and I have reviewed and approved this report. Normal [facility] CT BRAIN WOon 05-19-2020 CT BRAIN WO EXAMINATION: CT OF THE HEAD WITHOUT CONTRAST 05/19/2020 12:20 am TECHNIQUE: CT of the head was performed without the administration of intravenous contrast. Dose modulation, iterative reconstruction, and/or weight based adjustment of the mA/kV was utilized to reduce the radiation dose to as low as reasonably achievable. COMPARISON: 11/01/2011 HISTORY: ORDERING SYSTEM PROVIDED HISTORY: TRAUMA FINDINGS: BRAIN/VENTRICLES: There is no acute intracranial hemorrhage, mass effect or midline shift. No abnormal extra-axial fluid collection. The davis-white differentiation is maintained without evidence of an acute infarct. There has been interval development of encephalomalacia in the right frontoparietal lobes. Mild diffuse parenchymal volume loss is noted. There is no evidence of hydrocephalus. ORBITS: The bilateral globes are intact. SINUSES: Air-fluid levels are seen in the bilateral maxillary and right sphenoid sinuses and bilateral ethmoid air cells. Mastoid air cells are clear. SOFT TISSUES/SKULL: No acute abnormality of the visualized skull or soft tissues. IMPRESSION: No acute intracranial abnormality. Chronic nonemergent findings as above. Normal [facility] CT CERVICAL WOon 05-19-2020 CT CERVICAL WO EXAMINATION: CT OF THE CERVICAL SPINE WITHOUT CONTRAST 05/19/2020 12:38 am TECHNIQUE: CT of the cervical spine was performed without the administration of intravenous contrast. Multiplanar reformatted images are provided for review. Dose modulation, iterative reconstruction, and/or weight based adjustment of the mA/kV was utilized to reduce the radiation dose to as low as reasonably achievable. COMPARISON: None. HISTORY: ORDERING SYSTEM PROVIDED HISTORY: TRAUMA FINDINGS: BONES/ALIGNMENT: There is no acute fracture or traumatic malalignment. DEGENERATIVE CHANGES: Multilevel cervical spondylosis is noted. SOFT TISSUES: Prevertebral soft tissues are unremarkable. Vascular calcification is seen. There is no apical pneumothorax. IMPRESSION: No acute abnormality of the cervical spine. Normal [facility] CT CHEST ABD PELVIS Won 04-26 CT CHEST ABD PELVIS W EXAMINATION: CT OF THE CHEST, ABDOMEN, AND PELVIS WITH CONTRAST 05/19/2020 12:40 am TECHNIQUE: CT of the chest, abdomen and pelvis was performed with the administration of intravenous contrast. Multiplanar reformatted images are provided for review. Dose modulation, iterative reconstruction, and/or weight based adjustment of the mA/kV was utilized to reduce the radiation dose to as low as reasonably achievable. COMPARISON: None HISTORY: ORDERING SYSTEM PROVIDED HISTORY: TRAUMA FALL FINDINGS: Chest: Mediastinum: No evidence of injury to the great vessels of the mediastinum. Ectatic ascending thoracic aorta measuring 3.9 cm in diameter. Atherosclerosis of the thoracic aorta and coronary arteries. No filling defect in the central pulmonary arteries to suggest pulmonary embolism. No adenopathy. No mediastinal hematoma. No pericardial effusion. Lungs/pleura: No pneumothorax. No pleural effusion. No pulmonary contusion, mass, or suspicious nodule. Emphysematous changes in the lung apices. Minimal bibasilar dependent atelectasis. Soft Tissues/Bones: No acute fracture or subluxation in the thoracic cage. Multiple bilateral subacute to old rib fractures. Also, subacute fracture at the base of the coracoid process of the left scapula. Mild multilevel thoracic spondylosis. Abdomen/Pelvis: Organs: Under unremarkable liver, spleen, pancreas, and left kidney. A 1.2 cm likely simple cyst in the posterolateral cortex of the right kidney. Thickened right adrenal. A 1.0 cm indeterminate nodule in the left adrenal, which statistically should represent an adenoma. GI/Bowel: No definite cholelithiasis. Multiple fluid-filled small bowel loops noted, nonspecific finding which can be seen with acute enteritis. No evidence of bowel injury. Appendix not seen. No CT evidence of acute appendicitis. Pelvis: Enlarged prostate gland causing mass effect on the neck of the urinary bladder. No evidence of bladder injury. Peritoneum/Retroperitoneum: No free air or free fluid. Marked vascular calcification. No abdominal aortic aneurysm. No adenopathy. Bones/Soft Tissues: No acute finding in the regional osseous structures. Mild multilevel lumbar spondylosis IMPRESSION: No acute traumatic finding in the chest, abdomen, and pelvis. Subacute to chronic abnormalities as above. Normal [facility] CT HEAD WITHOUT CONTRASTon 0 05-19-2020 CT HEAD WITHOUT CONTRAST EXAM: CT HEAD WITHOUT CONTRAST, 05/19/2020 4:01 AM COMPARISON: MRI brain dated September 15, 2015. CLINICAL INDICATIONS: 60 years Male Polytrauma, critical, head/C-spine injury suspected; RELEVANT CLINICAL HISTORY: TECHNIQUE: A series of transaxial computerized tomographic images are obtained from base of skull to vertex without intravenous contrast. Axial whole-head and thin section posterior fossa slices are provided. Reformats: Sagittal and coronal. FINDINGS: Large area of encephalomalacia involving the right frontal and parietal lobes compatible with prior large territory right MCA infarct. No acute intracranial hemorrhage. No new acute large territory infarct. No mass effect or midline shift. There is no extracerebral collection. Basal cisterns are patent. Ventricles are normal in size and configuration for patient's stated age. Posterior fossa is within normal limits. Calvarium and skull base appear intact. There is complete opacification of the left maxillary sinus and partial opacification of the right maxillary sinus. Near complete opacification of the ethmoid air cells. Partial opacification of the frontal and sphenoid sinuses. Visualized orbits are unremarkable. IMPRESSION: 1. No acute intracranial abnormality. No intracranial hemorrhage. 2. 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 3. Near complete opacification of the paranasal sinuses. I personally viewed and interpreted these images and I have reviewed and approved this report. Normal [facility] Comprehensive Metabolic Pane diallo 05-19-2020 Albumin [Mass/Vol] 3.7 g/dL Normal 3.4-5.0 [facility] Comment on above: Performed By: #### C MP #### [facility] [address] [place] [address] Albumin/Globulin [Mass ratio] 1.1 {ratio} Normal 1.1-2.5 [facility] Comment on above: Performed By: #### C MP #### [facility] [address] [place] [address] ALP [Catalytic activity/Vol] 105 U/L Normal 54-112 [facility] Comment on above: Performed By: #### C MP #### [facility] [address] [place] [address] ALT [Catalytic activity/Vol] 26 U/L Normal 13-66 [facility] Comment on above: Performed By: #### C MP #### [facility] [address] [place] [address] Anion gap [Moles/Vol] 16.1 mmol/L High 8.0-16.0 [facility] Comment on above: Performed By: #### C MP #### [facility] [address] [place] [address] AST [Catalytic activity/Vol] 25 U/L Normal 3-39 [facility] Comment on above: Performed By: #### C MP #### [facility] [address] [place] [address] Bilirubin [Mass/Vol] 0.56 mg/dL Normal 0.00-0.99 [facility] Comment on above: Performed By: #### C MP #### [facility] [address] [place] [address] Calcium [Mass/Vol] 8.9 mg/dL Normal 8.2-10.0 [facility] Comment on above: Performed By: #### C MP #### [facility] [address] [place] [address] Chloride [Moles/Vol] 99 mmol/L Normal 94-110 [facility] Comment on above: Performed By: #### C MP #### [facility] [address] [place] [address] CO2 [Moles/Vol] 19 mmol/L Low 21-34 [facility] Comment on above: Performed By: #### C MP #### [facility] [address] [place] [address] Creatinine [Mass/Vol] 0.73 mg/dL Normal 0.50-1.17 [facility] Comment on above: Performed By: #### C MP #### [facility] [address] [place] [address] EGFR Other Races >60 Normal >60 [facility] Comment on above: Performed By: #### C MP #### [facility] [address] [place] [address] GFR/1.73 sq M.predicted among blacks MDRD (S/P/Bld) [Vol rate/Area] mL/min/{1.73_m2} Normal >60 [facility] Comment on above: Result Comment: Briar Cutter tripp Kidney Disease less than 60 mL/min/1.73 m2 Kidney Failure less than 15 mL/min/1.73 m2 Average estimated GFR by age: 50-59 years 93 mL/min/1.73 m2 Performed By: #### C MP #### [facility] [address] [facility] [place] [address] Globulin (S) [Mass/Vol] 3.4 g/dL Normal 1.5-4.5 [facility] Comment on above: Performed By: #### C MP #### [facility] [address] [place] [address] Glucose [Mass/Vol] 117 mg/dL High 65-100 [facility] Comment on above: Performed By: #### C MP #### [facility] [address] [place] [address] Potassium [Moles/Vol] 4.1 mmol/L Normal 3.3-5.1 [facility] Comment on above: Performed By: #### C MP #### [facility] [address] [place] [address] Protein [Mass/Vol] 7.1 g/dL Normal 6.1-8.2 [facility] Comment on above: Performed By: #### C MP #### [facility] [address] [place] [address] Sodium [Moles/Vol] 130 mmol/L Low 132-145 [facility] Comment on above: Performed By: #### C MP #### [facility] [address] [place] [address] Urea nitrogen [Mass/Vol] 15.0 mg/dL Normal 3.2-26.9 [facility] Comment on above: Performed By: #### C MP #### [facility] [address] [facility] [place] [address] Urea nitrogen/Creatinine [Mass ratio] 21 mg/mg High 6-20 [facility] Comment on above: Performed By: #### C MP #### [facility] [address] [place] [address] Creatine Kinaseon 05-19-2020 CK [Catalytic activity/Vol] 484 U/L High 39-308 [facility] Comment on above: Performed By: #### C PK ####[facility] [place] [address] DRUGS OF ABUSE SCREEN 10, UR INEon 05-19-2020 Amphetamine/Methamphe tamine Negative Normal Cutoff: 500 ng/mL [facility] Comment on above: Order Comment: Viral transport media or BAL specimen - Collection must be done while wearing N-95 mask, eye protection, gown and gloves. Please label ALL specimens as "2019-nCoV rule out" and deliver by hand. This test was performed using real time PCR and has been approved for the qualitative detection of SARS-CoV-2 nucleic acid. The test has been authorized by the FDA under an emergency use authorization for use by authorized laboratories. Performed By: #### L [id number] #### [facility] (DEFAULT) [address] [place] [address] Barbiturates Negative Normal Cutoff: 200 ng/mL [facility] Comment on above: Order Comment: Viral transport media or BAL specimen - Collection must be done while wearing N-95 mask, eye protection, gown and gloves. Please label ALL specimens as "2019-nCoV rule out" and deliver by hand. This test was performed using real time PCR and has been approved for the qualitative detection of SARS-CoV-2 nucleic acid. The test has been authorized by the FDA under an emergency use authorization for use by authorized laboratories. Performed By: #### L [id number] #### [facility] (DEFAULT) [address] [address] Benzodiazepines Positive Abnormal Cutoff: 200 ng/mL [facility] Comment on above: Order Comment: Viral transport media or BAL specimen - Collection must be done while wearing N-95 mask, eye protection, gown and gloves. Please label ALL specimens as "2019-nCoV rule out" and deliver by hand. This test was performed using real time PCR and has been approved for the qualitative detection of SARS-CoV-2 nucleic acid. The test has been authorized by the FDA under an emergency use authorization for use by authorized laboratories. Performed By: #### L [id number] #### [facility] (DEFAULT) [address] [address] Buprenorphine Negative Normal Cutoff: 5 ng/mL [facility] Comment on above: Order Comment: Viral transport media or BAL specimen - Collection must be done while wearing N-95 mask, eye protection, gown and gloves. Please label ALL specimens as "2019-nCoV rule out" and deliver by hand. This test was performed using real time PCR and has been approved for the qualitative detection of SARS-CoV-2 nucleic acid. The test has been authorized by the FDA under an emergency use authorization for use by authorized laboratories. Performed By: #### L [id number] #### [facility] (DEFAULT) [address] [address] Cannabinoids Screen Ql (U) Positive Abnormal Cutoff: 50 ng/mL [facility] Comment on above: Order Comment: Viral transport media or BAL specimen - Collection must be done while wearing N-95 mask, eye protection, gown and gloves. Please label ALL specimens as "2019-nCoV rule out" and deliver by hand. This test was performed using real time PCR and has been approved for the qualitative detection of SARS-CoV-2 nucleic acid. The test has been authorized by the FDA under an emergency use authorization for use by authorized laboratories. Performed By: #### L [id number] #### [facility] (DEFAULT) [address] [place] [address] Cocaine Negative Normal Cutoff: 150 ng/mL [facility] Comment on above: Order Comment: Viral transport media or BAL specimen - Collection must be done while wearing N-95 mask, eye protection, gown and gloves. Please label ALL specimens as "2019-nCoV rule out" and deliver by hand. This test was performed using real time PCR and has been approved for the qualitative detection of SARS-CoV-2 nucleic acid. The test has been authorized by the FDA under an emergency use authorization for use by authorized laboratories. Performed By: #### L [id number] #### [facility] (DEFAULT) [address] [address] Fentanyl Positive Abnormal Cutoff: 2 ng/mL [facility] Comment on above: Order Comment: Viral transport media or BAL specimen - Collection must be done while wearing N-95 mask, eye protection, gown and gloves. Please label ALL specimens as "2019-nCoV rule out" and deliver by hand. This test was performed using real time PCR and has been approved for the qualitative detection of SARS-CoV-2 nucleic acid. The test has been authorized by the FDA under an emergency use authorization for use by authorized laboratories. Performed By: #### L [id number] #### [facility] (DEFAULT) [address] [address] Methadone Negative Normal Cutoff: 300 ng/mL [facility] Comment on above: Order Comment: Viral transport media or BAL specimen - Collection must be done while wearing N-95 mask, eye protection, gown and gloves. Please label ALL specimens as "2019-nCoV rule out" and deliver by hand. This test was performed using real time PCR and has been approved for the qualitative detection of SARS-CoV-2 nucleic acid. The test has been authorized by the FDA under an emergency use authorization for use by authorized laboratories. Performed By: #### L ABCOR10 #### [facility] (DEFAULT) [address] [address] Opiates Negative Normal Cutoff: 300 ng/mL [facility] Comment on above: Order Comment: Viral transport media or BAL specimen - Collection must be done while wearing N-95 mask, eye protection, gown and gloves. Please label ALL specimens as "2019-nCoV rule out" and deliver by hand. This test was performed using real time PCR and has been approved for the qualitative detection of SARS-CoV-2 nucleic acid. The test has been authorized by the FDA under an emergency use authorization for use by authorized laboratories. Performed By: #### L ABCOR10 #### [facility] (DEFAULT) [address] [address] Oxycodone Negative Normal Cutoff: 100 ng/mL [facility] Comment on above: Order Comment: Viral transport media or BAL specimen - Collection must be done while wearing N-95 mask, eye protection, gown and gloves. Please label ALL specimens as "2019-nCoV rule out" and deliver by hand. This test was performed using real time PCR and has been approved for the qualitative detection of SARS-CoV-2 nucleic acid. The test has been authorized by the FDA under an emergency use authorization for use by authorized laboratories. Performed By: #### L ABCOR10 #### [facility] (DEFAULT) [address] [address] Differential Manualon 2020 WBC Corrected for NRBC ENVIRONMENTAL COMPLIANCE ENGINEER Normal 3.6-10.8 [facility] Comment on above: Performed By: #### D IFF #### [facility] [address] [address] EMERGENCY DEPARTMENTon 05-19 EMERGENCY DEPARTMENT [address] [address] HEALTH INFORMATION MANAGEMENT EMERGENCY DEPARTMENT : [phone] Signed Patient: STEVE GARZA Acct:[id number] U N: [id number] : 1960 Sex: M Loc: ED ADM Date: Room/Bed: DISC Date: 05/19/20 History of Present Illness - General Chief Complaint: Trauma Symptom onset: tonight HPI: [facility] PT HAS A HOUSE MATE WHO SAW PT LAST AT [address]. PER [facility] PT'S HOUSEMATE FOUND HIM AT THE BOTTOM OF THE WOODENSTAIRS AND STATED THERE WERE APPROX 20 STEPS. PER [facility] PT WAS FOUND MINIMALLY RESPONSIVE. PER [facility] PT HAS A HISTORY OF STROKE AND SEIZURE. PER [facility] PT HAS BEEN AGITATED,NOT FOLLOWING COMMANDS. PER [facility] PT IS ON PLAVIX. Time Seen by Provider: 05/18/20 23:42 Nurses Notes Reviewed and Agreed With?: Yes Source: EMS Mode of Transport: [facility] - History of Present Illness Initial Comments: Patient was found on the bottom of a 20 foot staircase with a [place] Coma Scale of 5 out of 15. Patient was not alert oriented to person place or time last known normal was 8 PM last night MD Complaint: Complains of: altered mental status, confusion, decreased responsiveness -: hour(s) (4) Consistency of Symptoms: constant Context: Complains of: unknown Associated Symptoms: Complains of: other (Unable to obtain secondary to patient's medical condition of unresponsiveness) - Related Data Home Medications Medication Instructions Recorded Confirmed Levothyroxine Sodium 50 mcg PO DAILY 09/06/15 03/30/20 Lisinopril 40 mg PO DAILY 09/06/15 03/30/20 Atorvastatin Calcium 80 mg PO DAILY 07/08/18 03/30/20 Clopidogrel Bisulfate [Plavix 75 75 mg PO DAILY 07/08/18 03/30/20 mg Tablet] Oxcarbazepine [Oxtellar Xr] 600 mg PO DAILY 07/08/18 03/30/20 Pantoprazole Sodium [Protonix 40 40 mg PO DAILY 07/08/18 03/30/20 mg Tablet] Acetaminophen [Tylenol Extra 1,000 mg PO RTQ6 #30 tablet 03/30/20 Strength] Amoxicillin/Potassium Clav 1 each PO BID #20 tablet 03/30/20 [Augmentin 875-125 Tablet] Aspirin [Aspirin 81 mg Chew Tablet] 81 mg PO DAILY 03/30/20 03/30/20 Duloxetine HCl [Cymbalta] 60 mg PO DAILY 03/30/20 03/30/20 Ferrous Sulfate [Ferrous Sulfate 325 mg PO DAILY 03/30/20 03/30/20 325 mg Tablet] Metoprolol Tartrate [Lopressor] 50 mg PO BID 03/30/20 03/30/20 Allergies Allergy/AdvReac Type Severity Reaction Status Date / Time No Known Allergies Allergy Verified 08/29/18 15:30 Home medications and allergies reviewed: Yes Review of System - Recent travel Recent travel outside [place] No reported travel outside [place] - Constitutional Constitutional: Present: no symptoms reported, Well developed, Well nourished, Non-toxic - Nose,Throat,Mouth Nose (ROS): Present: no symptoms reported. Absent: pain Throat: Present: no symptoms reported. Absent: pain, swelling, discharge Mouth: Present: no symptoms reported. Absent: pain, swelling - Respiratory Respiratory: Present: no symptoms reported. Absent: cough, short of breath, wheezing - CV Cardiology: Present: no symptoms reported. Absent: chest pain, edema - GI Gastrointestinal/Abdominal: Present: no symptoms reported. Absent: abdominal pain, diarrhea, nausea, vomiting - Genitourinary Symptoms: Present: no symptoms reported. Absent: dysuria - Neuro Neurological: Present: see HPI, other (Altered mental status). Absent: no symptoms reported, headache, weakness - Muskuloskeletal Musculoskeletal: Present: no symptoms reported. Absent: back pain, joint pain, joint swelling - Integumentary Skin: Present: no symptoms reported. Absent: lesions, rash - Allergic/Immunologic Immunological/Allergic: Present: no symptoms reported - Hematologic Hematologic/Lymphatic: Present: no symptoms reported. Absent: easy bleeding, easy bruising, swollen glands - Endocrine Endocrine: Present: no symptoms reported - Psychiatric Psychiatric: Present: Normal Affect, Normal Mood. Absent: Depressed - All Others/Exceptions All Other Systems: Reviewed and Negative Except Where Noted in Documentation ED PMH/Social HX/Family HX - Respiratory Hx Respiratory Disorders: Yes (Reviewed all past medical and surgical history) PMH--Respiratory: Pneumonia Past Surgical Hx- Respiratory: None - Cardiovascular Hx Cardiac Disorders: Yes PMH--Cardiovascular: HTN, Hypercholesterolemia PSH-Cardiac: None - Neurological Hx Neurological Disorder: Yes PMH--Neurological: CVA, Seizure Other Neuro PMH: "I think I might have epilepsy." LAST SEIZURE 10 DAYS AGO- TREMORS - Endocrine Hx Endocrine Disorders: Yes PMH--Endocrine History: Hypothyroidism - Gastrointestinal Hx Gastrointestinal Disorders: Yes PMH--Gastrointestinal: GERD Past Surgical (more content not included)... Normal [facility] Ethanol (Medical)on 05-19-19 Ethanol [Mass/Vol] mg/dL Normal 0.0-0.0 [facility] Comment on above: Performed By: #### L IPAS #### [facility] [address] [place] [address] HEMOGLOBIN A1Con 05-19-2020 Glucose [Mass/Vol] 97 mg/dL Normal [facility] Comment on above: Performed By: #### A 1CB, [id number], [id number] ####[facility] (DEFAULT)[address] [place] [address] HbA1c (Bld) [Mass fraction] 5.0 % Normal 4.7-5.6 [facility] Comment on above: Performed By: #### A 1CB, [id number], [id number] ####[facility] (DEFAULT)[address] [place] [address] Influenza A B (Rapid)on 04-26 Influenza A antigen Negative Normal (Negative) [facility] Comment on above: Performed By: #### F LUAB ####[facility] [place] [address] Influenza B antigen Negative Normal (Negative) [facility] Comment on above: Performed By: #### F LUAB ####[facility] [place] [address] LIPID PANEL W CALCULATED LDL on 05-19-2020 Calculated LDL Cholesterol 40 mg/dL Normal 0-99 [facility] Comment on above: Result Comment: [<10 0 mg/dL: Optimal] [100-129 mg/dL: Near Optimal] [130-159 mg/dL: Borderline High] [160-189 mg/dL: High] [>189 mg/dL: Very High] Performed By: #### H XIOMARA, TRIG ####[facility] (DEFAULT)[address] [place] [address] Cholesterol [Mass/Vol] 121 mg/dL Normal <200 [facility] Comment on above: Result Comment: [<20 0 mg/dL: Desirable] [200-239 mg/dL: Borderline High] [>239 mg/dL: High] Performed By: #### H XIOMARA, TRIG ####[facility] (DEFAULT)[address] [place] [address] Cholesterol in HDL [Mass/Vol] 57 mg/dL Normal >=40 [facility] Comment on above: Result Comment: [<40 mg/dL: Low (High Risk)] [>59 mg/dL: High (Low Risk)] Performed By: #### H XIOMARA, TRIG ####[facility] (DEFAULT)[address] [place] [address] Non HDL Cholesterol 64 mg/dL Normal <130 [facility] Comment on above: Performed By: #### H XIOMARA, TRIG ####[facility] (DEFAULT)[address] [place] [address] Total Cholesterol/HDL Ratio 2.1 Normal <4.5 [facility] Comment on above: Performed By: #### H XIOMARA, TRIG ####[facility] (DEFAULT)[address] [place] [address] Triglyceride [Mass/Vol] 121 mg/dL Normal <150 [facility] Comment on above: Result Comment: [<15 0 mg/dL: Desirable] [150-199 mg/dL: Borderline] [200-499 mg/dL: High] [>500 mg/dL: Very High] Performed By: #### H XIOMARA, TRIG ####[facility] (DEFAULT)[address] [place] [address] Lactic Acid (Venous)on 05-19 Lactate [Moles/Vol] 1.2 mmol/L Normal 0.4-2.0 [facility] Comment on above: Result Comment: Plea se note change in normal range Performed By: #### L ACID #### [facility] [address] [place] [address] Lipaseon 05-19-2020 Lipase [Catalytic activity/Vol] 109 U/L Normal 65-230 [facility] Comment on above: Performed By: #### L IPAS #### [facility] [address] [place] [address] NOVEL CORONAVIRUS PCRon 04-26 SARS-CoV-2 (COVID-19) RNA KAHLIL+probe Ql (Unsp spec) Not detected Normal NOT DETECTED [facility] Comment on above: Order Comment: Viral transport media or BAL specimen - Collection must be done while wearing N-95 mask, eye protection, gown and gloves. Please label ALL specimens as "2019-nCoV rule out" and deliver by hand. This test was performed using real time PCR and has been approved for the qualitative detection of SARS-CoV-2 nucleic acid. The test has been authorized by the FDA under an emergency use authorization for use by authorized laboratories. Result Comment: Nega tive results do not preclude SARS-CoV-2 infection and should not be used as the sole basis for treatment or other patient management decisions. Optimum specimen types and timing for peak viral levels during infections caused by SARS-CoV-2 has not been determined. The possibility of a false negative result should especially be considered if the patient's recent exposures or clinical presentation suggest that SARS-CoV-2 infection is probable, and diagnostic tests for other causes of illness (e.g., other respiratory illness) are negative. Collection of a new specimen and re-testing may be necessary if the patient is critically ill or clinically deteriorating. Performed By: #### L [id number] #### [facility] ([facility]) [address] [place] [address] NT Pro-BNPon 05-19-2020 Natriuretic peptide B (Bld) [Mass/Vol] 749 pg/mL High 0-125 [facility] Comment on above: Result Comment: NOTE -Dietary supplements containing high biotin levels may cause significant interference with affected lab tests, including cardiovascular diagnostic tests and hormone tests that use biotin technology. Incorrect test results may be generated if there is biotin in the patients specimen. Performed By: #### L IPAS #### [facility] [address] [place] [address] OXCARBAZEPINE LEVELon 2020 OXCARBAZEPINE LEVEL 16.2 mcg/mL Normal 8.0-35.0 [facility] Comment on above: Result Comment: Test Performed at: [facility] [address] [address] Kai Jain M.D., Ph.D.,Director of Laboratories Performed By: #### Y OXCAR ####[facility] (DEFAULT)[address] [place] [address] PLATELET COUNTon 05-19-2020 Platelet mean volume (Bld) [Entitic vol] 8.5 fL Low 8.7-12.3 [facility] Comment on above: Performed By: #### P LAT ####[facility] (DEFAULT)[address] [place] [address] Platelets (Bld) [#/Vol] 333 10*3/uL Normal 146-337 [facility] Comment on above: Performed By: #### P LAT ####[facility] (DEFAULT)[address] [place] [address] PROTIME-INRon 05-19-2020 INR Coag (PPP) [Relative time] 1.1 {INR} Normal 0.9-1.1 [facility] Comment on above: Performed By: #### P TI ####[facility] (DEFAULT)[address] [place] [address] PT Coag (PPP) [Time] 13.7 s Normal 11.9-14.2 [facility] Comment on above: Performed By: #### P TI ####[facility] (DEFAULT)[address] [place] [address] Prothrombin Timeon INR Coag (PPP) [Relative time] 1.09 {INR} Normal [facility] Comment on above: Result Comment: 2.0 - 3.0 Group A 2.5 - 3.5 Group B Group A indications: Prophylaxis and treatment of venous thrombosis. Treatment of pulmonary embolism. Prevention of systemic embolism. Tissue heart valves. Acute myocardial infarction. Valvular heart disease. Atrial fibrillation. Group B indications: Mechanical prosthetic valves. . Performed By: #### P T ####[facility] [place] [address] PT Coag (PPP) [Time] 11.0 s Normal 8.9-12.2 [facility] Comment on above: Result Comment: New Reference Ranges effective 2017. Performed By: #### P T ####[facility] [place] [address] SARS Antigen (Rapid)on 05-19 SARS Antigen Negative Normal Negative [facility] Comment on above: Result Comment: The Alize 2 SARS Antigen NUNU is a lateral flow immunofluorescent sandwich assay that is used with the Alize 2 instrument intended for the qualitative detection of the nucleocapsid protein antigen from SARS-CoV-2 in nasopharyngeal (ENVIRONMENTAL COMPLIANCE ENGINEER) and nasal (NS) swab specimens directly or after the swabs have been added to viral transport media from individuals who are suspected of COVID-19 by their healthcare provider. Testing is limited to laboratories certified under the Clinical Laboratory Improvement Amendments of 1988 (CLIA), 42 U.S.C. ?263a, that meet the requirements to perform moderate, high or waived complexity tests. This test is authorized for use at the Point of Care (POC), i.e., in patient care settings operating under a CLIA Certificate of Waiver, Certificate of Compliance, or Certificate of Accreditation. The SARS Antigen NUNU does not differentiate between SARS-CoV and SARS-CoV-2. Results are for the identification of SARS-CoV-2 nucleocapsid protein antigen. Antigen is generally detectable in upper respiratory specimens during the acute phase of infection. Positive results indicate the presence of viral antigens, but clinical correlation with patient history and other diagnostic information is necessary to determine infection status. Positive results do not rule out bacterial infection or co-infection with other viruses. The agent detected may not be the definite cause of disease. Negative results should be treated as presumptive and confirmed with a molecular assay, if necessary for patient management. Negative results do not rule out COVID-19 and should not be used as the sole basis for treatment or patient management decisions, including infection control decisions. Negative results should be considered in the context of a patient?s recent exposures, history and the presence of clinical signs and symptoms consistent with COVID-19. Performed By: #### C OVAG ####[facility] [place] [address] TRIGLYCERIDEon 05-19-2020 Triglyceride [Mass/Vol] 123 mg/dL Normal <150 [facility] Comment on above: Order Comment: While on Propofol. Result Comment: [<15 0 mg/dL: Desirable] [150-199 mg/dL: Borderline] [200-499 mg/dL: High] [>500 mg/dL: Very High] Performed By: #### H XIOMARA, TRIG ####[facility] (DEFAULT)[address] [place] [address] TYPE AND SCREENon 05-19-2020 ABO/RH(D) TYPE Positive Normal [facility] Comment on above: Performed By: #### X M ####[facility] (DEFAULT)[address] [place] [address] Troponin ion 05-19-2020 Troponin I.cardiac [Mass/Vol] 0.023 ng/mL Normal 0.000-0.05 6 [facility] Comment on above: Result Comment: myocardial injury. Clinical correlation required. >0.056 Troponin I interpretation: Troponin I present. Diagnostic possibilities include, but are not limited to, unstable angina, micro myocardial injury, early myocardial injury, cardiomyopathy or myocardial infarct. Clinical correlation required. NOTE-Troponin I testing performed on a Siemens Dimension analyzer which has a coefficient varient of <10 percent at the 99th percentile as recommended by 2014 AHA NSTE-ACS guidelines and the third universal definition of HI. The 2012 Third [place] Definition of HI defines a positive troponin as an elevation of the troponin I value above the 99th percentile of normal. Troponin I is the preferred biomarker overall and the only biomarker assessed for Chest Pain Accreditation purposes. Troponin I testing should be measured at presentation, and 3-6 hours after symptom onset in all patients presenting with ACS symptoms to identify a rising and/or falling pattern. NOTE-Dietary supplements containing high biotin levels may cause significant interference with affected lab tests, including cardiovascular diagnostic tests and hormone tests that use biotin technology. Incorrect test results may be generated if there is biotin in the patients specimen. Performed By: #### L TROP ####[facility] [address] [place] [address] UA w/Micrscopic-reflex cultu reon 05-19-2020 Appearance (U) CLEAR Normal Clear [facility] Comment on above: Performed By: #### U AMRC ####[facility] [address] [place] [address] Bacteria ENVIRONMENTAL COMPLIANCE ENGINEER Normal 0 - 1+ [facility] Comment on above: Performed By: #### U AMRC ####[facility] [address] [place] [address] Bilirubin Ql (U) Negative Normal Negative [facility] Comment on above: Performed By: #### U AMRC ####[facility] [id number] [place] [address] Casts ENVIRONMENTAL COMPLIANCE ENGINEER Normal [facility] Comment on above: Performed By: #### U AMRC ####[facility] [id number] [place] [address] Casts. ENVIRONMENTAL COMPLIANCE ENGINEER Normal [facility] Comment on above: Performed By: #### U AMRC ####[facility] [id number] [place] [address] Color (U) P. YELLOW Normal Yellow [facility] Comment on above: Performed By: #### U AMRC ####[facility] [address] [place] [address] Crystals LM Nom (Urine sed) ENVIRONMENTAL COMPLIANCE ENGINEER Normal [facility] Comment on above: Performed By: #### U AMRC ####[facility] [id number] [place] [address] Crystals. ENVIRONMENTAL COMPLIANCE ENGINEER Normal [facility] Comment on above: Performed By: #### U AMRC ####[facility] [id number] [facility] [place] [address] Epithelial cells LM Ql (Urine sed) 0-2 Normal 0 - 6 [facility] Comment on above: Performed By: #### U AMRC ####[facility] [id number] [facility] [place] [address] Glucose Ql (U) NORMAL Normal Negative [facility] Comment on above: Performed By: #### U AMRC ####[facility] [address] [facility] [place] [address] Hemoglobin Ql (U) 10 Abnormal Negative [facility] Comment on above: Performed By: #### U AMRC ####[facility] [address] [place] [address] Ketones Ql (U) 1+ Abnormal Negative [facility] Comment on above: Performed By: #### U AMRC ####[facility] [address] [facility] [place] [address] Leukocytes Esterase Negative Normal Negative [facility] Comment on above: Performed By: #### U AMRC ####[facility] [id number] [place] [address] Mucus Ql (Urine sed) ENVIRONMENTAL COMPLIANCE ENGINEER Normal [facility] Comment on above: Performed By: #### U AMRC ####[facility] [address] [place] [address] Nitrite Ql (U) Negative Normal Negative [facility] Comment on above: Performed By: #### U AMRC ####[facility] [address] [place] [address] pH (U) 5 [pH] Normal [facility] Comment on above: Performed By: #### U AMRC ####[facility] [address] [place] [address] Protein Ql (U) Negative Normal Negative [facility] Comment on above: Performed By: #### U AMRC ####[facility] [address] [place] [address] RBC 0-2 Normal 0 - 2 [facility] Comment on above: Performed By: #### U AMRC ####[facility] [address] [place] [address] Trichomonas ENVIRONMENTAL COMPLIANCE ENGINEER Normal [facility] Comment on above: Performed By: #### U AMRC ####[facility] [address] [place] [address] Urobilinogen NORMAL Normal Normal-1.0 [facility] Comment on above: Performed By: #### U AMRC ####[facility] [address] [place] [address] WBC None Seen Normal 0 - 6 [facility] Comment on above: Performed By: #### U AMRC ####[facility] [facility] [id number] [place] [address] Yeast ENVIRONMENTAL COMPLIANCE ENGINEER Normal [facility] Comment on above: Performed By: #### U AMRC ####[facility] [address] [place] [address] Other ENVIRONMENTAL COMPLIANCE ENGINEER Normal [facility] Comment on above: Performed By: #### U AMRC ####[facility] [id number] [place] [address] Urine Drug Screeningon 05-19 - - [facility] Comment on above: Order Comment: Drug Screen Comment No Result Comment: . Drug Screen Comment: This assay provides a preliminary unconfirmed analytical test result that may be suitable for the clinical management of patients in certain situations. Some [id number] medications, as well as adulterants, may cause inaccurate results. Screen only testing does not meet the [facility] Forensic Urine Drug Testing Program requirements as a forensic urine drug test for workplace testing. . Performed By: #### D RUGR ####[facility] [address] [place] [address] Amphetamines Negative [facility] Comment on above: Order Comment: Drug Screen Comment No Result Comment: cuto ff 1000 ng/mL Performed By: #### D RUGR ####[facility] [address] [place] [address] Barbiturates Negative [facility] Comment on above: Order Comment: Drug Screen Comment No Result Comment: cuto ff 200 ng/mL Performed By: #### D RUGR ####[facility] [address] [place] [address] Benzodiazepines Negative [facility] Comment on above: Order Comment: Drug Screen Comment No Result Comment: cuto ff 200 ng/mL Performed By: #### D RUGR ####[facility] [address] [place] [address] Cocaine Negative [facility] Comment on above: Order Comment: Drug Screen Comment No Result Comment: cuto ff 300 ng/mL Performed By: #### D RUGR ####[facility] [address] [place] [address] Opiates Negative [facility] Comment on above: Order Comment: Drug Screen Comment No Result Comment: cuto ff 300 ng/mL Performed By: #### D RUGR ####[facility] [address] [place] [address] pH (U) 5.0 [pH] Normal 5.0-8.0 [facility] Comment on above: Order Comment: Drug Screen Comment No Performed By: #### D RUGR ####[facility] [address] [place] [address] Phencyclidine Negative [facility] Comment on above: Order Comment: Drug Screen Comment No Result Comment: cuto ff 25 ng/mL Performed By: #### D RUGR ####[facility] [address] [place] [address] Specific gravity (U) [Rel density] 1.005 Low 1.015-1.02 5 [facility] Comment on above: Order Comment: Drug Screen Comment No Performed By: #### D RUGR ####[facility] [address] [place] [address] Performed By: #### U AMRC ####[facility] [address] [place] [address] THC Positive Abnormal [facility] Comment on above: Order Comment: Drug Screen Comment No Result Comment: cuto ff 50 ng/mL Performed By: #### D RUGR ####[facility] [address] [place] [address] WBC/RBC MORPHOLOGYon 021 Platelet Estimate Automated platelet c ount confirmed by manual slide review Normal [facility] Comment on above: Performed By: #### Catherine 1CB, [id number], [id number] ####[facility] (DEFAULT)[address] [place] [address] RBC morphology finding Nom (Bld) RBC INDICES CONFIRMED WITH MANUAL SLIDE REVIEW Normal [facility] Comment on above: Performed By: #### Catherine 1CB, [id number], [id number] ####[facility] (DEFAULT)[address] [place] [address] XR CHEST AP PORTABLE EDon XR CHEST AP PORTABLE ED EXAM: XR CHEST AP PORTABLE ED, 05/19/2020 03:31 AM COMPARISON: No prior studies available for comparison. CLINICAL INDICATIONS: Trauma RELEVANT CLINICAL HISTORY: FINDINGS: Implanted Devices: Endotracheal tube with the distal tip projecting at the level of the proximal mid thoracic trachea. Chest Wall: Displaced left lateral sixth rib fracture. Remote appearing right-sided rib fractures. Claudia: Normal Mediastinum: Normal Pleural Spaces: No pleural effusion. No pneumothorax. Lungs: Clear. Cardiac Silhouette: Normal in size. Thoracic Aorta: Normal Pulmonary Vessels: Normal, without PVH IMPRESSION: No acute cardiopulmonary findings Age indeterminate displaced left lateral sixth rib fracture. Normal [facility] XR WRIST LEFT 3 VIEWSon 04-26 XR WRIST LEFT 3 VIEWS EXAM: XR WRIST LEF T 3 VIEWS VIEWS,, 05/19/2020 04:21 AM COMPARISON: No prior studies available for comparison. CLINICAL INDICATIONS: trauma RELEVANT CLINICAL HISTORY: FINDINGS: 3 images obtained. Soft Tissue: Soft tissue swelling is evident. Bone: Diffuse osteopenia. No acute osseous abnormality. Prior fixation of the distal radius with intact hardware and no perihardware lucency. Carpal alignment appears anatomic. Carpal Joints: No evidence of dislocation. Arthritic changes of the carpal joints. Ulnar length: There is ulnar neutral variance. DRUJ: The distal radioulnar joint is anatomically aligned. IMPRESSION: No acute fracture or traumatic malalignment. Prior ORIF of the distal radius without evidence of hardware failure. I personally viewed and interpreted these images and I have reviewed and approved this report. Normal [facility] XR WRIST RIGHT 3 VIEWSon XR WRIST RIGHT 3 VIEWS EXAM: XR WRIST RIGHT 3 VIEWS 05/19/2020 04:21 AM COMPARISON: No prior studies available for comparison. CLINICAL INDICATIONS: trauma RELEVANT CLINICAL HISTORY: FINDINGS: 3 images obtained. Soft Tissue: Soft tissue swelling is evident. Bone: No acute osseous abnormality is identified. Carpal alignment appears anatomic. Remote posttraumatic deformity of the distal radius. Carpal Joints: No evidence of dislocation. Ulnar length: There is ulnar neutral variance. DRUJ: The distal radioulnar joint is anatomically aligned. IMPRESSION: No acute fracture or dislocation. I personally viewed and interpreted these images and I have reviewed and approved this report. Normal [facility] XR SHOULDER LEFT MIN 2 VIEWS (ROUTINE)on 05-05-2020 XR SHOULDER LEFT MIN 2 VIEWS (ROUTINE) EXAMINATION: 4 XRAY VIEWS OF THE LEFT SHOULDER 05/05/2020 10:40 am COMPARISON: April 04, 2020 HISTORY: Unspecified dislocation of left acromioclavicular joint, subsequent encounter: Separation of left acromioclavicular joint, FINDINGS: Glenohumeral joint is normally aligned. No evidence of acute fracture or dislocation. No abnormal periarticular calcifications. Mild AC degenerative change. Old left-sided rib fractures noted. Visualized lung is unremarkable. IMPRESSION: No acute abnormality. Normal [employer] [facility] TSHon 01-12-2020 TSH Qn 1.680 m[IU]/L [employer] [facility] .Auto Diffon 02-25-2018 Ammonia mass conc (P) 0.70 10 3/mcL Normal 0.09-1.40 [facility] ([place]) Comment on above: Performed By: #### B MP, GFR, LIPID, CBC, DIFF, MORPH, A1C ####[address] [address] Basophils Auto #/vol (Bld) 0.00 10 3/mcL Normal 0.00-0.27 [facility] ([place]) Comment on above: Performed By: #### B MP, GFR, LIPID, CBC, DIFF, MORPH, A1C ####[address] [address] Basophils/100 WBC Auto (Bld) 0.7 % Normal 0.0-2.5 [facility] ([place] Comment on above: Performed By: #### B MP, GFR, LIPID, CBC, DIFF, MORPH, A1C ####[address] [address] Eosinophils Auto #/vol (Bld) 0.70 10 3/mcL High 0.00-0.65 [facility] ([place] Comment on above: Performed By: #### B MP, GFR, LIPID, CBC, DIFF, MORPH, A1C ####[address] [address] Eosinophils/100 WBC Auto (Bld) 10.0 % High 0.0-6.0 [facility] ([place] Comment on above: Performed By: #### B MP, GFR, LIPID, CBC, DIFF, MORPH, A1C ####[address] [address] Lymphocytes Auto #/vol (Bld) 1.60 10 3/mcL Normal 0.90-4.32 [facility] ([place] Comment on above: Performed By: #### B MP, GFR, LIPID, CBC, DIFF, MORPH, A1C ####[address] [address] Lymphocytes/100 WBC Auto (Bld) 24.3 % Normal 20.0-40.0 [facility] ([place] Comment on above: Performed By: #### B MP, GFR, LIPID, CBC, DIFF, MORPH, A1C ####[address] [address] Monocytes/100 WBC Auto (Bld) 10.2 % Normal 2.0-13.0 [facility] ([place] Comment on above: Performed By: #### B MP, GFR, LIPID, CBC, DIFF, MORPH, A1C ####[address] [address] Neutrophils/100 WBC Auto (Bld) 54.8 % Normal 50.0-75.0 [facility] ([place] Comment on above: Performed By: #### B MP, GFR, LIPID, CBC, DIFF, MORPH, A1C ####[address] [address] .GFRon 02-25-2018 GFR Non- >60 Normal [facility] ([place] Comment on above: Result Comment: GFR Population mean for , Non- Americans Ages 20-29 = 116 mL/min/1.73 sq.m. Ages 30-39 = 107 mL/min/1.73 sq.m. Ages 40-49 = 99 mL/min/1.73 sq.m. Ages 50-59 = 93 mL/min/1.73 sq.m. Ages 60-69 = 85 mL/min/1.73 sq.m. Ages 70+ = 75 mL/min/1.73 sq.m.Chronic Kidney Disease: Less than 60 mL/min/1.73 square metersEnd Stage Renal Disease: Less than 15 mL/min/1.73 square meters Performed By: #### B MP, GFR, LIPID, CBC, DIFF, MORPH, A1C ####[address] [address] GFR >60 Normal [facility] ([place] Comment on above: Result Comment: GFR Population mean for , Non- Americans Ages 20-29 = 116 mL/min/1.73 sq.m. Ages 30-39 = 107 mL/min/1.73 sq.m. Ages 40-49 = 99 mL/min/1.73 sq.m. Ages 50-59 = 93 mL/min/1.73 sq.m. Ages 60-69 = 85 mL/min/1.73 sq.m. Ages 70+ = 75 mL/min/1.73 sq.m.Chronic Kidney Disease: Less than 60 mL/min/1.73 square metersEnd Stage Renal Disease: Less than 15 mL/min/1.73 square meters Performed By: #### B MP, GFR, LIPID, CBC, DIFF, MORPH, A1C ####[address] [address] .NEUABSon 02-25-2018 Neutrophil, Absolute 3.60 10 3/mcL Normal 2.25-8.10 A [facility] ([place]) Comment on above: Performed By: #### B MP, GFR, LIPID, CBC, DIFF, MORPH, A1C ####[address] [address] CBCon 02-25-2018 Erythrocyte distribution width Auto Ratio (RBC) 16.1 % High 11.5-15.5 [facility] ([place] Comment on above: Performed By: #### B MP, GFR, LIPID, CBC, DIFF, MORPH, A1C ####[place] [address] Hematocrit Auto Volume Fraction (Bld) 23.8 % Low 40.0-52.0 [facility] ([place] Comment on above: Performed By: #### B MP, GFR, LIPID, CBC, DIFF, MORPH, A1C ####[place] [address] Hemoglobin mass conc (Bld) 8.0 G/dL Low 13.0-17.5 [facility] ([place] Comment on above: Performed By: #### B MP, GFR, LIPID, CBC, DIFF, MORPH, A1C ####[place] [address] MCH Auto Entitic mass (RBC) 28.6 pg Normal 27.0-33.0 [facility] ([place] Comment on above: Performed By: #### B MP, GFR, LIPID, CBC, DIFF, MORPH, A1C ####[place] [address] MCHC Auto mass conc (RBC) 33.7 G/dL Normal 32.0-36.0 [facility] ([place] Comment on above: Performed By: #### B MP, GFR, LIPID, CBC, DIFF, MORPH, A1C ####[place] [address] MCV Auto Entitic volume (RBC) 85.0 fL Normal 81.0-100.0 [facility] ([place] Comment on above: Performed By: #### B MP, GFR, LIPID, CBC, DIFF, MORPH, A1C ####[place] [address] Platelet mean volume Auto Entitic volume (Bld) 6.4 fL Normal 6.4-10.5 [facility] ([place] Comment on above: Performed By: #### B MP, GFR, LIPID, CBC, DIFF, MORPH, A1C ####[place] [address] Platelets Auto #/vol (Bld) 800 10 3/mcL High 150-450 [facility] ([place] Comment on above: Performed By: #### B MP, GFR, LIPID, CBC, DIFF, MORPH, A1C ####[place] [address] RBC Auto #/vol (Bld) 2.80 10 6/mcL Low 4.50-6.00 A [facility] ([place] Comment on above: Performed By: #### B MP, GFR, LIPID, CBC, DIFF, MORPH, A1C ####[place] [address] WBC Auto #/vol (Bld) 6.60 10 3/mcL Normal 4.50-10.80 A [facility] ([place] Comment on above: Performed By: #### B MP, GFR, LIPID, CBC, DIFF, MORPH, A1C ####[place] [address] CMPon 02-25-2018 Albumin/Globulin mass ratio 0.9 {ratio} Normal 0.9-1.6 [facility] ([place] Comment on above: Performed By: #### B MP, GFR, LIPID, CBC, DIFF, MORPH, A1C ####[place] [address] ALP enzyme act/vol 91 U/L Normal 38-126 [facility] ([place]) Comment on above: Performed By: #### B MP, GFR, LIPID, CBC, DIFF, MORPH, A1C ####[place] [address] ALT enzyme act/vol 21 U/L Normal 12-55 [facility] ([place] Comment on above: Performed By: #### B MP, GFR, LIPID, CBC, DIFF, MORPH, A1C ####[place] [address] AST enzyme act/vol 25 U/L Normal 8-34 [facility] ([place] Comment on above: Performed By: #### B MP, GFR, LIPID, CBC, DIFF, MORPH, A1C ####[place] [address] Bili Total 0.3 mg/dL Normal 0.2-1.2 [facility] ([place] Comment on above: Performed By: #### B MP, GFR, LIPID, CBC, DIFF, MORPH, A1C ####[place] [address] Creatinine mass conc 0.65 mg/dL Normal 0.60-1.40 [facility] ([place] Comment on above: Performed By: #### B MP, GFR, LIPID, CBC, DIFF, MORPH, A1C ####[address] [address] Globulin Calculated mass conc (S) 3.0 G/dL Normal 1.5-3.8 [facility] ([place] Comment on above: Performed By: #### B MP, GFR, LIPID, CBC, DIFF, MORPH, A1C ####[place] [address] Protein mass conc 5.7 G/dL Low 6.0-8.5 [facility] ([place] Comment on above: Performed By: #### B MP, GFR, LIPID, CBC, DIFF, MORPH, A1C ####[place] [address] Urea nitrogen/Creatinine mass ratio 16.9 ratio Normal 10.0-22.0 [facility] ([place] Comment on above: Performed By: #### B MP, GFR, LIPID, CBC, DIFF, MORPH, A1C ####[place] [address] Albumin mass conc 2.7 G/dL Low 3.2-4.8 [facility] ([place] Comment on above: Performed By: #### B MP, GFR, LIPID, CBC, DIFF, MORPH, A1C ####[place] [address] Calcium mass conc 8.3 mg/dL Low 8.4-10.1 [facility] ([place] Comment on above: Performed By: #### B MP, GFR, LIPID, CBC, DIFF, MORPH, A1C ####[place] [address] Chloride molar conc 96 mmol/L Low 98-110 [facility] ([place] Comment on above: Performed By: #### B MP, GFR, LIPID, CBC, DIFF, MORPH, A1C ####[place] [address] CO2 molar conc 26 mmol/L Normal 22-32 [facility] ([place] Comment on above: Performed By: #### B MP, GFR, LIPID, CBC, DIFF, MORPH, A1C ####[place] [address] Electrolyte Balance 9.0 mEq/L Normal 4.0-15.0 [facility] ([place] Comment on above: Performed By: #### B MP, GFR, LIPID, CBC, DIFF, MORPH, A1C ####[place] [address] Glucose mass conc 92 mg/dL Normal 70-110 [facility] ([place] Comment on above: Performed By: #### B MP, GFR, LIPID, CBC, DIFF, MORPH, A1C ####[place] [address] Potassium molar conc 3.9 mmol/L Normal 3.5-5.0 [facility] ([place] Comment on above: Performed By: #### B MP, GFR, LIPID, CBC, DIFF, MORPH, A1C ####[place] [address] Sodium molar conc 131 mmol/L Low 136-145 [facility] ([place] Comment on above: Performed By: #### B MP, GFR, LIPID, CBC, DIFF, MORPH, A1C ####[place] [address] Urea nitrogen mass conc 11.0 mg/dL Normal 8.0-22.0 [facility] ([place] Comment on above: Performed By: #### B MP, GFR, LIPID, CBC, DIFF, MORPH, A1C ####[address] [address] XR CHEST 2 VIEWSon 8 XR CHEST 2 VIEWS ORIGINALXR CHEST 2 V IEWS at 9:03 AM CLINICAL STATEMENT: Pneumothorax COMPARISON: 02/25/2018 at 6:12 AM FINDINGS:The LEFT chest tube has been removed. A tiny LEFT lateral pneumothorax is not significantly changed. There is redemonstration of subcutaneous emphysema and multiple rib fractures. No RIGHT pneumothorax is identified. No pleural effusion is seen. Degenerative changes are seen within the spine. IMPRESSION:Stable tiny LEFT lateral pneumothorax. Interpreted By: Yazmin Henryreliminary Report By: Yazmin Henry MDElectronically Signed By: Yazmin Henry MD Dictated Date: 02/25/2018 9:30:03 AM Prelim Date: 02/25/2018 9:30:03 AM Sign Date: 02/25/2018 9:33:39 AM Normal [facility] ([place] XR CHEST 2 VIEWS ORIGINALChest x-ray, frontal and lateral, 2 views Clinical Statement: Pneumothorax, follow-up, fall injury, shortness of breath Comparison: 02/24/2018 The left-sided chest tube is maintained in position. A tiny left-sided pneumothorax is noted, smaller compared with the prior study. Multiple left-sided rib fractures are again seen. Mild overlying subcutaneous emphysema. The cardiac silhouette is unremarkable. IMPRESSION: Tiny left-sided pneumothorax and mild subcutaneous emphysema. Interpreted By: Toby Nesbitt DOPreliminary Report By: Toby Nesbitt DOElectronically Signed By: Toby Nesbitt DO Dictated Date: 02/25/2018 6:29:55 AM Prelim Date: 02/25/2018 6:29:55 AM Sign Date: 02/25/2018 6:32:13 AM Normal [facility] ([place] XR CHEST 2 VIEWSon 8 XR CHEST 2 VIEWS ORIGINALChest 2 view s HISTORY: Patient fell with chest injury COMPARISON: 02/23/2018 LEFT chest tube terminates at the medial aspect of the LEFT apex. There is a very small pneumothorax at the lateral aspect of the LEFT upper lobe. There is mild subcutaneous air at the LEFT chest. Multiple displaced LEFT lower rib fractures are present. There is minimal adjacent atelectasis present. No focal airspace consolidation is evident. There is minimal pleural fluid or thickening at the region of the LEFT rib fractures. There are degenerative changes noted in the spine. Multiple RIGHT rib deformities are present from remote injury. IMPRESSION: Very small lateral LEFT upper pneumothorax. Interpreted By: Tolu Rosereliminary Report By: Tolu Rose MDElectronically Signed By: Tolu Rose MD Dictated Date: 02/24/2018 10:02:37 AM Prelim Date: 02/24/2018 10:02:37 AM Sign Date: 02/24/2018 10:03:38 AM Normal [facility] ([place] XR CHEST 1 VIEWon 02-23-2018 XR CHEST 1 VIEW ORIGINALXR CHEST 1 V IEW portable upright 1:15 PM CLINICAL STATEMENT: pneumothorax , chest tube, follow-up COMPARISON: 02/22/2018 FINDINGS: Stable heart and mediastinum. Bilateral rib fractures and LEFT subcutaneous chest wall emphysema are again seen. There is probably a trace LEFT apical pneumothorax of no more than 5 mm thickness. Mild bibasilar atelectasis more on the LEFT as previously. IMPRESSION: LEFT chest tube. Bibasilar atelectasis. There is probably trace LEFT apical pneumothorax. Interpreted By: Boyd Eastreliminary Report By: Boyd East MDElectronically Signed By: Boyd East MD Dictated Date: 02/23/2018 6:23:17 PM Prelim Date: 02/23/2018 6:23:17 PM Sign Date: 02/23/2018 6:24:30 PM Normal [facility] ([place]) .Auto Diffon 02-22-2018 Ammonia mass conc (P) 0.80 10 3/mcL Normal 0.09-1.40 [facility] ([place]) Comment on above: Performed By: #### B MP, GFR, LIPID, CBC, DIFF, MORPH, A1C ####[address] [address] Basophils Auto #/vol (Bld) 0.00 10 3/mcL Normal 0.00-0.27 [facility] ([place] Comment on above: Performed By: #### B MP, GFR, LIPID, CBC, DIFF, MORPH, A1C ####[address] [address] Basophils/100 WBC Auto (Bld) 0.6 % Normal 0.0-2.5 [facility] ([place] Comment on above: Performed By: #### B MP, GFR, LIPID, CBC, DIFF, MORPH, A1C ####[address] [address] Eosinophils Auto #/vol (Bld) 0.50 10 3/mcL Normal 0.00-0.65 [facility] ([place] Comment on above: Performed By: #### B MP, GFR, LIPID, CBC, DIFF, MORPH, A1C ####[address] [address] Eosinophils/100 WBC Auto (Bld) 6.7 % High 0.0-6.0 [facility] ([place] Comment on above: Performed By: #### B MP, GFR, LIPID, CBC, DIFF, MORPH, A1C ####[address] [address] Lymphocytes Auto #/vol (Bld) 1.30 10 3/mcL Normal 0.90-4.32 [facility] ([place] Comment on above: Performed By: #### B MP, GFR, LIPID, CBC, DIFF, MORPH, A1C ####[address] [address] Lymphocytes/100 WBC Auto (Bld) 16.7 % Low 20.0-40.0 [facility] ([place] Comment on above: Performed By: #### B MP, GFR, LIPID, CBC, DIFF, MORPH, A1C ####[address] [address] Monocytes/100 WBC Auto (Bld) 9.8 % Normal 2.0-13.0 [facility] ([place] Comment on above: Performed By: #### B MP, GFR, LIPID, CBC, DIFF, MORPH, A1C ####[address] [address] Neutrophils/100 WBC Auto (Bld) 66.2 % Normal 50.0-75.0 [facility] ([place] Comment on above: Performed By: #### B MP, GFR, LIPID, CBC, DIFF, MORPH, A1C ####[address] [address] .GFRon 02-22-2018 GFR Non- >60 Normal [facility] ([place] Comment on above: Result Comment: GFR Population mean for , Non- Americans Ages 20-29 = 116 mL/min/1.73 sq.m. Ages 30-39 = 107 mL/min/1.73 sq.m. Ages 40-49 = 99 mL/min/1.73 sq.m. Ages 50-59 = 93 mL/min/1.73 sq.m. Ages 60-69 = 85 mL/min/1.73 sq.m. Ages 70+ = 75 mL/min/1.73 sq.m.Chronic Kidney Disease: Less than 60 mL/min/1.73 square metersEnd Stage Renal Disease: Less than 15 mL/min/1.73 square meters Performed By: #### B MP, GFR, LIPID, CBC, DIFF, MORPH, A1C ####[address] [address] GFR >60 Normal [facility] ([place] Comment on above: Result Comment: GFR Population mean for , Non- Americans Ages 20-29 = 116 mL/min/1.73 sq.m. Ages 30-39 = 107 mL/min/1.73 sq.m. Ages 40-49 = 99 mL/min/1.73 sq.m. Ages 50-59 = 93 mL/min/1.73 sq.m. Ages 60-69 = 85 mL/min/1.73 sq.m. Ages 70+ = 75 mL/min/1.73 sq.m.Chronic Kidney Disease: Less than 60 mL/min/1.73 square metersEnd Stage Renal Disease: Less than 15 mL/min/1.73 square meters Performed By: #### B MP, GFR, LIPID, CBC, DIFF, MORPH, A1C ####[place] [address] .NEUABSon 02-22-2018 Neutrophil, Absolute 5.20 10 3/mcL Normal 2.25-8.10 A [facility] ([place]) Comment on above: Performed By: #### B MP, GFR, LIPID, CBC, DIFF, MORPH, A1C ####[address] [address] BMPon 02-22-2018 Creatinine mass conc 0.63 mg/dL Normal 0.60-1.40 [facility] ([place] Comment on above: Performed By: #### B MP, GFR, LIPID, CBC, DIFF, MORPH, A1C ####[place] [address] Urea nitrogen/Creatinine mass ratio 14.3 ratio Normal 10.0-22.0 [facility] ([place] Comment on above: Performed By: #### B MP, GFR, LIPID, CBC, DIFF, MORPH, A1C ####[address] [address] Calcium mass conc 8.2 mg/dL Low 8.4-10.1 [facility] ([place] Comment on above: Performed By: #### B MP, GFR, LIPID, CBC, DIFF, MORPH, A1C ####[address] [address] Chloride molar conc 99 mmol/L Normal 98-110 [facility] ([place] Comment on above: Performed By: #### B MP, GFR, LIPID, CBC, DIFF, MORPH, A1C ####[address] [address] CO2 molar conc 27 mmol/L Normal 22-32 [facility] ([place] Comment on above: Performed By: #### B MP, GFR, LIPID, CBC, DIFF, MORPH, A1C ####[place] [address] Electrolyte Balance 6.0 mEq/L Normal 4.0-15.0 [facility] ([place] Comment on above: Performed By: #### B MP, GFR, LIPID, CBC, DIFF, MORPH, A1C ####[place] [address] Glucose mass conc 105 mg/dL Normal 70-110 [facility] ([place] Comment on above: Performed By: #### B MP, GFR, LIPID, CBC, DIFF, MORPH, A1C ####[address] [address] Potassium molar conc 4.2 mmol/L Normal 3.5-5.0 [facility] ([place] Comment on above: Performed By: #### B MP, GFR, LIPID, CBC, DIFF, MORPH, A1C ####[address] [address] Sodium molar conc 132 mmol/L Low 136-145 [facility] ([place] Comment on above: Performed By: #### B MP, GFR, LIPID, CBC, DIFF, MORPH, A1C ####[place] [address] Urea nitrogen mass conc 9.0 mg/dL Normal 8.0-22.0 [facility] ([place] Comment on above: Performed By: #### B MP, GFR, LIPID, CBC, DIFF, MORPH, A1C ####[place] [address] CBCon 02-22-2018 Erythrocyte distribution width Auto Ratio (RBC) 15.5 % Normal 11.5-15.5 [facility] ([place] Comment on above: Performed By: #### B MP, GFR, LIPID, CBC, DIFF, MORPH, A1C ####[place] [address] Hematocrit Auto Volume Fraction (Bld) 24.3 % Low 40.0-52.0 [facility] ([place] Comment on above: Performed By: #### B MP, GFR, LIPID, CBC, DIFF, MORPH, A1C ####[place] [address] Hemoglobin mass conc (Bld) 7.9 G/dL Low 13.0-17.5 [facility] ([place]) Comment on above: Performed By: #### B MP, GFR, LIPID, CBC, DIFF, MORPH, A1C ####[place] [address] MCH Auto Entitic mass (RBC) 28.4 pg Normal 27.0-33.0 [facility] ([place]) Comment on above: Performed By: #### B MP, GFR, LIPID, CBC, DIFF, MORPH, A1C ####[place] [address] MCHC Auto mass conc (RBC) 32.6 G/dL Normal 32.0-36.0 [facility] ([place]) Comment on above: Performed By: #### B MP, GFR, LIPID, CBC, DIFF, MORPH, A1C ####[place] [address] MCV Auto Entitic volume (RBC) 87.2 fL Normal 81.0-100.0 [facility] ([place]) Comment on above: Performed By: #### B MP, GFR, LIPID, CBC, DIFF, MORPH, A1C ####[id number] [place] [address] Platelet mean volume Auto Entitic volume (Bld) 6.2 fL Low 6.4-10.5 [facility] ([place]) Comment on above: Performed By: #### B MP, GFR, LIPID, CBC, DIFF, MORPH, A1C ####[address] [address] Platelets Auto #/vol (Bld) 666 10 3/mcL High 150-450 [facility] ([place]) Comment on above: Performed By: #### B MP, GFR, LIPID, CBC, DIFF, MORPH, A1C ####[address] [address] RBC Auto #/vol (Bld) 2.78 10 6/mcL Low 4.50-6.00 A [facility] ([place]) Comment on above: Performed By: #### B MP, GFR, LIPID, CBC, DIFF, MORPH, A1C ####[place] [address] WBC Auto #/vol (Bld) 7.80 10 3/mcL Normal 4.50-10.80 A [facility] ([place]) Comment on above: Performed By: #### B MP, GFR, LIPID, CBC, DIFF, MORPH, A1C ####[place] [address] XR CHEST 1 VIEWon 02-22-2018 XR CHEST 1 VIEW ORIGINALClinical his tory: Chest trauma. Follow-up. COMPARISON: Chest x-ray on 02/21/2018. Portable AP radiograph of the chest was obtained at 5:40 AM. LEFT chest tube is unchanged in position with tip near LEFT lung apex. There is no visible pneumothorax. Small LEFT pleural effusion and patchy airspace disease at LEFT lung base are unchanged. Multiple LEFT rib fractures are present. Subcutaneous emphysema in LEFT lateral chest wall is unchanged. RIGHT lung shows no acute abnormality. IMPRESSION: LEFT basilar airspace disease and small LEFT pleural effusion without significant change. Interpreted By: Krishna Lakhanireliminary Report By: Krishna Lakhani MDElectronically Signed By: Krishna Lakhani MD Dictated Date: 02/22/2018 5:59:51 AM Prelim Date: 02/22/2018 5:59:51 AM Sign Date: 02/22/2018 6:01:41 AM Normal [facility] ([place]) .GFRon 02-21-2018 GFR Non- >60 Normal [facility] ([place]) Comment on above: Result Comment: GFR Population mean for , Non- Americans Ages 20-29 = 116 mL/min/1.73 sq.m. Ages 30-39 = 107 mL/min/1.73 sq.m. Ages 40-49 = 99 mL/min/1.73 sq.m. Ages 50-59 = 93 mL/min/1.73 sq.m. Ages 60-69 = 85 mL/min/1.73 sq.m. Ages 70+ = 75 mL/min/1.73 sq.m.Chronic Kidney Disease: Less than 60 mL/min/1.73 square metersEnd Stage Renal Disease: Less than 15 mL/min/1.73 square meters Performed By: #### C BC, ADIFF, ANEU, BMP, GFR ####[place] [address] GFR >60 Normal [facility] ([place]) Comment on above: Result Comment: GFR Population mean for , Non- Americans Ages 20-29 = 116 mL/min/1.73 sq.m. Ages 30-39 = 107 mL/min/1.73 sq.m. Ages 40-49 = 99 mL/min/1.73 sq.m. Ages 50-59 = 93 mL/min/1.73 sq.m. Ages 60-69 = 85 mL/min/1.73 sq.m. Ages 70+ = 75 mL/min/1.73 sq.m.Chronic Kidney Disease: Less than 60 mL/min/1.73 square metersEnd Stage Renal Disease: Less than 15 mL/min/1.73 square meters Performed By: #### C BC, ADIFF, ANEU, BMP, GFR ####[address] [address] BGRPon 02-21-2018 Base Excess - POC 1.2 mmol/L Normal [facility] ([place]) Comment on above: Performed By: #### C BC, ADIFF, ANEU, BMP, GFR ####[address] [address] Bicarbonate - POC 24.8 mmol/L Normal 21.0-29.0 [facility] ([place]) Comment on above: Performed By: #### C BC, ADIFF, ANEU, BMP, GFR ####[place] [address] Oxygen saturation in Blood 99.8 % High 92.0-96.0 [facility] ([place]) Comment on above: Performed By: #### C BC, ADIFF, ANEU, BMP, GFR ####[place] [address] PCO2 - POC 35.0 mmHg Normal 32.0-46.0 [facility] ([place]) Comment on above: Performed By: #### C BC, ADIFF, ANEU, BMP, GFR ####[place] [address] pH (poct) - POC 7.468 High 7.380-7.46 0 [facility] ([place]) Comment on above: Performed By: #### C BC, ADIFF, ANEU, BMP, GFR ####[place] [address] PO2 - POC 424.2 mmHg High 74.0-108.0 [facility] ([place]) Comment on above: Performed By: #### C BC, ADIFF, ANEU, BMP, GFR ####[place] [address] Total CO2 - POC 25.9 mmol/L Normal 22.0-30.0 [facility] ([place]) Comment on above: Performed By: #### C BC, ADIFF, ANEU, BMP, GFR ####[address] [address] BMPon 02-21-2018 Creatinine mass conc 0.64 mg/dL Normal 0.60-1.40 [facility] ([place]) Comment on above: Performed By: #### C BC, ADIFF, ANEU, BMP, GFR ####[place] [address] Urea nitrogen/Creatinine mass ratio 14.1 ratio Normal 10.0-22.0 [facility] ([place]) Comment on above: Performed By: #### C BC, ADIFF, ANEU, BMP, GFR ####[address] [address] Calcium mass conc 8.4 mg/dL Normal 8.4-10.1 [facility] ([place]) Comment on above: Performed By: #### C BC, ADIFF, ANEU, BMP, GFR ####[address] [address] Chloride molar conc 99 mmol/L Normal 98-110 [facility] ([place]) Comment on above: Performed By: #### C BC, ADIFF, ANEU, BMP, GFR ####[address] [address] CO2 molar conc 26 mmol/L Normal 22-32 [facility] ([place]) Comment on above: Performed By: #### C BC, ADIFF, ANEU, BMP, GFR ####[address] [address] Electrolyte Balance 9.0 mEq/L Normal 4.0-15.0 [facility] ([place]) Comment on above: Performed By: #### C BC, ADIFF, ANEU, BMP, GFR ####[address] [address] Glucose mass conc 101 mg/dL Normal 70-110 [facility] ([place]) Comment on above: Performed By: #### C BC, ADIFF, ANEU, BMP, GFR ####[address] [address] Potassium molar conc 4.7 mmol/L Normal 3.5-5.0 [facility] ([place]) Comment on above: Performed By: #### C BC, ADIFF, ANEU, BMP, GFR ####[address] [address] Sodium molar conc 134 mmol/L Low 136-145 [facility] ([place]) Comment on above: Performed By: #### C BC, ADIFF, ANEU, BMP, GFR ####[address] [address] Urea nitrogen mass conc 9.0 mg/dL Normal 8.0-22.0 [facility] ([place]) Comment on above: Performed By: #### C BC, ADIFF, ANEU, BMP, GFR ####[place] [address] CARPon 02-21-2018 Ionized Calcium - POC 1.12 mmol/L Normal 1.12-1.32 [facility] ([place]) Comment on above: Performed By: #### B MP, GFR, LIPID, CBC, DIFF, MORPH, A1C ####[place] [address] CLRPon 02-21-2018 Chloride molar conc 101 mmol/L Normal 98-110 [facility] ([place]) Comment on above: Performed By: #### C BC, ADIFF, ANEU, BMP, GFR ####[place] [address] [facility] Glucose mass conc 103 mg/dL Normal 70-110 [facility] ([place]) Comment on above: Performed By: #### C BC, ADIFF, ANEU, BMP, GFR ####[place] [address] HCTRPon 02-21-2018 Hematocrit Auto Volume Fraction (Bld) 25.0 % Low 42.0-52.0 [facility] ([place]) Comment on above: Performed By: #### C BC, ADIFF, ANEU, BMP, GFR ####[place] [address] HGBRPon 02-21-2018 Hemoglobin mass conc (Bld) 8.5 G/dL Low 13.0-17.5 [facility] ([place]) Comment on above: Performed By: #### C BC, ADIFF, ANEU, BMP, GFR ####[place] [address] HHon 02-21-2018 Hematocrit Auto Volume Fraction (Bld) 27.0 % Low 40.0-52.0 [facility] ([place]) Comment on above: Performed By: #### B MP, GFR, LIPID, CBC, DIFF, MORPH, A1C ####[place] [address] Hemoglobin mass conc (Bld) 9.3 G/dL Low 13.0-17.5 [facility] ([place]) Comment on above: Performed By: #### B MP, GFR, LIPID, CBC, DIFF, MORPH, A1C ####[place] [address] Hematocrit Auto Volume Fraction (Bld) 26.0 % Low 40.0-52.0 [facility] ([place]) Comment on above: Performed By: #### C BC, ADIFF, ANEU, BMP, GFR ####[place] [address] Hemoglobin mass conc (Bld) 8.6 G/dL Low 13.0-17.5 [facility] ([place]) Comment on above: Performed By: #### C BC, ADIFF, ANEU, BMP, GFR ####[place] [address] KRPon 02-21-2018 Potassium molar conc 3.9 mmol/L Normal 3.5-5.0 [facility] ([place]) Comment on above: Performed By: #### C BC, ADIFF, ANEU, BMP, GFR ####[place] [address] NARPon 02-21-2018 Sodium molar conc 127 mmol/L Low 136-145 [facility] ([place]) Comment on above: Performed By: #### B MP, GFR, LIPID, CBC, DIFF, MORPH, A1C ####[place] [address] XR CHEST 1 VIEWon 02-21-2018 XR CHEST 1 VIEW ORIGINALXR CHEST 1 V IEW portable upright 9:57 AM CLINICAL STATEMENT: Abnormal breath sounds , chest tube COMPARISON: 02/20/2018 FINDINGS: A LEFT chest tube terminates at the apex of the ingested from the earlier study. There is nearly complete resolution of previous LEFT basilar opacity. Some consolidation or atelectasis remains obscuring the retrocardiac region and the LEFT hemidiaphragm. No pneumothorax. RIGHT lung remains clear. LEFT chest wall subcutaneous emphysema and LEFT rib fractures are again seen. IMPRESSION: LEFT chest tube readjustment with resolution of previous pleural effusion. There is some atelectasis/consolidation at the LEFT base, small effusion not excluded. No pneumothorax. Interpreted By: Kita ,Boyd MDPreliminary Report By: Boyd East MDElectronically Signed By: Boyd East MD Dictated Date: 02/21/2018 10:14:25 AM Prelim Date: 02/21/2018 10:14:25 AM Sign Date: 02/21/2018 10:15:40 AM Normal [facility] ([place]) NAon 02-20-2018 Sodium molar conc 133 mmol/L Low 136-145 [facility] ([place]) Comment on above: Performed By: #### N A ####[place] [address] PLTFon 02-20-2018 Plt % Functional 34 % Low 80-97 [facility] ([place]) Comment on above: Order Comment: Surge ry pending Performed By: #### P LTF ####[address] [address] Plt ADP 527 k/mm3 Normal [facility] ([place]) Comment on above: Order Comment: Surge ry pending Performed By: #### P LTF ####[address] [address] Plt Base 794 k/mm3 Normal [facility] ([place]) Comment on above: Order Comment: Surge ry pending Performed By: #### P LTF ####[address] [address] PROon 02-20-2018 INR Coag RelTime (PPP) 1.2 {INR} Normal [facility] ([place]) Comment on above: Result Comment: The [employer] (CHEST, 1992, [id number])recommended therapeutic range for oral anticoagulant therapy is:LOW RISK: Prophylaxis of venous thrombosis INR: 2.0-3.0 Treatment of pulmonary embolism 2.0-3.0 Prevention of systemic embolism 2.0-3.0HIGH RISK: Mechanical prosthetic valves 2.5-3.5 Performed By: #### P RO, TEGPMH ####[address] [address] Prothrombin time (PT) Coag time (PPP) 13.5 s Normal 9.0-14.6 [facility] ([place]) Comment on above: Result Comment: Effe ctive 10/07/07, Protime results may be affected by some antibiotics (i.e. Ciprofloxacin, Azithromycin, Bactrim) which may potentiate the action of oral anticoagulants, with further increases in Protime/INR. Performed By: #### P RO, TEGPMH ####[address] [address] TABOon 02-20-2018 ABO/Rh Interp Positive Invalid Interpretation Code [facility] ([place]) Comment on above: Performed By: #### A BORH, ANTIS ####[place] [address] TABSon 02-20-2018 Antibody Screen Tango Negative Normal [facility] ([place]) Comment on above: Performed By: #### C BC, ADIFF, ANEU, BMP, GFR ####[place] [address] TEGPMHon 02-20-2018 Angle TEG with Heparin 78.8 degrees High 53.0-72.0 [facility] ([place]) Comment on above: Performed By: #### P RO, TEGPMH ####[place] [address] Inhibition AA with Heparin 93.3 % Normal [facility] ([place]) Comment on above: Result Comment: Test ing was stopped due to a growing MA on the activator sample. Please review the accompanying literature. Be aware that a growing MA does impact the accuracy of the % inhibitions. Performed By: #### P RO, TEGPMH ####[place] [address] Inhibition ADP with Heparin 47.2 % Normal [facility] ([place]) Comment on above: Performed By: #### P RO, TEGPMH ####[place] [id number] K TEG with Heparin 0.8 minutes Low 1.0-3.0 [facility] ([place]) Comment on above: Performed By: #### P RO, TEGPMH ####[place] [id number] Lysis TEG with Heparin NT Normal 0.0-8.0 [facility] ([place]) Comment on above: Performed By: #### P RO, TEGPMH ####[address] [address] MA (AA) with Heparin 65.4 mm Normal [facility] ([place]) Comment on above: Performed By: #### P RO, TEGPMH ####[address] [address] MA (ADP) with Heparin 69.5 mm Normal [facility] ([place]) Comment on above: Performed By: #### P RO, TEGPMH ####[place] [address] MA Activated with Heparin 64.8 mm Normal [facility] ([place]) Comment on above: Performed By: #### P RO, TEGPMH ####[place] [address] MA Max Clot TEG with Heparin 73.7 mm High 50.0-70.0 [facility] ([place]) Comment on above: Performed By: #### P RO, TEGPMH ####[place] [address] R TEG with Heparin 4.4 minutes Low 5.0-10.0 [facility] ([place]) Comment on above: Performed By: #### P RO, TEGPMH ####[place] [address] XR CHEST 2 VIEWSon [id number] XR CHEST 2 VIEWS ORIGINALXR CHEST 2 V IEWS CLINICAL STATEMENT: pleural effsuion , chest tube COMPARISON: 02/18/2018 FINDINGS: Stable heart and mediastinum. Bilateral rib fractures are again seen. LEFT chest tube in the mid chest region has probably been advanced. No pneumothorax is seen. There is a large LEFT posterior basilar opacity from pleural effusion and lung consolidation/atelectasis that is not significantly changed. The chest tube is located anterior to this abnormality on the lateral view. RIGHT lung is clear. Moderate LEFT chest wall subcutaneous emphysema. IMPRESSION: LEFT chest tube is present. Large LEFT posterior basilar opacity is from pleural effusion and lower lobe consolidation/atelectasis that is unchanged. Interpreted By: Boyd Eastreliminary Report By: Boyd East MDElectronically Signed By: Boyd East MD Dictated Date: 02/20/2018 8:40:13 AM Prelim Date: 02/20/2018 8:40:13 AM Sign Date: 02/20/2018 8:42:22 AM Normal [facility] ([place]) .Auto Diffon 02-19-2018 Ammonia mass conc (P) 1.20 10 3/mcL Normal 0.09-1.40 [facility] ([place]) Comment on above: Performed By: #### C BC, ADIFF, ANEU, BMP, GFR ####[address] [address] Basophils Auto #/vol (Bld) 0.00 10 3/mcL Normal 0.00-0.27 [facility] ([place]) Comment on above: Performed By: #### C BC, ADIFF, ANEU, BMP, GFR ####[address] [address] Basophils/100 WBC Auto (Bld) 0.4 % Normal 0.0-2.5 [facility] ([place]) Comment on above: Performed By: #### C BC, ADIFF, ANEU, BMP, GFR ####[address] [address] Eosinophils Auto #/vol (Bld) 0.40 10 3/mcL Normal 0.00-0.65 [facility] ([place]) Comment on above: Performed By: #### C BC, ADIFF, ANEU, BMP, GFR ####[address] [address] Eosinophils/100 WBC Auto (Bld) 4.4 % Normal 0.0-6.0 [facility] ([place]) Comment on above: Performed By: #### C BC, ADIFF, ANEU, BMP, GFR ####[address] [address] Lymphocytes Auto #/vol (Bld) 1.40 10 3/mcL Normal 0.90-4.32 [facility] ([place]) Comment on above: Performed By: #### C BC, ADIFF, ANEU, BMP, GFR ####[address] [address] Lymphocytes/100 WBC Auto (Bld) 15.5 % Low 20.0-40.0 [facility] ([place]) Comment on above: Performed By: #### C BC, ADIFF, ANEU, BMP, GFR ####[place] [id number] [place] [address] Monocytes/100 WBC Auto (Bld) 13.3 % High 2.0-13.0 [facility] ([place]) Comment on above: Performed By: #### C BC, ADIFF, ANEU, BMP, GFR ####[address] [address] Neutrophils/100 WBC Auto (Bld) 66.4 % Normal 50.0-75.0 [facility] ([place]) Comment on above: Performed By: #### C BC, ADIFF, ANEU, BMP, GFR ####[address] [address] .GFRon 02-19-2018 GFR Non- >60 Normal [facility] ([place]) Comment on above: Result Comment: GFR Population mean for , Non- Americans Ages 20-29 = 116 mL/min/1.73 sq.m. Ages 30-39 = 107 mL/min/1.73 sq.m. Ages 40-49 = 99 mL/min/1.73 sq.m. Ages 50-59 = 93 mL/min/1.73 sq.m. Ages 60-69 = 85 mL/min/1.73 sq.m. Ages 70+ = 75 mL/min/1.73 sq.m.Chronic Kidney Disease: Less than 60 mL/min/1.73 square metersEnd Stage Renal Disease: Less than 15 mL/min/1.73 square meters Performed By: #### C BC, ADIFF, ANEU, BMP, GFR ####[address] [address] GFR >60 Normal [facility] ([place]) Comment on above: Result Comment: GFR Population mean for , Non- Americans Ages 20-29 = 116 mL/min/1.73 sq.m. Ages 30-39 = 107 mL/min/1.73 sq.m. Ages 40-49 = 99 mL/min/1.73 sq.m. Ages 50-59 = 93 mL/min/1.73 sq.m. Ages 60-69 = 85 mL/min/1.73 sq.m. Ages 70+ = 75 mL/min/1.73 sq.m.Chronic Kidney Disease: Less than 60 mL/min/1.73 square metersEnd Stage Renal Disease: Less than 15 mL/min/1.73 square meters Performed By: #### C BC, ADIFF, ANEU, BMP, GFR ####[place] [address] .NEUABSon 02-19-2018 Neutrophil, Absolute 5.80 10 3/mcL Normal 2.25-8.10 A [facility] ([place]) Comment on above: Performed By: #### C BC, ADIFF, ANEU, BMP, GFR ####[place] [address] BMPon 02-19-2018 Calcium mass conc 8.6 mg/dL Normal 8.4-10.1 [facility] ([place]) Comment on above: Performed By: #### C BC, ADIFF, ANEU, BMP, GFR ####[place] [address] Chloride molar conc 97 mmol/L Low 98-110 [facility] ([place]) Comment on above: Performed By: #### C BC, ADIFF, ANEU, BMP, GFR ####[place] [address] CO2 molar conc 23 mmol/L Normal 22-32 [facility] ([place]) Comment on above: Performed By: #### C BC, ADIFF, ANEU, BMP, GFR ####[place] [address] Creatinine mass conc 0.69 mg/dL Normal 0.60-1.40 [facility] ([place]) Comment on above: Performed By: #### C BC, ADIFF, ANEU, BMP, GFR ####[place] [address] Electrolyte Balance 10.0 mEq/L Normal 4.0-15.0 [facility] ([place]) Comment on above: Performed By: #### C BC, ADIFF, ANEU, BMP, GFR ####[place] [address] Glucose mass conc 92 mg/dL Normal 70-110 [facility] ([place]) Comment on above: Performed By: #### C BC, ADIFF, ANEU, BMP, GFR ####[place] [address] Potassium molar conc 4.7 mmol/L Normal 3.5-5.0 [facility] ([place]) Comment on above: Performed By: #### C BC, ADIFF, ANEU, BMP, GFR ####[place] [address] Sodium molar conc 130 mmol/L Low 136-145 [facility] ([place]) Comment on above: Performed By: #### C BC, ADIFF, ANEU, BMP, GFR ####[place] [address] Urea nitrogen mass conc 11.0 mg/dL Normal 8.0-22.0 [facility] ([place]) Comment on above: Performed By: #### C BC, ADIFF, ANEU, BMP, GFR ####[place] [address] Urea nitrogen/Creatinine mass ratio 15.9 ratio Normal 10.0-22.0 [facility] ([place]) Comment on above: Performed By: #### C BC, ADIFF, ANEU, BMP, GFR ####[place] [address] CBCon 02-19-2018 Erythrocyte distribution width Auto Ratio (RBC) 15.5 % Normal 11.5-15.5 [facility] ([place]) Comment on above: Performed By: #### B MP, GFR, LIPID, CBC, DIFF, MORPH, A1C ####[place] [address] Hematocrit Auto Volume Fraction (Bld) 27.9 % Low 40.0-52.0 [facility] ([place]) Comment on above: Performed By: #### B MP, GFR, LIPID, CBC, DIFF, MORPH, A1C ####[place] [address] Hemoglobin mass conc (Bld) 9.1 G/dL Low 13.0-17.5 [facility] ([place]) Comment on above: Performed By: #### B MP, GFR, LIPID, CBC, DIFF, MORPH, A1C ####[place] [address] MCH Auto Entitic mass (RBC) 29.0 pg Normal 27.0-33.0 [facility] ([place]) Comment on above: Performed By: #### B MP, GFR, LIPID, CBC, DIFF, MORPH, A1C ####[place] [address] MCHC Auto mass conc (RBC) 32.7 G/dL Normal 32.0-36.0 [facility] ([place]) Comment on above: Performed By: #### B MP, GFR, LIPID, CBC, DIFF, MORPH, A1C ####[place] [address] MCV Auto Entitic volume (RBC) 88.7 fL Normal 81.0-100.0 [facility] ([place]) Comment on above: Performed By: #### B MP, GFR, LIPID, CBC, DIFF, MORPH, A1C ####[place] [address] Platelet mean volume Auto Entitic volume (Bld) 6.5 fL Normal 6.4-10.5 [facility] ([place]) Comment on above: Performed By: #### B MP, GFR, LIPID, CBC, DIFF, MORPH, A1C ####[place] [address] Platelets Auto #/vol (Bld) 695 10 3/mcL High 150-450 [facility] ([place]) Comment on above: Performed By: #### B MP, GFR, LIPID, CBC, DIFF, MORPH, A1C ####[place] [address] RBC Auto #/vol (Bld) 3.15 10 6/mcL Low 4.50-6.00 A [facility] ([place]) Comment on above: Performed By: #### B MP, GFR, LIPID, CBC, DIFF, MORPH, A1C ####[place] [address] [place] [address] WBC Auto #/vol (Bld) 8.70 10 3/mcL Normal 4.50-10.80 A [facility] ([place]) Comment on above: Performed By: #### B MP, GFR, LIPID, CBC, DIFF, MORPH, A1C ####[place] [id number] [place] [address] THORAX W/O CONTRASTon CT THORAX W/O CONTRAST ORIGINALClinical history: Chest injury due to fall. Evaluate for pneumothorax. COMPARISON: Chest x-ray on 02/18/2018 and chest x-ray on 02/09/2018. Axial scans were obtained through the chest. Intravenous contrast was not given. This exam was performed according to our departmental dose optimization program, and includes the following measures where applicable: automated exposure control, adjustment of the mAs and/or kVp according to patient size and/or exam, and an iterative reconstruction algorithm.. There is no mediastinal mass, lymph node enlargement or mediastinal hematoma. Pneumomediastinum is present. The heart size is at the upper limits of normal. There is no pericardial effusion. Thoracic aorta is normal in diameter. A large LEFT pleural effusion is present. Fluid appears partly loculated. Fluid attenuation is 12 Hounsfield units which is consistent with serous fluid rather than hematoma. There is collapse of entire LEFT lower lobe. There is only partial expansion of LEFT upper lobe because of the volume of the pleural fluid. LEFT chest tube is present entering in the 6th intercostal space laterally. The tube is positioned anterior to the pleural fluid collections. There is no pneumothorax. Subcutaneous emphysema in the LEFT chest wall is present. Fractures of the 6th through 9th ribs laterally and the 7th through 11th ribs posteriorly are present with moderate displacement at multiple of the fractures. RIGHT lung is well aerated with no acute infiltrate and no pleural fluid or pneumothorax on the RIGHT. There are multiple old healed fractures on the RIGHT but no acute RIGHT rib fractures. No acute findings are seen in the upper abdomen. IMPRESSION: Large LEFT pleural fluid collection is partly loculated. The LEFT chest tube is positioned anterior to the fluid collection in the mid LEFT thorax. Collapse of most of LEFT lung except for part of LEFT upper lobe due to the presence of pleural fluid. Pneumomediastinum is present. Cause is not identified but may be associated with the subcutaneous emphysema seen in the chest wall. Multiple LEFT rib fractures as noted. Interpreted By: Krishna Lakhanireliminary Report By: Krishna Lakhani MDElectronically Signed By: Krishna Lakhani MD Dictated Date: 02/19/2018 2:36:00 AM Prelim Date: 02/19/2018 2:36:00 AM Sign Date: 02/19/2018 2:56:32 AM Normal [facility] ([place]) XR CHEST 1 VIEWon 02-18-2018 XR CHEST 1 V[facility]AL[facility] Clinical data information: Status post LEFT chest tube clamp area COMPARISON: 02/17/2018 LEFT chest tube is in stable position. Subcutaneous emphysema is present but probably mildly improved. There is moderate consolidation in the LEFT lower chest with suspected pleural fluid. Offset fractures lateral LEFT mid ribs stable. Old fracture deformity can be seen in the posterior lateral RIGHT 4th through 7th ribs, stable. No pneumothorax. IMPRESSION: Stable consolidation and pleural fluid the LEFT lower chest with slightly improving LEFT chest subcutaneous emphysema. No pneumothorax. Interpreted By: Juan Jaffe MDPreliminary Report By: Juan Jaffe MDElectronically Signed By: Juan Jaffe MD Dictated Date: 02/18/2018 9:43:33 AM Prelim Date: 02/18/2018 9:43:33 AM Sign Date: 02/18/2018 9:45:59 AM Normal [facility] ([place] XR CHEST 1 VIEWon 02-17-2018 XR CHEST 1 VIEW ORIGINALClinical his tory: Chest injury due to a fall. COMPARISON: Chest x-ray on 02/15/2018. Portable AP radiograph of the chest was obtained at 6:20 a.m. LEFT chest tube is unchanged in position. LEFT basilar opacity that appears be a combination of pleural fluid and lung consolidation is unchanged. There is no visible pneumothorax. Numerous acute LEFT rib fractures and old RIGHT rib fractures are noted. Subcutaneous air in LEFT chest wall extending into the neck has decreased slightly since the prior day. RIGHT lung shows no acute abnormality. IMPRESSION: LEFT basilar airspace disease and pleural fluid/hemothorax without change. No pneumothorax. Interpreted By: Krishna Lakhani MDPreliminary Report By: Krishna Lakhani MDElectronically Signed By: Krishna Lakhani MD Dictated Date: 02/17/2018 6:59:44 AM Prelim Date: 02/17/2018 6:59:44 AM Sign Date: 02/17/2018 7:02:21 AM Normal [facility] ([place]) .Auto Diffon 02-16-2018 Ammonia mass conc (P) 0.80 10 3/mcL Normal 0.09-1.40 [facility] ([place]) Comment on above: Performed By: #### B MP, GFR, LIPID, CBC, DIFF, MORPH, A1C ####[address] [address] Basophils Auto #/vol (Bld) 0.00 10 3/mcL Normal 0.00-0.27 [facility] ([place]) Comment on above: Performed By: #### B MP, GFR, LIPID, CBC, DIFF, MORPH, A1C ####[address] [address] Basophils/100 WBC Auto (Bld) 0.2 % Normal 0.0-2.5 [facility] ([place]) Comment on above: Performed By: #### B MP, GFR, LIPID, CBC, DIFF, MORPH, A1C ####[address] [address] Eosinophils Auto #/vol (Bld) 0.30 10 3/mcL Normal 0.00-0.65 [facility] ([place] Comment on above: Performed By: #### B MP, GFR, LIPID, CBC, DIFF, MORPH, A1C ####[address] [address] Eosinophils/100 WBC Auto (Bld) 3.7 % Normal 0.0-6.0 [facility] ([place] Comment on above: Performed By: #### B MP, GFR, LIPID, CBC, DIFF, MORPH, A1C ####[address] [address] Lymphocytes Auto #/vol (Bld) 1.10 10 3/mcL Normal 0.90-4.32 [facility] ([place] Comment on above: Performed By: #### B MP, GFR, LIPID, CBC, DIFF, MORPH, A1C ####[address] [address] Lymphocytes/100 WBC Auto (Bld) 15.1 % Low 20.0-40.0 [facility] ([place] Comment on above: Performed By: #### B MP, GFR, LIPID, CBC, DIFF, MORPH, A1C ####[place] [id number] [place] [address] Monocytes/100 WBC Auto (Bld) 10.8 % Normal 2.0-13.0 [facility] ([place]) Comment on above: Performed By: #### B MP, GFR, LIPID, CBC, DIFF, MORPH, A1C ####[place] [id number] [place] [address] Neutrophils/100 WBC Auto (Bld) 70.2 % Normal 50.0-75.0 [facility] ([place]) Comment on above: Performed By: #### B MP, GFR, LIPID, CBC, DIFF, MORPH, A1C ####[address] [address] .GFRon 02-16-2018 GFR >60 Normal [facility] ([place]) Comment on above: Result Comment: GFR Population mean for , Non- Americans Ages 20-29 = 116 mL/min/1.73 sq.m. Ages 30-39 = 107 mL/min/1.73 sq.m. Ages 40-49 = 99 mL/min/1.73 sq.m. Ages 50-59 = 93 mL/min/1.73 sq.m. Ages 60-69 = 85 mL/min/1.73 sq.m. Ages 70+ = 75 mL/min/1.73 sq.m.Chronic Kidney Disease: Less than 60 mL/min/1.73 square metersEnd Stage Renal Disease: Less than 15 mL/min/1.73 square meters Performed By: #### B MP, GFR, LIPID, CBC, DIFF, MORPH, A1C ####[address] [address] GFR Non- >60 Normal [facility] ([place]) Comment on above: Result Comment: GFR Population mean for , Non- Americans Ages 20-29 = 116 mL/min/1.73 sq.m. Ages 30-39 = 107 mL/min/1.73 sq.m. Ages 40-49 = 99 mL/min/1.73 sq.m. Ages 50-59 = 93 mL/min/1.73 sq.m. Ages 60-69 = 85 mL/min/1.73 sq.m. Ages 70+ = 75 mL/min/1.73 sq.m.Chronic Kidney Disease: Less than 60 mL/min/1.73 square metersEnd Stage Renal Disease: Less than 15 mL/min/1.73 square meters Performed By: #### B MP, GFR, LIPID, CBC, DIFF, MORPH, A1C ####[address] [address] .NEUABSon 02-16-2018 Neutrophil, Absolute 5.20 10 3/mcL Normal 2.25-8.10 A [facility] ([place]) Comment on above: Performed By: #### B MP, GFR, LIPID, CBC, DIFF, MORPH, A1C ####[place] [address] BMPon 02-16-2018 Calcium mass conc 8.5 mg/dL Normal 8.4-10.1 [facility] ([place]) Comment on above: Performed By: #### B MP, GFR, LIPID, CBC, DIFF, MORPH, A1C ####[place] [address] Chloride molar conc 98 mmol/L Normal 98-110 [facility] ([place]) Comment on above: Performed By: #### B MP, GFR, LIPID, CBC, DIFF, MORPH, A1C ####[place] [address] CO2 molar conc 28 mmol/L Normal 22-32 [facility] ([place]) Comment on above: Performed By: #### B MP, GFR, LIPID, CBC, DIFF, MORPH, A1C ####[place] [address] Creatinine mass conc 0.64 mg/dL Normal 0.60-1.40 [facility] ([place]) Comment on above: Performed By: #### B MP, GFR, LIPID, CBC, DIFF, MORPH, A1C ####[place] [address] Electrolyte Balance 9.0 mEq/L Normal 4.0-15.0 [facility] ([place]) Comment on above: Performed By: #### B MP, GFR, LIPID, CBC, DIFF, MORPH, A1C ####[place] [address] Glucose mass conc 96 mg/dL Normal 70-110 [facility] ([place]) Comment on above: Performed By: #### B MP, GFR, LIPID, CBC, DIFF, MORPH, A1C ####[place] [address] Potassium molar conc 4.2 mmol/L Normal 3.5-5.0 [facility] ([place]) Comment on above: Performed By: #### B MP, GFR, LIPID, CBC, DIFF, MORPH, A1C ####[place] [address] Sodium molar conc 135 mmol/L Low 136-145 [facility] ([place]) Comment on above: Performed By: #### B MP, GFR, LIPID, CBC, DIFF, MORPH, A1C ####[place] [address] Urea nitrogen mass conc 6.0 mg/dL Low 8.0-22.0 [facility] ([place]) Comment on above: Performed By: #### B MP, GFR, LIPID, CBC, DIFF, MORPH, A1C ####[place] [address] Urea nitrogen/Creatinine mass ratio 9.4 ratio Low 10.0-22.0 [facility] ([place]) Comment on above: Performed By: #### B MP, GFR, LIPID, CBC, DIFF, MORPH, A1C ####[place] [address] CBCon 02-16-2018 Erythrocyte distribution width Auto Ratio (RBC) 15.3 % Normal 11.5-15.5 [facility] ([place]) Comment on above: Performed By: #### B MP, GFR, LIPID, CBC, DIFF, MORPH, A1C ####[place] [address] Hematocrit Auto Volume Fraction (Bld) 27.3 % Low 40.0-52.0 [facility] ([place]) Comment on above: Performed By: #### B MP, GFR, LIPID, CBC, DIFF, MORPH, A1C ####[place] [address] Hemoglobin mass conc (Bld) 9.2 G/dL Low 13.0-17.5 [facility] ([place]) Comment on above: Performed By: #### B MP, GFR, LIPID, CBC, DIFF, MORPH, A1C ####[place] [address] MCH Auto Entitic mass (RBC) 30.0 pg Normal 27.0-33.0 [facility] ([place]) Comment on above: Performed By: #### B MP, GFR, LIPID, CBC, DIFF, MORPH, A1C ####[place] [address] MCHC Auto mass conc (RBC) 33.7 G/dL Normal 32.0-36.0 [facility] ([place]) Comment on above: Performed By: #### B MP, GFR, LIPID, CBC, DIFF, MORPH, A1C ####[place] [address] MCV Auto Entitic volume (RBC) 89.0 fL Normal 81.0-100.0 [facility] ([place]) Comment on above: Performed By: #### B MP, GFR, LIPID, CBC, DIFF, MORPH, A1C ####[place] [address] Platelet mean volume Auto Entitic volume (Bld) 6.2 fL Low 6.4-10.5 [facility] ([place]) Comment on above: Performed By: #### B MP, GFR, LIPID, CBC, DIFF, MORPH, A1C ####[place] [address] Platelets Auto #/vol (Bld) 493 10 3/mcL High 150-450 [facility] ([place]) Comment on above: Performed By: #### B MP, GFR, LIPID, CBC, DIFF, MORPH, A1C ####[place] [address] RBC Auto #/vol (Bld) 3.07 10 6/mcL Low 4.50-6.00 A [facility] ([place]) Comment on above: Performed By: #### B MP, GFR, LIPID, CBC, DIFF, MORPH, A1C ####[address] [address] WBC Auto #/vol (Bld) 7.50 10 3/mcL Normal 4.50-10.80 [facility] ([place]) Comment on above: Performed By: #### B MP, GFR, LIPID, CBC, DIFF, MORPH, A1C ####[place] [address] .Auto Diffon 02-15-2018 Ammonia mass conc (P) 0.80 10 3/mcL Normal 0.09-1.40 [facility] ([place]) Comment on above: Performed By: #### B MP, GFR, LIPID, CBC, DIFF, MORPH, A1C ####[place] [address] Basophils Auto #/vol (Bld) 0.00 10 3/mcL Normal 0.00-0.27 [facility] ([place]) Comment on above: Performed By: #### B MP, GFR, LIPID, CBC, DIFF, MORPH, A1C ####[place] [address] Basophils/100 WBC Auto (Bld) 0.3 % Normal 0.0-2.5 [facility] ([place]) Comment on above: Performed By: #### B MP, GFR, LIPID, CBC, DIFF, MORPH, A1C ####[place] [address] Eosinophils Auto #/vol (Bld) 0.20 10 3/mcL Normal 0.00-0.65 [facility] ([place]) Comment on above: Performed By: #### B MP, GFR, LIPID, CBC, DIFF, MORPH, A1C ####[place] [address] Eosinophils/100 WBC Auto (Bld) 3.6 % Normal 0.0-6.0 [facility] ([place]) Comment on above: Performed By: #### B MP, GFR, LIPID, CBC, DIFF, MORPH, A1C ####[address] [address] Lymphocytes Auto #/vol (Bld) 1.30 10 3/mcL Normal 0.90-4.32 [facility] ([place]) Comment on above: Performed By: #### B MP, GFR, LIPID, CBC, DIFF, MORPH, A1C ####[address] [address] Lymphocytes/100 WBC Auto (Bld) 18.9 % Low 20.0-40.0 [facility] ([place]) Comment on above: Performed By: #### B MP, GFR, LIPID, CBC, DIFF, MORPH, A1C ####[address] [address] Monocytes/100 WBC Auto (Bld) 11.2 % Normal 2.0-13.0 [facility] ([place]) Comment on above: Performed By: #### B MP, GFR, LIPID, CBC, DIFF, MORPH, A1C ####[address] [address] Neutrophils/100 WBC Auto (Bld) 66.0 % Normal 50.0-75.0 [facility] ([place]) Comment on above: Performed By: #### B MP, GFR, LIPID, CBC, DIFF, MORPH, A1C ####[address] [address] .GFRon 02-15-2018 GFR >60 Normal [facility] ([place]) Comment on above: Result Comment: GFR Population mean for , Non- Americans Ages 20-29 = 116 mL/min/1.73 sq.m. Ages 30-39 = 107 mL/min/1.73 sq.m. Ages 40-49 = 99 mL/min/1.73 sq.m. Ages 50-59 = 93 mL/min/1.73 sq.m. Ages 60-69 = 85 mL/min/1.73 sq.m. Ages 70+ = 75 mL/min/1.73 sq.m.Chronic Kidney Disease: Less than 60 mL/min/1.73 square metersEnd Stage Renal Disease: Less than 15 mL/min/1.73 square meters Performed By: #### B MP, GFR, LIPID, CBC, DIFF, MORPH, A1C ####[address] [address] GFR Non- >60 Normal [facility] ([place]) Comment on above: Result Comment: GFR Population mean for , Non- Americans Ages 20-29 = 116 mL/min/1.73 sq.m. Ages 30-39 = 107 mL/min/1.73 sq.m. Ages 40-49 = 99 mL/min/1.73 sq.m. Ages 50-59 = 93 mL/min/1.73 sq.m. Ages 60-69 = 85 mL/min/1.73 sq.m. Ages 70+ = 75 mL/min/1.73 sq.m.Chronic Kidney Disease: Less than 60 mL/min/1.73 square metersEnd Stage Renal Disease: Less than 15 mL/min/1.73 square meters Performed By: #### B MP, GFR, LIPID, CBC, DIFF, MORPH, A1C ####[place] [address] .NEUABSon 02-15-2018 Neutrophil, Absolute 4.40 10 3/mcL Normal 2.25-8.10 A [facility] ([place]) Comment on above: Performed By: #### B MP, GFR, LIPID, CBC, DIFF, MORPH, A1C ####[place] [address] BMPon 02-15-2018 Calcium mass conc 8.0 mg/dL Low 8.4-10.1 [facility] ([place]) Comment on above: Performed By: #### B MP, GFR, LIPID, CBC, DIFF, MORPH, A1C ####[address] [address] Chloride molar conc 101 mmol/L Normal 98-110 [facility] ([place]) Comment on above: Performed By: #### B MP, GFR, LIPID, CBC, DIFF, MORPH, A1C ####[address] [address] CO2 molar conc 25 mmol/L Normal 22-32 [facility] ([place]) Comment on above: Performed By: #### B MP, GFR, LIPID, CBC, DIFF, MORPH, A1C ####[place] [address] Creatinine mass conc 0.61 mg/dL Normal 0.60-1.40 [facility] ([place]) Comment on above: Performed By: #### B MP, GFR, LIPID, CBC, DIFF, MORPH, A1C ####[place] [address] Electrolyte Balance 7.0 mEq/L Normal 4.0-15.0 [facility] ([place]) Comment on above: Performed By: #### B MP, GFR, LIPID, CBC, DIFF, MORPH, A1C ####[place] [address] Glucose mass conc 93 mg/dL Normal 70-110 [facility] ([place]) Comment on above: Performed By: #### B MP, GFR, LIPID, CBC, DIFF, MORPH, A1C ####[place] [address] Potassium molar conc 3.9 mmol/L Normal 3.5-5.0 [facility] ([place]) Comment on above: Performed By: #### B MP, GFR, LIPID, CBC, DIFF, MORPH, A1C ####[place] [address] Sodium molar conc 133 mmol/L Low 136-145 [facility] ([place] Comment on above: Performed By: #### B MP, GFR, LIPID, CBC, DIFF, MORPH, A1C ####[place] [address] Urea nitrogen mass conc 6.0 mg/dL Low 8.0-22.0 [facility] ([place]) Comment on above: Performed By: #### B MP, GFR, LIPID, CBC, DIFF, MORPH, A1C ####[place] [address] Urea nitrogen/Creatinine mass ratio 9.8 ratio Low 10.0-22.0 [facility] ([place]) Comment on above: Performed By: #### B MP, GFR, LIPID, CBC, DIFF, MORPH, A1C ####[place] [address] CBCon 02-15-2018 Erythrocyte distribution width Auto Ratio (RBC) 15.4 % Normal 11.5-15.5 [facility] ([place]) Comment on above: Performed By: #### B MP, GFR, LIPID, CBC, DIFF, MORPH, A1C ####[place] [address] Hematocrit Auto Volume Fraction (Bld) 24.1 % Low 40.0-52.0 [facility] ([place] Comment on above: Performed By: #### B MP, GFR, LIPID, CBC, DIFF, MORPH, A1C ####[place] [address] Hemoglobin mass conc (Bld) 8.2 G/dL Low 13.0-17.5 [facility] ([place] Comment on above: Performed By: #### B MP, GFR, LIPID, CBC, DIFF, MORPH, A1C ####[place] [address] MCH Auto Entitic mass (RBC) 30.1 pg Normal 27.0-33.0 [facility] ([place] Comment on above: Performed By: #### B MP, GFR, LIPID, CBC, DIFF, MORPH, A1C ####[place] [address] MCHC Auto mass conc (RBC) 34.1 G/dL Normal 32.0-36.0 [facility] ([place] Comment on above: Performed By: #### B MP, GFR, LIPID, CBC, DIFF, MORPH, A1C ####[place] [address] MCV Auto Entitic volume (RBC) 88.5 fL Normal 81.0-100.0 [facility] ([place] Comment on above: Performed By: #### B MP, GFR, LIPID, CBC, DIFF, MORPH, A1C ####[place] [address] Platelet mean volume Auto Entitic volume (Bld) 6.2 fL Low 6.4-10.5 [facility] ([place] Comment on above: Performed By: #### B MP, GFR, LIPID, CBC, DIFF, MORPH, A1C ####[address] [address] Platelets Auto #/vol (Bld) 426 10 3/mcL Normal 150-450 [facility] ([place]) Comment on above: Performed By: #### B MP, GFR, LIPID, CBC, DIFF, MORPH, A1C ####[address] [address] RBC Auto #/vol (Bld) 2.72 10 6/mcL Low 4.50-6.00 A [facility] ([place]) Comment on above: Performed By: #### B MP, GFR, LIPID, CBC, DIFF, MORPH, A1C ####[address] [address] WBC Auto #/vol (Bld) 6.70 10 3/mcL Normal 4.50-10.80 A [facility] ([place]) Comment on above: Performed By: #### B MP, GFR, LIPID, CBC, DIFF, MORPH, A1C ####[place] [address] XR CHEST 1 VIEWon 02-15-2018 XR CHEST 1 VIEW ORIGINALXR CHEST 1 V IEW CLINICAL STATEMENT: Abnormal breath sounds. COMPARISON: 02/14/2018 FINDINGS: The heart and mediastinal contours are unchanged. A LEFT chest tube is unchanged in position. There is significant subcutaneous emphysema. Patchy airspace disease noted in the central and lower LEFT lung. There is likely LEFT pleural effusion or hemothorax. Numerous associated displaced LEFT rib fractures seen. Remodeled RIGHT rib deformities noted. There are extensive artifacts over the LEFT scapula. A scapular fracture cannot be excluded on this radiograph. IMPRESSION: No significant change Interpreted By: Malik Jaimes MDPreliminary Report By: Malik Jaimes MDElectronically Signed By: Malik Jaimes MD Dictated Date: 02/15/2018 8:43:10 AM Prelim Date: 02/15/2018 8:43:10 AM Sign Date: 02/15/2018 8:45:57 AM Normal [facility] ([place]) .Auto Diffon 02-14-2018 Ammonia mass conc (P) 0.70 10 3/mcL Normal 0.09-1.40 [facility] ([place]) Comment on above: Performed By: #### B MP, GFR, LIPID, CBC, DIFF, MORPH, A1C ####[address] [address] Basophils Auto #/vol (Bld) 0.00 10 3/mcL Normal 0.00-0.27 [facility] ([place]) Comment on above: Performed By: #### B MP, GFR, LIPID, CBC, DIFF, MORPH, A1C ####[address] [address] Basophils/100 WBC Auto (Bld) 0.5 % Normal 0.0-2.5 [facility] ([place]) Comment on above: Performed By: #### B MP, GFR, LIPID, CBC, DIFF, MORPH, A1C ####[address] [address] Eosinophils Auto #/vol (Bld) 0.30 10 3/mcL Normal 0.00-0.65 [facility] ([place]) Comment on above: Performed By: #### B MP, GFR, LIPID, CBC, DIFF, MORPH, A1C ####[address] [address] Eosinophils/100 WBC Auto (Bld) 4.0 % Normal 0.0-6.0 [facility] ([place]) Comment on above: Performed By: #### B MP, GFR, LIPID, CBC, DIFF, MORPH, A1C ####[address] [address] Lymphocytes Auto #/vol (Bld) 1.40 10 3/mcL Normal 0.90-4.32 [facility] ([place]) Comment on above: Performed By: #### B MP, GFR, LIPID, CBC, DIFF, MORPH, A1C ####[address] [address] Lymphocytes/100 WBC Auto (Bld) 17.6 % Low 20.0-40.0 [facility] ([place]) Comment on above: Performed By: #### B MP, GFR, LIPID, CBC, DIFF, MORPH, A1C ####[address] [address] Monocytes/100 WBC Auto (Bld) 8.8 % Normal 2.0-13.0 [facility] ([place]) Comment on above: Performed By: #### B MP, GFR, LIPID, CBC, DIFF, MORPH, A1C ####[address] [address] Neutrophils/100 WBC Auto (Bld) 69.1 % Normal 50.0-75.0 [facility] ([place]) Comment on above: Performed By: #### B MP, GFR, LIPID, CBC, DIFF, MORPH, A1C ####[address] [address] .GFRon 02-14-2018 GFR >60 Normal [facility] ([place]) Comment on above: Result Comment: GFR Population mean for , Non- Americans Ages 20-29 = 116 mL/min/1.73 sq.m. Ages 30-39 = 107 mL/min/1.73 sq.m. Ages 40-49 = 99 mL/min/1.73 sq.m. Ages 50-59 = 93 mL/min/1.73 sq.m. Ages 60-69 = 85 mL/min/1.73 sq.m. Ages 70+ = 75 mL/min/1.73 sq.m.Chronic Kidney Disease: Less than 60 mL/min/1.73 square metersEnd Stage Renal Disease: Less than 15 mL/min/1.73 square meters Performed By: #### B MP, GFR, LIPID, CBC, DIFF, MORPH, A1C ####[address] [address] GFR Non- >60 Normal [facility] ([place]) Comment on above: Result Comment: GFR Population mean for , Non- Americans Ages 20-29 = 116 mL/min/1.73 sq.m. Ages 30-39 = 107 mL/min/1.73 sq.m. Ages 40-49 = 99 mL/min/1.73 sq.m. Ages 50-59 = 93 mL/min/1.73 sq.m. Ages 60-69 = 85 mL/min/1.73 sq.m. Ages 70+ = 75 mL/min/1.73 sq.m.Chronic Kidney Disease: Less than 60 mL/min/1.73 square metersEnd Stage Renal Disease: Less than 15 mL/min/1.73 square meters Performed By: #### B MP, GFR, LIPID, CBC, DIFF, MORPH, A1C ####[place] [address] .NEUABSon 02-14-2018 Neutrophil, Absolute 5.60 10 3/mcL Normal 2.25-8.10 A [facility] ([place]) Comment on above: Performed By: #### B MP, GFR, LIPID, CBC, DIFF, MORPH, A1C ####[place] [address] BMPon 02-14-2018 Creatinine mass conc 0.54 mg/dL Low 0.60-1.40 [facility] ([place]) Comment on above: Performed By: #### B MP, GFR, LIPID, CBC, DIFF, MORPH, A1C ####[place] [address] Urea nitrogen/Creatinine mass ratio 14.8 ratio Normal 10.0-22.0 [facility] ([place]) Comment on above: Performed By: #### B MP, GFR, LIPID, CBC, DIFF, MORPH, A1C ####[place] [address] Calcium mass conc 7.8 mg/dL Low 8.4-10.1 [facility] ([place] Comment on above: Performed By: #### B MP, GFR, LIPID, CBC, DIFF, MORPH, A1C ####[place] [address] CO2 molar conc 25 mmol/L Normal 22-32 [facility] ([place] Comment on above: Performed By: #### B MP, GFR, LIPID, CBC, DIFF, MORPH, A1C ####[place] [address] Electrolyte Balance 11.0 mEq/L Normal 4.0-15.0 [facility] ([place]) Comment on above: Performed By: #### B MP, GFR, LIPID, CBC, DIFF, MORPH, A1C ####[place] [address] Glucose mass conc 111 mg/dL High 70-110 [facility] ([place] Comment on above: Performed By: #### B MP, GFR, LIPID, CBC, DIFF, MORPH, A1C ####[place] [address] Potassium molar conc 4.0 mmol/L Normal 3.5-5.0 [facility] ([place]) Comment on above: Performed By: #### B MP, GFR, LIPID, CBC, DIFF, MORPH, A1C ####[place] [address] Urea nitrogen mass conc 8.0 mg/dL Normal 8.0-22.0 [facility] ([place] Comment on above: Performed By: #### B MP, GFR, LIPID, CBC, DIFF, MORPH, A1C ####[place] [address] Chloride molar conc 99 mmol/L Normal 98-110 [facility] ([place]) Comment on above: Performed By: #### B MP, GFR, LIPID, CBC, DIFF, MORPH, A1C ####[place] [address] Sodium molar conc 135 mmol/L Low 136-145 [facility] ([place] Comment on above: Performed By: #### B MP, GFR, LIPID, CBC, DIFF, MORPH, A1C ####[place] [address] CBCon 02-14-2018 Erythrocyte distribution width Auto Ratio (RBC) 15.2 % Normal 11.5-15.5 [facility] ([place] Comment on above: Performed By: #### B MP, GFR, LIPID, CBC, DIFF, MORPH, A1C ####[place] [address] Hematocrit Auto Volume Fraction (Bld) 31.9 % Low 40.0-52.0 [facility] ([place] Comment on above: Performed By: #### B MP, GFR, LIPID, CBC, DIFF, MORPH, A1C ####[place] [address] Hemoglobin mass conc (Bld) 10.7 G/dL Low 13.0-17.5 [facility] ([place] Comment on above: Performed By: #### B MP, GFR, LIPID, CBC, DIFF, MORPH, A1C ####[place] [address] MCH Auto Entitic mass (RBC) 30.0 pg Normal 27.0-33.0 [facility] ([place] Comment on above: Performed By: #### B MP, GFR, LIPID, CBC, DIFF, MORPH, A1C ####[place] [address] MCHC Auto mass conc (RBC) 33.5 G/dL Normal 32.0-36.0 [facility] ([place] Comment on above: Performed By: #### B MP, GFR, LIPID, CBC, DIFF, MORPH, A1C ####[place] [address] MCV Auto Entitic volume (RBC) 89.7 fL Normal 81.0-100.0 [facility] ([place] Comment on above: Performed By: #### B MP, GFR, LIPID, CBC, DIFF, MORPH, A1C ####[place] [address] Platelet mean volume Auto Entitic volume (Bld) 6.6 fL Normal 6.4-10.5 [facility] ([place] Comment on above: Performed By: #### B MP, GFR, LIPID, CBC, DIFF, MORPH, A1C ####[place] [address] Platelets Auto #/vol (Bld) 322 10 3/mcL Normal 150-450 [facility] ([place] Comment on above: Performed By: #### B MP, GFR, LIPID, CBC, DIFF, MORPH, A1C ####[place] [address] RBC Auto #/vol (Bld) 3.56 10 6/mcL Low 4.50-6.00 A [facility] ([place]) Comment on above: Performed By: #### B MP, GFR, LIPID, CBC, DIFF, MORPH, A1C ####[place] [address] WBC Auto #/vol (Bld) 8.10 10 3/mcL Normal 4.50-10.80 A [facility] ([place]) Comment on above: Result Comment: Capi llary or microtainer specimen received. Performed By: #### B MP, GFR, LIPID, CBC, DIFF, MORPH, A1C ####[address] [id number] XR CHEST 1 VIEWon 02-14-2018 XR CHEST 1 VIEW ORIGINALXR CHEST 1 V IEW PORTABLE AP TIME: 11:50 AM CLINICAL STATEMENT: Abnormal breath sounds. COMPARISON: 02/13/2018 FINDINGS: The cardiomediastinal contours are unchanged. There is a left-sided chest tube which appears similar in position. There is increasing LEFT basilar opacity which may reflect a combination of fluid and airspace disease. Displaced LEFT basilar rib fractures seen. There is subcutaneous emphysema of the LEFT chest wall and bilateral neck. The RIGHT lung appears clear. Remote RIGHT rib fractures are shown. No visualized pneumothorax. IMPRESSION: Increasing LEFT basilar opacity likely represents a combination of pleural fluid and airspace disease. Otherwise, no significant change. Interpreted By: Ritika Amayareliminary Report By: Ritika Amaya MDElectronically Signed By: Ritika Amaya MD Dictated Date: 02/14/2018 11:51:23 AM Prelim Date: 02/14/2018 11:51:23 AM Sign Date: 02/14/2018 11:52:43 AM Normal [facility] ([place]) .Auto Diffon 02-13-2018 Ammonia mass conc (P) 0.50 10 3/mcL Normal 0.09-1.40 [facility] ([place]) Comment on above: Performed By: #### B MP, GFR, LIPID, CBC, DIFF, MORPH, A1C ####[address] [address] Basophils Auto #/vol (Bld) 0.00 10 3/mcL Normal 0.00-0.27 [facility] ([place]) Comment on above: Performed By: #### B MP, GFR, LIPID, CBC, DIFF, MORPH, A1C ####[address] [address] Basophils/100 WBC Auto (Bld) 0.3 % Normal 0.0-2.5 [facility] ([place]) Comment on above: Performed By: #### B MP, GFR, LIPID, CBC, DIFF, MORPH, A1C ####[address] [address] Eosinophils Auto #/vol (Bld) 0.30 10 3/mcL Normal 0.00-0.65 [facility] ([place]) Comment on above: Performed By: #### B MP, GFR, LIPID, CBC, DIFF, MORPH, A1C ####[address] [address] Eosinophils/100 WBC Auto (Bld) 4.1 % Normal 0.0-6.0 [facility] ([place]) Comment on above: Performed By: #### B MP, GFR, LIPID, CBC, DIFF, MORPH, A1C ####[address] [address] Lymphocytes Auto #/vol (Bld) 1.30 10 3/mcL Normal 0.90-4.32 [facility] ([place] Comment on above: Performed By: #### B MP, GFR, LIPID, CBC, DIFF, MORPH, A1C ####[address] [address] Lymphocytes/100 WBC Auto (Bld) 19.7 % Low 20.0-40.0 [facility] ([place] Comment on above: Performed By: #### B MP, GFR, LIPID, CBC, DIFF, MORPH, A1C ####[address] [address] Monocytes/100 WBC Auto (Bld) 8.0 % Normal 2.0-13.0 [facility] ([place]) Comment on above: Performed By: #### B MP, GFR, LIPID, CBC, DIFF, MORPH, A1C ####[address] [address] Neutrophils/100 WBC Auto (Bld) 67.9 % Normal 50.0-75.0 [facility] ([place] Comment on above: Performed By: #### B MP, GFR, LIPID, CBC, DIFF, MORPH, A1C ####[address] [address] .GFRon 02-13-2018 GFR Non- >60 Normal [facility] ([place]) Comment on above: Result Comment: GFR Population mean for , Non- Americans Ages 20-29 = 116 mL/min/1.73 sq.m. Ages 30-39 = 107 mL/min/1.73 sq.m. Ages 40-49 = 99 mL/min/1.73 sq.m. Ages 50-59 = 93 mL/min/1.73 sq.m. Ages 60-69 = 85 mL/min/1.73 sq.m. Ages 70+ = 75 mL/min/1.73 sq.m.Chronic Kidney Disease: Less than 60 mL/min/1.73 square metersEnd Stage Renal Disease: Less than 15 mL/min/1.73 square meters Performed By: #### B MP, GFR, LIPID, CBC, DIFF, MORPH, A1C ####[place] [address] GFR >60 Normal [facility] ([place]) Comment on above: Result Comment: GFR Population mean for , Non- Americans Ages 20-29 = 116 mL/min/1.73 sq.m. Ages 30-39 = 107 mL/min/1.73 sq.m. Ages 40-49 = 99 mL/min/1.73 sq.m. Ages 50-59 = 93 mL/min/1.73 sq.m. Ages 60-69 = 85 mL/min/1.73 sq.m. Ages 70+ = 75 mL/min/1.73 sq.m.Chronic Kidney Disease: Less than 60 mL/min/1.73 square metersEnd Stage Renal Disease: Less than 15 mL/min/1.73 square meters Performed By: #### B MP, GFR, LIPID, CBC, DIFF, MORPH, A1C ####[place] [address] .NEUABSon 02-13-2018 Neutrophil, Absolute 4.30 10 3/mcL Normal 2.25-8.10 [facility] ([place]) Comment on above: Performed By: #### B MP, GFR, LIPID, CBC, DIFF, MORPH, A1C ####[address] [address] BMPon 02-13-2018 Creatinine mass conc 0.57 mg/dL Low 0.60-1.40 [facility] ([place]) Comment on above: Performed By: #### B MP, GFR, LIPID, CBC, DIFF, MORPH, A1C ####[place] [address] Urea nitrogen/Creatinine mass ratio 12.3 ratio Normal 10.0-22.0 [facility] ([place]) Comment on above: Performed By: #### B MP, GFR, LIPID, CBC, DIFF, MORPH, A1C ####[place] [address] Calcium mass conc 7.7 mg/dL Low 8.4-10.1 [facility] ([place]) Comment on above: Performed By: #### B MP, GFR, LIPID, CBC, DIFF, MORPH, A1C ####[place] [address] Chloride molar conc 102 mmol/L Normal 98-110 [facility] ([place]) Comment on above: Performed By: #### B MP, GFR, LIPID, CBC, DIFF, MORPH, A1C ####[place] [address] CO2 molar conc 24 mmol/L Normal 22-32 [facility] ([place]) Comment on above: Performed By: #### B MP, GFR, LIPID, CBC, DIFF, MORPH, A1C ####[place] [address] Electrolyte Balance 9.0 mEq/L Normal 4.0-15.0 [facility] ([place]) Comment on above: Performed By: #### B MP, GFR, LIPID, CBC, DIFF, MORPH, A1C ####[place] [address] Glucose mass conc 95 mg/dL Normal 70-110 [facility] ([place] Comment on above: Performed By: #### B MP, GFR, LIPID, CBC, DIFF, MORPH, A1C ####[place] [address] Potassium molar conc 3.9 mmol/L Normal 3.5-5.0 [facility] ([place]) Comment on above: Performed By: #### B MP, GFR, LIPID, CBC, DIFF, MORPH, A1C ####[place] [id number] Sodium molar conc 135 mmol/L Low 136-145 [facility] ([place] Comment on above: Performed By: #### B MP, GFR, LIPID, CBC, DIFF, MORPH, A1C ####[place] [address] Urea nitrogen mass conc 7.0 mg/dL Low 8.0-22.0 [facility] ([place]) Comment on above: Performed By: #### B MP, GFR, LIPID, CBC, DIFF, MORPH, A1C ####[place] [address] CBCon 02-13-2018 Erythrocyte distribution width Auto Ratio (RBC) 15.1 % Normal 11.5-15.5 [facility] ([place] Comment on above: Performed By: #### B MP, GFR, LIPID, CBC, DIFF, MORPH, A1C ####[place] [address] Hematocrit Auto Volume Fraction (Bld) 25.7 % Low 40.0-52.0 [facility] ([place] Comment on above: Performed By: #### B MP, GFR, LIPID, CBC, DIFF, MORPH, A1C ####[place] [address] Hemoglobin mass conc (Bld) 8.5 G/dL Low 13.0-17.5 [facility] ([place] Comment on above: Performed By: #### B MP, GFR, LIPID, CBC, DIFF, MORPH, A1C ####[place] [address] MCH Auto Entitic mass (RBC) 29.8 pg Normal 27.0-33.0 [facility] ([place] Comment on above: Performed By: #### B MP, GFR, LIPID, CBC, DIFF, MORPH, A1C ####[place] [address] MCHC Auto mass conc (RBC) 33.2 G/dL Normal 32.0-36.0 [facility] ([place] Comment on above: Performed By: #### B MP, GFR, LIPID, CBC, DIFF, MORPH, A1C ####[place] [address] MCV Auto Entitic volume (RBC) 89.9 fL Normal 81.0-100.0 [facility] ([place] Comment on above: Performed By: #### B MP, GFR, LIPID, CBC, DIFF, MORPH, A1C ####[place] [address] Platelet mean volume Auto Entitic volume (Bld) 6.1 fL Low 6.4-10.5 [facility] ([place] Comment on above: Performed By: #### B MP, GFR, LIPID, CBC, DIFF, MORPH, A1C ####[place] [address] Platelets Auto #/vol (Bld) 372 10 3/mcL Normal 150-450 [facility] ([place]) Comment on above: Performed By: #### B MP, GFR, LIPID, CBC, DIFF, MORPH, A1C ####[place] [address] RBC Auto #/vol (Bld) 2.86 10 6/mcL Low 4.50-6.00 A [facility] ([place]) Comment on above: Performed By: #### B MP, GFR, LIPID, CBC, DIFF, MORPH, A1C ####[place] [address] WBC Auto #/vol (Bld) 6.40 10 3/mcL Normal 4.50-10.80 [facility] ([place]) Comment on above: Performed By: #### B MP, GFR, LIPID, CBC, DIFF, MORPH, A1C ####[place] [address] MGon 02-13-2018 Magnesium mass conc 1.5 mg/dL Low 1.6-2.4 [facility] ([place]) Comment on above: Performed By: #### B MP, GFR, LIPID, CBC, DIFF, MORPH, A1C ####[place] [address] PHOSon 02-13-2018 Phosphate mass conc 2.9 mg/dL Normal 2.5-4.5 [facility] ([place]) Comment on above: Performed By: #### B MP, GFR, LIPID, CBC, DIFF, MORPH, A1C ####[address] [address] XR CHEST 1 VIEWon 02-13-2018 XR CHEST 1 VIEW ORIGINALClinical his tory: Abnormal breath sounds. Chest trauma. COMPARISON: Chest x-ray on 02/12/2018. Portable AP radiograph of the chest was obtained at 6:20 a.m. LEFT chest tube is unchanged in position. There is no visible pneumothorax. Subcutaneous emphysema in LEFT chest wall and in the neck is unchanged. LEFT pleural fluid appears to have increased slightly. There is also increased consolidation of LEFT lung base. RIGHT lung remains well aerated. IMPRESSION: Increasing LEFT pleural fluid and LEFT basilar lung consolidation. No visible pneumothorax. Interpreted By: Krishna Lakhani MDPreliminary Report By: Krishna Lakhani MDElectronically Signed By: Krishna Lakhani MD Dictated Date: 02/13/2018 7:37:20 AM Prelim Date: 02/13/2018 7:37:20 AM Sign Date: 02/13/2018 7:39:19 AM Normal [facility] ([place]) .Auto Diffon 02-12-2018 Ammonia mass conc (P) 0.60 10 3/mcL Normal 0.09-1.40 [facility] ([place]) Comment on above: Performed By: #### B MP, GFR, LIPID, CBC, DIFF, MORPH, A1C ####[address] [address] Basophils Auto #/vol (Bld) 0.00 10 3/mcL Normal 0.00-0.27 [facility] ([place] Comment on above: Performed By: #### B MP, GFR, LIPID, CBC, DIFF, MORPH, A1C ####[address] [address] Basophils/100 WBC Auto (Bld) 0.3 % Normal 0.0-2.5 [facility] ([place]) Comment on above: Performed By: #### B MP, GFR, LIPID, CBC, DIFF, MORPH, A1C ####[address] [address] Eosinophils Auto #/vol (Bld) 0.10 10 3/mcL Normal 0.00-0.65 [facility] ([place]) Comment on above: Performed By: #### B MP, GFR, LIPID, CBC, DIFF, MORPH, A1C ####[address] [address] Eosinophils/100 WBC Auto (Bld) 2.0 % Normal 0.0-6.0 [facility] ([place]) Comment on above: Performed By: #### B MP, GFR, LIPID, CBC, DIFF, MORPH, A1C ####[address] [address] Lymphocytes Auto #/vol (Bld) 1.10 10 3/mcL Normal 0.90-4.32 [facility] ([place]) Comment on above: Performed By: #### B MP, GFR, LIPID, CBC, DIFF, MORPH, A1C ####[address] [address] Lymphocytes/100 WBC Auto (Bld) 15.8 % Low 20.0-40.0 [facility] ([place]) Comment on above: Performed By: #### B MP, GFR, LIPID, CBC, DIFF, MORPH, A1C ####[address] [address] Monocytes/100 WBC Auto (Bld) 8.7 % Normal 2.0-13.0 [facility] ([place]) Comment on above: Performed By: #### B MP, GFR, LIPID, CBC, DIFF, MORPH, A1C ####[address] [address] Neutrophils/100 WBC Auto (Bld) 73.2 % Normal 50.0-75.0 [facility] ([place]) Comment on above: Performed By: #### B MP, GFR, LIPID, CBC, DIFF, MORPH, A1C ####[address] [address] .GFRon 02-12-2018 GFR >60 Normal [facility] ([place]) Comment on above: Result Comment: GFR Population mean for , Non- Americans Ages 20-29 = 116 mL/min/1.73 sq.m. Ages 30-39 = 107 mL/min/1.73 sq.m. Ages 40-49 = 99 mL/min/1.73 sq.m. Ages 50-59 = 93 mL/min/1.73 sq.m. Ages 60-69 = 85 mL/min/1.73 sq.m. Ages 70+ = 75 mL/min/1.73 sq.m.Chronic Kidney Disease: Less than 60 mL/min/1.73 square metersEnd Stage Renal Disease: Less than 15 mL/min/1.73 square meters Performed By: #### B MP, GFR, LIPID, CBC, DIFF, MORPH, A1C ####[address] [address] GFR Non- >60 Normal [facility] ([place]) Comment on above: Result Comment: GFR Population mean for , Non- Americans Ages 20-29 = 116 mL/min/1.73 sq.m. Ages 30-39 = 107 mL/min/1.73 sq.m. Ages 40-49 = 99 mL/min/1.73 sq.m. Ages 50-59 = 93 mL/min/1.73 sq.m. Ages 60-69 = 85 mL/min/1.73 sq.m. Ages 70+ = 75 mL/min/1.73 sq.m.Chronic Kidney Disease: Less than 60 mL/min/1.73 square metersEnd Stage Renal Disease: Less than 15 mL/min/1.73 square meters Performed By: #### B MP, GFR, LIPID, CBC, DIFF, MORPH, A1C ####[address] [address] .NEUABSon 02-12-2018 Neutrophil, Absolute 5.30 10 3/mcL Normal 2.25-8.10 A [facility] ([place]) Comment on above: Performed By: #### B MP, GFR, LIPID, CBC, DIFF, MORPH, A1C ####[address] [address] BMPon 02-12-2018 Calcium mass conc 7.7 mg/dL Low 8.4-10.1 [facility] ([place]) Comment on above: Performed By: #### B MP, GFR, LIPID, CBC, DIFF, MORPH, A1C ####[address] [address] Chloride molar conc 102 mmol/L Normal 98-110 [facility] ([place]) Comment on above: Performed By: #### B MP, GFR, LIPID, CBC, DIFF, MORPH, A1C ####[place] [address] CO2 molar conc 28 mmol/L Normal 22-32 [facility] ([place]) Comment on above: Performed By: #### B MP, GFR, LIPID, CBC, DIFF, MORPH, A1C ####[place] [address] Creatinine mass conc 0.57 mg/dL Low 0.60-1.40 [facility] ([place]) Comment on above: Performed By: #### B MP, GFR, LIPID, CBC, DIFF, MORPH, A1C ####[place] [address] Electrolyte Balance 7.0 mEq/L Normal 4.0-15.0 [facility] ([place]) Comment on above: Performed By: #### B MP, GFR, LIPID, CBC, DIFF, MORPH, A1C ####[place] [address] Glucose mass conc 102 mg/dL Normal 70-110 [facility] ([place] Comment on above: Performed By: #### B MP, GFR, LIPID, CBC, DIFF, MORPH, A1C ####[place] [address] Potassium molar conc 3.4 mmol/L Low 3.5-5.0 [facility] ([place] Comment on above: Performed By: #### B MP, GFR, LIPID, CBC, DIFF, MORPH, A1C ####[place] [address] Sodium molar conc 137 mmol/L Normal 136-145 [facility] ([place] Comment on above: Performed By: #### B MP, GFR, LIPID, CBC, DIFF, MORPH, A1C ####[place] [address] Urea nitrogen mass conc 7.0 mg/dL Low 8.0-22.0 [facility] ([place] Comment on above: Performed By: #### B MP, GFR, LIPID, CBC, DIFF, MORPH, A1C ####[place] [address] Urea nitrogen/Creatinine mass ratio 12.3 ratio Normal 10.0-22.0 [facility] ([place] Comment on above: Performed By: #### B MP, GFR, LIPID, CBC, DIFF, MORPH, A1C ####[place] [address] CBCon 02-12-2018 Erythrocyte distribution width Auto Ratio (RBC) 14.6 % Normal 11.5-15.5 [facility] ([place] Comment on above: Performed By: #### B MP, GFR, LIPID, CBC, DIFF, MORPH, A1C ####[place] [address] Hematocrit Auto Volume Fraction (Bld) 24.7 % Low 40.0-52.0 [facility] ([place] Comment on above: Performed By: #### B MP, GFR, LIPID, CBC, DIFF, MORPH, A1C ####[place] [address] Hemoglobin mass conc (Bld) 8.3 G/dL Low 13.0-17.5 [facility] ([place] Comment on above: Performed By: #### B MP, GFR, LIPID, CBC, DIFF, MORPH, A1C ####[place] [address] MCH Auto Entitic mass (RBC) 30.0 pg Normal 27.0-33.0 [facility] ([place] Comment on above: Performed By: #### B MP, GFR, LIPID, CBC, DIFF, MORPH, A1C ####[place] [address] MCHC Auto mass conc (RBC) 33.5 G/dL Normal 32.0-36.0 [facility] ([place] Comment on above: Performed By: #### B MP, GFR, LIPID, CBC, DIFF, MORPH, A1C ####[place] [address] MCV Auto Entitic volume (RBC) 89.5 fL Normal 81.0-100.0 [facility] ([place] Comment on above: Performed By: #### B MP, GFR, LIPID, CBC, DIFF, MORPH, A1C ####[place] [address] Platelet mean volume Auto Entitic volume (Bld) 6.2 fL Low 6.4-10.5 [facility] ([place] Comment on above: Performed By: #### B MP, GFR, LIPID, CBC, DIFF, MORPH, A1C ####[place] [address] Platelets Auto #/vol (Bld) 350 10 3/mcL Normal 150-450 [facility] ([place] Comment on above: Performed By: #### B MP, GFR, LIPID, CBC, DIFF, MORPH, A1C ####[place] [address] RBC Auto #/vol (Bld) 2.76 10 6/mcL Low 4.50-6.00 A [facility] ([place]) Comment on above: Performed By: #### B MP, GFR, LIPID, CBC, DIFF, MORPH, A1C ####[place] [address] WBC Auto #/vol (Bld) 7.20 10 3/mcL Normal 4.50-10.80 [facility] ([place]) Comment on above: Performed By: #### B MP, GFR, LIPID, CBC, DIFF, MORPH, A1C ####[place] [address] XR CHEST 1 VIEWon 02-12-2018 XR CHEST 1 VIEW ORIGINALClinical his tory: Follow-up pneumothorax. COMPARISON: Chest x-ray on 02/12/2018 at 12:40 AM. Portable AP radiograph of the chest was obtained at 5:20 AM. LEFT chest tube is unchanged in position. There is no visible pneumothorax at this time. Subcutaneous emphysema in LEFT chest wall and both sides of the neck is unchanged. Airspace disease at LEFT lung base and small LEFT pleural effusion are also stable. RIGHT lung is well aerated with no acute abnormality. IMPRESSION: No visible pneumothorax. No change in subcutaneous emphysema. Persistent LEFT basilar airspace disease and small LEFT pleural effusion. Interpreted By: Krishna Lakhani MDPreliminary Report By: Krishna Lakhani MDElectronically Signed By: Krishna Lakhani MD Dictated Date: 02/12/2018 7:05:39 AM Prelim Date: 02/12/2018 7:05:39 AM Sign Date: 02/12/2018 7:07:44 AM Normal [facility] ([place] XR CHEST 1 VIEW ORIGINALClinical his tory: Short of breath. COMPARISON: Chest x-ray on 02/10/2018. Portable AP radiograph of the chest was obtained at 12:40 AM. The LEFT chest tube is unchanged in position. There is significantly increased air in the LEFT chest wall and in both sides of the neck. There is also evidence of pneumomediastinum. A small LEFT apical pneumothorax is 1 cm in width. This was not seen on prior exam. There is no shift of the mediastinum. There is increased airspace disease at the LEFT lung base. The RIGHT lung remains well-expanded. There is no pneumothorax on the RIGHT. Small LEFT pleural effusion is evident. Multiple LEFT lower rib fractures are seen laterally. IMPRESSION: New small LEFT pneumothorax without mediastinal shift. Significantly increased subcutaneous emphysema in the chest wall indicating increased air leak. Increasing airspace disease at LEFT lung base with small LEFT pleural effusion. Interpreted By: Krishna Lakhani MDPreliminary Report By: Krishna Lakhani MDElectronically Signed By: Krishna Lakhani MD Dictated Date: 02/12/2018 12:55:12 AM Prelim Date: 02/12/2018 12:55:12 AM Sign Date: 02/12/2018 12:59:35 AM Normal [facility] ([place]) .Auto Diffon 02-11-2018 Ammonia mass conc (P) 0.80 10 3/mcL Normal 0.09-1.40 [facility] ([place]) Comment on above: Performed By: #### B MP, GFR, LIPID, CBC, DIFF, MORPH, A1C ####[address] [address] Basophils Auto #/vol (Bld) 0.00 10 3/mcL Normal 0.00-0.27 [facility] ([place]) Comment on above: Performed By: #### B MP, GFR, LIPID, CBC, DIFF, MORPH, A1C ####[address] [address] Basophils/100 WBC Auto (Bld) 0.5 % Normal 0.0-2.5 [facility] ([place]) Comment on above: Performed By: #### B MP, GFR, LIPID, CBC, DIFF, MORPH, A1C ####[address] [address] Eosinophils Auto #/vol (Bld) 0.10 10 3/mcL Normal 0.00-0.65 [facility] ([place]) Comment on above: Performed By: #### B MP, GFR, LIPID, CBC, DIFF, MORPH, A1C ####[address] [address] Eosinophils/100 WBC Auto (Bld) 1.6 % Normal 0.0-6.0 [facility] ([place]) Comment on above: Performed By: #### B MP, GFR, LIPID, CBC, DIFF, MORPH, A1C ####[address] [address] Lymphocytes Auto #/vol (Bld) 1.20 10 3/mcL Normal 0.90-4.32 [facility] ([place]) Comment on above: Performed By: #### B MP, GFR, LIPID, CBC, DIFF, MORPH, A1C ####[address] [address] Lymphocytes/100 WBC Auto (Bld) 16.1 % Low 20.0-40.0 [facility] ([place]) Comment on above: Performed By: #### B MP, GFR, LIPID, CBC, DIFF, MORPH, A1C ####[address] [address] Monocytes/100 WBC Auto (Bld) 11.2 % Normal 2.0-13.0 [facility] ([place]) Comment on above: Performed By: #### B MP, GFR, LIPID, CBC, DIFF, MORPH, A1C ####[address] [address] Neutrophils/100 WBC Auto (Bld) 70.6 % Normal 50.0-75.0 [facility] ([place] Comment on above: Performed By: #### B MP, GFR, LIPID, CBC, DIFF, MORPH, A1C ####[address] [address] .GFRon 02-11-2018 GFR >60 Normal [facility] ([place]) Comment on above: Result Comment: GFR Population mean for , Non- Americans Ages 20-29 = 116 mL/min/1.73 sq.m. Ages 30-39 = 107 mL/min/1.73 sq.m. Ages 40-49 = 99 mL/min/1.73 sq.m. Ages 50-59 = 93 mL/min/1.73 sq.m. Ages 60-69 = 85 mL/min/1.73 sq.m. Ages 70+ = 75 mL/min/1.73 sq.m.Chronic Kidney Disease: Less than 60 mL/min/1.73 square metersEnd Stage Renal Disease: Less than 15 mL/min/1.73 square meters Performed By: #### B MP, GFR, LIPID, CBC, DIFF, MORPH, A1C ####[address] [address] GFR Non- >60 Normal [facility] ([place]) Comment on above: Result Comment: GFR Population mean for , Non- Americans Ages 20-29 = 116 mL/min/1.73 sq.m. Ages 30-39 = 107 mL/min/1.73 sq.m. Ages 40-49 = 99 mL/min/1.73 sq.m. Ages 50-59 = 93 mL/min/1.73 sq.m. Ages 60-69 = 85 mL/min/1.73 sq.m. Ages 70+ = 75 mL/min/1.73 sq.m.Chronic Kidney Disease: Less than 60 mL/min/1.73 square metersEnd Stage Renal Disease: Less than 15 mL/min/1.73 square meters Performed By: #### B MP, GFR, LIPID, CBC, DIFF, MORPH, A1C ####[address] [address] .NEUABSon 02-11-2018 Neutrophil, Absolute 5.10 10 3/mcL Normal 2.25-8.10 A [facility] ([place]) Comment on above: Performed By: #### B MP, GFR, LIPID, CBC, DIFF, MORPH, A1C ####[place] [id number] BMPon 02-11-2018 Creatinine mass conc 0.57 mg/dL Low 0.60-1.40 [facility] ([place] Comment on above: Performed By: #### B MP, GFR, LIPID, CBC, DIFF, MORPH, A1C ####[place] [address] Urea nitrogen/Creatinine mass ratio 10.5 ratio Normal 10.0-22.0 [facility] ([place]) Comment on above: Performed By: #### B MP, GFR, LIPID, CBC, DIFF, MORPH, A1C ####[place] [address] Calcium mass conc 8.4 mg/dL Normal 8.4-10.1 [facility] ([place] Comment on above: Performed By: #### B MP, GFR, LIPID, CBC, DIFF, MORPH, A1C ####[place] [address] Chloride molar conc 101 mmol/L Normal 98-110 [facility] ([place]) Comment on above: Performed By: #### B MP, GFR, LIPID, CBC, DIFF, MORPH, A1C ####[place] [address] CO2 molar conc 29 mmol/L Normal 22-32 [facility] ([place] Comment on above: Performed By: #### B MP, GFR, LIPID, CBC, DIFF, MORPH, A1C ####[place] [address] Electrolyte Balance 7.0 mEq/L Normal 4.0-15.0 [facility] ([place]) Comment on above: Performed By: #### B MP, GFR, LIPID, CBC, DIFF, MORPH, A1C ####[place] [address] Glucose mass conc 106 mg/dL Normal 70-110 [facility] ([place]) Comment on above: Performed By: #### B MP, GFR, LIPID, CBC, DIFF, MORPH, A1C ####[place] [address] Potassium molar conc 3.9 mmol/L Normal 3.5-5.0 [facility] ([place] Comment on above: Performed By: #### B MP, GFR, LIPID, CBC, DIFF, MORPH, A1C ####[place] [address] Sodium molar conc 137 mmol/L Normal 136-145 [facility] ([place] Comment on above: Performed By: #### B MP, GFR, LIPID, CBC, DIFF, MORPH, A1C ####[place] [address] Urea nitrogen mass conc 6.0 mg/dL Low 8.0-22.0 [facility] ([place]) Comment on above: Performed By: #### B MP, GFR, LIPID, CBC, DIFF, MORPH, A1C ####[place] [address] CBCon 02-11-2018 Erythrocyte distribution width Auto Ratio (RBC) 14.9 % Normal 11.5-15.5 [facility] ([place] Comment on above: Performed By: #### B MP, GFR, LIPID, CBC, DIFF, MORPH, A1C ####[place] [address] Hematocrit Auto Volume Fraction (Bld) 27.4 % Low 40.0-52.0 [facility] ([place] Comment on above: Performed By: #### B MP, GFR, LIPID, CBC, DIFF, MORPH, A1C ####[place] [address] Hemoglobin mass conc (Bld) 9.2 G/dL Low 13.0-17.5 [facility] ([place]) Comment on above: Performed By: #### B MP, GFR, LIPID, CBC, DIFF, MORPH, A1C ####[place] [address] MCH Auto Entitic mass (RBC) 30.1 pg Normal 27.0-33.0 [facility] ([place]) Comment on above: Performed By: #### B MP, GFR, LIPID, CBC, DIFF, MORPH, A1C ####[place] [address] MCHC Auto mass conc (RBC) 33.5 G/dL Normal 32.0-36.0 [facility] ([place]) Comment on above: Performed By: #### B MP, GFR, LIPID, CBC, DIFF, MORPH, A1C ####[place] [address] MCV Auto Entitic volume (RBC) 89.8 fL Normal 81.0-100.0 [facility] ([place] Comment on above: Performed By: #### B MP, GFR, LIPID, CBC, DIFF, MORPH, A1C ####[place] [address] Platelet mean volume Auto Entitic volume (Bld) 6.1 fL Low 6.4-10.5 [facility] ([place] Comment on above: Performed By: #### B MP, GFR, LIPID, CBC, DIFF, MORPH, A1C ####[place] [address] Platelets Auto #/vol (Bld) 362 10 3/mcL Normal 150-450 [facility] ([place]) Comment on above: Performed By: #### B MP, GFR, LIPID, CBC, DIFF, MORPH, A1C ####[place] [address] RBC Auto #/vol (Bld) 3.05 10 6/mcL Low 4.50-6.00 A [facility] ([place]) Comment on above: Performed By: #### B MP, GFR, LIPID, CBC, DIFF, MORPH, A1C ####[place] [address] WBC Auto #/vol (Bld) 7.20 10 3/mcL Normal 4.50-10.80 A [facility] ([place]) Comment on above: Performed By: #### B MP, GFR, LIPID, CBC, DIFF, MORPH, A1C ####[place] [address] XR CHEST 1 VIEWon 02-11-2018 XR CHEST 1 VIEW ORIGINALXR CHEST 1 V IEWAP portable upright CLINICAL INDICATION: chest pain COMPARISON: 02/10/2018 FINDINGS: A chest tube remains in place with the tip projecting medially at the level of the 6th rib. No pneumothorax is seen. There is a small amount of subcutaneous emphysema in the LEFT lateral chest wall which is diminished from the prior study. Small LEFT pleural effusion and LEFT lung base airspace opacity are unchanged. Several old, healed RIGHT rib fractures are noted. Multiple LEFT lower lateral rib fractures are again demonstrated. The heart is normal in size. Hilar and mediastinal contours are normal. There is no vascular congestion. IMPRESSION: Small LEFT effusion with LEFT basilar airspace disease. Multiple LEFT rib fractures. No pneumothorax. Chest tube in satisfactory position. Interpreted By: Mejia Grecoreliminary Report By: Mejia Greco MDElectronically Signed By: Mejia Greco MD Dictated Date: 02/11/2018 8:22:34 AM Prelim Date: 02/11/2018 8:22:34 AM Sign Date: 02/11/2018 8:24:53 AM Normal [facility] ([place]) .Auto Diffon 02-10-2018 Ammonia mass conc (P) 1.10 10 3/mcL Normal 0.09-1.40 [facility] ([place]) Comment on above: Performed By: #### B MP, GFR, LIPID, CBC, DIFF, MORPH, A1C ####[address] [address] Basophils Auto #/vol (Bld) 0.00 10 3/mcL Normal 0.00-0.27 [facility] ([place]) Comment on above: Performed By: #### B MP, GFR, LIPID, CBC, DIFF, MORPH, A1C ####[address] [address] Basophils/100 WBC Auto (Bld) 0.3 % Normal 0.0-2.5 [facility] ([place]) Comment on above: Performed By: #### B MP, GFR, LIPID, CBC, DIFF, MORPH, A1C ####[address] [address] Eosinophils Auto #/vol (Bld) 0.00 10 3/mcL Normal 0.00-0.65 [facility] ([place]) Comment on above: Performed By: #### B MP, GFR, LIPID, CBC, DIFF, MORPH, A1C ####[address] [address] Eosinophils/100 WBC Auto (Bld) 0.7 % Normal 0.0-6.0 [facility] ([place]) Comment on above: Performed By: #### B MP, GFR, LIPID, CBC, DIFF, MORPH, A1C ####[address] [address] Lymphocytes Auto #/vol (Bld) 1.40 10 3/mcL Normal 0.90-4.32 [facility] ([place]) Comment on above: Performed By: #### B MP, GFR, LIPID, CBC, DIFF, MORPH, A1C ####[address] [address] Lymphocytes/100 WBC Auto (Bld) 21.4 % Normal 20.0-40.0 [facility] ([place]) Comment on above: Performed By: #### B MP, GFR, LIPID, CBC, DIFF, MORPH, A1C ####[address] [address] Monocytes/100 WBC Auto (Bld) 16.0 % High 2.0-13.0 [facility] ([place]) Comment on above: Performed By: #### B MP, GFR, LIPID, CBC, DIFF, MORPH, A1C ####[address] [address] Neutrophils/100 WBC Auto (Bld) 61.6 % Normal 50.0-75.0 [facility] ([place]) Comment on above: Performed By: #### B MP, GFR, LIPID, CBC, DIFF, MORPH, A1C ####[address] [address] .GFRon 02-10-2018 GFR >60 Normal [facility] ([place]) Comment on above: Result Comment: GFR Population mean for , Non- Americans Ages 20-29 = 116 mL/min/1.73 sq.m. Ages 30-39 = 107 mL/min/1.73 sq.m. Ages 40-49 = 99 mL/min/1.73 sq.m. Ages 50-59 = 93 mL/min/1.73 sq.m. Ages 60-69 = 85 mL/min/1.73 sq.m. Ages 70+ = 75 mL/min/1.73 sq.m.Chronic Kidney Disease: Less than 60 mL/min/1.73 square metersEnd Stage Renal Disease: Less than 15 mL/min/1.73 square meters Performed By: #### B MP, GFR, LIPID, CBC, DIFF, MORPH, A1C ####[address] [address] GFR Non- >60 Normal [facility] ([place]) Comment on above: Result Comment: GFR Population mean for , Non- Americans Ages 20-29 = 116 mL/min/1.73 sq.m. Ages 30-39 = 107 mL/min/1.73 sq.m. Ages 40-49 = 99 mL/min/1.73 sq.m. Ages 50-59 = 93 mL/min/1.73 sq.m. Ages 60-69 = 85 mL/min/1.73 sq.m. Ages 70+ = 75 mL/min/1.73 sq.m.Chronic Kidney Disease: Less than 60 mL/min/1.73 square metersEnd Stage Renal Disease: Less than 15 mL/min/1.73 square meters Performed By: #### B MP, GFR, LIPID, CBC, DIFF, MORPH, A1C ####[place] [address] .NEUABSon 02-10-2018 Neutrophil, Absolute 4.00 10 3/mcL Normal 2.25-8.10 A [facility] ([place]) Comment on above: Performed By: #### B MP, GFR, LIPID, CBC, DIFF, MORPH, A1C ####[address] [address] BGon 02-10-2018 Barometric Pressure 736 mmHg Normal [facility] ([place]) Comment on above: Performed By: #### B MP, GFR, LIPID, CBC, DIFF, MORPH, A1C ####[place] [address] Base excess Calculated molar conc (Bld) -0.6 mmol/L Normal [facility] ([place]) Comment on above: Performed By: #### B MP, GFR, LIPID, CBC, DIFF, MORPH, A1C ####[address] [address] CO2 molar conc 25.7 mmol/L Normal 22.0-30.0 [facility] ([place]) Comment on above: Performed By: #### B MP, GFR, LIPID, CBC, DIFF, MORPH, A1C ####[place] [address] HCO3 molar conc (Bld) 24.4 mmol/L Normal 21.0-29.0 [facility] ([place]) Comment on above: Performed By: #### B MP, GFR, LIPID, CBC, DIFF, MORPH, A1C ####[place] [address] Oxygen ppres (BldA) 73.2 mm[Hg] Low 74.0-108.0 [facility] ([place]) Comment on above: Performed By: #### B MP, GFR, LIPID, CBC, DIFF, MORPH, A1C ####[place] [address] Oxygen saturation in Blood 95.0 % Normal 92.0-96.0 [facility] ([place]) Comment on above: Performed By: #### B MP, GFR, LIPID, CBC, DIFF, MORPH, A1C ####[place] [address] pCO2 41.7 mmHg Normal 32.0-46.0 [facility] ([place]) Comment on above: Performed By: #### B MP, GFR, LIPID, CBC, DIFF, MORPH, A1C ####[place] [address] pH (Bld) 7.385 [pH] Normal 7.380-7.46 0 [facility] ([place]) Comment on above: Performed By: #### B MP, GFR, LIPID, CBC, DIFF, MORPH, A1C ####[place] [address] Barometric Pressure 735 mmHg Normal [facility] ([place]) Comment on above: Order Comment: on ad mission to ICU Performed By: #### B MP, GFR, LIPID, CBC, DIFF, MORPH, A1C ####[place] [address] Base excess Calculated molar conc (Bld) -3.3 mmol/L Normal [facility] ([place]) Comment on above: Order Comment: on ad mission to ICU Performed By: #### B MP, GFR, LIPID, CBC, DIFF, MORPH, A1C ####[place] [address] CO2 molar conc 25.6 mmol/L Normal 22.0-30.0 [facility] ([place]) Comment on above: Order Comment: on ad mission to ICU Performed By: #### B MP, GFR, LIPID, CBC, DIFF, MORPH, A1C ####[place] [address] HCO3 molar conc (Bld) 24.0 mmol/L Normal 21.0-29.0 [facility] ([place]) Comment on above: Order Comment: on ad mission to ICU Performed By: #### B MP, GFR, LIPID, CBC, DIFF, MORPH, A1C ####[place] [address] Oxygen ppres (BldA) 81.9 mm[Hg] Normal 74.0-108.0 [facility] ([place]) Comment on above: Order Comment: on ad mission to ICU Performed By: #### B MP, GFR, LIPID, CBC, DIFF, MORPH, A1C ####[place] [address] Oxygen saturation in Blood 94.7 % Normal 92.0-96.0 [facility] ([place]) Comment on above: Order Comment: on ad mission to ICU Performed By: #### B MP, GFR, LIPID, CBC, DIFF, MORPH, A1C ####[place] [address] pCO2 51.9 mmHg High 32.0-46.0 [facility] ([place]) Comment on above: Order Comment: on ad mission to ICU Performed By: #### B MP, GFR, LIPID, CBC, DIFF, MORPH, A1C ####[place] [address] pH (Bld) 7.283 [pH] Low 7.380-7.46 0 [facility] ([place]) Comment on above: Order Comment: on ad mission to ICU Performed By: #### B MP, GFR, LIPID, CBC, DIFF, MORPH, A1C ####[place] [id number] BMPon 02-10-2018 Creatinine mass conc 0.58 mg/dL Low 0.60-1.40 [facility] ([place]) Comment on above: Performed By: #### B MP, GFR, LIPID, CBC, DIFF, MORPH, A1C ####[place] [address] Urea nitrogen/Creatinine mass ratio 13.8 ratio Normal 10.0-22.0 [facility] ([place] Comment on above: Performed By: #### B MP, GFR, LIPID, CBC, DIFF, MORPH, A1C ####[place] [address] Calcium mass conc 8.2 mg/dL Low 8.4-10.1 [facility] ([place]) Comment on above: Performed By: #### B MP, GFR, LIPID, CBC, DIFF, MORPH, A1C ####[place] [address] Chloride molar conc 99 mmol/L Normal 98-110 [facility] ([place]) Comment on above: Performed By: #### B MP, GFR, LIPID, CBC, DIFF, MORPH, A1C ####[place] [address] CO2 molar conc 24 mmol/L Normal 22-32 [facility] ([place]) Comment on above: Performed By: #### B MP, GFR, LIPID, CBC, DIFF, MORPH, A1C ####[place] [address] Electrolyte Balance 9.0 mEq/L Normal 4.0-15.0 [facility] ([place]) Comment on above: Performed By: #### B MP, GFR, LIPID, CBC, DIFF, MORPH, A1C ####[place] [address] Glucose mass conc 124 mg/dL High 70-110 [facility] ([place]) Comment on above: Performed By: #### B MP, GFR, LIPID, CBC, DIFF, MORPH, A1C ####[place] [address] Potassium molar conc 4.5 mmol/L Normal 3.5-5.0 [facility] ([place]) Comment on above: Performed By: #### B MP, GFR, LIPID, CBC, DIFF, MORPH, A1C ####[place] [address] Sodium molar conc 132 mmol/L Low 136-145 [facility] ([place]) Comment on above: Performed By: #### B MP, GFR, LIPID, CBC, DIFF, MORPH, A1C ####[place] [address] Urea nitrogen mass conc 8.0 mg/dL Normal 8.0-22.0 [facility] ([place]) Comment on above: Performed By: #### B MP, GFR, LIPID, CBC, DIFF, MORPH, A1C ####[place] [address] CBCon 02-10-2018 Erythrocyte distribution width Auto Ratio (RBC) 14.3 % Normal 11.5-15.5 [facility] ([place]) Comment on above: Performed By: #### B MP, GFR, LIPID, CBC, DIFF, MORPH, A1C ####[place] [address] Hematocrit Auto Volume Fraction (Bld) 28.4 % Low 40.0-52.0 [facility] ([place]) Comment on above: Performed By: #### B MP, GFR, LIPID, CBC, DIFF, MORPH, A1C ####[place] [address] Hemoglobin mass conc (Bld) 9.5 G/dL Low 13.0-17.5 [facility] ([place]) Comment on above: Performed By: #### B MP, GFR, LIPID, CBC, DIFF, MORPH, A1C ####[place] [address] MCH Auto Entitic mass (RBC) 29.9 pg Normal 27.0-33.0 [facility] ([place]) Comment on above: Performed By: #### B MP, GFR, LIPID, CBC, DIFF, MORPH, A1C ####[place] [address] MCHC Auto mass conc (RBC) 33.5 G/dL Normal 32.0-36.0 [facility] ([place] Comment on above: Performed By: #### B MP, GFR, LIPID, CBC, DIFF, MORPH, A1C ####[place] [address] MCV Auto Entitic volume (RBC) 89.2 fL Normal 81.0-100.0 [facility] ([place]) Comment on above: Performed By: #### B MP, GFR, LIPID, CBC, DIFF, MORPH, A1C ####[place] [address] Platelet mean volume Auto Entitic volume (Bld) 5.7 fL Low 6.4-10.5 [facility] ([place]) Comment on above: Performed By: #### B MP, GFR, LIPID, CBC, DIFF, MORPH, A1C ####[place] [address] Platelets Auto #/vol (Bld) 380 10 3/mcL Normal 150-450 [facility] ([place]) Comment on above: Performed By: #### B MP, GFR, LIPID, CBC, DIFF, MORPH, A1C ####[place] [address] RBC Auto #/vol (Bld) 3.19 10 6/mcL Low 4.50-6.00 A [facility] ([place]) Comment on above: Performed By: #### B MP, GFR, LIPID, CBC, DIFF, MORPH, A1C ####[place] [address] WBC Auto #/vol (Bld) 6.60 10 3/mcL Normal 4.50-10.80 A [facility] ([place]) Comment on above: Performed By: #### B MP, GFR, LIPID, CBC, DIFF, MORPH, A1C ####[place] [address] MRPCRon 02-10-2018 Protein mass conc . MICRO - MicrobiologyPROCEDURE: MRSA PCR [*1] Nares BODY SITE:COLLECTED DATE/TIME: 02/09/2018 21:55 EST RECEIVED DATE/TIME: 02/09/2018 22:19 ESTSTART DATE/TIME: 02/09/2018 22:19 EST FREE TEXT SOURCE:FINAL REPORTSFinal Report []Verified Date/Time/Personnel: 02/10/2018 11:52 ESTMRSA NEGATIVE.MRSA DNA not detected by Real-Time Polymerase ChainReaction (PCR). A negative result may be due tointermittent colonization. Colonization may varydepending on patient treatment, patient status orexposure to high risk environments.As with all PCR based in vitro tests, extremely lowlevels of target below the limit of detection of theassay may be detected, but results may not bereproducible.Performing Locations*1: This test was performed at: [address], [address] [place] [address] ([place]) Comment on above: Performed By: #### B MP, GFR, LIPID, CBC, DIFF, MORPH, A1C ####[place] [address] XR CHEST 1 VIEWon 02-10-2018 XR CHEST 1 VIEW ORIGINALClinical his tory: LEFT chest wall injury. COMPARISON: Chest x-ray on 02/09/2018. Portable AP radiograph of the chest was obtained at 5:13 AM. LEFT chest tube is unchanged in position. There is no visible pneumothorax. Multiple LEFT rib fractures laterally are again seen. There is air in the LEFT chest wall. Small LEFT pleural effusion and LEFT basilar lung consolidation are present. RIGHT lung remains well aerated. Old RIGHT rib fractures are noted. IMPRESSION: Small LEFT basilar infiltrate and pleural fluid without change since the prior day. No pneumothorax. Interpreted By: Krishna Lakhani MDPreliminary Report By: Krishna Lakhani MDElectronically Signed By: Krishna Lakhani MD Dictated Date: 02/10/2018 6:13:47 AM Prelim Date: 02/10/2018 6:13:47 AM Sign Date: 02/10/2018 6:15:31 AM Normal [facility] ([place]) .Auto Diffon 02-09-2018 Ammonia mass conc (P) 0.90 10 3/mcL Normal 0.09-1.40 [facility] ([place]) Comment on above: Performed By: #### B MP, GFR, LIPID, CBC, DIFF, MORPH, A1C ####[address] [address] Basophils Auto #/vol (Bld) 0.00 10 3/mcL Normal 0.00-0.27 [facility] ([place]) Comment on above: Performed By: #### B MP, GFR, LIPID, CBC, DIFF, MORPH, A1C ####[address] [address] Basophils/100 WBC Auto (Bld) 0.2 % Normal 0.0-2.5 [facility] ([place]) Comment on above: Performed By: #### B MP, GFR, LIPID, CBC, DIFF, MORPH, A1C ####[address] [address] Eosinophils Auto #/vol (Bld) 0.00 10 3/mcL Normal 0.00-0.65 [facility] ([place]) Comment on above: Performed By: #### B MP, GFR, LIPID, CBC, DIFF, MORPH, A1C ####[address] [address] Eosinophils/100 WBC Auto (Bld) 0.0 % Normal 0.0-6.0 [facility] ([place]) Comment on above: Performed By: #### B MP, GFR, LIPID, CBC, DIFF, MORPH, A1C ####[address] [address] Lymphocytes Auto #/vol (Bld) 0.70 10 3/mcL Low 0.90-4.32 [facility] ([place]) Comment on above: Performed By: #### B MP, GFR, LIPID, CBC, DIFF, MORPH, A1C ####[address] [address] Lymphocytes/100 WBC Auto (Bld) 11.0 % Low 20.0-40.0 [facility] ([place]) Comment on above: Performed By: #### B MP, GFR, LIPID, CBC, DIFF, MORPH, A1C ####[address] [address] Monocytes/100 WBC Auto (Bld) 12.8 % Normal 2.0-13.0 [facility] ([place]) Comment on above: Performed By: #### B MP, GFR, LIPID, CBC, DIFF, MORPH, A1C ####[address] [address] Neutrophils/100 WBC Auto (Bld) 76.0 % High 50.0-75.0 [facility] ([place]) Comment on above: Performed By: #### B MP, GFR, LIPID, CBC, DIFF, MORPH, A1C ####[address] [address] .GFRon 02-09-2018 GFR Non- >60 Normal [facility] ([place]) Comment on above: Result Comment: GFR Population mean for , Non- Americans Ages 20-29 = 116 mL/min/1.73 sq.m. Ages 30-39 = 107 mL/min/1.73 sq.m. Ages 40-49 = 99 mL/min/1.73 sq.m. Ages 50-59 = 93 mL/min/1.73 sq.m. Ages 60-69 = 85 mL/min/1.73 sq.m. Ages 70+ = 75 mL/min/1.73 sq.m.Chronic Kidney Disease: Less than 60 mL/min/1.73 square metersEnd Stage Renal Disease: Less than 15 mL/min/1.73 square meters Performed By: #### B MP, GFR, LIPID, CBC, DIFF, MORPH, A1C ####[address] [address] GFR >60 Normal [facility] ([place]) Comment on above: Result Comment: GFR Population mean for , Non- Americans Ages 20-29 = 116 mL/min/1.73 sq.m. Ages 30-39 = 107 mL/min/1.73 sq.m. Ages 40-49 = 99 mL/min/1.73 sq.m. Ages 50-59 = 93 mL/min/1.73 sq.m. Ages 60-69 = 85 mL/min/1.73 sq.m. Ages 70+ = 75 mL/min/1.73 sq.m.Chronic Kidney Disease: Less than 60 mL/min/1.73 square metersEnd Stage Renal Disease: Less than 15 mL/min/1.73 square meters Performed By: #### B MP, GFR, LIPID, CBC, DIFF, MORPH, A1C ####[place] [address] .NEUABSon 02-09-2018 Neutrophil, Absolute 5.10 10 3/mcL Normal 2.25-8.10 A [facility] ([place]) Comment on above: Performed By: #### B MP, GFR, LIPID, CBC, DIFF, MORPH, A1C ####[place] [address] BMPon 02-09-2018 Calcium mass conc 8.3 mg/dL Low 8.4-10.1 [facility] ([place]) Comment on above: Performed By: #### B MP, GFR, LIPID, CBC, DIFF, MORPH, A1C ####[place] [address] Chloride molar conc 92 mmol/L Low 98-110 [facility] ([place]) Comment on above: Performed By: #### B MP, GFR, LIPID, CBC, DIFF, MORPH, A1C ####[place] [address] CO2 molar conc 26 mmol/L Normal 22-32 [facility] ([place]) Comment on above: Performed By: #### B MP, GFR, LIPID, CBC, DIFF, MORPH, A1C ####[place] [address] Creatinine mass conc 0.63 mg/dL Normal 0.60-1.40 [facility] ([place]) Comment on above: Performed By: #### B MP, GFR, LIPID, CBC, DIFF, MORPH, A1C ####[place] [address] Electrolyte Balance 10.0 mEq/L Normal 4.0-15.0 [facility] ([place]) Comment on above: Performed By: #### B MP, GFR, LIPID, CBC, DIFF, MORPH, A1C ####[place] [address] Glucose mass conc 120 mg/dL High 70-110 [facility] ([place]) Comment on above: Performed By: #### B MP, GFR, LIPID, CBC, DIFF, MORPH, A1C ####[place] [address] Potassium molar conc 4.5 mmol/L Normal 3.5-5.0 [facility] ([place]) Comment on above: Performed By: #### B MP, GFR, LIPID, CBC, DIFF, MORPH, A1C ####[place] [address] Sodium molar conc 128 mmol/L Low 136-145 [facility] ([place]) Comment on above: Performed By: #### B MP, GFR, LIPID, CBC, DIFF, MORPH, A1C ####[place] [address] Urea nitrogen mass conc 9.0 mg/dL Normal 8.0-22.0 [facility] ([place]) Comment on above: Performed By: #### B MP, GFR, LIPID, CBC, DIFF, MORPH, A1C ####[place] [address] Urea nitrogen/Creatinine mass ratio 14.3 ratio Normal 10.0-22.0 [facility] ([place]) Comment on above: Performed By: #### B MP, GFR, LIPID, CBC, DIFF, MORPH, A1C ####[place] [address] CBCon 02-09-2018 Erythrocyte distribution width Auto Ratio (RBC) 14.8 % Normal 11.5-15.5 [facility] ([place]) Comment on above: Performed By: #### B MP, GFR, LIPID, CBC, DIFF, MORPH, A1C ####[place] [address] Hematocrit Auto Volume Fraction (Bld) 31.9 % Low 40.0-52.0 [facility] ([place]) Comment on above: Performed By: #### B MP, GFR, LIPID, CBC, DIFF, MORPH, A1C ####[place] [address] Hemoglobin mass conc (Bld) 10.6 G/dL Low 13.0-17.5 [facility] ([place]) Comment on above: Performed By: #### B MP, GFR, LIPID, CBC, DIFF, MORPH, A1C ####[place] [address] MCH Auto Entitic mass (RBC) 29.6 pg Normal 27.0-33.0 [facility] ([place]) Comment on above: Performed By: #### B MP, GFR, LIPID, CBC, DIFF, MORPH, A1C ####[place] [address] MCHC Auto mass conc (RBC) 33.3 G/dL Normal 32.0-36.0 [facility] ([place]) Comment on above: Performed By: #### B MP, GFR, LIPID, CBC, DIFF, MORPH, A1C ####[place] [address] MCV Auto Entitic volume (RBC) 89.0 fL Normal 81.0-100.0 [facility] ([place]) Comment on above: Performed By: #### B MP, GFR, LIPID, CBC, DIFF, MORPH, A1C ####[place] [address] Platelet mean volume Auto Entitic volume (Bld) 5.7 fL Low 6.4-10.5 [facility] ([place]) Comment on above: Performed By: #### B MP, GFR, LIPID, CBC, DIFF, MORPH, A1C ####[place] [address] Platelets Auto #/vol (Bld) 459 10 3/mcL High 150-450 [facility] ([place]) Comment on above: Performed By: #### B MP, GFR, LIPID, CBC, DIFF, MORPH, A1C ####[place] [address] RBC Auto #/vol (Bld) 3.59 10 6/mcL Low 4.50-6.00 A [facility] ([place]) Comment on above: Performed By: #### B MP, GFR, LIPID, CBC, DIFF, MORPH, A1C ####[place] [address] WBC Auto #/vol (Bld) 6.80 10 3/mcL Normal 4.50-10.80 A [facility] ([place]) Comment on above: Performed By: #### B MP, GFR, LIPID, CBC, DIFF, MORPH, A1C ####[place] [address] CT SPINE CERVICAL W/O CONTRA STowilli 02-09-2018 CT SPINE CERVICAL W/O CONTRAST ORIGINALCT SPINE CERVICAL W/O CONTRAST CLINICAL STATEMENT: Pain, trauma patient, fall TECHNIQUE: Multiple-row detector helical CT examination of the cervical spine without IV contrast. Axial, sagittal, and coronal reconstructed images. This exam was performed according to our departmental dose optimization program, and includes the following measures where applicable: automated exposure control, adjustment of the mAs and/or kVp according to patient size and/or exam, and an iterative reconstruction algorithm. COMPARISON: None. FINDINGS: No fracture or traumatic malalignment. Vertebral body heights are maintained. No aggressive osseous lesions are identified. There are multilevel degenerative changes in the mid cervical spine, most prominent from C4-C5 and C5-C6, with marginal osteophytosis and intervertebral disc height loss at those levels. Disc osteophyte complex is seen posteriorly at these levels as well. There is no prevertebral soft tissue swelling. Subcutaneous gas is seen tracking along the fascial planes of the neck and back, likely related to small pneumothorax which is only partially visualized on this exam at the LEFT lung apex. Atherosclerotic calcifications noted at the carotid artery bifurcations. IMPRESSION:1. No acute fracture or traumatic malalignment of the cervical spine.2. Subcutaneous gas tracking along the fascial planes of the neck, likely related to small LEFT apical pneumothorax which is only partially visualized on this exam. Preliminary Report was Dictated by a Resident Interpreted By: Tolu Bourne MDPreliminary Report By: Vini Garza DOElectronically Signed By: Tolu Bourne MD Dictated Date: 02/09/2018 7:40:47 PM Prelim Date: 02/09/2018 7:44:47 PM Sign Date: 02/09/2018 7:47:30 PM Normal [facility] ([place]) [place] 02-09-2018 Acetaminophen mass conc <2.0 Low 10.0-30.0 [facility] ([place]) Comment on above: Performed By: #### B MP, GFR, LIPID, CBC, DIFF, MORPH, A1C ####[place] [address] ER Drug Screen (s) Negative Normal [facility] ([place]) Comment on above: Performed By: #### B MP, GFR, LIPID, CBC, DIFF, MORPH, A1C ####[place] [address] ER Drug Screen Interp Serum shows no torrie dence of drugs routinely screened Invalid Interpretation Code [facility] ([place]) Comment on above: Performed By: #### B MP, GFR, LIPID, CBC, DIFF, MORPH, A1C ####[place] [address] ER Serum Drugs Screened: See Below Normal [facility] ([place]) Comment on above: Result Comment: This drug screen is a presumptive screening only. No confirmation will be performed unless requested.Drugs included in the ER serum drug screen are: ThresholdEthanol 10.0 mg/dLSalicylate 2.0 mg/dLAcetaminophen 2.0 mcg/mLTricyclic Antidepressants 300 ng/mLTesting has been performed FOR MEDICAL PURPOSES ONLY. Performed By: #### B MP, GFR, LIPID, CBC, DIFF, MORPH, A1C ####[place] [address] Salicylate Lvl (ds) <2.0 Low 10.0-25.0 [facility] ([place]) Comment on above: Performed By: #### B MP, GFR, LIPID, CBC, DIFF, MORPH, A1C ####[place] [address] TCA (s) Negative Normal [facility] ([place]) Comment on above: Performed By: #### B MP, GFR, LIPID, CBC, DIFF, MORPH, A1C ####[place] [address] Ethanol Level <10.0 Normal [facility] ([place]) Comment on above: Performed By: #### B MP, GFR, LIPID, CBC, DIFF, MORPH, A1C ####[place] [address] LACon 02-09-2018 Lactic Acid Lvl 1.9 mmol/L Normal 0.2-2.0 [facility] ([place]) Comment on above: Performed By: #### B MP, GFR, LIPID, CBC, DIFF, MORPH, A1C ####[place] [id number] [facility] A[facility]/Rh Interp Positive Invalid Interpretation Code [facility] ([place]) Comment on above: Performed By: #### B MP, GFR, LIPID, CBC, DIFF, MORPH, A1C ####[place] [address] TABSon 02-09-2018 Antibody Screen Tango Negative Normal [facility] ([place]) Comment on above: Performed By: #### B MP, GFR, LIPID, CBC, DIFF, MORPH, A1C ####[place] [address] TROPIon 02-09-2018 Troponin I.cardiac mass conc ng/mL Normal 0.000-0.04 0 [facility] ([place]) Comment on above: Result Comment: Trop onin I reference ranges (11/30/13): 0.00-0.040 ng/mL Negative and non-diagnostic. >0.040 ng/mL Consistent with cardiac damage, increased clinical risk and possibility of myocardial infarction. Serial measurements, a rise & fall in test results, clinical history, appropriate symptoms and/or ECG changes may help assess possibility of HI. *Other non-acute coronary syndrome conditions such as CHF, myocarditis, pulmonary emboli, sepsis and cardiac surgery could result in myocardial damage and increased troponin levels. Performed By: #### B MP, GFR, LIPID, CBC, DIFF, MORPH, A1C ####[place] [address] U ERDSon 02-09-2018 ER U Drug Screen Positive Invalid Interpretation Code [facility] ([place]) Comment on above: Performed By: #### B MP, GFR, LIPID, CBC, DIFF, MORPH, A1C ####[place] [address] ER U Drug Screen Interp In the urine, the following drug(s) or drug class(es) were screened presumptive positive at or above the listed threshold: _ Invalid Interpretation Code [facility] ([place]) Comment on above: Performed By: #### B MP, GFR, LIPID, CBC, DIFF, MORPH, A1C ####[place] [id number] [place] [id number] U ER Drugs Screened: See Below Normal [facility] ([place]) Comment on above: Result Comment: This drug screen is a presumptive screening only. No confirmation will be performed unless requested.Drugs included in the ER urine drug screen are: ThresholdAmphetamine/Methamphetamine 1000 ng/mLBarbiturates 200 ng/mLBenzodiazepine metabolites 200 ng/mLCannabinoids (THC metabolites) 50 ng/mLBenzoylecognine (cocaine met) 300 ng/mLOpiates 300 ng/mLPhencyclidine (PCP) 25 ng/mLTesting has been performed FOR MEDICAL PURPOSES ONLY. Performed By: #### B MP, GFR, LIPID, CBC, DIFF, MORPH, A1C ####[place] [address] XR CHEST 1 VIEWon 02-09-2018 XR CHEST 1 VIEW ORIGINALXR CHEST 1 V IEW Upright portable chest at 6:50 PM CLINICAL STATEMENT: Pain, trauma patient, fall COMPARISON: CT thorax 02/09/2018 at [facility] FINDINGS: The cardiomediastinal silhouette is within normal limits. Rib fractures involving the lateral 6th, 7th, 8th, 9th, 10th, and 11th ribs are better seen on the comparison CT exam, with associated subcutaneous gas along the LEFT lateral chest wall. Left-sided large bore chest tube is in place. Airspace disease LEFT lung base likely represents pulmonary contusion. No pleural effusion, pneumothorax, or vascular congestion. IMPRESSION: Left-sided chest tube is in place. No pneumothorax. Interpreted By: Tolu Bourne MDPreliminary Report By: Vini Garza DOElectronically Signed By: Tolu Bourne MD Dictated Date: 02/09/2018 6:39:12 PM Prelim Date: 02/09/2018 6:42:10 PM Sign Date: 02/09/2018 6:54:44 PM Normal [facility] ([place]) TRILEPTALon 12-18-2017 10Hydroxycarbazepine 14.8 UG/ML Normal 3.0-35.0 [facility] ([place]) Comment on above: Result Comment: This test was developed and its performance characteristics determined by [facility]'s [facility] [place] ([facility] It has not been cleared or approved by the FDA. [facility] is regulated under CLIA as qualified to perform high-complexity testing. This test is used for clinical purposes. It should not be regarded as investigational or for research.Performed By:[facility] [place], [place] [address]Psj Director: Vivian Mireles M.D.[facility]#: [id number]#: Performed By: #### B MP, GFR, LIPID, CBC, DIFF, MORPH, A1C ####[place] [address] CT ANGIOGRAPHY NECK W/CONTRA STon 12-17-2017 CT ANGIOGRAPHY NECK W/CONTRAST ORIGINALCT ANGIOGRAPHY NECK W/CONTRAST Clinical Statement: CVA, R ICA stenosis TECHNIQUE: Nonionic intravenous contrast material was administered and axial images were obtained through the neck per standard CTA protocol. Multiplanar reformatted and shaded-surface display and three dimensional volume rendered images were generated. Where applicable, evaluation of ICA stenosis was performed using the site of greatest stenosis is compared to the diameter of the ICA distal to the stenosis at a point where the ICA young become parallel. This exam was performed according to our departmental dose-optimization program which includes automated exposure control, adjustment of the mA and/or kVp according to patient size and/or use of iterative reconstruction technique where applicable. COMPARISON: CT angiography of the neck, 10/11/2016 FINDINGS: The imaged aortic arch is within normal limits. Origins of the brachiocephalic, RIGHT subclavian, RIGHT common carotid, LEFT common carotid, and LEFT subclavian arteries are patent. Dense calcific atheromatous plaques are seen at the origins of both vertebral arteries resulting in severe stenosis, bilaterally. On the RIGHT, the common carotid artery is widely patent to the bifurcation. The RIGHT internal carotid artery is occluded at its origin, chronic. The external carotid artery and its branches are normal. On the LEFT, the common carotid artery is patent from the origin to the carotid bifurcation. Mixed calcific and low-density atherosclerotic irregularity extending from the bifurcation and into the proximal LEFT internal carotid artery results in an estimated stenosis of 25-30%, by NASCET criteria. The vessel is patent through its visualized petrous segment. The external carotid artery and its branches are normal. There is LEFT vertebral dominance, but the vertebral arteries are patent to the confluence at the basilar artery. Contours of the imaged aerodigestive tract are within normal limits. No pathologically enlarged cervical nodes are seen. There is near complete opacification of the LEFT maxillary sinus with multiple partially visualized maxillary and mandibular periapical lucencies. Aerated secretions are seen within the RIGHT maxillary sinus. There is overall moderate cervical spondylosis with disc space narrowing and reactive endplate change greatest at C5-C6. Images through the upper lungs are notable for centrilobular and paraseptal emphysema. IMPRESSION: 1. Complete occlusion of the RIGHT internal carotid artery at its origin, chronic.2. Mixed atherosclerotic irregularity at the origin of the LEFT internal carotid artery with an estimated stenosis of 25-30%, by NASCET criteria.3. Calcific atherosclerotic irregularity at the origins of both vertebral arteries results in severe stenosis.4. Multiple maxillary and mandibular periapical lucencies with odontogenic sinus disease. Aerated secretion favors acute sinusitis in the appropriate clinical context. I have personally reviewed the images of this examination and agree with the resident's findings and interpretation. Interpreted By: Krishna Lakhani MDPreliminary Report By: Jose Drake MDElectronically Signed By: Krishna Lakhani MD Dictated Date: 12/16/2017 11:35:04 PM Prelim Date: 12/16/2017 11:44:59 PM Sign Date: 12/17/2017 7:37:08 AM Normal [facility] ([place]) .Auto Diffon 12-16-2017 Ammonia mass conc (P) 0.70 10 3/mcL Normal 0.09-1.40 [facility] ([place]) Comment on above: Performed By: #### B MP, GFR, LIPID, CBC, DIFF, MORPH, A1C ####[place] [id number] [place] [address] Basophils Auto #/vol (Bld) 0.00 10 3/mcL Normal 0.00-0.27 [facility] ([place]) Comment on above: Performed By: #### B MP, GFR, LIPID, CBC, DIFF, MORPH, A1C ####[address] [address] Basophils/100 WBC Auto (Bld) 0.5 % Normal 0.0-2.5 [facility] ([place]) Comment on above: Performed By: #### B MP, GFR, LIPID, CBC, DIFF, MORPH, A1C ####[address] [address] Eosinophils Auto #/vol (Bld) 0.10 10 3/mcL Normal 0.00-0.65 [facility] ([place]) Comment on above: Performed By: #### B MP, GFR, LIPID, CBC, DIFF, MORPH, A1C ####[address] [address] Eosinophils/100 WBC Auto (Bld) 2.2 % Normal 0.0-6.0 [facility] ([place]) Comment on above: Performed By: #### B MP, GFR, LIPID, CBC, DIFF, MORPH, A1C ####[address] [address] Lymphocytes Auto #/vol (Bld) 2.00 10 3/mcL Normal 0.90-4.32 [facility] ([place]) Comment on above: Performed By: #### B MP, GFR, LIPID, CBC, DIFF, MORPH, A1C ####[address] [address] Lymphocytes/100 WBC Auto (Bld) 28.7 % Normal 20.0-40.0 [facility] ([place]) Comment on above: Performed By: #### B MP, GFR, LIPID, CBC, DIFF, MORPH, A1C ####[address] [address] Monocytes/100 WBC Auto (Bld) 9.7 % Normal 2.0-13.0 [facility] ([place]) Comment on above: Performed By: #### B MP, GFR, LIPID, CBC, DIFF, MORPH, A1C ####[address] [address] Neutrophils/100 WBC Auto (Bld) 58.9 % Normal 50.0-75.0 [facility] ([place]) Comment on above: Performed By: #### B MP, GFR, LIPID, CBC, DIFF, MORPH, A1C ####[address] [address] .GFRon 12-16-2017 GFR >60 Normal [facility] ([place]) Comment on above: Result Comment: GFR Population mean for , Non- Americans Ages 20-29 = 116 mL/min/1.73 sq.m. Ages 30-39 = 107 mL/min/1.73 sq.m. Ages 40-49 = 99 mL/min/1.73 sq.m. Ages 50-59 = 93 mL/min/1.73 sq.m. Ages 60-69 = 85 mL/min/1.73 sq.m. Ages 70+ = 75 mL/min/1.73 sq.m.Chronic Kidney Disease: Less than 60 mL/min/1.73 square metersEnd Stage Renal Disease: Less than 15 mL/min/1.73 square meters Performed By: #### B MP, GFR, LIPID, CBC, DIFF, MORPH, A1C ####[address] [address] GFR Non- >60 Normal [facility] ([place]) Comment on above: Result Comment: GFR Population mean for , Non- Americans Ages 20-29 = 116 mL/min/1.73 sq.m. Ages 30-39 = 107 mL/min/1.73 sq.m. Ages 40-49 = 99 mL/min/1.73 sq.m. Ages 50-59 = 93 mL/min/1.73 sq.m. Ages 60-69 = 85 mL/min/1.73 sq.m. Ages 70+ = 75 mL/min/1.73 sq.m.Chronic Kidney Disease: Less than 60 mL/min/1.73 square metersEnd Stage Renal Disease: Less than 15 mL/min/1.73 square meters Performed By: #### B MP, GFR, LIPID, CBC, DIFF, MORPH, A1C ####[address] [address] .NEUABSon 12-16-2017 Neutrophil, Absolute 4.00 10 3/mcL Normal 2.25-8.10 A [facility] ([place]) Comment on above: Performed By: #### B MP, GFR, LIPID, CBC, DIFF, MORPH, A1C ####[place] [address] BMPon 12-16-2017 Calcium mass conc 8.7 mg/dL Normal 8.4-10.1 [facility] ([place]) Comment on above: Performed By: #### B MP, GFR, LIPID, CBC, DIFF, MORPH, A1C ####[place] [address] Chloride molar conc 97 mmol/L Low 98-110 [facility] ([place]) Comment on above: Performed By: #### B MP, GFR, LIPID, CBC, DIFF, MORPH, A1C ####[place] [address] CO2 molar conc 23 mmol/L Normal 22-32 [facility] ([place]) Comment on above: Performed By: #### B MP, GFR, LIPID, CBC, DIFF, MORPH, A1C ####[place] [address] Creatinine mass conc 0.70 mg/dL Normal 0.60-1.40 [facility] ([place]) Comment on above: Performed By: #### B MP, GFR, LIPID, CBC, DIFF, MORPH, A1C ####[place] [address] Electrolyte Balance 13.0 mEq/L Normal 4.0-15.0 [facility] ([place]) Comment on above: Performed By: #### B MP, GFR, LIPID, CBC, DIFF, MORPH, A1C ####[place] [address] Glucose mass conc 73 mg/dL Normal 70-110 [facility] ([place]) Comment on above: Performed By: #### B MP, GFR, LIPID, CBC, DIFF, MORPH, A1C ####[place] [address] Potassium molar conc 3.8 mmol/L Normal 3.5-5.0 [facility] ([place]) Comment on above: Performed By: #### B MP, GFR, LIPID, CBC, DIFF, MORPH, A1C ####[place] [address] Sodium molar conc 133 mmol/L Low 136-145 [facility] ([place]) Comment on above: Performed By: #### B MP, GFR, LIPID, CBC, DIFF, MORPH, A1C ####[place] [address] Urea nitrogen mass conc 7.0 mg/dL Low 8.0-22.0 [facility] ([place]) Comment on above: Performed By: #### B MP, GFR, LIPID, CBC, DIFF, MORPH, A1C ####[place] [address] Urea nitrogen/Creatinine mass ratio 10.0 ratio Normal 10.0-22.0 [facility] ([place]) Comment on above: Performed By: #### B MP, GFR, LIPID, CBC, DIFF, MORPH, A1C ####[place] [address] CBCon 12-16-2017 Erythrocyte distribution width Auto Ratio (RBC) 15.2 % Normal 11.5-15.5 [facility] ([place]) Comment on above: Performed By: #### C BC, ADIFF, ANEU, BMP, GFR ####[place] [address] Hematocrit Auto Volume Fraction (Bld) 41.0 % Normal 40.0-52.0 [facility] ([place]) Comment on above: Performed By: #### C BC, ADIFF, ANEU, BMP, GFR ####[place] [address] Hemoglobin mass conc (Bld) 14.2 G/dL Normal 13.0-17.5 [facility] ([place]) Comment on above: Performed By: #### C BC, ADIFF, ANEU, BMP, GFR ####[place] [address] MCH Auto Entitic mass (RBC) 31.7 pg Normal 27.0-33.0 [facility] ([place]) Comment on above: Performed By: #### C BC, ADIFF, ANEU, BMP, GFR ####[place] [address] MCHC Auto mass conc (RBC) 34.6 G/dL Normal 32.0-36.0 [facility] ([place]) Comment on above: Performed By: #### C BC, ADIFF, ANEU, BMP, GFR ####[place] [address] MCV Auto Entitic volume (RBC) 91.8 fL Normal 81.0-100.0 [facility] ([place]) Comment on above: Performed By: #### C BC, ADIFF, ANEU, BMP, GFR ####[place] [address] Platelet mean volume Auto Entitic volume (Bld) 6.5 fL Normal 6.4-10.5 [facility] ([place]) Comment on above: Performed By: #### C BC, ADIFF, ANEU, BMP, GFR ####[place] [address] Platelets Auto #/vol (Bld) 304 10 3/mcL Normal 150-450 [facility] ([place]) Comment on above: Performed By: #### C BC, ADIFF, ANEU, BMP, GFR ####[place] [address] RBC Auto #/vol (Bld) 4.47 10 6/mcL Low 4.50-6.00 A [facility] ([place]) Comment on above: Performed By: #### C BC, ADIFF, ANEU, BMP, GFR ####[place] [address] WBC Auto #/vol (Bld) 6.80 10 3/mcL Normal 4.50-10.80 A [facility] ([place]) Comment on above: Performed By: #### C BC, ADIFF, ANEU, BMP, GFR ####[place] [address] .GFRon 12-15-2017 GFR Non- >60 Normal [facility] ([place]) Comment on above: Result Comment: GFR Population mean for , Non- Americans Ages 20-29 = 116 mL/min/1.73 sq.m. Ages 30-39 = 107 mL/min/1.73 sq.m. Ages 40-49 = 99 mL/min/1.73 sq.m. Ages 50-59 = 93 mL/min/1.73 sq.m. Ages 60-69 = 85 mL/min/1.73 sq.m. Ages 70+ = 75 mL/min/1.73 sq.m.Chronic Kidney Disease: Less than 60 mL/min/1.73 square metersEnd Stage Renal Disease: Less than 15 mL/min/1.73 square meters Performed By: #### B MP, GFR, LIPID, CBC, DIFF, MORPH, A1C ####[address] [address] GFR >60 Normal [facility] ([place]) Comment on above: Result Comment: GFR Population mean for , Non- Americans Ages 20-29 = 116 mL/min/1.73 sq.m. Ages 30-39 = 107 mL/min/1.73 sq.m. Ages 40-49 = 99 mL/min/1.73 sq.m. Ages 50-59 = 93 mL/min/1.73 sq.m. Ages 60-69 = 85 mL/min/1.73 sq.m. Ages 70+ = 75 mL/min/1.73 sq.m.Chronic Kidney Disease: Less than 60 mL/min/1.73 square metersEnd Stage Renal Disease: Less than 15 mL/min/1.73 square meters Performed By: #### B MP, GFR, LIPID, CBC, DIFF, MORPH, A1C ####[place] [address] .Manual Diffon 12-15-2017 Basophil %, Manual 0.0 % Normal 0.0-2.5 [facility] ([place]) Comment on above: Performed By: #### B MP, GFR, LIPID, CBC, DIFF, MORPH, A1C ####[place] [address] Basophil, Abs Manual 0.00 10 3/mcL Normal 0.00-0.27 A [facility] ([place]) Comment on above: Performed By: #### B MP, GFR, LIPID, CBC, DIFF, MORPH, A1C ####[place] [address] Cells Counted 100 Normal [facility] ([place]) Comment on above: Performed By: #### B MP, GFR, LIPID, CBC, DIFF, MORPH, A1C ####[address] [address] Eosinophil %, Manual 2.0 % Normal 0.0-6.0 [facility] ([place]) Comment on above: Performed By: #### B MP, GFR, LIPID, CBC, DIFF, MORPH, A1C ####[address] [address] Eosinophil, Abs Manual 0.13 10 3/mcL Normal 0.00-0.65 [facility] ([place]) Comment on above: Performed By: #### B MP, GFR, LIPID, CBC, DIFF, MORPH, A1C ####[place] [address] Lymphocyte %, Manual 24.0 % Normal 20.0-40.0 [facility] ([place]) Comment on above: Performed By: #### B MP, GFR, LIPID, CBC, DIFF, MORPH, A1C ####[place] [id number] Lymphocyte, Abs Manual 1.61 10 3/mcL Normal 0.90-4.32 [facility] ([place]) Comment on above: Performed By: #### B MP, GFR, LIPID, CBC, DIFF, MORPH, A1C ####[place] [id number] Monocyte %, Manual 6.0 % Normal 2.0-13.0 [facility] ([place]) Comment on above: Performed By: #### B MP, GFR, LIPID, CBC, DIFF, MORPH, A1C ####[address] [address] Monocyte, Abs Manual 0.40 10 3/mcL Normal 0.09-1.40 [facility] ([place]) Comment on above: Performed By: #### B MP, GFR, LIPID, CBC, DIFF, MORPH, A1C ####[place] [id number] Neutrophil %, Manual 68.0 % Normal 50.0-75.0 [facility] ([place]) Comment on above: Performed By: #### B MP, GFR, LIPID, CBC, DIFF, MORPH, A1C ####[place] [address] Neutrophil, Abs Manual 4.56 10 3/mcL Normal 2.25-8.10 [facility] ([place]) Comment on above: Performed By: #### B MP, GFR, LIPID, CBC, DIFF, MORPH, A1C ####[place] [address] .Morphon 12-15-2017 Platelets Auto #/vol (Bld) Normal Normal [facility] ([place]) Comment on above: Performed By: #### B MP, GFR, LIPID, CBC, DIFF, MORPH, A1C ####[place] [address] RBC morphology finding Nom (Bld) Normal Normal [facility] ([place]) Comment on above: Performed By: #### B MP, GFR, LIPID, CBC, DIFF, MORPH, A1C ####[place] [address] A1Con 12-15-2017 Hemoglobin A1c/Hemoglobin.total mass fraction (Bld) 4.9 % Normal 4.0-6.0 [facility] ([place]) Comment on above: Performed By: #### B MP, GFR, LIPID, CBC, DIFF, MORPH, A1C ####[place] [address] BMPon 12-15-2017 Calcium mass conc 8.6 mg/dL Normal 8.4-10.1 [facility] ([place]) Comment on above: Performed By: #### B MP, GFR, LIPID, CBC, DIFF, MORPH, A1C ####[place] [address] Chloride molar conc 97 mmol/L Low 98-110 [facility] ([place]) Comment on above: Performed By: #### B MP, GFR, LIPID, CBC, DIFF, MORPH, A1C ####[place] [address] CO2 molar conc 25 mmol/L Normal 22-32 [facility] ([place]) Comment on above: Performed By: #### B MP, GFR, LIPID, CBC, DIFF, MORPH, A1C ####[place] [address] Creatinine mass conc 0.78 mg/dL Normal 0.60-1.40 [facility] ([place]) Comment on above: Performed By: #### B MP, GFR, LIPID, CBC, DIFF, MORPH, A1C ####[place] [address] Electrolyte Balance 10.0 mEq/L Normal 4.0-15.0 [facility] ([place]) Comment on above: Performed By: #### B MP, GFR, LIPID, CBC, DIFF, MORPH, A1C ####[place] [address] Glucose mass conc 86 mg/dL Normal 70-110 [facility] ([place]) Comment on above: Performed By: #### B MP, GFR, LIPID, CBC, DIFF, MORPH, A1C ####[place] [address] Potassium molar conc 4.1 mmol/L Normal 3.5-5.0 [facility] ([place]) Comment on above: Performed By: #### B MP, GFR, LIPID, CBC, DIFF, MORPH, A1C ####[place] [address] Sodium molar conc 132 mmol/L Low 136-145 [facility] ([place]) Comment on above: Performed By: #### B MP, GFR, LIPID, CBC, DIFF, MORPH, A1C ####[place] [address] Urea nitrogen mass conc 8.0 mg/dL Normal 8.0-22.0 [facility] ([place]) Comment on above: Performed By: #### B MP, GFR, LIPID, CBC, DIFF, MORPH, A1C ####[place] [address] Urea nitrogen/Creatinine mass ratio 10.3 ratio Normal 10.0-22.0 [facility] ([place]) Comment on above: Performed By: #### B MP, GFR, LIPID, CBC, DIFF, MORPH, A1C ####[place] [address] CBCon 12-15-2017 Platelet mean volume Auto Entitic volume (Bld) 6.9 fL Normal 6.4-10.5 [facility] ([place]) Comment on above: Performed By: #### B MP, GFR, LIPID, CBC, DIFF, MORPH, A1C ####[place] [address] Platelets Auto #/vol (Bld) 274 10 3/mcL Normal 150-450 [facility] ([place]) Comment on above: Performed By: #### B MP, GFR, LIPID, CBC, DIFF, MORPH, A1C ####[place] [address] Erythrocyte distribution width Auto Ratio (RBC) 15.5 % Normal 11.5-15.5 [facility] ([place]) Comment on above: Performed By: #### B MP, GFR, LIPID, CBC, DIFF, MORPH, A1C ####[place] [address] Hematocrit Auto Volume Fraction (Bld) 42.3 % Normal 40.0-52.0 [facility] ([place]) Comment on above: Performed By: #### B MP, GFR, LIPID, CBC, DIFF, MORPH, A1C ####[place] [address] Hemoglobin mass conc (Bld) 14.6 G/dL Normal 13.0-17.5 [facility] ([place]) Comment on above: Performed By: #### B MP, GFR, LIPID, CBC, DIFF, MORPH, A1C ####[place] [address] MCH Auto Entitic mass (RBC) 32.0 pg Normal 27.0-33.0 [facility] ([place]) Comment on above: Performed By: #### B MP, GFR, LIPID, CBC, DIFF, MORPH, A1C ####[place] [address] MCHC Auto mass conc (RBC) 34.4 G/dL Normal 32.0-36.0 [facility] ([place]) Comment on above: Performed By: #### B MP, GFR, LIPID, CBC, DIFF, MORPH, A1C ####[address] [place] [address] MCV Auto Entitic volume (RBC) 92.9 fL Normal 81.0-100.0 [facility] ([place]) Comment on above: Performed By: #### B MP, GFR, LIPID, CBC, DIFF, MORPH, A1C ####[place] [address] RBC Auto #/vol (Bld) 4.56 10 6/mcL Normal 4.50-6.00 A [facility] ([place]) Comment on above: Performed By: #### B MP, GFR, LIPID, CBC, DIFF, MORPH, A1C ####[place] [address] WBC Auto #/vol (Bld) 6.70 10 3/mcL Normal 4.50-10.80 A [facility] ([place]) Comment on above: Performed By: #### B MP, GFR, LIPID, CBC, DIFF, MORPH, A1C ####[place] [address] LIPIDon 12-15-2017 Cholesterol in HDL mass conc 68 mg/dL High 40-59 [facility] ([place]) Comment on above: Result Comment: HDL Reference Interval:Less than 40 Low - high risk60 or above Optimal/lowers risk Performed By: #### B MP, GFR, LIPID, CBC, DIFF, MORPH, A1C ####[place] [address] Cholesterol in LDL mass conc 109 mg/dL Normal 0-129 [facility] ([place]) Comment on above: Result Comment: LDL is a calculated result and requires a 12- hr fast.LDL Reference Interval:Less than 100 [id number] Near or above -473 Borderline high [id number] High [id number] and above Very high risk Performed By: #### B MP, GFR, LIPID, CBC, DIFF, MORPH, A1C ####[place] [address] Cholesterol mass conc 199 mg/dL Normal 50-199 [facility] ([place]) Comment on above: Result Comment: Chol esterol Reference Interval:Less than 200 [id number] Borderline high [id number] and above High risk Performed By: #### B MP, GFR, LIPID, CBC, DIFF, MORPH, A1C ####[facility] [place] [address] Triglyceride mass conc 108 mg/dL Normal 3-149 [facility] ([place]) Comment on above: Result Comment: Trig lyceride Reference Interval:Less than 150 [id number] Borderline high [id number] High [id number] or higher Very high risk Performed By: #### B MP, GFR, LIPID, CBC, DIFF, MORPH, A1C ####[facility] [place] [id number] MRA/MRI BRAIN W/O CONTRASTon 12-15-2017 MRA/MRI BRAIN W/O CONTRAST ORIGINALMRA/MRI BRAIN W/O CONTRAST Clinical Statement: Signs and symptoms of TIA. Headache with blurry vision and ataxia for several days, previous history of strokes COMPARISON: MRI brain without contrast 10/10/2016, CTA neck 10/11/2016. FINDINGS: MRI brain: Areas of diffusion restriction are noted of the medial aspect of the RIGHT cerebellar hemisphere extending to the cerebellar vermis. There is also a moderate-sized area of restricted diffusion and T2 hyperintensity in the right peritrigonal medial occipital lobe that has central low T1 signal. This is an acute infarct with possible hemorrhagic transformation. Small foci of restricted diffusion and acute infarction are also seen in the right parietal and occipital cortex and there may be a tiny acute subcortical lacunar infarct in the right precentral gyrus. No additional areas of diffusion restriction noted. There is no mass, mass-effect, or abnormal extra-axial fluid collection. Encephalomalacia from previous right cerebral watershed infarcts is noted. There are also other scattered T2 hyperintensities in the right khoa and bilateral deep cerebral white matter consistent with microvascular angiopathy. No hydrocephalus. Complete opacification of the left maxillary antrum with moderate opacification of bilateral ethmoid and right maxillary sinuses. Other sinuses also show mucosal thickening. The mastoids are clear. MRA BRAIN:Hiao-ck-byhsya MRA of the head. Source data and maximum intensity projections (MIPs) were reviewed. The right ICA remains occluded with absence of flow related signal. The left ICA is patent. There is normal blood flow in the left CASA and MCA. There is cross-filling of the right anterior and middle cerebral arteries through an anterior communicating artery but these vessels remain attenuated as previously with possibility of right MCA 7 branches that is unchanged. There is now visualization of a small vessel extending posteriorly from the right supraclinoid ICA that may be a small posterior communicating artery although it does not clearly extend to the basilar artery. The vertebral and basilar arteries are patent. The caudal portion of the vertebral arteries and the PICA on both sides is not adequately included. A faint AICA is seen on the right side. The posterior cerebral and superior cerebellar arteries on both sides are patent. IMPRESSION: There are new acute right cerebellar infarcts. Also moderate sized infarct in the right medial occipital peritrigonal region with question of hemorrhagic transformation. Consider CT of the brain to exclude this possibility. Smaller acute lacunar infarct in the right occipital parietal and prefrontal cortex also. Chronic Right ICA occlusion. Cross filling of the right anterior and middle cerebral arteries from the left side as previously with decreased blood flow in these vessels compared to the left side, also chronic. No new large vessel occlusion is seen in the brain. Malik Yan DO called these results to the patient's RN,Estuardo, on [facility] nursing unit at 12/15/2017 1:58 PM. I have personally reviewed the images of this examination and agree with the resident's findings and interpretation. Interpreted By: Boyd East MDPreliminary Report By: Malik Bowen DOElectronically Signed By: Boyd aEst MD Dictated Date: 12/15/2017 1:44:29 PM Prelim Date: 12/15/2017 1:57:49 PM Sign Date: 12/15/2017 7:47:29 PM Normal [facility] (PR) XR WRIST MINIMUM 3 VIEWS LEF Ton 12-15-2017 XR WRIST MINIMUM 3 VIEWS LEFT ORIGINALXR WRIST MINIMUM 3 VIEWS LEFT CLINICAL STATEMENT: fall injury. Radius fracture 3 weeks ago. COMPARISON: None FINDINGS: Patient has had open reduction and internal fixation of a transverse fracture of the distal metaphysis of the LEFT radius with plate applied to the anterior surface of distal LEFT radius. Hardware is in satisfactory position with no sign of hardware malfunction or loosening. Alignment at the fracture appears satisfactory with evidence of early healing reaction. Distal ulna is intact. Carpal bones show no sign of fracture. Radiocarpal alignment is normal. IMPRESSION: Satisfactory appearance of healing fracture of distal metaphysis of the LEFT radius status post open reduction and internal fixation. Interpreted By: Krishna Lakhani MDPreliminary Report By: Krishna Lakhani MDElectronically Signed By: Krishna Lakhani MD Dictated Date: 12/15/2017 3:49:26 AM Prelim Date: 12/15/2017 3:49:26 AM Sign Date: 12/15/2017 3:52:13 AM [facility] ([place]) Vital Signs Date Time Vital Sign Value Performing Clinician Maribel wade 07-27-2023 17:48-0400 Body temperature 98.1 [degF] [facility] 07-27-2023 17:48-0400 Diastolic blood pressure 98 mm[Hg] [facility] 07-27-2023 17:48-0400 Heart rate 56 /min [facility] 07-27-2023 17:48-0400 Respiratory rate 16 /min [facility] 07-27-2023 17:48-0400 SaO2% (BldA) [Mass fraction] 96 % [facility] 07-27-2023 17:48-0400 Systolic blood pressure 126 mm[Hg] [facility] 07-27-2023 13:37-0400 Body height 175.01 cm [facility] 07-27-2023 13:37-0400 Body mass index (BMI) [Ratio] 21.7 kg/m2 [facility] 07-27-2023 13:37-0400 Body weight 66.7 kg [facility] 04-05-2023 23:00-0500 Heart rate 69 /min [facility] 04-05-2023 23:00-0500 Respiratory rate 14 /min [facility] 04-05-2023 23:00-0500 SaO2% (BldA) [Mass fraction] 98 % [facility] 04-05-2023 18:51-0500 Diastolic blood pressure 77 mm[Hg] [facility] 04-05-2023 18:51-0500 Systolic blood pressure 126 mm[Hg] [facility] 04-05-2023 16:03-0500 Body height 175.26 cm [facility] 04-05-2023 16:03-0500 Body mass index (BMI) [Ratio] 22.3 kg/m2 [facility] 04-05-2023 16:03-0500 Body temperature 97.5 [degF] [facility] 04-05-2023 16:03-0500 Body weight 68.6 kg [facility] 08-30-2022 20:21-0400 Respiratory rate 18 /min [facility] 08-30-2022 19:32-0400 Body height 175.26 cm [facility] 08-30-2022 19:32-0400 Body mass index (BMI) [Ratio] 22.1 kg/m2 [facility] 08-30-2022 19:32-0400 Body temperature 97 [degF] [facility] 08-30-2022 19:32-0400 Body weight 67.9 kg [facility] 08-30-2022 19:32-0400 Diastolic blood pressure 100 mm[Hg] [facility] 08-30-2022 19:32-0400 Heart rate 58 /min [facility] 08-30-2022 19:32-0400 SaO2% (BldA) [Mass fraction] 98 % [facility] 08-30-2022 19:32-0400 Systolic blood pressure 185 mm[Hg] [facility] 08-15-2022 17:49-0400 Diastolic blood pressure 87 mm[Hg] [facility] 08-15-2022 17:49-0400 Heart rate 69 /min [facility] 08-15-2022 17:49-0400 Respiratory rate 147 /min [facility] 08-15-2022 17:49-0400 SaO2% (BldA) [Mass fraction] 95 % [facility] 08-15-2022 17:49-0400 Systolic blood pressure 162 mm[Hg] [facility] 08-15-2022 13:16-0400 Body mass index (BMI) [Ratio] 22.9 kg/m2 [facility] 08-15-2022 13:16-0400 Body temperature 98.7 [degF] [facility] 08-15-2022 13:16-0400 Body weight 70.5 kg [facility] 05-14-2022 15:14-0500 Body height 175.26 cm [facility] 05-14-2022 15:14-0500 Body mass index (BMI) [Ratio] 21.4 kg/m2 [facility] 05-14-2022 15:14-0500 Body temperature 96.9 [degF] [facility] 05-14-2022 15:14-0500 Body weight 65.8 kg [facility] 05-14-2022 15:14-0500 Diastolic blood pressure 85 mm[Hg] [facility] 05-14-2022 15:14-0500 Heart rate 66 /min [facility] 05-14-2022 15:14-0500 Respiratory rate 18 /min [facility] 05-14-2022 15:14-0500 SaO2% (BldA) [Mass fraction] 98 % [facility] 05-14-2022 15:14-0500 Systolic blood pressure 121 mm[Hg] [facility] 09-23-2021 16:04-0400 Diastolic blood pressure 84 mm[Hg] [facility] Work Phone: 09-23-2021 16:04-0400 Heart rate 78 /min [facility] Work Phone: 09-23-2021 16:04-0400 Respiratory rate 14 /min [facility] Work Phone: 09-23-2021 16:04-0400 SaO2% (BldA) [Mass fraction] 96 % [facility] Work Phone: 09-23-2021 16:04-0400 Systolic blood pressure 145 mm[Hg] [facility] Work Phone: 09-23-2021 12:50-0400 Body height 175.26 cm [facility] Work Phone: 09-23-2021 12:50-0400 Body mass index (BMI) [Ratio] 20.6 kg/m2 [facility] Work Phone: 09-23-2021 12:50-0400 Body temperature 98.4 [degF] [facility] Work Phone: 09-23-2021 12:50-0400 Body weight 63.4 kg [facility] Work Phone: 06-26-2021 11:02-0400 Body mass index (BMI) [Ratio] 19.9 kg/m2 [facility] Work Phone: 06-26-2021 11:02-0400 Body temperature 98.2 [degF] [facility] Work Phone: 06-26-2021 11:02-0400 Body weight 61.23 kg [facility] Work Phone: 06-26-2021 11:02-0400 Diastolic blood pressure 55 mm[Hg] [facility] Work Phone: 06-26-2021 11:02-0400 Heart rate 68 /min [facility] Work Phone: 06-26-2021 11:02-0400 Respiratory rate 20 /min [facility] Work Phone: 06-26-2021 11:02-0400 SaO2% (BldA) [Mass fraction] 97 % [facility] Work Phone: 06-26-2021 11:02-0400 Systolic blood pressure 101 mm[Hg] [facility] Work Phone: 06-26-2021 11:02-0400 Body height 175.26 cm [facility] Work Phone: 06-26-2021 11:02-0400 Body mass index (BMI) [Ratio] 19.9 kg/m2 [facility] Work Phone: 06-26-2021 11:02-0400 Body temperature 98.2 [degF] [facility] Work Phone: 06-26-2021 11:02-0400 Body weight 61.23 kg [facility] Work Phone: 06-26-2021 11:02-0400 Diastolic blood pressure 55 mm[Hg] [facility] Work Phone: 06-26-2021 11:02-0400 Heart rate 68 /min [facility] Work Phone: 06-26-2021 11:02-0400 Respiratory rate 20 /min [facility] Work Phone: 06-26-2021 11:02-0400 SaO2% (BldA) [Mass fraction] 97 % [facility] Work Phone: 06-26-2021 11:02-0400 Systolic blood pressure 101 mm[Hg] [facility] Work Phone: Encounters Encounter Date Encounter Type Care Provider Facility Start: 07-27-2023 End: 07-27-2023 Emergency department patient visit [facility] Facility:[facility] Start: 07-27-2023 End: 07-27-2023 Emergency department patient visit [facility] Work Phone: Start: 04-05-2023 End: 04-06-2023 Emergency department patient visit No Primary Care Physician Facility:[facility] Start: 04-05-2023 End: 04-06-2023 Emergency department patient visit [facility] Work Phone: Start: 08-30-2022 End: 08-30-2022 Emergency department patient visit No Primary Care Physician Facility:[facility] Start: 08-30-2022 End: 08-30-2022 Emergency department patient visit [facility] Start: 08-15-2022 End: 08-15-2022 Emergency department patient visit No Primary Care Physician Facility:[facility] Start: 08-15-2022 End: 08-15-2022 Emergency department patient visit [facility] Start: 05-14-2022 End: 05-14-2022 Emergency department patient visit [facility] Start: 04-18-2022 End: 04-18-2022 ambulatory [facility] Work Phone: Start: 04-18-2022 End: 04-18-2022 Patient encounter procedure [facility] Start: 09-23-2021 End: 09-23-2021 Emergency department patient visit [facility] Start: 07-27-2021 End: 07-27-2021 Patient encounter procedure [facility]rology Start: 07-05-2021 Non-patient / Non-visit [facility] Start: 07-05-2021 End: 07-05-2021 Patient encounter procedure [facility] Start: 06-26-2021 End: 06-26-2021 Patient encounter procedure [facility] Start: 07-30-2020 End: 03-06-2021 [facility] Start: 07-27-2020 End: 07-27-2020 Subsequent hospital visit by physician Gabriel Bueno PA-C Work Phone: [facility] Comment on above: Essential hypertensi on; Gastroesophageal reflux disease without esophagitis; Other sequelae of cerebral infarction; Acquired hypothyroidism Start: 06-24-2020 End: 06-25-2020 Emergency department patient visit SANGEETHA CHAIDEZ [facility] Start: 05-31-2020 End: 07-15-2020 ambulatory REUBEN CLEMONS [facility] Start: 01-12-2020 End: 01-12-2020 Subsequent hospital visit by physician Reuben Goldstein Work Phone: [facility] Comment on above: Acquired hypothyroid ism Start: 12-09-2018 End: 12-09-2018 Subsequent hospital visit by physician Greg Riggs Work Phone: [facility] Comment on above: Obstructive sleep ap estevan (adult) (pediatric) Start: 02-09-2018 End: 02-25-2018 Evaluation and management of inpatient VINI JR. GARCIA Facility:A Start: 12-15-2017 End: 12-18-2017 Patient encounter procedure CHENG BARRAGAN Facility:A Start: 11-16-2016 End: 11-16-2016 Ambulatory EMELY CARRASQUILLO [facility] Procedures Date Procedure Procedure Detail Performing Clinician Start: 04-05-2023 Plain chest X-ray Start: 04-05-2023 Plain x-ray of elbow Start: 04-05-2023 Plain x-ray of humerus Start: 08-15-2022 Plain x-ray of hand Start: 08-15-2022 Plain X-ray of shoulder Start: 08-15-2022 X-ray of cervical spine Start: 04-18-2022 CT angiography of he ad and neck Start: 09-23-2021 CT of head without contrast [facility] Start: 07-27-2021 MRI of brain with contrast Out [facility] Start: 07-27-2020 CBC W Auto Different ial panel - Blood Gabriel Kanski PA-C Work Phone: Start: 07-27-2020 Comprehensive metabo lic panel Gabriel Kanski PA-C Work Phone: Start: 07-27-2020 GLOMERULAR FILTRATION RATE Gabriel Kanski PA-C Work Phone: Start: 07-27-2020 Lipid panel Gabriel Obed ski PA-C Work Phone: Start: 07-27-2020 Adult depression scr eening assessment Gabriel Kanski PA-C Work Phone: Start: 07-27-2020 Lipid 1996 panel - S hillary or Plasma Gabriel Kantreasurei PA-C Work Phone: Start: 05-22-2020 Antibody screen Comment on above: Performed By: #### X M ####[facility] (DEFAULT)[address] [place] [id number] Start: 05-19-2020 Antibody screen Comment on above: Performed By: #### X M ####[facility] (DEFAULT)[address] [place] [address] Start: 01-12-2020 Assay of thyroid stimulating hormone tsh Reuben Goldstein Work Phone: Start: 01-12-2020 Adult depression scr eening assessment Reuben Goldstein Start: 06-25-2018 Lipid 1996 panel - S hillary or Plasma Greg Riggs Plan of Treatment Date Care Activity Detail Author Start: 07-09-2026 Colonoscopy [facility] Start: 07-09-2026 Screening for malign ant neoplasm of colon [facility] Start: 07-09-2026 Tetanus, diphtheria and acellular pertussis vaccination TDAP/TD ADULT [facility] Start: 06-26-2023 Fasting lipid profile LIPID SCREENIN G [facility] Start: 04-05-2023 [facility] Start: 04-04-2021 Depression screening using PHQ-9 (Patient Health Questionnaire 9) score DEPRESSION SCREENING [facility] Start: 01-11-2021 Thyroid stimulating hormone measurement TSH [facility] Start: 11-23-2020 Influenza vaccinatio n given INFLUENZA VACCINE (Season Ended) [facility] Start: 08-24-2020 End: 08-24-2020 Patient encounter procedure 08/24/2020 Office Visit Family Medicine Gabriel Bueno PA-C [address] [place] [address] [phone] [facility] Start: 08-17-2020 End: 08-17-2020 Patient encounter procedure 08/17/2020 Office Visit [facility] [address] [facility] Start: 08-01-2020 End: 08-01-2020 Telemedicine consultation with patient 08/01/2020 Telemedicine [facility] Ibeth Haider LSW [facility] Start: 05-19-2020 End: 05-19-2020 Office Visit 05/19/2020 Office Visit Family Medicine Reuben Goldstein MD [address], [place] [id number] [facility] Start: 11-24-2019 Influenza vaccinatio n given INFLUENZA VACCINE (#1) [facility] Start: 09-24-2019 Adult depression screening assessment PHQ9 DEPRESSION SCREENING [facility] Start: 08-19-2019 End: 08-19-2019 Office Visit 08/19/2019 Office Visit Cardiology Elton Eckert, DO [address] [facility] 1ST FLOOR [facility]YS[facility] [place] [address] [phone] [facility] Start: 07-24-2019 End: 07-24-2019 Appointment 07/24/2019 Appointment Heart and Vascular Diagnostics Babar Elton Belén, DO [address] [facility] 1ST FLOOR PHYSICIAN [facility] [place] [address] [phone] [facility] Start: 06-26-2019 TSH Qn TSH [facility] Start: 03-04-2019 Adult depression screening assessment DEPRESSION SCREENING [facility] Start: 02-26-2019 End: 02-26-2019 Office Visit 02/26/2019 Office Visit Dentistry Janna Landa, [facility] Start: 02-04-2019 End: 02-04-2019 Office Visit 02/04/2019 Office Visit Dentistry Sarah Shah, [facility] Start: 12-30-2018 End: 12-30-2018 Office Visit 12/30/2018 Office Visit Family Medicine Reuben Goldstein MD [address] [place] [address] [phone] [facility] Start: 11-23-2018 Influenza vaccinatio n given INFLUENZA VACCINE (#1) [facility] Start: 2017 Prostate specific an tigen measurement PSA SHARED DECISION MAKING [facility] Start: 2012 Screening for malign ant neoplasm of colon [facility] Start: 2012 SHINGLES 2 DOSE (1 of 2) SHINGLES 2 DOSE (1 of 2) [facility] Start: 2012 Zoster vaccine hzv l satinder for subcutaneous use ZOSTER (SHINGLES) VACCINE (1 of 2) [facility] Start: 1980 ANNUAL WELLNESS VISIT ANNUAL WELLNES S VISIT [facility] Start: 1980 WELLNESS ANNUAL VISIT WELLNESS ANNUA L VISIT [facility] Start: 1973 Diphtheria + pertuss is + tetanus vaccine (product) DTAP/TDAP/TD VACCINE (1 - Tdap) [facility] Patient Education [facility] Work Phone: Patient referral [facility] Work Phone: End: 12-09-2018 Polysomnography 4 or more parameters with CPAP Polysomnography 4 or more parameters with CPAP [facility] Routine Obstructive sleep apnea (adult) (pediatric) 1 Occurrences starting 12/09/2018 until 12/09/2018 [facility] Comment on above: 1 Occurrences starti ng 12/09/2018 until 12/09/2018 Immunizations Immunization Date Immunization Notes Care Provider Fa melissa 12-30-2018 influenza virus vacc ine, unspecified formulation Reuben Goldstein [facility] 03-07-2018 influenza virus vacc ine, unspecified formulation Greg Riggs [facility] Payers Date Payer Category Payer Self-pay [id number] 2022 Unknown [id number] 2019 Medicare MEDICARE MEDICAR E PART A & B [id number] 2019-Present [address] [place] [address] Medicare [id number] 2017 Unknown [id number] 2014 Medicaid [facility] x[facility]xxx 2014-Present [phone] [address] [address] [place] [address] Medicaid xxxxxxxxxxxx [id number] 1962 Unknown [id number] 1962 Unknown [id number] 1962 Unknown [id number] 1962 Unknown [id number] 1962 Unknown [id number] Medicare [id number] Unknown [id number] Unknown [id number] Unknown [id number] Unknown [id number] Social History Date Type Detail Facility Start: 09-23-2018 End: 01-12-2020 Tobacco smoking status NHIS Former smoker [facility] End: 03-27-2016 History of tobacco use Current smoker [facility] End: 03-27-2016 History of tobacco use Cigarette Smoker [facility] Start: 09-23-2018 End: 01-12-2020 Cigarettes smoked current (pack per day) - Reported [facility] Start: 01-12-2020 End: 07-27-2020 Tobacco use and exposure Never used [facility] Start: 01-12-2020 End: 07-27-2020 Alcohol intake Current drinker of alcohol (finding) [facility] Start: 04-10-2016 Tobacco Comment e cig [facility] Start: 05-09-2018 Alcohol Comment history of alc ohol abuse 30 years (presently drinking 2 to 3 beers per day [facility] Start: 1960 Sex Assigned At Not on file [facility] Exposure to SARS-CoV -2 (event) Not sure [facility] Start: 09-23-2018 Alcohol intake Yes [facility] Start: 07-27-2020 End: 03-27-2016 Tobacco smoking status NHIS Current every day smoker [facility] Start: 07-27-2020 History SDOH Social Connections Membership 2 [facility] Start: 05-05-2021 History SDOH Financial 3 [facility] Start: 07-27-2020 History SDOH Food Worry 1 [facility] Start: 06-26-2021 End: 07-27-2023 Tobacco smoking status NHIS Unknown if ever smoked [facility] Start: 09-30-2017 Cigarettes [facility] Start: 1960 Sex Assigned At Male W [facility] Medical Equipment Procedure Code Equipment Code Equipment Origin al Text Equipment Identifier Dates 2.4MM CORTEX SCR EW SELF TAP FDA Start: 10-01-2017 2.4MM SELF TAP CORTEX SCREW FDA Start: 10-01-2017 2.4MM SLEF TAP CORTEX SCREW FDA Start: 10-01-2017 2.4MM VA LOCKING SCREW FDA Start: 10-01-2017 2.4MM VA-LCP GABRIEL ROW VDR PLATE FDA Start: 10-01-2017 2.7MM SELF TAP CORTEX SCREW FDA Start: 10-01-2017 2.4MM CORTEX SCR EW SELF TAP FDA Start: 10-01-2017 2.4MM SELF TAP CORTEX SCREW FDA Start: 10-01-2017 2.4MM SLEF TAP CORTEX SCREW FDA Start: 10-01-2017 2.4MM VA LOCKING SCREW FDA Start: 10-01-2017 2.4MM VA-LCP GABRIEL ROW VDR PLATE FDA Start: 10-01-2017 2.7MM SELF TAP CORTEX SCREW FDA Start: 10-01-2017 2.4MM CORTEX SCR EW SELF TAP FDA Start: 10-01-2017 2.4MM SELF TAP CORTEX SCREW FDA Start: 10-01-2017 2.4MM SLEF TAP CORTEX SCREW FDA Start: 10-01-2017 2.4MM VA LOCKING SCREW FDA Start: 10-01-2017 2.4MM VA-LCP GABRIEL ROW VDR PLATE FDA Start: 10-01-2017 2.7MM SELF TAP CORTEX SCREW FDA Start: 10-01-2017 2.4MM CORTEX SCR EW SELF TAP FDA Start: 10-01-2017 2.4MM SELF TAP CORTEX SCREW FDA Start: 10-01-2017 2.4MM SLEF TAP CORTEX SCREW FDA Start: 10-01-2017 2.4MM VA LOCKING SCREW FDA Start: 10-01-2017 2.4MM VA-LCP GABRIEL ROW VDR PLATE FDA Start: 10-01-2017 2.7MM SELF TAP CORTEX SCREW FDA Start: 10-01-2017 2.4MM CORTEX SCR EW SELF TAP FDA Start: 10-01-2017 2.4MM SELF TAP CORTEX SCREW FDA Start: 10-01-2017 2.4MM SLEF TAP CORTEX SCREW FDA Start: 10-01-2017 2.4MM VA LOCKING SCREW FDA Start: 10-01-2017 2.4MM VA-LCP GABRIEL ROW VDR PLATE FDA Start: 10-01-2017 2.7MM SELF TAP CORTEX SCREW FDA Start: 10-01-2017 2.4MM CORTEX SCR EW SELF TAP FDA Start: 10-01-2017 2.4MM SELF TAP CORTEX SCREW FDA Start: 10-01-2017 2.4MM SLEF TAP CORTEX SCREW FDA Start: 10-01-2017 2.4MM VA LOCKING SCREW FDA Start: 10-01-2017 2.4MM VA-LCP GABRIEL ROW VDR PLATE FDA Start: 10-01-2017 2.7MM SELF TAP CORTEX SCREW FDA Start: 10-01-2017 2.4MM CORTEX SCR EW SELF TAP FDA Start: 10-01-2017 2.4MM SELF TAP CORTEX SCREW FDA Start: 10-01-2017 2.4MM SLEF TAP CORTEX SCREW FDA Start: 10-01-2017 2.4MM VA LOCKING SCREW FDA Start: 10-01-2017 2.4MM VA-LCP GABRIEL ROW VDR PLATE FDA Start: 10-01-2017 2.7MM SELF TAP CORTEX SCREW FDA Start: 10-01-2017 2.4MM CORTEX SCR EW SELF TAP FDA Start: 10-01-2017 2.4MM SELF TAP CORTEX SCREW FDA Start: 10-01-2017 2.4MM SLEF TAP CORTEX SCREW FDA Start: 10-01-2017 2.4MM VA LOCKING SCREW FDA Start: 10-01-2017 2.4MM VA-LCP GABRIEL ROW VDR PLATE FDA Start: 10-01-2017 2.7MM SELF TAP CORTEX SCREW FDA Start: 10-01-2017 Mental Status Date Assessment Result Facility 07-27-2023 Cognitive function Level Of Cons ciousness Awake;Alert;Appropriate;Follow s Commands [facility] Work Phone: 05-14-2022 Cognitive function Level Of Cons ciousness Awake;Alert;Appropriate;Follow s Commands [facility] Work Phone: Discharge summary 07-27-2023 Note Date & Type Note Facility 07-27-2023 Discharge summary Note Date/Time July 27, 2023 3:45pm [facility] Medical Records Department [address] [place] [address] Emergency Department Summary 07/27/23 MR#: [id number] Acct: [id number] Name: STEVE GARZA III Rep #:[id number] : 1960 63 From: Bill Lundberg MD PCP: ABEL RomeroC Status: REG ER Location: ED ADDENDUM by Dr. Bill Lundberg MD on 07/27/23 at 1659 Sinus bradycardia rate of 58. RI interval is 218 ms. QRS duration 84 ms. QT duration 134 ms. [place] is normal. There is no ischemic changes noted. 07/27/23 1659<Electronically signed by Bill Lundberg MD> Cosigner Signature (if applicable): cc: ENVIRONMENTAL COMPLIANCE ENGINEER-C Tangela Vega ~* Signed HPI History of Present Illness Chief Complaint: Weakness Detail of Chief Complaint: Patient with generalized weakness for over a week. He had 3 prior strokes. Informant: patient Onset/Context/Timing Onset: Weeks Context: Gradual Onset Timing: Continuous Quality: Generalized weakness Location: Generalized Current Severity: Mild Maximum Severity: Moderate Worsened by: Nothing specific Relieved by: Nothing Associated Symptoms Associated Symptoms: Poor p.o. intake Narrative Narrative: Patient is a 63-year-old male who looks much older than reported age. He has history of 3 prior strokes, hypothyroidism, epilepsy who was sent to the emergency room by nursing staff because he complained of increased weakness and poor appetite. With past and why he was sent here his response was "I wish I never would have told the nurse that I did not feel well ". Patient denies headache. Patient denies visual, ocular auditory symptoms. Patient has trouble with speech or swallowing compared to baseline. Patient denies chest pain. He denies shortness of breath. He denies cough. He denies abdominal pain. He denies vomiting or diarrhea. He denies urologic symptoms. Prior similar symptoms: Yes Recent Illness/Hospitalization: No PFSH PENDING SALE TO [facility] Medical History Anxiety disorder, unspecified Ataxia, unspecified Ataxic gait Benign prostatic hyperplasia with lower urinary tract symptoms Cerebral infarction, unspecified Chronic obstructive pulmonary disease, unspecified Cognitive communication deficit Encephalopathy, unspecified Epilepsy, unspecified, not intractable, without status epilepticus Essential (primary) hypertension Gastro-esophageal reflux disease without esophagitis Generalized anxiety disorder 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 side Hyperlipidemia, unspecified Hypothyroidism, unspecified Insomnia, unspecified Localization-related (focal) (partial) idiopathic epilepsy and epileptic syndromes with seizures of localized onset, not intractable, without status epilepticus Major depressive disorder, recurrent, mild Mixed hyperlipidemia Mixed simple and mucopurulent chronic bronchitis Muscle weakness (generalized) Occlusion and stenosis of unspecified carotid artery Other abnormalities of gait and mobility Other sequelae of cerebral infarction Other specified hypothyroidism Other toxic encephalopathy Pain in left leg Primary insomnia Stroke Syncope and collapse Thyroid disease Unspecified abnormalities of gait and mobility Unspecified sensorineural hearing loss Unspecified symptoms and signs involving cognitive functions and awareness Home Medications clopidogrel 75 mg tablet 75 mg PO DAILY BLOOD THINNER 09/30/17 [History Last Taken 09/26/17] aspirin 81 mg capsule 81 mg PO DAILY 06/26/21 [History Last Taken Unknown] atorvastatin 80 mg tablet 80 mg PO QHS 06/26/21 [History Last Taken Unknown] buspirone 10 mg tablet 20 mg PO TID 06/26/21 [History Last Taken Unknown] gabapentin 300 mg capsule 300 mg PO TID 06/26/21 [History Last Taken Unknown] levetiracetam 500 mg tablet 500 mg PO BID 06/26/21 [History Last Taken Unknown] metoprolol tartrate 50 mg tablet 50 mg PO BID 06/26/21 [History Last Taken Unknown] montelukast 10 mg tablet 10 mg PO QHS 06/26/21 [History Last Taken Unknown] sertraline 100 mg tablet 100 mg PO DAILY 06/26/21 [History Last Taken Unknown] acetaminophen 500 mg tablet 1,000 mg PO TID 08/15/22 [History Last Taken Unknown] ferrous sulfate 325 mg (65 mg iron) tablet (FeroSul) 325 mg PO DAILY 08/15/22 [History Last Taken Unknown] fluticasone propionate 50 mcg/actuation nasal spray,suspension 1 spray intranasal DAILY 08/15/22 [History Last Taken Unknown] levothyroxine 100 mcg tablet 100 mcg PO DAILY 08/15/22 [History Last Taken Unknown] melatonin 10 mg tablet 10 mg PO QHS 08/15/22 [History Last Taken Unknown] oxycodone-acetaminophen 5 mg-325 mg tablet 1 tab PO Q6H PRN PRN pain 5 days #20 TABLETS 08/15/22 [Rx Last Taken Unknown] loratadine 10 mg tablet 10 mg PO DAILY 08/30/22 [History Last Taken Unknown] lorazepam 0.5 mg tablet (Ativan) 0.5 mg PO TID PRN Anxiety 08/30/22 [History Last Taken Unknown] oxycodone-acetaminophen 5 mg-325 mg tablet (Percocet) 1 tab PO Q4H PRN pain 5 days #20 tabs 08/30/22 [Rx Last Taken Unknown] polyethylene glycol 3350 17 gram/dose oral powder (Miralax) 17 g PO DAILY 08/30/22 [History Last Taken Unknown] polyvinyl alcohol 1.4 % eye drops (Artificial Tears (polyvinyl alcohol)) drp 08/30/22 [History Last Taken Unknown] sennosides 8.6 mg-docusate sodium 50 mg tablet (Senna Plus) 1 tab-cap PO QHS 08/30/22 [History Last Taken Unknown] tamsulosin 0.4 mg capsule mg PO 08/30/22 [History Last Taken Unknown] tizanidine 4 mg tablet mg 08/30/22 [History Last Taken Unknown] Allergy/AdvReac Type Severity Reaction Status Date / Time No Known Allergies Allergy Verified 07/27/23 13:38 Surgical History Hx of appendectomy Social History household members: none housing: senior care Smoking Status: Current every day smoker tobacco type: cigarettes and e-cigarettes Electronic Cigarette Use: with nicotine alcohol intake: current alcohol intake frequency: 0-2 drinks per day Alcohol type: beer details: 2-3 hard ice teas a day substance use type: does not use ROS ROS ED Constitutional Constitutional ED: Denies chills, fever(s), subjective or sweats Eyes Eyes: Denies blurry vision, change in vision or diplopia ENT ENT ED: Denies ear pain, rhinorrhea or sore throat Cardiovascular Cardiovascular: Denies chest pain, orthopnea, palpitations or paroxysmal nocturnal dyspnea Respiratory/Chest Respiratory/Chest: Denies cough, dyspnea, dyspnea on exertion, orthopnea or paroxysmal nocturnal dyspnea Gastrointestinal Gastrointestinal: Reports nausea; Denies abdominal pain, constipation, diarrhea,melena or vomiting Genitourinary Genitourinary ED: Denies dysuria, hematuria or urinary frequency Musculoskeletal Musculoskeletal: Denies back pain or neck pain Integumentary Denies rash Neurologic Neurologic: Reports weakness; Denies headache(s) or paresthesias Psychiatric Psychiatric: Reports depression Endocrine Endocrinology: Denies cold intolerance or heat intolerance Hematologic/Lymphatic Hematologic/Lymphatic: Reports systems reviewed and no addt'l complaints, exceptas documented EXAM Physical Exam Const Vital Signs: 07/27/23 13:37 07/27/23 13:37 07/27/23 13:49 Temperature 97.5 F L Temperature Source Temporal Pulse Rate 59 L 61 Pulse Rate [Lying] Pulse Rate [Sitting (for 1 minute prior to obtaining)] Pulse Rate [Standing (for 1 minute prior to obtaining)] Respiratory Rate 13 16 Respiratory Effort Normal Non-Labored Respiratory Pattern Normal Blood Pressure 102/67 102/67 Blood Pressure [Lying] Blood Pressure [Sitting (for 1 minute prior to obtaining)] Blood Pressure [Standing (for 1 minute prior to obtaining)] Blood Pressure Mean 78 78 Blood Pressure Mean [Lying] Blood Pressure Mean [Sitting (for 1 minute prior to obtaining)] Blood Pressure Mean [Standing (for 1 minute prior to obtaining)] Pulse Ox 96 95 Oxygen Delivery Method Room Air Room Air 07/27/23 14:39 07/27/23 14:49 07/27/23 15:00 Temperature Temperature Source Pulse Rate 54 L 56 L Pulse Rate [Lying] 57 L Pulse Rate [Sitting (for 1 minute prior to obtaining)] 68 Pulse Rate [Standing (for 1 minute prior to obtaining)] 63 Respiratory Rate 10 L 13 Respiratory Effort Respiratory Pattern Blood Pressure 132/72 H 146/103 H Blood Pressure [Lying] 117/85 H Blood Pressure [Sitting (for 1 minute prior to obtaining)] 112/80 Blood Pressure [Standing (for 1 minute prior to obtaining)] 91/65 Blood Pressure Mean 92 117 Blood Pressure Mean [Lying] 95 Blood Pressure Mean [Sitting (for 1 minute prior to obtaining)] 90 Blood Pressure Mean [Standing (for 1 minute prior to obtaining)] 73 Pulse Ox 95 96 Oxygen Delivery Method Room Air Room Air 07/27/23 16:00 Temperature Temperature Source Pulse Rate 53 L Pulse Rate [Lying] Pulse Rate [Sitting (for 1 minute prior to obtaining)] Pulse Rate [Standing (for 1 minute prior to obtaining)] Respiratory Rate 17 Respiratory Effort Respiratory Pattern Blood Pressure 146/83 H Blood Pressure [Lying] Blood Pressure [Sitting (for 1 minute prior to obtaining)] Blood Pressure [Standing (for 1 minute prior to obtaining)] Blood Pressure Mean 104 Blood Pressure Mean [Lying] Blood Pressure Mean [Sitting (for 1 minute prior to obtaining)] Blood Pressure Mean [Standing (for 1 minute prior to obtaining)] Pulse Ox 96 Oxygen Delivery Method Room Air Initial blood pressure was low. Patient blood pressure improved with time. Patient's borderline orthostatic. Positive well developed Constitutional Narrative: Patient is thin. General Appearance ED: well developed and NAD; Negative for pallor HEENT Reports TM's clear and dry mucous membranes Negative for trauma or tenderness Tympanic Membrane ED: Yes TM's clear Mouth ED: Yes dry mucous membranes Mouth: dry mucous membranes Eyes PERRL and EOMs intact bilaterally General Eye ED: Negative for pale conjunctiva or scleral icterus Neck no lymphadenopathy, supple and no JVD Chest Wall inspection of chest normal and palpation of chest normal Resp normal respiratory effort and clear to auscultation bilaterally Cardio regular rhythm, S1 normal heart sound, S2 normal heart sound and no murmurs Rate: bradycardia GI normal to inspection, nondistended, normoactive bowel sounds, non-tender, non-distended and no masses; Negative for hepatosplenomegaly Back/Spine no CVA tenderness Extremity normal to inspection General Extremety ED: Negative for tenderness Neuro oriented x3 and CN's II-XII intact bilaterally Neuro Narrative: Patient reports mild weakness on the left side due to prior strokes. Sensation is normal. He has equivocal Babinski on the left. There is no clonus. Sensorium / Orientation: alert Psych Mood & Affect: depressed Skin no wounds General Skin Exam: Negative for jaundice or pallor MDM MDM MDM Narrative Medical decision making narrative: Clinically patient appears dehydrated he is hypotensive. 1 L normal saline was ordered. Blood work was obtained to rule out anemia, renal dysfunction, electrolyte abnormality. Orthostatic vital signs were positive. Patient's blood pressure improved after liter of fluid to 146/103. History & Record Review Additional record(s) reviewed:: Prior ED visit and Prior labs Lab Data Attestation: I reviewed the patient's lab results. Lab results narrative: CBC is normal. BMP is remarkable for glucose of 160 with a normal CO2 anion gap. Renal function is normal. Based on review of records there is no history of diabetes. Labs: Laboratory Results - last 24 hr 07/27/23 14:17 WBC 5.5 RBC 4.47 L Hgb 14.7 Hct 43.6 MCV 97.5 H MCH 32.9 H MCHC 33.7 RDW Std Deviation 42.9 RDW Coeff of Rosa M 11.9 Plt Count 195 MPV 8.7 Immature Gran % (Auto) 0.200 Neut % (Auto) 70.8 H Lymph % (Auto) 20.3 [place] % (Auto) 6.2 Eos % (Auto) 2.0 Baso % (Auto) 0.5 Absolute Neuts (auto) 3.9 Absolute Lymphs (auto) 1.11 Nucleated RBC % 0 Sodium 138 Potassium 3.7 Chloride 106 Carbon Dioxide 27.0 Anion Gap 5 BUN 24 H Creatinine 0.80 Estim Creat Clear Calc 91.48 Est GFR (MDRD) Af Amer 125 Est GFR (MDRD) Non-Af 104 BUN/Creatinine Ratio 29.8 H Glucose 160 H Calcium 8.7 Discharge Plan Triage Chief Complaint: Weakness ED Provider: Bill Lundberg Dx/Rx/DC Orders Clinical Impression: Generalized weakness, History of stroke, Dementia, Nondiabetic hyperglycemia Instructions: ED Weakness (Uncertain Cause), ED Hyperglycemia New Poss Diabetes Prescriptions: No Action metoprolol tartrate 50 mg tablet 50 mg PO BID sertraline 100 mg tablet 100 mg PO DAILY levetiracetam 500 mg tablet 500 mg PO BID aspirin 81 mg capsule 81 mg PO DAILY buspirone 10 mg tablet 20 mg PO TID gabapentin 300 mg capsule 300 mg PO TID montelukast 10 mg tablet 10 mg PO QHS atorvastatin 80 mg tablet 80 mg PO QHS clopidogrel 75 MG tablet 75 mg PO DAILY acetaminophen 500 mg Tablet 1,000 mg PO TID levothyroxine 100 mcg Tablet 100 mcg PO DAILY ferrous sulfate [FeroSul] 325 mg (65 mg iron) Tablet 325 mg PO DAILY fluticasone propionate [Flonase] 50 mcg/actuation [place],Suspension 1 spray INTRANASAL DAILY Rx Instructions: administer into each nostril melatonin 10 mg Tablet 10 mg PO QHS oxycodone-acetaminophen [oxycodone-acetaminophen] 5-325 mg tablet 1 tab PO Q6H PRN PRN (Reason: pain) 5 Days Qty: 20 0RF tizanidine 4 mg tablet polyvinyl alcohol [Artificial Tears (polyvin alc)] 1.4 % drops Patient Comments: 2 DROPS IN BOTH EYES FOURTTIMES A DAY NEEDED sennosides-docusate sodium [Senna Plus] 8.6-50 mg Tablet 1 tab-cap PO QHS lorazepam [Ativan] 0.5 mg Tablet 0.5 mg PO TID PRN (Reason: Anxiety) tamsulosin 0.4 mg capsule PO polyethylene glycol 3350 [Miralax] 17 gram/dose Powder 17 g PO DAILY loratadine 10 mg Tablet 10 mg PO DAILY oxycodone-acetaminophen [Percocet] 5-325 mg tablet 1 tab PO Q4H PRN (Reason: pain) 5 Days Qty: 20 0RF Primary Care Provider: Tangela Vega ENVIRONMENTAL COMPLIANCE ENGINEER Referrals: Tangela Vega ENVIRONMENTAL COMPLIANCE ENGINEER, ENVIRONMENTAL COMPLIANCE ENGINEER-C [Primary Care Provider] - 1 Week Activity Restrictions/Additional Instructions: He did contact your practitioner for evaluation of elevated blood sugar. The cause of your symptoms is unknown. Disposition Disposition: Home, Self Care What to do if you have Problems For any increased pain, shortness of breath, bleeding, nausea or vomiting, chestpain, or any unexpected problems, contact your Primary Care Provider. Call [facility] ([phone]) or report to the closest Emergency Room. Call 911 if necessary. 07/27/23 1644 <Electronically signed by Bill Lundberg MD> Cosigner Signature (if applicable): CC: ENVIRONMENTAL COMPLIANCE ENGINEER-C Tangela Vega ~ Signed [facility] Work Phone: Discharge summary 04-05-2023 Note Date & Type Note Facility 04-05-2023 Discharge summary Note Date/Time April 05, 2023 4:13pm [facility] Medical Records Department [address] [place] [address] Emergency Department Summary 04/05/23 MR#: [id number] Acct: [id number] Name: STEVE GARZA III Rep #:[id number] : 1960 63 From: Sridhar Claening PCP: Care Physician,No Primary Status :REG ER Location: ED HPI History of Present Illness HPI Narrative: Patient admits to some pain in his left forearm and upper arm that became worse today. Patient also admits to some pain in his left lower leg. Patient denies any falls or trauma. Patient describes the pain as sharp, aching, and burning. Patient states nothing makes it better and nothing makes it worse. Patient states she has had a prior stroke with left-sided hemiparesis. Patient denies any other weakness or paresthesias. Patient admits to some subjective fevers and chills. Patient also admits to some shortness of breath and cough. Patientdenies any nausea or vomiting. Patient denies any chest pain. Chief Complaint: Upper Extremity Injury Informant: patient Onset/Context/Timing Onset: Today Context: Sudden Onset Timing: Continuous Quality of Pain: Sharp, Aching and Burning Location: Left forearm, left arm, left lower leg Worsened by: Nothing Relieved by: Nothing Associated Symptoms Associated Symptoms: Negative for Parasthesia, Weakness or Loss of Funtion [facility] Medical History Anxiety disorder, unspecified Ataxia, unspecified Ataxic gait Benign prostatic hyperplasia with lower urinary tract symptoms Cerebral infarction, unspecified Chronic obstructive pulmonary disease, unspecified Cognitive communication deficit Encephalopathy, unspecified Epilepsy, unspecified, not intractable, without status epilepticus Essential (primary) hypertension Gastro-esophageal reflux disease without esophagitis Generalized anxiety disorder 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 side Hyperlipidemia, unspecified Hypothyroidism, unspecified Insomnia, unspecified Localization-related (focal) (partial) idiopathic epilepsy and epileptic syndromes with seizures of localized onset, not intractable, without status epilepticus Major depressive disorder, recurrent, mild Mixed hyperlipidemia Mixed simple and mucopurulent chronic bronchitis Muscle weakness (generalized) Occlusion and stenosis of unspecified carotid artery Other abnormalities of gait and mobility Other sequelae of cerebral infarction Other specified hypothyroidism Other toxic encephalopathy Pain in left leg Primary insomnia Stroke Syncope and collapse Thyroid disease Unspecified abnormalities of gait and mobility Unspecified sensorineural hearing loss Unspecified symptoms and signs involving cognitive functions and awareness Home Medications clopidogrel 75 mg tablet 75 mg PO DAILY BLOOD THINNER 09/30/17 [History Last Taken 09/26/17] aspirin 81 mg capsule 81 mg PO DAILY 06/26/21 [History Last Taken Unknown] atorvastatin 80 mg tablet 80 mg PO QHS 06/26/21 [History Last Taken Unknown] buspirone 10 mg tablet 20 mg PO TID 06/26/21 [History Last Taken Unknown] gabapentin 300 mg capsule 300 mg PO TID 06/26/21 [History Last Taken Unknown] levetiracetam 500 mg tablet 500 mg PO BID 06/26/21 [History Last Taken Unknown] metoprolol tartrate 50 mg tablet 50 mg PO BID 06/26/21 [History Last Taken Unknown] montelukast 10 mg tablet 10 mg PO QHS 06/26/21 [History Last Taken Unknown] sertraline 100 mg tablet 100 mg PO DAILY 06/26/21 [History Last Taken Unknown] acetaminophen 500 mg tablet 1,000 mg PO TID 08/15/22 [History Last Taken Unknown] ferrous sulfate 325 mg (65 mg iron) tablet (FeroSul) 325 mg PO DAILY 08/15/22 [History Last Taken Unknown] fluticasone propionate 50 mcg/actuation nasal spray,suspension 1 spray intranasal DAILY 08/15/22 [History Last Taken Unknown] levothyroxine 100 mcg tablet 100 mcg PO DAILY 08/15/22 [History Last Taken Unknown] melatonin 10 mg tablet 10 mg PO QHS 08/15/22 [History Last Taken Unknown] oxycodone-acetaminophen 5 mg-325 mg tablet 1 tab PO Q6H PRN PRN pain 5 days #20 TABLETS 08/15/22 [Rx Last Taken Unknown] loratadine 10 mg tablet 10 mg PO DAILY 08/30/22 [History Last Taken Unknown] lorazepam 0.5 mg tablet (Ativan) 0.5 mg PO TID PRN Anxiety 08/30/22 [History Last Taken Unknown] oxycodone-acetaminophen 5 mg-325 mg tablet (Percocet) 1 tab PO Q4H PRN pain 5 days #20 tabs 08/30/22 [Rx Last Taken Unknown] polyethylene glycol 3350 17 gram/dose oral powder (Miralax) 17 g PO DAILY 08/30/22 [History Last Taken Unknown] polyvinyl alcohol 1.4 % eye drops (Artificial Tears (polyvinyl alcohol)) drp 08/30/22 [History Last Taken Unknown] sennosides 8.6 mg-docusate sodium 50 mg tablet (Senna Plus) 1 tab-cap PO QHS 08/30/22 [History Last Taken Unknown] tamsulosin 0.4 mg capsule mg PO 08/30/22 [History Last Taken Unknown] tizanidine 4 mg tablet mg 08/30/22 [History Last Taken Unknown] Allergy/AdvReac Type Severity Reaction Status Date / Time No Known Allergies Allergy Verified 04/05/23 16:07 Surgical History Hx of appendectomy Social History household members: none housing: senior care Smoking Status: Current every day smoker tobacco type: cigarettes and e-cigarettes Electronic Cigarette Use: with nicotine alcohol intake: current alcohol intake frequency: 0-2 drinks per day Alcohol type: beer details: 2-3 hard ice teas a day substance use type: does not use ROS ROS ED Constitutional Constitutional ED: Reports chills, fever(s) and subjective Eyes Eyes: Denies blurry vision or change in vision ENT ENT ED: Denies rhinorrhea or sore throat Cardiovascular Cardiovascular: Denies chest pain or palpitations Respiratory/Chest Respiratory/Chest: Reports cough and dyspnea Gastrointestinal Gastrointestinal: Denies nausea or vomiting Genitourinary Genitourinary ED: Denies dysuria or hematuria Musculoskeletal Musculoskeletal: Denies back pain or neck pain Integumentary Denies abscess or rash Neurologic Neurologic: Reports headache(s); Denies weakness Allergic/Immunologic Allergic/Immunologic ED: Denies mouth swelling or urticaria EXAM Physical Exam Const Vital Signs: 04/05/23 16:03 Temperature 97.5 F L Temperature Source Temporal Pulse Rate 70 Respiratory Rate 21 H Blood Pressure 163/93 H Blood Pressure Mean 116 Pulse Ox 95 Oxygen Delivery Method Room Air Positive well nourished and well developed General Appearance ED: well developed and NAD HEENT Reports moist mucous membranes Neck full ROM and supple Resp normal respiratory effort Auscultation: rhonchi throughout Cardio regular rate and regular rhythm GI non-tender and non-distended Palpation: soft Extremity Extremity Narrative: There is tenderness over the left forearm. There is no deformity noted. Range of motion was limited in all motions of the left upper extremity secondary to contractures from prior stroke. There is no edema. There is some ecchymosis over the distal forearm on the ulnar aspect. There is also mild tenderness of the left lower leg. There is no deformity noted. Range of motion of the left lower extremity was limited in all motions secondary to prior contractures from his stroke. General Extremety ED: Negative for edema General Extremity: Negative for edema Neuro oriented x3, CN's II-XII intact bilaterally and no sensory deficits noted Neuro Narrative: Strength is 1/5 in the left upper and lower extremities secondary to prior stroke. There are no new focal motor or sensory deficits noted. Sensorium / Orientation: alert Psych mental status grossly normal MDM MDM MDM Narrative Medical decision making narrative: Differential diagnosis includes elbow fracture, contusion, upper arm fracture, and pneumonia. X-rays of the left elbow and left humerus will be obtained to assess for fracture and dislocation. Chest x-ray will be obtained to assess forpneumonia. Radiography Chest X-Ray - ED: 2 View, Read by ED Physician, Read by Radiologist and No AcuteDisease Diagnostic Testing: PA and lateral chest x-ray was obtained. There are 2 views. On my independent interpretation, lung arreola are clear. There is normal cardiac silhouette. Bony thorax is normal. There is no acute process noted. Radiologist also interpreted the x-ray and agrees. X-rays of the left elbow were obtained. There are 3 views. On my independent interpretation, there is no acute fracture. There is no dislocation. There is no joint effusion. There is no fat pad sign. Radiologist also interpreted the x-rays and agrees. X-rays of the left humerus were obtained. There are 2 views. On my independentinterpretation, there is no acute fracture or dislocation noted. There is no soft tissue swelling noted. Radiologist also interpreted the x-rays and agrees. Treatment and Re-Evaluation Narrative: Patient was advised of his findings. Patient was instructed use ice to the area. Patient was instructed to take Tylenol or ibuprofen as needed for pain. Patient was instructed to follow-up with his primary care physician in 5 to 7 days. Patient understood and was agreeable with the plan. All questions were answered. Discharge Plan Triage Chief Complaint: Upper Extremity Injury ED Provider: Sridhar Ortiz Dx/Rx/DC Orders Clinical Impression: Contusion of left arm, Contusion of left elbow Prescriptions: No Action metoprolol tartrate 50 mg tablet 50 mg PO BID sertraline 100 mg tablet 100 mg PO DAILY levetiracetam 500 mg tablet 500 mg PO BID aspirin 81 mg capsule 81 mg PO DAILY buspirone 10 mg tablet 20 mg PO TID gabapentin 300 mg capsule 300 mg PO TID montelukast 10 mg tablet 10 mg PO QHS atorvastatin 80 mg tablet 80 mg PO QHS clopidogrel 75 MG tablet 75 mg PO DAILY acetaminophen 500 mg Tablet 1,000 mg PO TID levothyroxine 100 mcg Tablet 100 mcg PO DAILY ferrous sulfate [FeroSul] 325 mg (65 mg iron) Tablet 325 mg PO DAILY fluticasone propionate [Flonase] 50 mcg/actuation [place],Suspension 1 spray INTRANASAL DAILY Rx Instructions: administer into each nostril melatonin 10 mg Tablet 10 mg PO QHS oxycodone-acetaminophen [oxycodone-acetaminophen] 5-325 mg tablet 1 tab PO Q6H PRN PRN (Reason: pain) 5 Days Qty: 20 0RF tizanidine 4 mg tablet polyvinyl alcohol [Artificial Tears (polyvin alc)] 1.4 % drops Patient Comments: 2 DROPS IN BOTH EYES FOURTTIMES A DAY NEEDED sennosides-docusate sodium [Senna Plus] 8.6-50 mg Tablet 1 tab-cap PO QHS lorazepam [Ativan] 0.5 mg Tablet 0.5 mg PO TID PRN (Reason: Anxiety) tamsulosin 0.4 mg capsule PO polyethylene glycol 3350 [Miralax] 17 gram/dose Powder 17 g PO DAILY loratadine 10 mg Tablet 10 mg PO DAILY oxycodone-acetaminophen [Percocet] 5-325 mg tablet 1 tab PO Q4H PRN (Reason: pain) 5 Days Qty: 20 0RF Primary Care Provider: Care Physician,No Primary Referrals: Care Physician,No Primary [Primary Care Provider] - Disposition Disposition: Home, Self Care What to do if you have Problems For any increased pain, shortness of breath, bleeding, nausea or vomiting, chestpain, or any unexpected problems, contact your Primary Care Provider. Call [facility] ([phone]) or report to the closest Emergency Room. Call 911 if necessary. 04/05/23 6560 <Electronically signed by Sridhar Ortiz DO> Cosigner Signature (if applicable): CC: No Primary Care Physician ~ Signed [facility] Work Phone: Discharge summary 05-14-2022 Note Date & Type Note Facility 05-14-2022 Discharge summary Note Date/Time May 14, 2022 3:27pm [facility] Medical Records Department [address] [place] [address] Emergency Department Summary 05/14/22 MR#: [id number] Acct: [id number] Name: STEVE GARZA III Rep #:[id number] : 1960 62 From: Bill Lundberg MD PCP: Care Physician,No Primary Status :REG ER Location: ED HPI History of Present Illness Chief Complaint: Weakness Detail of Chief Complaint: "I had a spell " Informant: patient and other Onset/Context/Timing Onset: Hours Context: Sudden Onset Timing: Intermittent Quality: Dates he is not sure why he is here. Nurse took report and states he was i Location: Physical therapy Current Severity: Gone Maximum Severity: Unable to determine since patient does not know why he is here Worsened by: Unknown Relieved by: Nothing Associated Symptoms Associated Symptoms: None Narrative Narrative: Patient is a 62-year-old male with history of 3 prior strokes most recent 1 yearago. He also has history of seizures, hypothyroidism and hypertension. Based on records reviewed he has history of H and is on an antithrombotic agent, Plavix. He denies headache. He denies double vision, blurred vision loss of vision. Nuys ringing's ears or decreased hearing. He denies blood from his nose. He denies trouble with speech or swallowing. He denies chest pain, shortness of breath or cough. He denies abdominal pain, vomiting or diarrhea. He denies dysuria, frequency, urgency or hematuria. He has residual weakness left upper extremity. No seizure activity was noted. He was not incontinent of urine or stool. He did not bite his tongue. He denies headache. He does have history of depression on sertraline. Prior similar symptoms: Yes Recent Illness/Hospitalization: No PFSH PFSH Medical History Anxiety disorder, unspecified Ataxia, unspecified Ataxic gait Benign prostatic hyperplasia with lower urinary tract symptoms Cerebral infarction, unspecified Chronic obstructive pulmonary disease, unspecified Cognitive communication deficit Encephalopathy, unspecified Epilepsy, unspecified, not intractable, without status epilepticus Essential (primary) hypertension Gastro-esophageal reflux disease without esophagitis Generalized anxiety disorder 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 side Hyperlipidemia, unspecified Hypothyroidism, unspecified Insomnia, unspecified Localization-related (focal) (partial) idiopathic epilepsy and epileptic syndromes with seizures of localized onset, not intractable, without status epilepticus Major depressive disorder, recurrent, mild Mixed hyperlipidemia Mixed simple and mucopurulent chronic bronchitis Muscle weakness (generalized) Occlusion and stenosis of unspecified carotid artery Other abnormalities of gait and mobility Other sequelae of cerebral infarction Other specified hypothyroidism Other toxic encephalopathy Pain in left leg Primary insomnia Stroke Syncope and collapse Thyroid disease Unspecified abnormalities of gait and mobility Unspecified sensorineural hearing loss Unspecified symptoms and signs involving cognitive functions and awareness Home Medications clopidogrel 75 mg tablet 75 mg PO DAILY BLOOD THINNER 09/30/17 [History Last Taken 09/26/17] aspirin 81 mg capsule 81 mg PO DAILY 06/26/21 [History Last Taken Unknown] atorvastatin 80 mg tablet 80 mg PO QHS 06/26/21 [History Last Taken Unknown] buspirone 10 mg tablet 20 mg PO TID 06/26/21 [History Last Taken Unknown] gabapentin 300 mg capsule 300 mg PO TID 06/26/21 [History Last Taken Unknown] levetiracetam 500 mg tablet 500 mg PO BID 06/26/21 [History Last Taken Unknown] levothyroxine 50 mcg tablet 75 mcg PO DAILY 06/26/21 [History Last Taken Unknown] lisinopril 20 mg tablet (Zestril) 5 mg PO DAILY BP 06/26/21 [History Last Taken Unknown] melatonin 5 mg capsule mg PO 06/26/21 [History Last Taken Unknown] metoprolol tartrate 50 mg tablet 50 mg PO BID 06/26/21 [History Last Taken Unknown] montelukast 10 mg tablet 10 mg PO QHS 06/26/21 [History Last Taken Unknown] sertraline 100 mg tablet 100 mg PO DAILY 06/26/21 [History Last Taken Unknown] sodium chloride 0.65 % nasal spray aerosol (Deep Sea Nasal) 2 spray intranasal HS 06/26/21 [History Last Taken Unknown] tamsulosin 0.4 mg capsule 0.4 mg PO DAILY 06/26/21 [History Last Taken Unknown] Allergy/AdvReac Type Severity Reaction Status Date / Time No Known Allergies Allergy Verified 05/14/22 15:16 Surgical History Hx of appendectomy Social History (Updated 05/14/22 @ 15:[address] Bill Lundberg MD) household members: none housing: senior care Smoking Status: Unknown if ever smoked Electronic Cigarette Use: with nicotine alcohol intake: current alcohol intake frequency: 0-2 drinks per day Alcohol type: beer details: 2-3 hard ice teas a day substance use type: does not use ROS ROS ED Constitutional Constitutional ED: Denies chills, fever(s), subjective, sweats or weight loss Eyes Eyes: Denies blurry vision, change in vision or diplopia ENT ENT ED: Denies ear pain, rhinorrhea or sore throat Cardiovascular Cardiovascular: Denies chest pain, orthopnea, palpitations, paroxysmal nocturnaldyspnea or racing heartbeat Respiratory/Chest Respiratory/Chest: Denies cough, dyspnea, dyspnea on exertion, orthopnea or paroxysmal nocturnal dyspnea Gastrointestinal Gastrointestinal: Denies abdominal pain, diarrhea, melena, nausea or vomiting Genitourinary Genitourinary ED: Denies dysuria, hematuria or urinary frequency Musculoskeletal Musculoskeletal: Denies arthralgias, back pain, myalgias or neck pain Neurologic Neurologic: Reports other Details: Weakness left upper extremity due to prior strokes ; Denies headache(s), paresthesias or weakness Psychiatric Psychiatric: Denies anxiety or depression Endocrine Endocrinology: Denies cold intolerance or heat intolerance Hematologic/Lymphatic Hematologic/Lymphatic: Reports systems reviewed and no addt'l complaints, exceptas documented EXAM Physical Exam Const Vital Signs: 05/14/22 15:14 05/14/22 15:17 Temperature 96.9 F L Temperature Source Temporal Pulse Rate 66 Respiratory Rate 18 Respiratory Effort Normal Respiratory Pattern Normal Blood Pressure 121/85 H Blood Pressure Mean 97 Pulse Ox 98 Oxygen Delivery Method Room Air Positive well nourished and well developed General Appearance ED: well developed and NAD; Negative for cyanotic, diaphoretic or pallor HEENT Reports moist mucous membranes HEENT Narrative: Head is atraumatic normocephalic. Ears normal. Nares patent. No sinus tenderness. Posterior pharynx out erythema or exudate. Eyes PERRL and EOMs intact bilaterally General Eye ED: Negative for pale conjunctiva or scleral icterus Neck no lymphadenopathy, supple and no JVD Neck Narrative: Neck is supple. Trachea is midline. There are no carotid bruits noted. Chest Wall inspection of chest normal and palpation of chest normal Resp normal respiratory effort and clear to auscultation bilaterally Cardio regular rate, regular rhythm, S1 normal heart sound, S2 normal heart sound and no murmurs GI normal to inspection, nondistended, normoactive bowel sounds, non-tender, non-distended and no masses; Negative for hepatosplenomegaly Palpation: soft Back/Spine no CVA tenderness Cervical Spine: Negative for cervical spine tenderness Thoracic Spine / Upper Back: Negative for thoracic spinal tenderness Lumbar Spine / Lower Back: Negative for lumbar spinal tenderness Extremity Extremity Narrative: Patient has contracture atrophy of the left upper extremity due to prior stroke. He has altered sensation. Neuro oriented x3, CN's II-XII intact bilaterally and No no sensory deficits noted Sensorium / Orientation: alert Motor Exam: Negative for strength 5/5 throughout Psych mental status grossly normal Skin no rashes or lesions noted, no wounds and No skin turgor normal General Skin Exam: Negative for jaundice or pallor MDM MDM MDM Narrative Medical decision making narrative: Patient with near syncopal episode. This may represent vagal versus nonvagal cause. Patient was placed on a monitor to assess for dysrhythmia. EKG was obtained to determine if there is any ischemic changes or changes to suggest a preexcitation syndrome. CBC to rule out anemia. Basic metabolic panel to assess for hyponatremia, hyper natremia or hypokalemia. Prior records were reviewed and patient has had multiple strokes. CBC and basic metabolic panel from September 2021 were unremarkable. Note authored by Dr. Joseph Nowak was reviewed. Patient had CT of the head neck that revealed greater than 70% stenosis of the origin left internal carotid. There was occlusion of the right internal carotid artery at its origin. Lab Data Attestation: I reviewed the patient's lab results. Lab results narrative: CBC is unremarkable. Basic metabolic panel is unremarkable. Labs: Laboratory Results - last 24 hr 05/14/22 05/14/22 15:27 15:27 WBC 4.7 RBC 4.48 L Hgb 14.3 Hct 43.8 MCV 97.8 H MCH 31.9 MCHC 32.6 RDW Std Deviation 43.5 RDW Coeff of Rosa M 12.0 Plt Count 223 MPV 8.8 Immature Gran % (Auto) 0.200 Neut % (Auto) 56.8 Lymph % (Auto) 26.1 Costilla % (Auto) 11.9 H Eos % (Auto) 4.4 Baso % (Auto) 0.6 Absolute Neuts (auto) 2.7 Absolute Lymphs (auto) 1.23 Nucleated RBC % 0 Sodium 141 Potassium 3.8 Chloride 109 H Carbon Dioxide 27.0 Anion Gap 5 BUN 16 Creatinine 0.71 Estim Creat Clear Calc 102.97 Est GFR (MDRD) Af Amer 146 Est GFR (MDRD) Non-Af 120 BUN/Creatinine Ratio 22.5 H Glucose 99 Calcium 8.8 Rhythm Strip Rhythm Strip: Sinus Rhythm Rate: 68 Ectopy: None EKG Initial EKG: Attestation: I personally reviewed and interpreted this EKG as follows: Interpretation: Sinus Bradycardia (Rate is 59. There is a first-degree AVblock. RI interval is 224 ms. Cures duration 90 ms. QT duration 418 ms. Axisis normal. There is no acute ischemic changes noted.) Treatment and Re-Evaluation Narrative: Patient has mild sinus bradycardia on EKG with no ischemic changes, unremarkableblood work and no ectopy noted on his monitor during his ER stay. He will be discharged home since this is a known recurrent problem. Discharge Plan Triage Chief Complaint: Weakness ED Provider: Bill Lundberg Dx/Rx/DC Orders Clinical Impression: Near syncope, Thyroid disease, History of stroke with residual effects, Historyof seizure disorder Instructions: ED Near-Fainting, Uncertain Cause Prescriptions: No Action metoprolol tartrate 50 mg tablet 50 mg PO BID sertraline 100 mg tablet 100 mg PO DAILY levetiracetam 500 mg tablet 500 mg PO BID aspirin 81 mg capsule 81 mg PO DAILY buspirone 10 mg tablet 20 mg PO TID gabapentin 300 mg capsule 300 mg PO TID Deep Sea Nasal 0.65 % aerosol,spray 2 spray intranasal HS tamsulosin 0.4 mg capsule 0.4 mg PO DAILY montelukast 10 mg tablet 10 mg PO QHS melatonin 5 mg capsule PO atorvastatin 80 mg tablet 80 mg PO QHS clopidogrel 75 MG tablet 75 mg PO DAILY levothyroxine 50 mcg tablet 75 mcg PO DAILY lisinopril [Zestril] 20 mg tablet 5 mg PO DAILY Primary Care Provider: Care Physician,No Primary Referrals: Care Physician,No Primary [Primary Care Provider] - Doctor,Your [Non-Staff] - As Needed Disposition Disposition: Home, Self Care What to do if you have Problems For any increased pain, shortness of breath, bleeding, nausea or vomiting, chestpain, or any unexpected problems, contact your Primary Care Provider. Call [facility] ([phone]) or report to the closest Emergency Room. Call 911 if necessary. 05/14/22 1601 <Electronically signed by Bill Lundberg MD> Cosigner Signature (if applicable): CC: No Primary Care Physician ~ Signed [facility] Work Phone: Discharge summary note 07-29-2020 Note Date & Type Note Facility 07-29-2020 [place] [address] HEALTH INFORMATION MANAGEMENT DISCHARGE SUMMARY : [id number] Signed with Olivia Patient: STEVE GARZA Acct:[id number] [facility] N: [id number] : 1960 Sex: M Loc: 4TH FLOOR ADM Date: 07/28/20 Room/Bed: 437-A DISC Date: ____ ADDENDUM Patient reports that his friend would no longer take him back and he has no home to go home to. He was inquiring about being a long-term resident. Arranged for patient to be discharged to [facility], patient was accepted. Addendum: Signed Date/Time: 07/29/20 1502 Co-Signed: Co-signed Date/Time - Hospital Course Events Since Admission: STEVE GARZA was admitted to OBSERVATION service into room 437 on 07/28/20 at 18:16 from Emergency Dept for complaints of HYPONATREMIA. Laboratory and diagnostic testing has been reviewed. The patient was seen, evaluated and found to be appropriate for discharge. Reason For Visit: HYPONATREMIA Hospital Course: Patient is a 60/M who presented to [facility] ED after being told that he had abnormal lab work. Patient reports being recently being [facility] for stroke, per ED note recent stroke with right ICA stenosis with collaterals (not confirmed with records. records requested from [facility] still pending). He was just recently discharged to [facility] for rehab and has been home with a friend for 10 days. He reports memory and confusion has been ongoing for a while but worse since being in rehab. 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 He also follows with Neurologsit Dr Neelam Harrison at [facility] for seizure disorder. He reports he is on oxcarbazepine for about 6 years now. Pt is also on sertraline. He reports he quit drinking alcohols since last September 25. In the ED, blood pressure 173/89, HR 56, RR 18, O2 sat 100, temperature 97.1. Chest x-ray obtained which did not show any acute pulmonary process. EKG showed sinus rhythm, first-degree AV block. Na 126 Cl 93. tsh normal. Ethanol level neg. Pt appeared mildly hypovolemic. Patient given 1L fluid bolus. He was admitted. Na rechecked it was 129, and the next day it resolved to 136. Urine studies, serum osm, cortisol level were done but they were send out and pending at the time of discharge. On the day of discharge, I saw patient [id number]. He reports chronic memory loss but is not worse than usual. Pt discharged at his baseline, in a stable condition. Discharge time >30min Hospital Treatment: 07/29/20 07:00 07/29/20 07:00 Laboratory Results - last 24 hr 07/29/20 07:00: WBC 5.7, RBC 3.75 L, Hgb 10.2 L, Hct 31.6 L, MCV 84.3, MCH 27.2, MCHC 32.3 L, RDW 14.7 H, Plt Count 397, MPV 8.0, Neut % (Auto) 56.3, Lymph % (Auto) 30.5, [place] % (Auto) 8.1, Eos % (Auto) 4.4 H, Baso % (Auto) 0.5, Abs Immat Gran (man) 0.01, Absolute Neuts (auto) 3.20, Absolute Lymphs (auto) 1.70, Absolute Monos (auto) 0.50, Absolute Eos (auto) 0.30 H, Absolute Basos (auto) 0.03, Immature Gran % 0.20 07/29/20 07:00: Sodium 136, Potassium 4.8, Chloride 100, Total Carbon Dioxide 27, Anion Gap 13.8, BUN 7.6, Creatinine 0.69, Est GFR (MDRD) Af Amer > 60, Est GFR (MDRD) Non-Af > 60, BUN/Creatinine Ratio 11, Glucose 81, Calcium 8.4, Phosphorus 3.3, Magnesium 1.7 07/28/20 22:06: Sodium 129 L, Potassium 4.0, Chloride 97, Total Carbon Dioxide 28, Anion Gap 8.0, BUN 7.9, Creatinine 0.78, Est GFR (MDRD) Af Amer > 60, Est GFR (MDRD) Non-Af > 60, BUN/Creatinine Ratio 10, Glucose 139 H, Calcium 7.8 L 07/28/20 16:03: TSH 3rd Generation 2.859 07/28/20 16:03: Ethyl Alcohol < 3.0 07/28/20 16:03: PT 10.2, INR 1.01 07/28/20 16:03: Magnesium 1.8, Lipase 162 07/28/20 16:03: WBC 5.8, RBC 3.91 L, Hgb 10.6 L, Hct 32.8 L, MCV 83.9, MCH 27.1, MCHC 32.3 L, RDW 14.5, Plt Count 384, MPV 7.6, Neut % (Auto) 65.2 H, Lymph % (Auto) 22.5, [place] % (Auto) 8.9, Eos % (Auto) 2.9, Baso % (Auto) 0.3, Abs Immat Gran (man) 0.01, Absolute Neuts (auto) 3.80, Absolute Lymphs (auto) 1.30, Absolute Monos (auto) 0.50, Absolute Eos (auto) 0.20, Absolute Basos (auto) 0.02, Immature Gran % 0.20 07/28/20 16:03: Sodium 126 L, Potassium 4.9, Chloride 93 L, Total Carbon Dioxide 28, Anion Gap 9.9, BUN 9.0, Creatinine 1.07, Est GFR (MDRD) Af Amer > 60, Est GFR (MDRD) Non-Af > 60, BUN/Creatinine Ratio 8, Glucose 91, Calcium 8.4, Total Bilirubin 0.28, AST 9, ALT 23, Alkaline Phosphatase 106, Total Protein 6.9, Albumin 3.5, Globulin 3.4, Albumin/Globulin Ratio 1.0 L Intake Output 07/26/20 07/27/20 07/28/20 07/29/20 23:59 23:59 23:59 23:59 Intake Total 1000 1300 Output Total 300 1750 Balance 700 -450 Weight 140 lb 9.6 oz See radiology reports in electronic medical record. - Discharge Information Di (more content not included)... [facility] History and physical note 07-29-2020 Note Date & Type Note Facility 07-29-2020 [place] [address] HEALTH INFORMATION MANAGEMENT HISTORY AND PHYSICAL : [id number] Signed Patient: STEVE GARZA Acct:[id number] [facility] N: [id number] : 1960 Sex: M Loc: 4TH FLOOR ADM Date: 07/28/20 Room/Bed: 437-A DISC Date: History of Present Illness Date Of Admission: 07/28/20 History of Present Illness: Visit History STEVE GARZA is a 60 year old M patient of [facility]. Patient was admitted from to room 437, bed A on 07/28/20 18:16. Pt was evaluated for complaints of , then admitted to [facility] for HYPONATREMIA. STEVE was admitted as a ADM to [facility] for further evaluation and treatment. Pt was seen and evaluated on 07/28/201940, by this provider, EDEN PIERCE MD. Patient is a 60/M who presented to [facility] ED after being told that he had abnormal lab work. Patient reports being recently being admitted [facility] for stroke, per ED note recent stroke with right ICA stenosis with collaterals (not confirmed with records. records requested from [facility] still pending). He was just recently discharged to [facility] for rehab and has been home with a friend for 10 days. He reports memory and confusion has been ongoing for a while but worse since being in rehab. 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 He also follows with Neurologsit Dr Neelam Harrison at [facility] for seizure disorder. He reports he is on oxcarbazepine for about 6 years now. Pt is also on sertraline. He reports he quit drinking alcohols since last September 25. In the ED, blood pressure 173/89, HR 56, RR 18, O2 sat 100, temperature 97.1. Chest x-ray obtained which did not show any acute pulmonary process. EKG showed sinus rhythm, first-degree AV block. Na 126 Cl 93. tsh normal. Ethanol level neg. Pt appeared mildly hypovolemic. Patient given 1L fluid bolus. He was admitted. Allergies/Adverse Reactions: No Known Allergies Allergy (Verified 08/29/18 15:30) Home Medications: Patient History Levothyroxine Sodium 50 mcg PO QAM 09/06/15 [History Confirmed 07/28/20] Lisinopril 40 mg PO DAILY 09/06/15 [History Confirmed 07/28/20] Atorvastatin Calcium 80 mg PO QHS 07/08/18 [History Confirmed 07/28/20] Clopidogrel Bisulfate [Plavix 75 mg Tablet] 75 mg PO DAILY 07/08/18 [History Confirmed 07/28/20] Oxcarbazepine [Oxtellar Xr] 600 mg PO BID 07/08/18 [History Confirmed 07/28/20] Pantoprazole Sodium [Protonix 40 mg Tablet] 40 mg PO DAILY 07/08/18 [History Confirmed 07/28/20] Aspirin [Aspirin 81 mg Chew Tablet] 81 mg PO DAILY 03/30/20 [History Confirmed 07/28/20] Metoprolol Tartrate [Lopressor] 50 mg PO BID 03/30/20 [History Confirmed 07/28/20] Melatonin [Melatin] 6 mg PO QHS 07/28/20 [History Confirmed 07/28/20] Sertraline HCl [Zoloft 50 mg Tablet] 50 mg PO DAILY 07/28/20 [History Confirmed 07/28/20] Tamsulosin HCl [Flomax 0.4 mg Capsule] 0.4 mg PO QHS 07/28/20 [History Confirmed 07/28/20] Past Social History Able to Read: Yes Able to Write: Yes Alcohol Use: Never - [place]/Gender ID What is your current Gender Identity? Choose all that Apply: Male Define your Sexual Orientation?: Straight/Heterosexual - [place]-Suicide Severity Rating Scale 1) Wish to be :: No 2) Suicidal Thoughts:: No 6) Suicidal Behavior Question (A): LIFETIME: Yes 6) Suicidal Behavior Question (B): PAST 3 MONTHS: No Past Medical History Hx Ear/Nose/Throat Disorders: Yes PMH--Ear/Nose/Throat: Confirms: Ear Infections, Hearing Loss Past Surgical Hx-ENT: Confirms: None Hx Neurological Disorder: Yes PMH-Neurological: Confirms: CVA, Seizure PMH Other-Neuro:: "I think I might have epilepsy." LAST SEIZURE 10 DAYS AGO- TREMORS Hx Psychosocial Problems: Yes PMH--Psychological Treatments: Confirms: Alcohol Abuse, Alcohol Detox, Anxiety, Depression, Substance Abuse/Use Hx Cardiac Disorders: Yes PMH--Cardiovascular: Confirms: HTN, Hypercholesterolemia Past Surgical Hx-Cardiac: Confirms: None Hx Respiratory Disorders: Yes (Reviewed all past medical and surgical history) PMH--Respiratory: Confirms: Pneumonia Past Surgical Hx- Respiratory: Confirms: None Hx Endocrine Disorders: Yes PMH--Endocrine History: Confirms: Hypothyroidism Hx Musculoskeletal Disorders: No Hx Reproductive Disorders: No Hx Genitourinary Disorders: No Hx Gastrointestinal Disorders: Yes PMH--Gastrointestinal: Confirms: GERD Past Surgical Hx--GI: Confirms: None Hx Cancer: No Other PMH: Confirms: None PMH-Other Treatments: Confirms: None Family Medical History - Family Medical History Mother Living Status: Age of : 65 Cause of : DEMENTIA, CANCER Father Living Status: Cau (more content not included)... [facility] Evaluation note Note Date & Type Note Facility Evaluation note Diagnosis Essential hypertension Unspecified essential hypertension Gastroesophageal reflux disease without esophagitis Esophageal reflux Other sequelae of cerebral infarction Acquired hypothyroidism Unspecified hypothyroidism documented in this encounter [facility] Evaluation note Note Date & Type Note Facility Evaluation note Diagnosis Onset Date Dementia acute Epilepsy acute History of stroke with residual effects acute [facility] Work Phone: Evaluation note Note Date & Type Note Facility Evaluation note No assessment information availa ble [facility] Work Phone: Hospital Discharge instructions Note Date & Type Note Facility Hospital Discharge instructions Additional Instructions Keep sling on. Must Follow-up with the orthopedic doctor, Dr. Gtz. Percocet for pain. [facility] Work Phone: Hospital Discharge instructions Note Date & Type Note Facility Hospital Discharge instructions Additional Instructions He did contact your practitioner for evaluation of elevated blood sugar. The cause of your symptoms is unknown. 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 Advance Directives and Living Will Advance Directives and Living Will 05/15/2018 6:46 PM 05/15/18 - No AD Power of [employer] Latest Code Status on File Code Status Date Activated Date Inactivated Comments Full Code 06/12/2018 7:34 AM Full Code 06/12/2018 7:30 AM 06/12/2018 7:34 AM Full Code 05/15/2018 4:39 PM 06/12/2018 7:30 AM Full Code 05/15/2018 1:30 PM 05/15/2018 4:39 PM Full Code 05/15/2018 1:30 PM 05/15/2018 1:30 PM Documents on File Type Date Recorded 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 Advance Directives and Living Will Advance Directives and Living Will 05/15/2018 6:46 PM 05/15/18 - No AD Power of [employer] Latest Code Status on File Code Status Date Activated Date Inactivated Comments Full Code 06/12/2018 7:34 AM Full Code 06/12/2018 7:30 AM 06/12/2018 7:34 AM Full Code 05/15/2018 4:39 PM 06/12/2018 7:30 AM Full Code 05/15/2018 1:30 PM 05/15/2018 4:39 PM Full Code 05/15/2018 1:30 PM 05/15/2018 1:30 PM Documents on File Type Date Recorded 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 Advance Directives and Living Will Power of [employer] Advance Directives and Living Will 05/15/2018 6:46 PM 05/15/18 - No AD Advance Directive Response Recorded Date/ Time Living Will No September 30, 2017 1 :59pm Power of [employer] No September 30, 2017 1:59pm Advance Directive Response Recorded Date/ Time Living Will No September 23, 2021 1 2:53pm Power of [employer] No September 23, 2021 12:53pm Advance Directive Response Recorded Date/ Time Living Will No September 23, 2021 1 1:53am Power of [employer] No September 23, 2021 11:53am Advance Directive Response Recorded Date/ Time Living Will No May 14 023 3:17pm Power of [employer] No May 14, 2022 3:17pm Advance Directive Response Recorded Date/ Time Living Will No August 30, 2022 7 :36pm Power of [employer] No August 30, 2022 7:36pm Advance Directive Response Recorded Date/ Time Living Will No April 05 4:08pm Power of [employer] No April 05, 2023 4:08pm Advance Directive Response Recorded Date/ Time Living Will No July 27, 2023 1: 37pm Power of [employer] No July 27, 2023 1:37pm Assessments Diagnosis Acquired hypothyroidism Unspecified hypothyroidism Diagnosis Obstructive sleep apnea (adult) (pediatric) Reason for Referral Status Reason Specialty Diagnoses / Procedures Referred By Contact Referred To Contact Closed Sleep Medicine Diagnoses Obstructive sleep apnea (adult) (pediatric) Procedures Polysomnography 4 or more parameters with CPAP Greg Riggs MD [id number] [id number] [facility] [address] [facility] [address] [place] [address] Chief Complaint and Reason for Visit Chief Complaint STROKE/EPILEPSY HX MULTIPLE CVA'S Reason for Visit Dementia Epilepsy History of stroke with residual effects Chief Complaint STROKE/EPILEPSY HX MULTIPLE CVA'S TIA Reason for Visit Dementia Epilepsy History of stroke with residual effects Chief Complaint STROKE/EPILEPSY HX MULTIPLE CVA'S TIA fall Reason for Visit Dementia Epilepsy History of stroke with residual effects Chief Complaint PRIOR CVA, RT ICA OC CLUSION ON U/S Chief Complaint PRIOR CVA, RT ICA OC CLUSION ON U/S generalized weakness Chief Complaint generalized weakness fall SHoulder pain Chief Complaint weakness Additional Source Comments (unrecognized sect ion and content) No Status Records FoundNo Status Records FoundNo Status Records FoundNo Status Records FoundNo Status Records FoundNo Status Records FoundNo Status Records Found INFORMATION SOURCE (unrecogn ized section and content) DATE CREATED AUTHOR 09/18/2017 [facility] DATE CREATED AUTHOR AUTHOR'S ORGANIZ ATION 03/09/2018 [facility] ([place]) DATE CREATED AUTHOR AUTHOR'S ORGANIZ ATION 08/04/2020 [facility] DATE CREATED AUTHOR AUTHOR'S ORGANIZ ATION 03/07/2021 [facility] DATE CREATED AUTHOR AUTHOR'S ORGANIZ ATION 04/15/2021 [facility] DATE CREATED AUTHOR AUTHOR'S ORGANIZ ATION 04/24/2021 [facility] DATE CREATED AUTHOR AUTHOR'S ORGANIZ ATION 05/17/2021 [facility] DATE CREATED AUTHOR AUTHOR'S ORGANIZ ATION 08/03/2023 [facility] Reason for Visit (unrecogniz ed section and content) Status Reason Specialty Diagnoses / Procedures Referred By Contact Referred To Contact Closed Sleep Medicine Diagnoses Obstructive sleep apnea (adult) (pediatric) Procedures Polysomnography 4 or more parameters with CPAP Greg Riggs MD [address] [place] [address] [facility] [address] [facility] [address] [place] [address] Goals (unrecognized section and content) Goals may be documented in a n alternate sectionGoals may be documented in an alternate sectionGoals may be documented in an alternate sectionGoals may be documented in an alternate sectionGoals may be documented in an alternate sectionGoals may be documented in an alternate sectionGoals may be documented in an alternate sectionGoals may be documented in an alternate section Care Teams (unrecognized sec tion and content) Team Status: Active Member Role Status Dates REUBEN GOLDSTEIN Family Provider Active No Primary Care Physician Primary Care Provider Active Team Status: Inactive Member Role Status Dates No Primary Care Physician Primary Care Provider Active Dr. Fernandez Randall MD Attending Provider Active Team Status: Inactive Member Role Status Dates No Primary Care Physician Primary Care Provider Active Dr. Bill Lundberg MD Emergency Provider Active Team Status: Inactive Member Role Status Dates No Primary Care Physician Primary Care Provider Active Dr. Bill Lundberg MD Attending Provider, Emergency Provi krys Active Team Status: Inactive Member Role Status Dates No Primary Care Physician Primary Care Provider Active Dr. Sridhar Ortiz DO Attending Provider, Emergency P rovider Active Team Status: Inactive Member Role Status Dates No Primary Care Physician Primary Care Provider Active Dr. Dylan Cat MD Emergency Provider Active Team Status: Inactive Member Role Status Dates No Primary Care Physician Primary Care Provider Active Dr. Sridhar Ortiz DO Emergency Provider Active Team Status: Active Member Role Status Dates REUBEN GOLDSTEIN Family Provider Active Tangela Vega ENVIRONMENTAL COMPLIANCE ENGINEER, ENVIRONMENTAL COMPLIANCE ENGINEER-C Primary Care Provider Act satinder Team Status: Inactive Member Role Status Dates Dr. Bill Lundberg MD Emergency Provider Active Tangela Vega ENVIRONMENTAL COMPLIANCE ENGINEER, ENVIRONMENTAL COMPLIANCE ENGINEER-C Primary Care Provider Act satinder FOR RECORDS PERTAINING TO PATIENTS WHO ARE OR HAVE BEEN ENROLLED IN A CHEMICAL DEPENDENCY/SUBSTANCEABUSE PROGRAM, SOME INFORMATION MAY BE OMITTED. This clinical summary was aggregated from multiple sources. Caution should be exercised in using it in the provision of clinical care. This summary normalizes information from multiple sources, and as a consequence, information in this document may materially change the coding, format and clinical context of patient data. In addition, data may be omitted in some cases. CLINICAL DECISIONS SHOULD BE BASED ON THE PRIMARY CLINICAL RECORDS. [email or web address] provides no warranty or guarantee of the accuracy or completeness of information in this document.
== END 2025-02-03 18:53 | disposition home or self-care (01) ==
LOC: ED 18:43
PROVIDERS: Emergency Provider Emergency Medicine; PCP Nurse Practitioner Adult Health; Visit Provider Emergency Medicine
DX: S50.02XA Contusion of left elbow, initial encounter (principal); J44.9 Chronic obstructive pulmonary disease, unspecified; F17.210 Nicotine dependence, cigarettes, uncomplicated; E78.2 Mixed hyperlipidemia; I10 Essential (primary) hypertension; W19.XXXA Unspecified fall, initial encounter; Y92.099 Unspecified place in other non-institutional residence as the place of occurrence of the external cause; I69.398 Other sequelae of cerebral infarction; Z79.02 Long term (current) use of antithrombotics/antiplatelets; Z79.899 Other long term (current) drug therapy; Z79.82 Long term (current) use of aspirin; Z79.51 Long term (current) use of inhaled steroids; E03.9 Hypothyroidism, unspecified; Z79.890 Hormone replacement therapy; F41.9 Anxiety disorder, unspecified; F17.290 Nicotine dependence, other tobacco product, uncomplicated
CPT/HCPCS: 73080; 99283